=== PATIENT | female | born 1980 | race Caucasian/White ===

== ENCOUNTER 2024-04-14 07:22 | Outpatient (REF) | payer OTHER, SELFPAY ==
[2024-04-14 07:37] LABS: MANUAL DIFF FLAG NO
[2024-04-14 08:19] LABS: Basophils Percent Auto 0.8 % (0-2); Eosinophils Absolute Auto 0.1 X10*3/uL (0.0-0.4); Eosinophils Percent Auto 2.9 % (0-4); Hematocrit 41.1 % (37.0-47.0); Hemoglobin 13.7 g/dl (12.0-16.0); Lymphocytes Absolute Auto 1.1 X10*3/uL (1.2-4.9); Lymphocytes Percent Auto 30.2 % (20-40); Mean Corpuscular HGB Conc 33.3 g/dl (31.0-35.0); Mean Corpuscular Hemoglobin 29.6 pg (27.0-33.0); Mean Corpuscular Volume 88.8 fL (80.0-98.0); Mean Platelet Volume 9.6 fL (9.4-12.3); Monocytes Absolute Auto 0.4 X10*3/uL (0.1-1.2); Monocytes Percent Auto 10.6 % (2-11); Neutrophils Absolute Auto 2.1 x10*3/uL (2.0-8.3); Neutrophils Percent Auto 55.5 % (45-73); Platelet Count 218 X10*3/uL (160-400); Red Blood Count 4.63 X10*6/uL (4.20-5.50); Red Cell Distribution Width 13.3 % (11.0-16.0); White Blood Count 3.8 X10*3/uL (4.8-10.8)
[2024-04-14 09:03] LABS: Alanine Aminotransferase 14 U/L (0-31); Albumin Level 4.3 g/dL (3.5-5.0); Alkaline Phosphatase 53 U/L (39-117); Anion Gap 12 (12-20); Aspartate Amino Transferase 20 U/L (5-31); Bilirubin Total 0.6 mg/dL (0.0-1.0); Blood Urea Nitrogen 16 mg/dL (9-16); Calcium 9.3 mg/dL (8.4-10.2); Carbon Dioxide 26 mmol/L (22-29); Chloride 106 mmol/L (96-108); Estimated Glomerular Filt Rate > 60; Glucose Fasting 101 mg/dL (60-99); Potassium 4.5 mmol/L (3.3-5.1); Sodium 139 mmol/L (135-145)
[2024-04-14 09:22] LABS: TSH reflex Free T4 1.33 uIU/mL (0.32-4.0)
[2024-04-14 09:30] LABS: Folate 6.6 ng/mL (> or = 4.0); Vitamin B12 571 pg/mL (200-900)
[2024-04-15 11:13] LABS: Thyroglobulin Antibodies <1 IU/mL (< or = 1); Thyroid Peroxidase Antibodies <1 IU/mL (<9)
== END 2024-04-14 07:23 | disposition home or self-care (01) ==
LOC: HO.LAB 07:22
PROVIDERS: PCP Physician Assistant; Visit Provider Physician Assistant
DX: R63.5 Abnormal weight gain (principal)
CPT/HCPCS: 36415; 80053; 82607; 82746; 84443; 85025; 86376; 86800

== ENCOUNTER 2024-07-06 11:29 | Outpatient (AMB) | payer OTHER, SELFPAY ==
--- NOTE | 2024-07-06 11:32 | MHC.PC.OV ---
Vital Signs 07/06/24 11:40 Height 5 ft 5.35 in Weight 154 lb 4 oz BMI 25.4 BP 98/72 Blood Pressure Location Lt brachial Position Sitting Respiration 12 Pulse 91 Pulse Source Pulse Oximeter Temp 98.5 F Temp Source Oral Pulse Oximetry (%) 98 Oxygen Delivery Method Room Air Intake Visit Reasons: NPV, needs referral for vertigo Intake Note: New patient visit Steam Shovel Runner Required: No Allergies adhesive tape Allergy (Severe, Verified 07/06/24 11:36) Rash Sulfa (Sulfonamide Antibiotics) Allergy (Unknown, Verified 07/06/24 11:36) unknown Medication List - Last Reconciled 07/06/24 by Elizabeth Huitron PA-C blood-glucose sensor ([employer] Randy 3 Sensor device) use daily As directed to monitor blood sugars. change q 14 days diazepam 2 mg PO Q8H PRN 5 days esomeprazole magnesium 20 mg PO BID Tobacco use date assessed: 07/06/24 Dental Screening Dental Screen Date: 07/06/24 Did you have a dental visit in the last 12 months?: Yes Did you have a dental problem in the last 6 months where you did not have access to dental care?: No HPI NPV, needs referral for vertigo HPI Details Patient is a 43-year-old female with a significant past medical history of vertigo, Raynaud's, history of exercise induced rhabdo, positive inflammatory markers, Von Willebrand's, and GERD presenting today to reestablish care and with concerns of vertigo. She states she gets flare ups of vertigo a couple times a year but this is the worst it has ever been. She states it flared up 3 weeks ago. She states it feels like she is getting flashes and floaters. This has been going on and off for 2-3 months. She states it is worse with the vertigo sx of spinning. She has also had a headache for the last week that is persistent. She states it feels like a pressure. Her symptoms are worsened with position changes. She really would like to go to vestibular rehab. She has had to take the diazepam a couple times to help. The first time she got vertigo she had just a spinning sensation that did not cause any of the flashing and floaters or any headaches. States her acid reflux is well controlled with Nexium 20 mg. 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 1. Little interest or pleasure in doing things: not at all 2. Feeling down, depressed, or hopeless: not at all 3. Trouble falling or staying asleep, or sleeping too much: not at all 4. Feeling tired or having little energy: more than half the days 5. Poor appetite or overeating: not at all 6. Feeling bad about yourself - or that you are a failure or have let yourself or your family down: not at all 7. Trouble concentrating on things, such as reading the newspaper or watching television: not at all 8. Moving or speaking so slowly that other people could have noticed. Or the opposite - being so fidgety or restless that you have been moving around a lot more than usual: not at all 9. Thoughts that you would be better off or of hurting yourself in some way: not at all Total score: 2 Source: Developed by Drs. Romain Williamson, Penny Tong, Hema Thomason and colleagues, with an educational rafaela from [employer]. Thrive Questionnaire Date Thrive assessed: 07/04/24 I am a: Patient What is your living situation today?: I have a steady place to live Within the past 12 months, did the food you bought not last and you didn't have the money to get more?: Never true Within the past 12 months, did you worry whether your food would run out before you got money to buy more?: Never true Do you have trouble paying for medicines?: No Do you have trouble getting transportation to medical appointments?: No Do you have trouble paying your heating and electricity bill?: No Do you have trouble taking care of your child, family member or friend?: No Do you have trouble with day-to-day activities such as bathing, preparing meals, shopping, managing finances, etc.?: No Are you currently unemployed and looking for a job?: No Are you interested in more education?: No Please select the resources that you would like help with: None Currently or been in a relationship where the following occur: No concerns reported THRIVE Score: 0 AUDIT C Alcohol Use Questionnaire (AUDIT-C) 1. How often do you have a drink containing alcohol?: 2-4 times a month 2. How many drinks containing alcohol do you have on a typical day when you are drinking?: 3 or 4 3. How often do you have six or more drinks on one occasion?: Never Total Score: 3 JAUN-7 AMB Questionnaire JAUN-7 Feeling nervous, anxious, or on edge: 0 = Not at all Not being able to stop or control worryin = Not at all Worrying too much about different things: 0 = Not at all Trouble relaxin = Not at all Being so restless that it is hard to sit still: 0 = Not at all Feeling afraid as if something awful might happen: 0 = Not at all Source: Developed by Drs. Rmoain Williamson, Penny Tong, Hema Thomason and colleagues, with an educational rafaela from [employer]. Physical exam (Primary Care) Vital Signs: Last Vital Signs Temp 98.5 F 07/06/24 11:40 Pulse 91 07/06/24 11:40 Resp 12 07/06/24 11:40 BP 98/72 07/06/24 11:40 Pulse Ox 98 07/06/24 11:40 Oxygen Delivery Method Room Air 07/06/24 11:40 BMI result Body Mass Index 25.4 Tobacco/Smoking Status: Tobacco use Status Tobacco use date assessed 07/06/24 07/06/24 11:46 Patient Tobacco Use Status Former Tobacco user 07/06/24 11:46 e-Cigarette/Vaping Use Never Used 07/06/24 11:46 PHQ-9: PHQ-9 Score PHQ-9: Total score 2 07/06/24 11:50 Thrive Assessment: Date of Thrive Assessment Date Thrive assessed 07/04/24 07/06/24 11:34 Currently or been in a relationship where the following occur: No concerns reported Const Orientation/consciousness: patient oriented x3 HENMT Ears: hearing grossly normal bilaterally and TM's normal bilaterally General nose exam: No nasal polyps present Face and sinus: Yes sinuses nontender Mouth: Normal oral and palatal mucosa present Eyes Pupils: Equal, round and reactive pupils present EOM: EOMs intact bilaterally Neck Neck: Yes full ROM and Yes no lymphadenopathy Thyroid: Thyroid normal Chest Chest palpation & inspection: normal inspection of the chest Resp Auscultation: clear to auscultation bilaterally Cardio Rate: regular rate Rhythm: regular rhythm Heart sounds: S1 normal heart sound present and S2 normal heart sound present Peripheral pulses: Peripheral pulses 2+ throughout GI Other: Soft, nontender Auscultation: normal bowel sounds Rectal Exam - Female: deferred General: Yes no CVA tenderness Back/Spine/Pelvis Other: Nontender Back: no CVA tenderness Skin General skin exam: no rashes or lesions noted Neuro Other: She does have a slight sway with Romberg. Izhvef-so-wfxp testing intact however delayed more than anticipated General: patient oriented x3, gait normal, CN's II-XI intact bilaterally and deep tendon reflexes 2+ bilaterally Cranial nerves: Yes Equal, round and reactive pupils present Motor exam (neuro): 5/5 motor strength present throughout Sensory Exam: double simultaneous stimulation for sensation normal Coordination: dsangm-gh-hvui test normal, sways with eyes open and Romberg test negative Extrem General: Yes normal to inspection and Yes full ROM Psych Affect: normal affect Attitude: cooperative Thought process: Normal thought process present Thought content: Normal thought content present Insight: Good insight present (Psych) Judgement: Good judgement present (Psych) Assessment and Plan Assessment & Plan (1) Dizziness: Code(s): R42 - Dizziness and giddiness Plan: Labs ordered. MRI with and without contrast ordered. Advised to follow with PT. Reviewed signs and symptoms of dizziness require emergent medical treatment. (2) New persistent daily headache: Code(s): G44.52 - New daily persistent headache (NDPH) Plan: As above. Patient understands and agrees with this plan. Orders: Orders Ferritin 07/06/24 G44.52 - New daily persistent headache (NDPH), R42 - Dizziness and giddiness Vitamin B12 and Folate 07/06/24 G44.52 - New daily persistent headache (NDPH), R42 - Dizziness and giddiness Magnesium 07/06/24 G44.52 - New daily persistent headache (NDPH), R42 - Dizziness and giddiness Tick-borne Disease Molecular 07/06/24 G44.52 - New daily persistent headache (NDPH), R42 - Dizziness and giddiness MR brain wo/w con w neuroquant 07/06/24 G44.52 - New daily persistent headache (NDPH), R26.9 - Unspecified abnormalities of gait and mobility, R42 - Dizziness and giddiness Comprehensive [place]. Panel Fast 07/06/24 G44.52 - New daily persistent headache (NDPH), R42 - Dizziness and giddiness Complete Blood Count Auto Diff 07/06/24 G44.52 - New daily persistent headache (NDPH), R42 - Dizziness and giddiness IRON PROFILE 07/06/24 G44.52 - New daily persistent headache (NDPH), R42 - Dizziness and giddiness TSH reflex Free T4 07/06/24 G44.52 - New daily persistent headache (NDPH), R42 - Dizziness and giddiness Medications: New blood-glucose sensor ([employer] Randy 3 Plus Sensor device) Use daily As directed to monitor glucose 2 ea 5RF R73.01 - Impaired fasting glucose Discontinued blood-glucose sensor ([employer] Randy 3 Sensor device) Discontinued Reason: Doctor's Order use daily As directed to monitor blood sugars. change q 14 days 2 ea 11RF R73.01 - Impaired fasting glucose Coding Level of Care Code New Pt Level 4 (06263) Complex EM visit Add On G2211 Diagnoses Dizziness R42 New persistent daily headache G44.52
[2024-07-06 11:40] VITALS: BP 98/72; PULSE 91; RESP 12; TEMP 36.9; O2SAT 98; BMI 25.4
== END 2024-07-06 14:29 | disposition home or self-care (01) ==
PROVIDERS: PCP Physician Assistant; Visit Provider Physician Assistant
DX: R42 Dizziness and giddiness (principal); G44.52 New daily persistent headache (NDPH)

== ENCOUNTER → 2024-07-06 11:29 | Outpatient (BNVA) | payer OTHER, SELFPAY | PROVIDERS: PCP Physician Assistant; Visit Provider Physician Assistant | DX: R42 Dizziness and giddiness (principal); G44.52 New daily persistent headache (NDPH) | CPT/HCPCS: 96127 ==

== ENCOUNTER 2024-07-18 08:12 | Outpatient (AMB) | payer OTHER, SELFPAY ==
--- NOTE | 2024-07-18 10:05 | MHC.OFFWIV ---
Intake Vital Signs 07/18/24 10:07 Height 5 ft 5 in Weight 161 lb 3 oz BMI 26.8 BP 110/68 Blood Pressure Location Rt brachial Position Sitting Pulse 69 Pulse Source Pulse Oximeter Pulse Oximetry (%) 99 Oxygen Delivery Method Room Air Intake Visit Reasons: EP-cough, fatigue, headaches Intake Note: Patient is here today for sick visit for head cold, dry coughing, fatigue, achy, headaches, and chest pain ongoing for weeks . Neg for home covid test. OTC not helping. Patient Tobacco Use Status: Former Tobacco user Supervisor Properties Required: No Apron Man: Not Required per policy Accompanied by: Self / Same As Patient Allergies adhesive tape Allergy (Severe, Verified 07/18/24 10:06) Rash Sulfa (Sulfonamide Antibiotics) Allergy (Unknown, Verified 07/18/24 10:06) unknown Do you need a note to return to daycare/school/sports/work: No HPI EP-cough, fatigue, headaches HPI Details This note is constructed using voice recognition software. While every effort has been made to ensure accuracy, clock and watch hands dipper errors may have been included. The patient is a 43 year old female who presents to the clinic today with cough, headaches, and general fatigue for the past chest 2+ weeks. She notes she has a history of childhood asthma that does get exacerbated from URIs. She denies fever, chills, dyspnea. She notes that the cough is dry, worse in the morning and at bedtime. She feels that the headaches are related to coughing because the cough feels fairly violent at times, however remains nonproductive. 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 Current occupational exposures/hazards: No Cognitive needs: No Hearing needs: No Vision needs: Yes (glasses, contacts) Review of Systems Const All systems reviewed & are unremarkable except as noted in HPI and below Physical Exam Vital Signs: Last Vital Signs Pulse 69 07/18/24 10:07 BP 110/68 07/18/24 10:07 Pulse Ox 99 07/18/24 10:07 Oxygen Delivery Method Room Air 07/18/24 10:07 BMI result Body Mass Index 26.8 Const General: cooperative, healthy appearing, comfortable and no acute distress Orientation/consciousness: patient oriented x3 Limitations: no limitations HEENT Head: Yes normal to inspection Ears: hearing grossly normal bilaterally, external ears normal and TM abnormal retracted General nose exam: Normal external nose present, No nasal discharge present and Abnormal mucous membranes and turbinates present boggy and pale Face and sinus: Yes normal facial exam and Yes sinuses nontender Mouth: Normal oral and palatal mucosa present and moist mucous membranes Throat: Yes tonsils normal, Yes uvula midline, Yes posterior oropharynx abnormal (Erythema), Yes postnasal drainage and Yes cobblestoning Eyes General: appearance normal, both eyes and all related structures Neck Neck: Yes normal visual inspection Resp Effort & Inspection: normal respiratory effort, able to speak in complete sentences, Actively coughing, no respiratory distress, not tachypneic, no tripod positioning and no use of accessory muscles Auscultation: clear to auscultation bilaterally Cardio Rate: regular rate Rhythm: regular rhythm Heart sounds: normal S1 and S2 Skin General skin exam: no rashes or lesions noted Neuro General: patient oriented x3 Extrem General: Yes normal to inspection and Yes no clubbing, cyanosis or edema Assessment & Plan Assessment & Plan (1) Allergic rhinitis: Code(s): J30.9 - Allergic rhinitis, unspecified Qualifiers: Allergic rhinitis trigger: unspecified Allergic rhinitis seasonality: unspecified Qualified Code(s): J30.9 - Allergic rhinitis, unspecified Plan: Cough likely related to allergies. Due to timeline since onset, we elected not to perform a viral swab. Due to her reassuring physical examination, we also elected to avoid x-ray at this time. Supportive measures encouraged and reviewed. Advised patient to try a Flonase nasal spray and second-generation antihistamine such as Zyrtec, Claritin, Elissa or similar. Advised consideration of sinus rinse if needed. Advised patient to follow up with primary care provider with worsening or failure to resolve. Plan See above for full details and plan. Coding Level of Care Code Est Pt Level 3 (44648) Diagnoses Allergic rhinitis, unspecified seasonality, unspecified trigger J30.9 Allergic rhinitis trigger: unspecified Allergic rhinitis seasonality: unspecified
[2024-07-18 10:07] VITALS: BP 110/68; PULSE 69; O2SAT 99; BMI 26.8
== END 2024-07-18 10:43 | disposition home or self-care (01) ==
PROVIDERS: PCP Physician Assistant; Visit Provider Registered Nurse
DX: J30.9 Allergic rhinitis, unspecified (principal)

== ENCOUNTER → 2024-07-18 08:12 | Outpatient (BNVA) | payer OTHER, SELFPAY | PROVIDERS: PCP Physician Assistant ==

== ENCOUNTER 2024-08-13 12:52 | Outpatient (REF) | payer OTHER, SELFPAY ==
--- NOTE | ~2024-08-13 | MR_ITS ---
EXAMINATION: MR BRAIN WITHOUT AND WITH CONTRAST CLINICAL INFORMATION: Dizziness and unsteady gait COMPARISON: None available. TECHNIQUE: Multiplanar, multisequence MRI of the brain was obtained before and after the intravenous administration of 7 mL Gadavist. FINDINGS: Ventricles, sulci and cisterns are normal. No focal cerebral, brainstem or cerebellar lesions with abnormal signal can be seen. Diffusion weighted images show no abnormal regional decrease in diffusion. Contrast enhanced images show normal enhancement of major intra cerebral blood vessels. No enhancing focal cerebral, brainstem or cerebellar lesions can be seen. High-resolution images show normal symmetric bilateral seventh/eighth nerve complexes. Bilateral cochleae and semicircular canals are also normal. Post contrast axial images show asymmetric diffuse enhancement of the left cochlea and vestibular nerves, series 11 image #9. There is no asymmetric enhancement or mass lesions in the right seventh/eighth nerve complex or inner ear labyrinth. The pituitary gland is atrophic for the patient's age. Optic chiasm is not displaced. Cerebellar tonsils position is normal. MR/MR head/brain wo/w con IMPRESSION: 1. 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 Clinical correlation is recommended. 2. No enhancing focal cerebral, brainstem or cerebellar lesions can be seen. 3. No evidence of acute cerebral infarction. 4. Atrophic pituitary gland for the patient's age. Electronically signed by: Sylvain Boss MD 08/18/2024 05:05 PM EDT
[2024-08-13] MEDS: gadobutroL 7.5 ML VIAL IVPUSH (14:31)
== END 2024-08-13 12:53 | disposition home or self-care (01) ==
LOC: HO.MRI 12:52
PROVIDERS: PCP Physician Assistant; Visit Provider Physician Assistant
DX: R42 Dizziness and giddiness (principal); G44.52 New daily persistent headache (NDPH)
CPT/HCPCS: 70553; A9585

== ENCOUNTER 2024-08-25 07:46 | Outpatient (REF) | payer OTHER, SELFPAY ==
[2024-08-25 10:25] LABS: MANUAL DIFF FLAG NO
[2024-08-25 10:31] LABS: Basophils Percent Auto 0.7 % (0-2); Eosinophils Absolute Auto 0.1 X10*3/uL (0.0-0.4); Eosinophils Percent Auto 2.2 % (0-4); Hematocrit 42.7 % (37.0-47.0); Hemoglobin 14.6 g/dl (12.0-16.0); Imm Gran Abs Auto 0.01 X10*3/uL (0.00-0.03); Imm Gran Pct Auto 0.2 % (0.0-0.4); Lymphocytes Absolute Auto 1.9 X10*3/uL (1.2-4.9); Lymphocytes Percent Auto 41.8 % (20-40); Mean Corpuscular HGB Conc 34.2 g/dl (31.0-35.0); Mean Corpuscular Hemoglobin 29.4 pg (27.0-33.0); Mean Corpuscular Volume 85.9 fL (80.0-98.0); Mean Platelet Volume 10.2 fL (9.4-12.3); Monocytes Absolute Auto 0.5 X10*3/uL (0.1-1.2); Monocytes Percent Auto 11.2 % (2-11); Neutrophils Percent Auto 43.9 % (45-73); Platelet Count 244 X10*3/uL (160-400); Red Blood Count 4.97 X10*6/uL (4.20-5.50); Red Cell Distribution Width 12.5 % (11.0-16.0); White Blood Count 4.5 X10*3/uL (4.8-10.8)
[2024-08-25 11:11] LABS: Alanine Aminotransferase 14 U/L (0-31); Albumin Level 4.5 g/dL (3.5-5.0); Alkaline Phosphatase 52 U/L (39-117); Anion Gap 12 (12-20); Aspartate Amino Transferase 21 U/L (5-31); Bilirubin Total 1.1 mg/dL (0.0-1.0); Blood Urea Nitrogen 14 mg/dL (9-16); Calcium 9.9 mg/dL (8.4-10.2); Carbon Dioxide 24 mmol/L (22-29); Chloride 106 mmol/L (96-108); Estimated Glomerular Filt Rate > 60; Ferritin 164 ng/mL (10-250); Glucose Fasting 89 mg/dL (60-99); Iron 111 mcg/dL (30-160); Percent Iron Saturation 41 % (15-50); Potassium 4.5 mmol/L (3.3-5.1); Sodium 137 mmol/L (135-145); TSH reflex Free T4 1.46 uIU/mL (0.32-4.0); Total Iron Binding Capacity 270 mcg/dL (228-428); Total Protein 7.3 g/dL (6.5-8.0); Unsaturated Iron Binding 159 ug/dL
[2024-08-25 11:28] LABS: Folate 12.1 ng/mL (> or = 4.0); Vitamin B12 598 pg/mL (200-900)
[2024-08-26 19:09] LABS: A. Phagocytphilium DNA,RT-PCR NOT DETECTED (NOT DETECTED); Babesia Microti DNA, RT-PCR NOT DETECTED (NOT DETECTED); Borrelia Miyamotoi,DNA RT-PCR NOT DETECTED (NOT DETECTED); E.Chaffeensis DNA RT-PCR NOT DETECTED (NOT DETECTED); Lyme(Borrelia ssp)DNA RT-PCR NOT DETECTED (NOT DETECTED)
== END 2024-08-25 07:47 | disposition home or self-care (01) ==
LOC: HO.HMGCLDS 07:46
PROVIDERS: PCP Physician Assistant; Visit Provider Physician Assistant
DX: R42 Dizziness and giddiness (principal); G44.52 New daily persistent headache (NDPH)
CPT/HCPCS: 36415; 80053; 82607; 82728; 82746; 83540; 83735; 84443; 85025; 87468; 87469; 87478; 87484; 87798

== ENCOUNTER 2024-09-02 10:48 | Outpatient (AMB) | payer OTHER, SELFPAY ==
--- NOTE | 2024-09-02 10:50 | MHC.OFFVIS ---
Vital Signs 09/02/24 10:51 Height 5 ft 5 in Weight 151 lb 7.321 oz BMI 25.2 BP 108/62 Blood Pressure Location Lt brachial Position Standing Pulse 81 Pulse Source Pulse Oximeter Intake Visit Reasons: Disorder of pituitary gland, unspecified-confirmed Intake Note: New patient present today for Disorder of pituitary gland, unspecified. Asparagus Buncher Required: No Accompanied by: Self / Same As Patient Allergies adhesive tape Allergy (Severe, Verified 09/02/24 10:55) Rash Sulfa (Sulfonamide Antibiotics) Allergy (Unknown, Verified 09/02/24 10:55) unknown Medication List - Last Reconciled 09/02/24 by Ary Sanches MD blood-glucose sensor (LockstreamStyle Randy 3 Plus Sensor device) Use daily As directed to monitor glucose esomeprazole magnesium 20 mg PO BID HPI Comments Details: 43-year-old female here today for initial evaluation of atrophic pituitary gland. Otherwise medical history significant for p, Raynaud's, history of exercise induced rhabdo, Von Willebrand's, and GERD. Has had history of vertigo that has recently worsened in the past 2-3 months with increased frequency, for which MRI brain was done 08/13/2024 which commented on atrophic pituitary gland, small for patient's age? I reviewed the images myself, do not see any hypodensities, optic chiasm not affected. No vomiting. Reports nausea. but recently started tirzepatide compounded. Sexually active, not on contraceptives. LMP: 08/31/24 regular pregnancies : children ages 17 and 21 years old, no other pregnancies. No infertiltiy. No nipple discharge. No more vertigo ,started May 2024 until July 2024. Saw vestibular therapist, was thought to have vestibular migraine. Has had epleys maneuver in the past. Reports ear fullness. Has appointment with ENT coming up. No vision changes. One episode what sound like floaters. Has appointment with neurology. No change in ring size or shoe size. No abd pain, no loose stools , no constipation. Feels cold all the time. Weight : stable. taking compounded Tirzepatatide, eats clean and exercise but feels difficult losing weight. No palpitations, no tremors. No hirsuitism. no acne. Low libido feels like that is her baseline. Review of systems Constitutional: no fevers, chills or weight loss HEENT: no changes in vision Cardiac: No chest pain, discomfort or palpitations. GI:No abdominal pain, no nausea or vomiting, no anorexia, no blood in stool : no burning micturition, dysuria or increase in urinary frequency Neurologic: No dizziness, no weakness in extremities MSK: no back pain or joint stiffness Physical exam General: sitting comfortably in no acute distress HEENT: normocephalic/atraumatic, moist oral mucosa Neck: supple, symmetrical, no thyromegaly , no dorsocervical or supraclavicular fat pads Cardiac: normal heart sounds Pulm: normal breath sounds B/L, no added breath sounds Abd: not distended, no tenderness Extremities: no edema, no signs of myxedema Neuro: AAO x3, Speech: normal, no facial droop, moving all 4 extremities Laboratory Tests 04/14/24 08/25/24 07:37 07:59 TSH 1.33 1.46 MR BRAIN WITHOUT AND WITH CONTRAST 08/13/24 CLINICAL INFORMATION: Dizziness and unsteady gait COMPARISON: None available. TECHNIQUE: Multiplanar, multisequence MRI of the brain was obtained before and after the intravenous administration of 7 mL Gadavist. FINDINGS: Ventricles, sulci and cisterns are normal. No focal cerebral, brainstem or cerebellar lesions with abnormal signal can be seen. Diffusion weighted images show no abnormal regional decrease in diffusion. Contrast enhanced images show normal enhancement of major intra cerebral blood vessels. No enhancing focal cerebral, brainstem or cerebellar lesions can be seen. High-resolution images show normal symmetric bilateral seventh/eighth nerve complexes. Bilateral cochleae and semicircular canals are also normal. Post contrast axial images show asymmetric diffuse enhancement of the left cochlea and vestibular nerves, series 11 image #9. There is no asymmetric enhancement or mass lesions in the right seventh/eighth nerve complex or inner ear labyrinth. The pituitary gland is atrophic for the patient's age. Optic chiasm is not displaced. Cerebellar tonsils position is normal. MR/MR head/brain wo/w con IMPRESSION: 1. 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 Clinical correlation is recommended. 2. No enhancing focal cerebral, brainstem or cerebellar lesions can be seen. 3. No evidence of acute cerebral infarction. 4. Atrophic pituitary gland for the patient's age. 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 She does not have the vertigo anymore. No specific signs or symptoms of pituitary dysfunction on her history or exam. She has regular periods, no symptoms to suggest cortisol deficiency. However we will evaluate with a detailed pituitary panel to ensure she does not have any pituitary insufficiency. If biochemical workup is abnormal, we will consider getting an MRI of the pituitary. Plan: -ordered pituitary panel with ACTH, cortisol, DHEA-S, FSH, LH, estradiol, testosterone, prolactin, IGF-1, growth hormone, alpha subunit, TSH, free T4 levels -follow up in 4 weeks to discuss results Plan I spent 45 minutes in reviewing the record, seeing the patient and documenting in the medical record. Orders: Orders Adrenocorticotropic Hormone Today E23.7 - Disorder of pituitary gland, unspecified Thyroid Stimulating Hormone Today E23.7 - Disorder of pituitary gland, unspecified Follicle Stimulating Hormone Today E23.7 - Disorder of pituitary gland, unspecified Testosterone, Free/Total Today E23.7 - Disorder of pituitary gland, unspecified Basic Metabolic Panel Today E23.7 - Disorder of pituitary gland, unspecified Alpha Subunit Today E23.7 - Disorder of pituitary gland, unspecified Cortisol Random Today E23.7 - Disorder of pituitary gland, unspecified DHEA Sulfate Today E23.7 - Disorder of pituitary gland, unspecified Sex Hormone Binding Globulin Today E23.7 - Disorder of pituitary gland, unspecified Lutenizing Hormone Today E23.7 - Disorder of pituitary gland, unspecified Prolactin Today E23.7 - Disorder of pituitary gland, unspecified Free T4 (Free Thyroxine) Today E23.7 - Disorder of pituitary gland, unspecified Osmolality, Serum Today E23.7 - Disorder of pituitary gland, unspecified Osmolality Urine Today E23.7 - Disorder of pituitary gland, unspecified IGF-1 (Somatomedin C) Today E23.7 - Disorder of pituitary gland, unspecified Human Growth Hormone Today E23.7 - Disorder of pituitary gland, unspecified Estradiol Ultra Sensitive Today E23.7 - Disorder of pituitary gland, unspecified Patient Instructions: do fasting early 8 AM labs and urine Coding Level of Care Code New Pt Level 4 (15645) Diagnoses Pituitary abnormality E23.7 Time Spent (min) 45
[2024-09-02 10:51] VITALS: BP 108/62; PULSE 81; BMI 25.2
== END 2024-09-02 11:36 | disposition home or self-care (01) ==
PROVIDERS: PCP Physician Assistant; Visit Provider Student in an Organized Health Care Education/Training Program
DX: E23.7 Disorder of pituitary gland, unspecified (principal)
CPT/HCPCS: 99204

== ENCOUNTER 2024-09-05 07:37 | Outpatient (REF) | payer OTHER, SELFPAY ==
[2024-09-05 10:39] LABS: Anion Gap 11 (12-20); Blood Urea Nitrogen 13 mg/dL (9-16); Calcium 9.9 mg/dL (8.4-10.2); Carbon Dioxide 26 mmol/L (22-29); Chloride 108 mmol/L (96-108); Estimated Glomerular Filt Rate > 60; Glucose Random 89 mg/dL (60-115); Potassium 4.2 mmol/L (3.3-5.1); Sodium 141 mmol/L (135-145)
[2024-09-05 10:50] LABS: Free T4 (Free Thyroxine) 1.12 ng/dL (0.71-1.85); Thyroid Stimulating Hormone 1.21 uIU/mL (0.32-4.0)
[2024-09-05 10:58] LABS: Osmolality, Serum 295 mosm/kg (281-305)
[2024-09-05 11:05] LABS: Osmolality Urine 876 mosm/kg (373-1093)
[2024-09-06 08:28] LABS: DHEA Sulfate 102 mcg/dL (15-205); Follicle Stimulating Hormone 7.4 mIU/mL; Lutenizing Hormone 4.8 mIU/mL; Prolactin 10.9 ng/mL
[2024-09-06 08:58] LABS: Sex Hormone Binding Globulin 84 nmol/L (17-124)
[2024-09-06 11:33] LABS: Human Growth Hormone 0.1 ng/mL (< OR = 7.1)
[2024-09-09 14:28] LABS: IGF-1 (Somatomedin C) 160 ng/mL (52-328); IGF-1 Z Score (Female) 0.3 SD (-2.0 - +2.0)
[2024-09-09 20:23] LABS: Testosterone, Free 0.9 pg/mL (0.1-6.4); Testosterone, Total 12 ng/dL (2-45)
[2024-09-14 00:19] LABS: Estradiol Ultra Sensitive 135 pg/mL
== END 2024-09-05 07:38 | disposition home or self-care (01) ==
LOC: HO.HMGCLDS 07:37
PROVIDERS: PCP Physician Assistant; Visit Provider Student in an Organized Health Care Education/Training Program
DX: E23.7 Disorder of pituitary gland, unspecified (principal)
CPT/HCPCS: 36415; 80048; 82627; 82670; 83001; 83002; 83003; 83519; 83930; 83935; 84146; 84270; 84305; 84402; 84403; 84439; 84443

== ENCOUNTER 2024-09-29 09:04 | Outpatient (AMB) | payer OTHER, SELFPAY ==
--- NOTE | 2024-09-29 09:09 | A.OFFPC_ITS ---
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 No acute concerns today. She says that she is overall feeling well since starting zepbound through a compound pharmacy. She also follows with a navy fighter pilot and endocrinology for a smaller than expected pituitary on MRI. 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 Current occupational exposures/hazards: No Cognitive needs: No Hearing needs: No Vision needs: Yes (glasses, contacts) Questionnaire Thrive Questionnaire Date Thrive assessed: 07/04/24 I am a: Patient What is your living situation today?: I have a steady place to live Within the past 12 months, did the food you bought not last and you didn't have the money to get more?: Never true Within the past 12 months, did you worry whether your food would run out before you got money to buy more?: Never true Do you have trouble paying for medicines?: No Do you have trouble getting transportation to medical appointments?: No Do you have trouble paying your heating and electricity bill?: No Do you have trouble taking care of your child, family member or friend?: No Do you have trouble with day-to-day activities such as bathing, preparing meals, shopping, managing finances, etc.?: No Are you currently unemployed and looking for a job?: No Are you interested in more education?: No Please select the resources that you would like help with: None Currently or been in a relationship where the following occur: No concerns reported THRIVE Score: 0 JAUN-7 AMB Questionnaire JAUN-7 Becoming easily annoyed or irritable: 0 = Not at all Source: Developed by Drs. Romain Williamson, Penny Tong, Hema Thomason and colleagues, with an educational rafaela from [employer]. Physical exam (Primary Care) Vital Signs: Last Vital Signs Pulse 94 09/29/24 09:12 BP 108/64 09/29/24 09:12 Pulse Ox 99 09/29/24 09:12 Oxygen Delivery Method Room Air 09/29/24 09:12 BMI result Body Mass Index 23.9 Tobacco/Smoking Status: Tobacco use Status Tobacco use date assessed 07/06/24 09/29/24 09:19 Patient Tobacco Use Status Former Tobacco user 09/29/24 09:19 e-Cigarette/Vaping Use Never Used 09/29/24 09:19 Thrive Assessment: Date of Thrive Assessment Date Thrive assessed 07/04/24 09/29/24 09:19 Currently or been in a relationship where the following occur: No concerns reported Const Orientation/consciousness: patient oriented x3 HENMT Ears: hearing grossly normal bilaterally and TM's normal bilaterally General nose exam: No nasal polyps present Face and sinus: Yes sinuses nontender Mouth: Normal oral and palatal mucosa present Eyes Pupils: Equal, round and reactive pupils present EOM: EOMs intact bilaterally Neck Neck: Yes full ROM and Yes no lymphadenopathy Thyroid: Thyroid normal Chest Chest palpation & inspection: normal inspection of the chest Resp Auscultation: clear to auscultation bilaterally Cardio Rate: regular rate Rhythm: regular rhythm Heart sounds: S1 normal heart sound present and S2 normal heart sound present Peripheral pulses: Peripheral pulses 2+ throughout GI Other: Soft, nontender Auscultation: normal bowel sounds Rectal Exam - Female: deferred General: Yes no CVA tenderness Back/Spine/Pelvis Other: Nontender Back: no CVA tenderness Skin General skin exam: no rashes or lesions noted Neuro General: patient oriented x3, gait normal, CN's II-XI intact bilaterally and deep tendon reflexes 2+ bilaterally Cranial nerves: Yes Equal, round and reactive pupils present Motor exam (neuro): 5/5 motor strength present throughout Sensory Exam: double simultaneous stimulation for sensation normal Coordination: [id number] test normal and Romberg test negative Extrem General: Yes normal to inspection and Yes full ROM Psych Affect: normal affect Attitude: cooperative Thought process: Normal thought process present Thought content: Normal thought content present Insight: Good insight present (Psych) Judgement: Good judgement present (Psych) Coding Level of Care Code Est Pt Prev Care 40-64y(66530) Diagnoses Routine general medical examination at a health care facility Z00.00 Assessment & Plan Assessment & Plan (1) Routine general medical examination at a health care facility: Code(s): Z00.00 - Encounter for general adult medical examination without abnormal findings Plan: Health maintenance reviewed. Labs reviewed. Lipids ordered. We will follow up pending test results. Orders: Orders Lipid Panel Today E78.5 - Hyperlipidemia, unspecified, Z00.00 - Encounter for general adult medical examination without abnormal findings
[2024-09-29 09:12] VITALS: BP 108/64; PULSE 94; O2SAT 99; BMI 23.9
== END 2024-09-29 10:04 | disposition home or self-care (01) ==
PROVIDERS: PCP Physician Assistant; Visit Provider Physician Assistant
DX: Z00.00 Encounter for general adult medical examination without abnormal findings (principal)

== ENCOUNTER 2024-09-30 08:15 | Outpatient (REF) | payer OTHER, SELFPAY ==
--- OUTSIDE RECORDS SUMMARY | 2024-09-30 08:23 | XMS_ITS ---
Author Name [facility] Organization Unknown History of Medication Use Medication Directions Dispensed Refills Start Date End Date Stat esomeprazole (NexIUM) capsule 20 mg Take 1 capsule (20 mg total) by mouth. 08/07/2024 10/18/9999 active Vitamin D-Vitamin K (K2 Plus D3) 100-1000 MCG-UNIT TABS 0 Refills, Maintenance, 02/25/23 15:38:00 EDT, Partial fill upon patient request if the prescription is for a schedule II opioid drug. 08/07/2024 10/18/9999 active fish oil-omega-3 fatty acids 1000 MG capsule Take by mouth. 08/07/2024 10/18/9999 active SUMAtriptan (IMITREX) 50 MG tablet Take 1 tablet (50 mg total) by mouth every 2 (two) hours as needed. 08/07/2024 10/18/9999 active Problems Problem Status Onset Date Problem Type Date of Resolution Source Benign paroxysmal positional vertigo active 2020-11-01 ProblemAct [facility] Vertigo active EncounterDiagnosisAct [facility] Intractable migraine without aura active 2024-08-05 ProblemAct [facility] Mckinley's esophagus active 2024-08-05 ProblemAct [facility] Exercise-induced asthma active 2014-04-26 ProblemAct [facility] Chronic migraine w/o aura w/o status migrainosus, not intractable active EncounterDiagnosisAct [facility] MG Autoimmune disease active 2024-07-11 ProblemAct [facility]
[2024-09-30 10:52] LABS: Cholesterol 180 mg/dL (<200); HDL Cholesterol 45 mg/dL (>40); LDL Cholesterol Calculated 123 mg/dL (<100); Triglycerides 63 mg/dL (<150)
[2024-09-30 11:11] LABS: Cortisol Random 9.8 ug/dL
[2024-10-06 15:48] LABS: Adrenocorticotropic Hormone 11 pg/mL (6-50)
== END 2024-09-30 08:16 | disposition home or self-care (01) ==
LOC: HO.LAB 08:15
PROVIDERS: PCP Physician Assistant; Referring Provider Student in an Organized Health Care Education/Training Program; Visit Provider Physician Assistant
DX: Z00.00 Encounter for general adult medical examination without abnormal findings (principal); E78.5 Hyperlipidemia, unspecified; E23.7 Disorder of pituitary gland, unspecified
CPT/HCPCS: 36415; 80061; 82024; 82533

== ENCOUNTER 2024-09-30 08:30 | Outpatient (AMB) | payer OTHER, SELFPAY ==
--- NOTE | 2024-09-30 08:32 | MHC.OFFVIS ---
Vital Signs 09/30/24 08:33 Height 5 ft 5 in Weight 147 lb 0.773 oz BMI 24.5 BP 98/70 Blood Pressure Location Lt brachial Position Sitting Pulse 68 Pulse Source Pulse Oximeter Intake Visit Reasons: Disorder of pituitary gland, unspecified Intake Note: Patient present today for disorder of pituitary gland, unspecified office visit. Career Development Coordinator/Teacher Required: No Accompanied by: Self / Same As Patient Allergies adhesive tape Allergy (Severe, Verified 09/30/24 08:37) Rash Sulfa (Sulfonamide Antibiotics) Allergy (Unknown, Verified 09/30/24 08:37) unknown HPI Comments Details: 43-year-old female here today for follow up of atrophic pituitary gland. Otherwise medical history significant for p, Raynaud's, history of exercise induced rhabdo, Von Willebrand's, and GERD. HPi from prior visit Has had history of vertigo that has recently worsened in the past 2-3 months with increased frequency, for which MRI brain was done 08/13/2024 which commented on atrophic pituitary gland, small for patient's age? I reviewed the images myself, do not see any hypodensities, optic chiasm not affected. No vomiting. Reports nausea. but recently started tirzepatide compounded. Sexually active, not on contraceptives. LMP: 08/31/24 regular pregnancies : children ages 17 and 21 years old, no other pregnancies. No infertiltiy. No nipple discharge. No more vertigo ,started May 2024 until July 2024. Saw vestibular therapist, was thought to have vestibular migraine. Has had epleys maneuver in the past. Reports ear fullness. Has appointment with ENT coming up. No vision changes. One episode what sound like floaters. Has appointment with neurology. No change in ring size or shoe size. No abd pain, no loose stools , no constipation. Feels cold all the time. Weight : stable. taking compounded Tirzepatatide, eats clean and exercise but feels difficult losing weight. No palpitations, no tremors. No hirsuitism. no acne. Low libido feels like that is her baseline. Interval history Labs from 09/05/2024 showed normal pituitary panel. For some reason ACTH and cortisol was not drawn however the rest of it looks unremarkable. Physical exam General: sitting comfortably in no acute distress HEENT: normocephalic/atraumatic, moist oral mucosa Neck: supple, symmetrical, no thyromegaly , no dorsocervical or supraclavicular fat pads Cardiac: normal heart sounds Pulm: normal breath sounds B/L, no added breath sounds Abd: not distended, no tenderness Extremities: no edema, no signs of myxedema Neuro: AAO x3, Speech: normal, no facial droop, moving all 4 extremities Laboratory Tests 04/14/24 08/25/24 07:37 07:59 TSH 1.33 1.46 Laboratory Tests 09/05/24 09/05/24 08:05 08:10 Alpha Subunit Marker 0.2 TSH 1.21 Free T4 1.12 FSH 7.4 Estradiol Ultra LCMSMS 135 Luteinizing Hormone 4.8 Prolactin 10.9 Total Testosterone 12 Fr Testosterone Dialys 0.9 Sex Hormone Bind Glob 84 DHEA Sulfate 102 Human Growth Hormone 0.1 Somatomedin-C 160 Somato-C Z-Score Female 0.3 Urine Osmolality 876 MR BRAIN WITHOUT AND WITH CONTRAST 08/13/24 CLINICAL INFORMATION: Dizziness and unsteady gait COMPARISON: None available. TECHNIQUE: Multiplanar, multisequence MRI of the brain was obtained before and after the intravenous administration of 7 mL Gadavist. FINDINGS: Ventricles, sulci and cisterns are normal. No focal cerebral, brainstem or cerebellar lesions with abnormal signal can be seen. Diffusion weighted images show no abnormal regional decrease in diffusion. Contrast enhanced images show normal enhancement of major intra cerebral blood vessels. No enhancing focal cerebral, brainstem or cerebellar lesions can be seen. High-resolution images show normal symmetric bilateral seventh/eighth nerve complexes. Bilateral cochleae and semicircular canals are also normal. Post contrast axial images show asymmetric diffuse enhancement of the left cochlea and vestibular nerves, series 11 image #9. There is no asymmetric enhancement or mass lesions in the right seventh/eighth nerve complex or inner ear labyrinth. The pituitary gland is atrophic for the patient's age. Optic chiasm is not displaced. Cerebellar tonsils position is normal. MR/MR head/brain wo/w con IMPRESSION: 1. 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 Clinical correlation is recommended. 2. No enhancing focal cerebral, brainstem or cerebellar lesions can be seen. 3. No evidence of acute cerebral infarction. 4. Atrophic pituitary gland for the patient's age. 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 She does not have the vertigo anymore. No specific signs or symptoms of pituitary dysfunction on her history or exam. She has regular periods, no symptoms to suggest cortisol deficiency. Labs from 09/05/2024 showed normal pituitary panel. For some reason ACTH and cortisol was not drawn however the rest of it looks unremarkable. Given unremarkable pituitary panel and no signs of cortisol deficiency, I feel I reassured. She does not need follow up however just to be comprehensive we will have her do the cortisol and ACTH level and I will communicate the results to her if abnormal. Plan See above Coding Level of Care Code Est Pt Level 3 (56291) Diagnoses Pituitary abnormality E23.7
[2024-09-30 08:33] VITALS: BP 98/70; PULSE 68; BMI 24.5
== END 2024-09-30 08:57 | disposition home or self-care (01) ==
PROVIDERS: PCP Physician Assistant; Visit Provider Student in an Organized Health Care Education/Training Program
DX: E23.7 Disorder of pituitary gland, unspecified (principal)
CPT/HCPCS: 99213

== ENCOUNTER 2024-10-18 09:56 | Outpatient (REF) | payer OTHER, SELFPAY ==
[2024-10-18 13:33] LABS: MANUAL DIFF FLAG NO
[2024-10-18 13:40] LABS: Basophils Percent Auto 0.5 % (0-2); Eosinophils Absolute Auto 0.2 X10*3/uL (0.0-0.4); Eosinophils Percent Auto 3.1 % (0-4); Hematocrit 39.8 % (37.0-47.0); Hemoglobin 13.8 g/dl (12.0-16.0); Imm Gran Abs Auto 0.01 X10*3/uL (0.00-0.03); Imm Gran Pct Auto 0.2 % (0.0-0.4); Lymphocytes Absolute Auto 1.9 X10*3/uL (1.2-4.9); Lymphocytes Percent Auto 35.2 % (20-40); Mean Corpuscular HGB Conc 34.7 g/dl (31.0-35.0); Mean Corpuscular Hemoglobin 29.6 pg (27.0-33.0); Mean Corpuscular Volume 85.4 fL (80.0-98.0); Mean Platelet Volume 10.5 fL (9.4-12.3); Monocytes Absolute Auto 0.4 X10*3/uL (0.1-1.2); Monocytes Percent Auto 7.5 % (2-11); Neutrophils Absolute Auto 2.9 x10*3/uL (2.0-8.3); Neutrophils Percent Auto 53.5 % (45-73); Platelet Count 236 X10*3/uL (160-400); Red Blood Count 4.66 X10*6/uL (4.20-5.50); Red Cell Distribution Width 12.2 % (11.0-16.0); White Blood Count 5.5 X10*3/uL (4.8-10.8)
[2024-10-18 13:46] LABS: D Dimer High Sensitivity < 150 NG/ML
[2024-10-18 13:54] LABS: Estimated Average Glucose 100 mg/dL; Hemoglobin A1c % 5.1 % (<6.0); Total Hemoglobin (HGBA1C) 3487.4011 umol/L
[2024-10-18 14:12] LABS: Alanine Aminotransferase 10 U/L (0-31); Albumin Level 4.5 g/dL (3.5-5.0); Alkaline Phosphatase 47 U/L (39-117); Anion Gap 10 (12-20); Aspartate Amino Transferase 20 U/L (5-31); Blood Urea Nitrogen 15 mg/dL (9-16); Calcium 9.6 mg/dL (8.4-10.2); Carbon Dioxide 25 mmol/L (22-29); Chloride 109 mmol/L (96-108); Estimated Glomerular Filt Rate > 60; Glucose Fasting 96 mg/dL (60-99); Potassium 4.9 mmol/L (3.3-5.1); Sodium 139 mmol/L (135-145)
[2024-10-18 14:14] LABS: Erythrocyte Sedimentation Rate 3 MM/HR (0-20)
== END 2024-10-18 09:57 | disposition home or self-care (01) ==
LOC: HO.HMGCLDS 09:56
PROVIDERS: PCP Physician Assistant; Visit Provider Physician Assistant
DX: R73.01 Impaired fasting glucose (principal); M79.89 Other specified soft tissue disorders
CPT/HCPCS: 36415; 80053; 83036; 85025; 85379; 85652

== ENCOUNTER 2024-10-26 09:37 | Outpatient (REF) | payer OTHER, SELFPAY ==
[2024-10-26 13:06] LABS: MANUAL DIFF FLAG NO
[2024-10-26 13:07] LABS: Appearance Urine Clear; Color Urine Yellow; Glucose Urine UA Negative (Negative); Leukocyte Esterase Urine Small (1+) (Negative); Nitrite Urine Negative (Negative); PH 7.5 (5.0-9.0); Specific Gravity - Urine <= 1.005 (1.005-1.025); UMIC TRIGGER UACC YES; Urine Blood Moderate (2+) (Negative); Urine Ketones Negative (Negative); Urine Protein Negative (Neg-Trace)
[2024-10-26 13:14] LABS: Basophils Percent Auto 0.6 % (0-2); Eosinophils Absolute Auto 0.2 X10*3/uL (0.0-0.4); Eosinophils Percent Auto 3.1 % (0-4); Hematocrit 39.2 % (37.0-47.0); Hemoglobin 13.4 g/dl (12.0-16.0); Imm Gran Abs Auto 0.01 X10*3/uL (0.00-0.03); Imm Gran Pct Auto 0.2 % (0.0-0.4); Lymphocytes Absolute Auto 1.6 X10*3/uL (1.2-4.9); Lymphocytes Percent Auto 33.3 % (20-40); Mean Corpuscular HGB Conc 34.2 g/dl (31.0-35.0); Mean Corpuscular Hemoglobin 29.4 pg (27.0-33.0); Mean Platelet Volume 9.9 fL (9.4-12.3); Monocytes Absolute Auto 0.5 X10*3/uL (0.1-1.2); Monocytes Percent Auto 9.4 % (2-11); Neutrophils Absolute Auto 2.6 x10*3/uL (2.0-8.3); Neutrophils Percent Auto 53.4 % (45-73); Platelet Count 270 X10*3/uL (160-400); Red Blood Count 4.56 X10*6/uL (4.20-5.50); White Blood Count 4.9 X10*3/uL (4.8-10.8)
[2024-10-26 13:19] LABS: Bacteria Urine None Seen (None Seen); Hyaline Casts Urine 0-2 /LPF (0-2); RBC Urine 0-2 /HPF (0-2); Squamous Epithelial Cell Urine 0-2 /HPF (0-2); UACC Culture Trigger YES; WBC Urine 0-5 /HPF (0-5)
[2024-10-26 13:36] LABS: Alanine Aminotransferase 9 U/L (0-31); Albumin Level 4.4 g/dL (3.5-5.0); Alkaline Phosphatase 46 U/L (39-117); Anion Gap 13 (12-20); Aspartate Amino Transferase 18 U/L (5-31); Bilirubin Total 1.3 mg/dL (0.0-1.0); Blood Urea Nitrogen 13 mg/dL (9-16); Calcium 9.7 mg/dL (8.4-10.2); Carbon Dioxide 27 mmol/L (22-29); Chloride 106 mmol/L (96-108); Estimated Glomerular Filt Rate > 60; Glucose Random 91 mg/dL (60-115); Potassium 4.4 mmol/L (3.3-5.1); Sodium 142 mmol/L (135-145)
[2024-10-31 20:59] LABS: CK-BB None Detected (None Detected); CK-MB 0 % (<5); CK-MM 100 % (95-100); Creatine Kinase,Total,Serum 47 U/L (29-143)
== END 2024-10-26 09:38 | disposition home or self-care (01) ==
LOC: HO.HMGCLDS 09:37
PROVIDERS: PCP Physician Assistant; Visit Provider Physician Assistant
DX: R82.998 Other abnormal findings in urine (principal); M79.10 Myalgia, unspecified site
CPT/HCPCS: 36415; 80053; 81001; 82552; 85025; 87086

== ENCOUNTER 2024-10-27 10:57 | Outpatient (REF) | payer OTHER, SELFPAY | END 2024-10-27 10:58 | disposition home or self-care (01) | LOC: HO.HMGCLDS 10:57 | PROVIDERS: PCP Physician Assistant; Visit Provider Physician Assistant | DX: M79.10 Myalgia, unspecified site (principal); R82.998 Other abnormal findings in urine | CPT/HCPCS: 36415; 82550 ==

== ENCOUNTER 2024-12-26 12:30 | Outpatient (REF) | payer OTHER, SELFPAY ==
--- OUTSIDE RECORDS SUMMARY | 2024-12-26 14:02 | XMS_ITS | Clinical Summary ---
Author Organization [employer] Address [address] [place] [id number] Care Team Providers Care Hose Builder Name Role Phone Unavailable Primary Care Provider Unavailabl e Medications predniSONE (DELTASONE) 5 mg tabletIndicatio ns:Non-traumati c rhabdomyolysis, Elevated CK 20 mg po qd x 2d, then decrease by 5 mg every 2 days until off. 20 tablet 12/29/2019 Active hydroxychloroqu ine (PLAQUENIL) 200 mg tabletIndicatio ns:Non-traumati c rhabdomyolysis, Undifferentiate d connective tissue disease (HCC) Take 1 tablet (200 mg total) by mouth 2 (two) times a day. 60 tablet 2 01/12/2020 Active Social History Tobacco Use Types Packs/Day Years Used Date Smoking Tobacco: Never Assessed Comments Unknown Sex and Gender Information Value Date Recorded Sex Assigned at Not on file Legal Sex Female 2:34 PM EST Gender Identity Not on file Sexual Orientation Not on file Plan of Treatment Health Maintenance Due Date Last Done Comments Mammogram 1981 Annual Physical Exam 1999 Tdap and Td Vaccines Adult 2000 Pap Smear 2002 Cervical Cancer Screening 2011 HPV/Cotest 2011 COVID-19 Vaccine (2023-2 5 season) 2024 Influenza Vaccine (#1) 2024 HIB Vaccines Aged Out No longer eligi ble based on patient's age to complete this topic HPV Vaccines Aged Out No longer eligi ble based on patient's age to complete this topic Hepatitis A Vaccines Aged Out No long er eligible based on patient's age to complete this topic IPV Vaccines Aged Out No longer eligi ble based on patient's age to complete this topic Meningococcal Vaccine Aged Out No teresita gian eligible based on patient's age to complete this topic Pneumococcal Vaccine: Peds ( 0 to 5 Yrs) and At-Risk Pts (6 to 49 Yrs) Aged Out No lo nger eligible based on patient's age to complete this topic RSV <20 Months Aged Out No longer gerhard gible based on patient's age to complete this topic
--- OUTSIDE RECORDS SUMMARY | 2024-12-26 14:03 | XMS_ITS | Encounter Summary ---
Author Organization [facility] Address [address] [place] [address] Care Team Providers Care Pipe Bender Name Role Phone Reshma Toribio MD Primary Care Provider [phone] Reason for Visit * Clinic-Administered Medication (Routine) - Pending Review Specialty Diagnoses / Procedures Referred By Iván t Referred To Contact Neurology Diagnoses Headache, chronic migraine without aura Janae Lay MD [address] [facility] [address] [place] [address] Phone: tel: fax: Janae Lay MD [address] [facility] [address] [place] [address] Phone: tel: fax: Referral ID Status Reason Start Date Expiration Date Visits Requested Visits Authorized [id number] Pending Review Specialty Services Required 12/14/2024 12/14/2025 4 4 Encounter Details Date Type Department Care Team (Latest Contact Info) Description 12/21/2024 9:40 AM EST Procedure visit [facility] [address] [facility] [address] [place] [address] Janae Lay MD 175 [facility] [address] [place] [address] Chronic migraine without aura without status migrainosus, not intractable (Primary Dx) Social History Tobacco Use Types Packs/Day Years [...] on file documented as of this encounter Progress Notes * Janae Lay MD - 12/21/2024 9:40 AM EST Procedures The patient reports no side effect with the use of Botox. The patient reports improvement in headaches by at least 50 % since last injection. At baselines the patient hadGenerally, the headaches lastabout Daily prior to Botox her quality of life was bad she couldn't 7-05/28 and occur after botox she had no headache days . The patient would like to proceed. BOTULINUM TOXIN INJECTION PROCEDURE NOTE DATE: 12/21/2024 INDICATION(S): Chronic Migraine Complications of the botulinum toxin injection were explained to the patient and patient signed a written consent form. It was explained to the patient that botulinum toxin effects may not be felt for about 2 weeks. Side effects may include injection site pain, injection site swelling, bruising, infection, flu- like symptoms, diplopia, dysphagia, neck weakness. Skin was prepped with alcohol pads. 200 units of Botox (botulinum toxin type A) was dissolved in 4 ml of sterile normal saline solution. Lot Number:see MAR Patient had injection of the following with a 30G needle attached to a 1 ml insulin syringe: MUSCLES L side (sites) R side (sites) Under Cutting Machine Operator 5 units (1) 5 units (1) Procerus 5 units (central) Frontalis 10 units (2) 10 units (2) Temporalis 20 units (4) 20 units (4) Occipitalis 15 units (3) 15 units (3) Cervical Paraspinal 10 units (2) 10 units (2) Trapezius 15 units (3) 15 units (3) Total injected: 155 units Total Wasted: 45 units Injection sites were watched closely to confirm hemostasis. No complications were observed with today's procedure.The patient tolerated the procedure well. Information hand out was provided to the patient. I asked the patient to call me with any problems. Patient was instructed not to massage or use heat over the injected site for 24 hours. I asked the patient to call me with any issues and to follow up with me for repeat injection in 3 months. documented in this encounter Plan of Treatment Upcoming Encounters Date Type Department Care Team (Late st Contact Info) Description 01/05/2025 8:30 AM EDT Office Visit [facility] [address] [phone] Janae Lay MD [address] [phone] 03/22/2025 9:40 AM EDT Procedure visit [facility] [address] [phone] Janae Lay MD [address] [phone] documented as of this encounter Visit Diagnoses Diagnosis Chronic migraine without aura without status migrainosus, not intractable- Primary documented in this encounter Administered Medications Inactive Administered Medications - up to 3 most recent administrations Medication Order MAR Action Action Date Dose Rate Site onabotulinumtoxinA (BOTOX) 200 unit injection 200 Units 200 Units, intramuscular, Once, On Thu12/21/24 at 1030, For 1 doseIndications:Chronic migraine without aura without status migrainosus, not intractable Given 12/21/2024 10:05 AM EST 155 Units Othe r documented in this encounter Orders Medications Ordered That Ed ht Not Have Been Administered Count Last Ordered Date First Ordered Date onabotulinumtoxinA (BOTOX) 2 00 unit injection 200 Units 1 12/21/2024 documented in this encounter Care Teams Pipe Bender Relationship Specialty Start Date End Date Reshma Toribio MD [address] [place] [address] PCP - General Internal Medicine 12/19/24 documented as of this encounter
--- OUTSIDE RECORDS SUMMARY | 2024-12-26 14:03 | XMS_ITS | Encounter Summary ---
Author Organization [employer] Address [address] [place] [address] Care Team Providers Care Station Chief Name Role Phone Unavailable Primary Care Provider Unavailabl e Encounter Details Date Type Department Care Team ([facility] st Contact Info) Description 07/02/2020 Scanned Document Reasult Information Management [address] [place] [id number] System, Provider Not In [facility] LAB RESULTS Social History Tobacco Use Types Packs/Day Years Used Date Smoking Tobacco: Never Assessed Comments Unknown Sex and Gender Information Value Date Recorded Sex Assigned at Not on file Legal Sex Female 2:34 PM EST Gender Identity Not on file Sexual Orientation Not on file documented as of this encounter Plan of Treatment Not on file documented as of this encounter Visit Diagnoses Not on filedocumented in this encounter
--- OUTSIDE RECORDS SUMMARY | 2024-12-26 14:03 | XMS_ITS | Clinical Summary ---
Author Organization [facility] Address [address] [place] [address] Care Team Providers Care Slip Cover Sewer Name Role Phone Reshma Toribio MD Primary Care Provider [phone] Allergies Active Allergy Reactions Criticality Noted Date Comments Adhesive Tape Other (See Comments) High 10/26/2023 Eye swelling Cyanoacrylate Other (See Comments) High 10/26/2023 EYE Swelling Sulfa Antibiotics Other (See Comments) Medium 01/21/20 22 Medications Medication Sig Dispensed Refills Start Date End Date Status esomeprazole (NexIUM) capsule 20 mg Take 1 capsule (20 mg total) by mouth. 0 11/18/2023 11/07/2025 Active Methylcobalamin [address] under the tongue. 0 02/11/2022 Active fish oil-omega-3 fatty acids 1000 MG capsule Take by mouth. 0 Active MAGNESIUM PO Take by mouth. 0 Active Vitamin D-Vitamin K (K2 Plus D3) 100-1000 MCG-UNIT TABS 0 Refills, Maintenance, 02/25/23 15:38:00 EDT, Partial fill upon patient request if the prescription is for a schedule II opioid drug. 0 02/25/2023 Active SUMAtriptan (IMITREX) 50 MG tablet Take 1 tablet (50 mg total) by mouth every 2 (two) hours as needed. 10 tablet 0 08/05/2024 Active Active Problems Problem Noted Date Diagnosed Date Mckinley's esophagus 08/05/2024 08/05/2024 Intractable migraine without aura 08/05/2024 Autoimmune disease 07/11/2024 08/05/2024 Benign paroxysmal positional vertigo 11/01/2020 08/05/2024 Exercise-induced asthma 04/26/2014 08/05/20 24 Social History Tobacco Use Types Packs/Day Years Used Date Smoking Tobacco: Never Assessed Sex and Gender Information Value Date Recorded Sex Assigned at Female 07/15/2024 3:48 PM EDT Gender Identity Not on file Sexual Orientation Not on file Job Start Date Occupation Industry Not on file Not on file Not on file Last Filed Vital Signs Vital Sign Reading Time Taken Comments Blood Pressure 125/92 08/05/2024 8:10 AM EDT Pulse 86 08/05/2024 8:10 AM EDT Temperature 35.9 ??C (96.7 ??F) 08/05/2024 8:10 AM ED T Respiratory Rate - - Oxygen Saturation - - Inhaled Oxygen Concentration - - Weight 68.9 kg (152 lb) 08/05/2024 8:10 AM EDT Height 167.6 cm (5' 6 ) 08/05/2024 8:10 AM EDT Body Mass Index 24.53 08/05/2024 8:10 AM EDT Plan of Treatment Health Maintenance Due Date Last Done Comments Hepatitis C Screening 1981 Depression Screening 1993 Preventative Health Evaluation 1999 DTap / Tdap / Td (1 - Tdap) 2000 Cervical Cancer Screening (Pap Smear) 2002 COVID-19 Vaccine (2023-2 5 season) 2024 10/23/2021, 01/30/2021, 01/09/2021 Influenza Vaccine (#1) 2024 3, 08/29/2011 Hepatitis B Vaccines Completed 08/09/2007, 07/15/2000, 06/10/2000 Pneumococcal Vaccine Aged Out No long er eligible based on patient's age to complete this topic RSV Ped < 20 months Aged Out No longe r eligible based on patient's age to complete this topic Care Teams Slip Cover Sewer Relationship Specialty Start Date End Date Reshma Toribio MD PCP - General Internal Medicine 07/15/24
--- OUTSIDE RECORDS SUMMARY | 2024-12-26 14:03 | XMS_ITS | Data Portability ---
Author Organization [facility], Main Office Address [address] [facility] [address] [place] [id number] Care Team Providers Care Sanforizer Name Role Phone AMALIAUMESH Primary Care Provider [facility] Urologist [phone] ALLISON KAUFFMAN Delinquent Tax Collection Assistant JACK PATE Vascular Surgeon JAIDEN WATKINS Lath Tier CHLOE HUYNH Business Mgr RAN CAI Orthopedic Surgeon SARAH BUTCHER Neurologist Assessment Encounter Date Assessment Date Assessment LastModified by Organization Details LastModified Time 09/20/2020 09/20/2020 This service was provided using telemedicine. Patient consented to video & audio visit Patient was located at at home Provider was located in the office. No other persons participated in the telemedicine visit except for the patient unless otherwise indicated here. Total time of visit was 24 minutes. [email or web address] Not available 09/20/2020 09:49:44 10/08/2020 10/08/2020 Longstanding CTD , which has been followed by rheumatology. 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 In general, she has been resistant to chronic disease modifying agents. Complete workup for palpitations with holter monitor. [email or web address] Not available 10/10/2020 08:16:46 11/01/2020 11/01/2020 This service was provided using telemedicine. Patient consented to video & audio visit Patient was located at at home Provider was located in the office. No other persons participated in the telemedicine visit except for the patient unless otherwise indicated here. {{}} Total time of visit was 18 minutes. jthabet Not available 11/01/2020 13:34:53 11/07/2020 11/07/2020 This service was provided using telemedicine. Patient consented to video & audio visit Patient was located at at home Provider was located in the office. No other persons participated in the telemedicine visit except for the patient unless otherwise indicated here. {{}} Total time of visit was 30 minutes. [email or web address] Not available 11/07/2020 11:44:18 03/04/2021 03/04/2021 This service was provided using telemedicine. Patient consented to video & audio visit Patient was located at at home Provider was located in the office. No other persons participated in the telemedicine visit except for the patient unless otherwise indicated here. {{}} Total time of visit was 26 minutes. [email or web address] Not available 03/04/2021 11:01:19 Plan of Treatment Reminders Order Date Submit Date Provider Last Modified By Organization Details Last Modified Time Details Appointments None record ed. Lab CBC w/ auto diff 2020 021 [facility], [address] [facility] [facility] [address], [place], [address], 1 23:20:17 CMP, serum or plasma 2020 021 [facility], [address] [facility], [facility] [address], [place], [address], 1 00:54:45 SARS CoV 2 RNA, QL probe, unspec ified specim en 2020 021 [facility] Covid-19 Testing, [address], [place], [address], 1 10:23:11 Referral neurol ogist referr al - 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 intere sted in botox inject ions. 2020 021 jovi Bui MD, [address] [place], [address], 1 15:26:00 ENT referr al - severe vertig o, headac he, eyes feel funny. ear full. has been taking mecliz ine and flonas e withou t relief . ringin g in ears. 2020 021 [facility] , [address], [address], [place], [address], 1 15:54:[address] referr al 2019 020 VANESSA Hobbs, [address] [facility], [place], [address], 13:31:32 Procedures None record ed. Surgeries None record ed. Imaging CT, head + brain, w/o contra st - severe vertig o, headac he, vision change s, ringin g in ears, sx x 9 days and not improv ing with mecliz ine or flonas e. r/o mass 2020 021 [facility], [address], [address], [place], [address], 12:16:47 Medication Orders mecliz ine 25 mg tablet 2020 021 [place] [address] [facility]00239, [address], [place], [id number], 09:59:48 flutic asone propio jacob 50 mcg/ac tuatio n nasal spray, suspen piyush 2020 021 [place] [address] [facility] #[id number], [address], [place], [id number], 09:59:32 mecliz ine 25 mg tablet 2020 021 [id number] [facility] #50005, [address], [place], [id number], 1 09:59:48 cyclob enzapr ine 10 mg tablet 2019 020 ethel [facility] #[id number], [address], [place], [id number], 0 14:20:49 Patient TargetsNo targets recorded. Patient Instructions Encounter Date Encounter Id Patient Instructions Last Modified By Organization Details Last Modified Time 09/20/2020 [id number] abdominal strain : rehab exercises [email or web address] Not available 09/20/2020 09:40:17 call or return f or worsening or concerns. [email or web address] Not available 09/20/2020 09:45:27 10/08/2020 [id number] rhabdomyolysis: care instructions [email or web address] Not available 10/08/2020 15:53:13 temporomandibula r disorder: care instructions [email or web address] Not available 10/08/2020 15:53:13 11/01/2020 [id number] eustachian tube problems: care instructions jthabet Not available 11/01/2020 13:34:00 benign paroxysma l positional vertigo (bppv): care instructions jthabet Not available 11/01/2020 13:32:48 call or return f or worsening jthabet Not available 11/01/2020 13:30:29 11/07/2020 [id number] lab* [email or web address] Not available 11/07 12:17:57 call or return f or worsening or concerns. [email or web address] Not available 11/07/2020 11:35:20 Reason for Referral Business Mgr Referral for Undifferentiated connective tissue disease Referring Physician: Umesh Berry, Internal Medicine, Encounter Date: 10/08/2020 ENT Referral for Benign paro xysmal positional vertigo severe vertigo, headache, eyes feel funny. ear full. has been taking meclizine and flonase without relief. ringing in ears. 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 interested in botox injections. Referring Physician: Park Coburn, Internal Medicine, Encounter Date: 03/04/2021 Results Created Date Observation Date Name Description Value Unit Range Abnormal Flag Note LastModifiedBy Organization Detail LastModifiedTime 08/27/2008/27/2020 CK (crea oswald kinas e), total , serum CK,total only 63 U/L (0-190 ) Not Available [facility] (Centralized Electronic Ordering - All Locations) Patient Can Go To The Location Of Their Choice, 08/27/2020 14:14:15 11/07/1911/07/2020 CBC w/ auto diff WBC 5.7 K/mm3 (4.0-1 1.0) Not Available [facility] (Centralized Electronic Ordering - All Locations) Patient Can Go To The Location Of Their Choice, 11/07/2020 23:20:17 11/07/1911/07/2020 CBC w/ auto diff RBC 4.66 M/mm3 (4.20- 5.40) Not Available [facility] (Centralized Electronic Ordering - All Locations) Patient Can Go To The Location Of Their Choice, 11/07/2020 23:20:17 11/07/1911/07/2020 CBC w/ auto diff HGB 13.8 gm/dL (11.7- 15.5) Not Available [facility] (Centralized Electronic Ordering - All Locations) Patient Can Go To The Location Of Their Choice, 11/07/2020 23:20:17 11/07/1911/07/2020 CBC w/ auto diff HCT 42.4 % (35.7- 45.8) Not Available [facility] (Centralized Electronic Ordering - All Locations) Patient Can Go To The Location Of Their Choice, 11/07/2020 23:20:17 11/07/1911/07/2020 CBC w/ auto diff MCV 91.0 fL (80.0- 100.0) Not Available [facility] (Centralized Electronic Ordering - All Locations) Patient Can Go To The Location Of Their Choice, 11/07/2020 23:20:17 11/07/19 21 11/07/2020 CBC w/ auto diff MCH 29.6 pg (27.0- 34.0) Not Available [facility] (Centralized Electronic Ordering - All Locations) Patient Can Go To The Location Of Their Choice, 11/07/2020 23:20:17 11/07/19 21 11/07/2020 CBC w/ auto diff MCHC 32.5 g/dL (33.0- 37.0) low Not Available [facility] (Centralized Electronic Ordering - All Locations) Patient Can Go To The Location Of Their Choice, 11/07/2020 23:20:17 11/07/19 21 11/07/2020 CBC w/ auto diff plt 253 K/mm3 (150-4 60) Not Available [facility] (Centralized Electronic Ordering - All Locations) Patient Can Go To The Location Of Their Choice, 11/07/2020 23:20:11/07/1911/07/2020 CBC w/ auto diff RDW-SD 40.0 fL (<47.0 ) Not Available [facility] (Centralized Electronic Ordering - All Locations) Patient Can Go To The Location Of Their Choice, 11/07/2020 23:20:11/07/1911/07/2020 CBC w/ auto diff MPV 10.3 fL (9.4-1 2.4) Not Available [facility] (Centralized Electronic Ordering - All Locations) Patient Can Go To The Location Of Their Choice, 11/07/2020 23:20:11/07/1911/07/2020 CBC w/ auto diff automated NRBC 0.0 #/100 _WBC' s Not Available [facility] (Centralized Electronic Ordering - All Locations) Patient Can Go To The Location Of Their Choice, 11/07/2020 23:20:11/07/1911/07/2020 CBC w/ auto diff abs. NRBC 0.0 K/mm3 Not Available [facility] (Centralized Electronic Ordering - All Locations) Patient Can Go To The Location Of Their Choice, 11/07/2020 23:20:17 11/07/19 21 11/07/2020 CBC w/ auto diff neut # 2.7 K/mm3 (1.3-7 .0) Not Available [facility] (Centralized Electronic Ordering - All Locations) Patient Can Go To The Location Of Their Choice, 11/07/2020 23:20:17 11/07/1911/07/2020 CBC w/ auto diff lymph # 2.2 K/mm3 (0.8-3 .1) Not Available [facility] (Centralized Electronic Ordering - All Locations) Patient Can Go To The Location Of Their Choice, 11/07/2020 23:20:17 11/07/19 21 11/07/2020 CBC w/ auto diff mono# 0.5 K/mm3 (0.4-0 .9) Not Available [facility] (Centralized Electronic Ordering - All Locations) Patient Can Go To The Location Of Their Choice, 11/07/2020 23:20:17 11/07/1911/07/2020 CBC w/ auto diff eo # 0.2 K/mm3 (0.0-0 .4) Not Available [facility] (Centralized Electronic Ordering - All Locations) Patient Can Go To The Location Of Their Choice, 11/07/2020 23:20:17 11/07/1911/07/2020 CBC w/ auto diff baso # 0.1 K/mm3 (0.0-0 .1) Not Available [facility] (Centralized Electronic Ordering - All Locations) Patient Can Go To The Location Of Their Choice, 11/07/2020 23:20:17 11/07/1911/07/2020 CBC w/ auto diff abs. imm gran 0.0 K/mm3 Not Available [facility] (Centralized Electronic Ordering - All Locations) Patient Can Go To The Location Of Their Choice, 11/07/2020 23:20:17 11/07/1911/07/2020 CBC w/ auto diff neut 48.0 % (44-76 ) Not Available [facility] (Centralized Electronic Ordering - All Locations) Patient Can Go To The Location Of Their Choice, 11/07/2020 23:20:17 11/07/19 21 11/07/2020 CBC w/ auto diff lymph 38.8 % (15-43 ) Not Available [facility] (Centralized Electronic Ordering - All Locations) Patient Can Go To The Location Of Their Choice, 11/07/2020 23:20:17 11/07/1911/07/2020 CBC w/ auto diff monocyte 8.9 % (4.5-1 0.5) Not Available [facility] (Centralized Electronic Ordering - All Locations) Patient Can Go To The Location Of Their Choice, [id number] 11/07/2020 23:20:17 11/07/19 21 11/07/2020 CBC w/ auto diff eo 2.8 % (0-6) Not Available [facility] (Centralized Electronic Ordering - All Locations) Patient Can Go To The Location Of Their Choice, 11/07/2020 23:20:17 11/07/1911/07/2020 CBC w/ auto diff baso 1.1 % (0-2) Not Available [facility] (Centralized Electronic Ordering - All Locations) Patient Can Go To The Location Of Their Choice, 11/07/2020 23:20:17 11/07/1911/07/2020 CBC w/ auto diff imm gran 0.4 % Not Available [facility] (Centralized Electronic Ordering - All Locations) Patient Can Go To The Location Of Their Choice, 11/07/2020 23:20:17 11/07/1911/08/2020 CMP, serum or plasm a glucose 101 mg/dL (70-99 ) high Not Available [facility] (Centralized Electronic Ordering - All Locations) Patient Can Go To The Location Of Their Choice, 11/08/2020 00:54:44 11/07/1911/08/2020 CMP, serum or plasm a BUN 13 mg/dL (6-20) Not Available [facility] (Centralized Electronic Ordering - All Locations) Patient Can Go To The Location Of Their Choice, 11/08/2020 00:54:44 11/07/1911/08/2020 CMP, serum or plasm a creatinine 1.1 mg/dL (0.5-1 .0) high Not Available [facility] (Centralized Electronic Ordering - All Locations) Patient Can Go To The Location Of Their Choice, 11/08/2020 00:54:44 11/07/1911/08/2020 CMP, serum or plasm a sodium 141 mmol/ L (133-1 45) Not Available [facility] (Centralized Electronic Ordering - All Locations) Patient Can Go To The Location Of Their Choice, 11/08/2020 00:54:44 11/07/1911/08/2020 CMP, serum or plasm a potassium 4.3 mmol/ L (3.6-5 .2) Not Available [facility] (Centralized Electronic Ordering - All Locations) Patient Can Go To The Location Of Their Choice, 11/08/2020 00:54:44 11/07/1911/08/2020 CMP, serum or plasm a chloride 105 mmol/ L (98-10 7) Not Available [facility] (Centralized Electronic Ordering - All Locations) Patient Can Go To The Location Of Their Choice, 11/08/2020 00:54:44 11/07/1911/08/2020 CMP, serum or plasm a bicarbonate 28 mmol/ L (22-29 ) Not Available [facility] (Centralized Electronic Ordering - All Locations) Patient Can Go To The Location Of Their Choice, 11/08/2020 00:54:44 11/07/1911/08/2020 CMP, serum or plasm a anion gap 8 (4-17) Not Available [facility] (Centralized Electronic Ordering - All Locations) Patient Can Go To The Location Of Their Choice, 11/08/2020 00:54:44 11/07/1911/08/2020 CMP, serum or plasm a albumin 4.7 gm/dL (3.4-4 .8) Not Available [facility] (Centralized Electronic Ordering - All Locations) Patient Can Go To The Location Of Their Choice, 11/08/2020 00:54:44 11/07/1911/08/2020 CMP, serum or plasm a calcium 9.9 mg/dL (8.6-1 0.5) Not Available [facility] (Centralized Electronic Ordering - All Locations) Patient Can Go To The Location Of Their Choice, 11/08/2020 00:54:44 11/07/1911/08/2020 CMP, serum or plasm a bilirubin,to ren 0.5 mg/dL (0-1.2 ) Not Available [facility] (Centralized Electronic Ordering - All Locations) Patient Can Go To The Location Of Their Choice, 11/08/2020 00:54:44 11/07/1911/08/2020 CMP, serum or plasm a total protein 6.7 gm/dL (6.2-8 .2) Not Available [facility] (Centralized Electronic Ordering - All Locations) Patient Can Go To The Location Of Their Choice, 11/08/2020 00:54:44 11/07/1911/08/2020 CMP, serum or plasm a Ag ratio 2.4 Not Available [facility] (Centralized Electronic Ordering - All Locations) Patient Can Go To The Location Of Their Choice, 11/08/2020 00:54:44 11/07/1911/08/2020 CMP, serum or plasm a AST 15 U/L (0-32) Not Available [facility] (Centralized Electronic Ordering - All Locations) Patient Can Go To The Location Of Their Choice, 11/08/2020 00:54:44 11/07/1911/08/2020 CMP, serum or plasm a alk phos 47 U/L (35-10 4) Not Available [facility] (Centralized Electronic Ordering - All Locations) Patient Can Go To The Location Of Their Choice, 11/08/2020 00:54:44 11/07/1911/08/2020 CMP, serum or plasm a ALT 14 U/L (0-33) Not Available [facility] (Centralized Electronic Ordering - All Locations) Patient Can Go To The Location Of Their Choice, 11/08/2020 00:54:44 11/07/1911/08/2020 CMP, serum or plasm a est GFR non 63 mL/mi n/1.7 3_M2 Creat inine based estim ated glome rular filtr ation rate (eGFR ) is calcu lated using the Chron ic Kidne y Disea se Epide miolo gy Colla borat ion (CKD- EPI). The CKD-E PI creat inine equat ion has not been valid ated in child ian (<18 years ), pregn ant women or in some racia l or ethni c subgr oups other than Cauca sians and Afric an Ameri cans. Not Available [facility] (Centralized Electronic Ordering - All Locations) Patient Can Go To The Location Of Their Choice, 11/08/2020 00:54:44 11/07/1911/08/2020 CMP, serum or plasm a est GFR 73 mL/mi n/1.7 3_M2 Creat inine based estim ated glome susana filtr ation rate (eGFR ) is calcu lated using the Chron ic Kidne y Disea se Epide miolo gy Colla borat ion (CKD- EPI). The CKD-E PI creat inine equat ion has not been valid ated in child ian (<18 years ), pregn ant women or in some racia l or ethni c subgr oups other than Cauca sians and Afric an Ameri cans. Not Available [facility] (Centralized Electronic Ordering - All Locations) Patient Can Go To The Location Of Their Choice, [id number] 11/08/2020 00:54:44 11/07/1911/07/2020 SARS CoV 2 RNA, QL probe , unspe cifie d speci men covid-19 PCR specimen source NASAL Not Available [facility] (Centralized Electronic Ordering - All Locations) Patient Can Go To The Location Of Their Choice, [id number] 11/08/2020 10:23:11 11/07/1911/08/2020 SARS CoV 2 RNA, QL probe , unspe cifie d speci men covid-19 PCR result (neg) normal NEGAT AMANDA 2019- novel Coron aviru s (2018nCoV ) not detec cash by real- time RT-PC R. Note: If clini pascual suspi cion for COVID -19 is high, mary nue to maint ain preca ution s and consi ivette repea t testi ng. Resul t repor cash to LATOYA DP. To preve nt error s in diagn osis, test resul ts shoul d be inter prete d in the gamal xt of clini pascual findi ngs and other labor atory data. Rare polym orphi sms exist that could lead to false -nega tive or false -posi tive resul ts. If resul ts obtai gagandeep do not match the clini pascual findi ngs, addit ional testi ng shoul d be consi dered . This test has been autho rized by the FDA under an Emerg ency Use Autho rizat ion (EUA) for use by autho rized labor atori es. Testi ng perfo rmed by real time PCR [facility]ili [facility] SURESH 6800 SARS- CoV-2 test. Not Available [facility] (Centralized Electronic Ordering - All Locations) Patient Can Go To The Location Of Their Choice, [id number] 11/08/2020 10:23:11 11/07/19 21 11/09/2020 HbA1c (hemo globi n A1c), blood hemoglobin A1C 5.3 % (4.0-5 .6) MONIT ORING : In known diabe tic patie nts, hemog lobin A1c targe ts shoul d be discu ssed with healt h care provi ivette. DIAGN OSTIC USE: The Ameri can Diabe maribel Assoc iatio n (ADA) and the World Healt h Organ izati on (WHO) recom mend the use of HbA1c to diagn ose diabe maribel using a thres hold of 6.5%. Patie nts who have an HbA1c betwe en 5.7% and 6.4% are consi dered at incre ased risk for devel oping diabe maribel in the futur eSharad CAUTI ON: False ly low HbA1c resul ts may be obser tea in patie nts with hemol ytic anemi a, homoz ygous forms of abnor mal hemog lobin (e.g. SS, CC, SC), pregn eugenia, recen t blood loss or hemog lobin F great er than 7%. Fruct osami ne may be used as an alter jacob test in these cases . REFER ENCE: ADA: Stand ards of Medic al Care in Diabe maribel 2019, The Journ al of Clini pascual and Appli ed Resea [facility] and Educa tion Volum e 43, Suppl ement 1 Not Available [facility] (Centralized Electronic Ordering - All Locations) Patient Can Go To The Location Of Their Choice, [id number] 11/09/2020 22:00:49 11/29/1911/29/2020 HbA1c (hemo globi n A1c), blood hemoglobin A1C 5.3 % (4.0-5 .6) MONIT ORING : In known diabe tic patie nts, hemog lobin A1c targe ts shoul d be discu ssed with healt h care provi ivette. DIAGN OSTIC USE: The Ameri can Diabe maribel Assoc iatio n (ADA) and the World Healt h Organ izati on (WHO) recom mend the use of HbA1c to diagn ose diabe maribel using a thres hold of 6.5%. Patie nts who have an HbA1c betwe en 5.7% and 6.4% are consi dered at incre ased risk for devel oping diabe maribel in the futur e. CAUTI ON: False ly low HbA1c resul ts may be obser tea in patie nts with hemol ytic anemi a, homoz ygous forms of abnor mal hemog lobin (e.g. SS, CC, SC), pregn eugenia, recen t blood loss or hemog lobin F great er than 7%. Fruct osami ne may be used as an alter jacob test in these cases . REFER ENCE: ADA: Stand ards of Medic al Care in Diabe maribel 2019, The Journ al of Clini pascual and Appli ed Resea rc and Educa tion Volum e 43, Suppl ement 1 Not Available [facility] (Centralized Electronic Ordering - All Locations) Patient Can Go To The Location Of Their Choice, 11/29/2020 16:33:08 11/29/1911/29/2020 BMP, serum or plasm a glucose 104 mg/dL (70-99 ) high Not Available [facility] (Centralized Electronic Ordering - All Locations) Patient Can Go To The Location Of Their Choice, 11/29/2020 16:57:38 11/29/1911/29/2020 BMP, serum or plasm a BUN 14 mg/dL (6-20) Not Available [facility] (Centralized Electronic Ordering - All Locations) Patient Can Go To The Location Of Their Choice, 11/29/2020 16:57:38 11/29/1911/29/2020 BMP, serum or plasm a creatinine 0.9 mg/dL (0.5-1 .0) Not Available [facility] (Centralized Electronic Ordering - All Locations) Patient Can Go To The Location Of Their Choice, 11/29/2020 16:57:38 11/29/1911/29/2020 BMP, serum or plasm a sodium 141 mmol/ L (133-1 45) Not Available [facility] (Centralized Electronic Ordering - All Locations) Patient Can Go To The Location Of Their Choice, 11/29/2020 16:57:38 11/29/1911/29/2020 BMP, serum or plasm a potassium 5.1 mmol/ L (3.6-5 .2) Not Available [facility] (Centralized Electronic Ordering - All Locations) Patient Can Go To The Location Of Their Choice, 11/29/2020 16:57:38 11/29/1911/29/2020 BMP, serum or plasm a chloride 107 mmol/ L (98-10 7) Not Available [facility] (Centralized Electronic Ordering - All Locations) Patient Can Go To The Location Of Their Choice, 11/29/2020 16:57:38 11/29/1911/29/2020 BMP, serum or plasm a bicarbonate 26 mmol/ L (22-29 ) Not Available [facility] (Centralized Electronic Ordering - All Locations) Patient Can Go To The Location Of Their Choice, 11/29/2020 16:57:38 11/29/1911/29/2020 BMP, serum or plasm a anion gap 8 (4-17) Not Available [facility] (Centralized Electronic Ordering - All Locations) Patient Can Go To The Location Of Their Choice, 11/29/2020 16:57:38 11/29/1911/29/2020 BMP, serum or plasm a calcium 9.6 mg/dL (8.6-1 0.5) Not Available [facility] (Centralized Electronic Ordering - All Locations) Patient Can Go To The Location Of Their Choice, 11/29/2020 16:57:38 11/29/1911/29/2020 BMP, serum or plasm a est GFR non 78 mL/mi n/1.7 3_M2 Creat inine based estim ated glome rular filtr ation rate (eGFR ) is calcu lated using the Chron ic Kidne y Disea se Epide miolo gy Colla borat ion (CKD- EPI). The CKD-E PI creat inine equat ion has not been valid ated in child ian (<18 years ), pregn ant women or in some racia l or ethni c subgr oups other than Cauca sians and Afric an Ameri cans. Not Available [facility] (Centralized Electronic Ordering - All Locations) Patient Can Go To The Location Of Their Choice, 11/29/2020 16:57:38 11/29/19 21 11/29/2020 BMP, serum or plasm a est GFR 91 mL/mi n/1.7 3_M2 Creat inine based estim ated glome rular filtr ation rate (eGFR ) is calcu lated using the Chron ic Kidne y Disea se Epide miolo gy Colla borat ion (CKD- EPI). The CKD-E PI creat inine equat ion has not been valid ated in child ian (<18 years ), pregn ant women or in some racia l or ethni c subgr oups other than Cauca sians and Afric an Ameri cans. Not Available [facility] (Centralized Electronic Ordering - All Locations) Patient Can Go To The Location Of Their Choice, 11/29/2020 16:57:38 11/29/1911/29/2020 CK (crea oswald kinas e), total , serum CK,total only 45 U/L (0-190 ) Not Available [facility] (Centralized Electronic Ordering - All Locations) Patient Can Go To The Location Of Their Choice, 11/29/2020 16:58:49 11/29/1911/29/2020 vitam in B12, serum vitamin B12 981 pg/mL (232-1 245) Not Available [facility] (Centralized Electronic Ordering - All Locations) Patient Can Go To The Location Of Their Choice, 11/29/2020 17:17:38 11/08/19 22 11/08/2021 CK,TO REN ONLY CK,total only 164 U/L (0-190 ) Not Available [facility] (Centralized Electronic Ordering - All Locations) Patient Can Go To The Location Of Their Choice, 11/08/2021 15:57:55 04/25/20 22 04/25/2022 CK,TO REN ONLY CK,total only 200 U/L (0-190 ) high Not Available [facility] (Centralized Electronic Ordering - All Locations) Patient Can Go To The Location Of Their Choice, [id number] 04/25/2022 22:01:31 10/08/20 20 09/07/2020 US, echoc ardio gram No observ ation record ed. VANESSA [facility] (Outt Non-Invasive Cardiology Scheduling) [address], [place], [address], 10/13/2020 14:30:43 11/07/19 21 11/07/2020 CT, head + brain , w/o contr ast CT Head/B rain W/O Contra st Reason : R51 R42 DIZZIN ESS RO MASS VISION CHANGE S HEADAC HE AND SEVERE VERTIG O TINNIT US FOR 9 DAYS; Clinic al Questi on(s): Other: . TECHNI QUE: Noncon trast head CT using axial techni que and recons tructe d in axial and goldman l plane. Exposu re parame ters are adjust ed by age catego ry. COMPAR CHANEL: None. FINDIN GS: BRAIN and EXTRA- AXIAL SPACES : No parenc hymal hemorr deven, midlin e shift or mass effect . Stoddard-w eleazar matter differ entiat ion is well preser tea. No acute infarc t. Ventri cles, sulci and basila r cister ns are normal . No white matter lesion s. No subara chnoid hemorr deven, subdur al or epidur al collec tions. CALVAR IUM, SKULL BASE AND SOFT TISSUE S: No fractu res or suspic ious bony lesion s. The parana jani sinuse s and mastoi d air cells are clear. Visual ized orbits and globes are intact . The extrac ranial soft tissue s are unrema rkable . IMPRES PIYUSH: No acute intrac ranial pathol ogy. WSN: [id number] Orderi ng Physic josephine: Ulises Joshi Dictat ed By: Mello Sheikh MD Dictat ed Date/T omi: 4:24 pm Review ed By: Mello Sheikh MD Signed By: Mello Sheikh MD Signed Date/T omi: 4:24 pm Transc ribed By: CSFlori Transc ribed Date/T omi: 4:19 pm Patien t Class: Outpat ient [facility] (Outpt Imaging) [address], [place], [address], 11/08/2020 09:54:44 Result Notes None recorded. Problems Name Problem SNOMED Code Status Onset Date Resolution Date Notes Provider Name and Address Organization Details Recorded Time Flatulen ce, eructati on and gas pain 122931111 Completed 201205/09/2014 IMPRESSI ON: CHECK LABS, MAY DISCUSS BX WITH GI; RECORDED 12/13/19 13 9:24AM BY ROMAN ABDULLAHI MA, HINA ON/ADDEN DUM [place] CAMACHO-C [address], [place], [address], [facility] 6 12:46:06 Acute pharyngi tis [id number] Completed 201205/09/2014 RECORDED 10/26/19 13 8:30AM BY ROMAN ABDULLAHI MA, ANNOTATI ON/ADDEN DUM [facility] 7 14:25:16 Acute sinusiti s 70952753 Completed 201105/09/2014 RECORDED 08/10/20 12 11:24AM BY ROMAN ABDULLAHI MA, HINA ON/ADDEN DUM [place] [facility]O-C [address], [place], [address], [facility] 6 12:46:06 Allergic rhinitis 91775518 Active 2013 [facility] 0 09:10:10 Alopecia [id number] Completed 200905/09/2014 RECORDED 01/23/20 10 9:51AM BY HINA DUQUE ON/ADDEN DUM [place] PA-C [address], [place], [address], [facility] 6 12:46:06 Patient status finding [id number] Completed 201205/09/2014 RECORDED 03/01/20 13 10:49AM BY NATALYA HARRISON MA, HINA ON/ADDEN DUM [place] [facility]O-C [address], [place], [address], [facility] 6 12:46:06 Blood coagulat ion disorder 84519206 Completed 201205/09/2014 STORY: PT WITH CONCERN RE POSSIBLE BLEEDING D/O AFTER CONVERSA TION WITH DENTIST. LONG HX OF WHAT SHE REPORTS HEAVY MENSES, PROLONGE D BLEEDING , BLEEDING GUMS, EPISTAXI S, HEAVY POST BLEEDING . NO CLEAR FAMILY HX OF BLEEDING D/O.; IMPRESSI ON: NL PLATELET S, PT, PTT. LOW VON WILLEBRA ND FACTOR. TO HEM FOR FURTHER EVAL.; RECORDED 01/12/20 13 9:01AM BY ROMAN ABDULLAHI MA, HINA ON/ADDEN DUM [place] CAM[facility]O-C [address], [place], [address], [facility] 6 12:46:06 Screenin g for malignan t neoplasm of cervix Completed 201105/09/2014 RECORDED 08/10/20 12 11:24AM BY ROMAN ABDULLAHI MA, HINA ON/ADDEN DUM [place] PA-C [address] [facility] [address], [place], [address], [facility] 6 12:46:06 Cough [id number] Completed 201205/09/2014 RECORDED 10/26/19 13 8:30AM BY ROMAN ABDULLAHI MA, HINA ON/ADDEN DUM [place] PA-C [address], [place], [address], [facility] 6 12:46:06 Removal of suture Completed 201105/09/2014 RECORDED 08/10/20 12 11:24AM BY ROMAN ABDULLAHI MA, HINA ON/EDD Coburn PA-C [address], [facility] [place], [address], [facility] 6 12:46:06 Exercise -induced asthma 03105190 Active 2013 Ora Broderick carol [facility] 0 09:10:10 Abdomina l pain 99310404 Completed 201105/09/2014 IMPRESSI ON: PT WITH 40 MIN EPISODE OF L FLANK PAIN, SOME RADIATIO N INTO L GLUT AND GROIN AREA. RESOLVED NOW, MILD RESIDUAL PRESSURE OVER SUPRAPUB IC AREA. NO HX OF NEPHROLI THIASIS OR OVARIAN CYSTS. DOES HAVE MIRENA IN PLACE. NL EXAM AND IN HOUSE URINE, WILL SEND OUT AND ARRANGE US. WILL CONTACT PT WITH RESULTS WHEN AVAIL, SHE IS TO CALL SOONER PRN.; RECORDED 08/10/20 12 11:24AM BY ROMAN ABDULLAHI MA, ANNOTATI ON/EDD Coburn PA-C [address] [facility] [address], [facility] [place], [address], [facility] 6 12:46:06 Tobacco user [id number] Completed 201311/24/2016 Removal Reason: [facility] 7 14:26:48 Gastroes ophageal reflux disease 782824705 Active 2012 IMPRESSI ON: SXS X YRS. DISCUSSE D TRIGGERS , DIETARY MODIFICA TIONS THAT CAN BE MADE. ALSO PROVIDED W/PT EDU. START PPI X NEXT FEW MONTHS, MAY WANT TO THEN CHANGE TO HISTAMIN E KRISTIE. SEE BACK IN OCT FOR PE, SOONER PRN. REPRINTE D ORDER FOR LIPID PANEL PER HER REQ Ora Broderick carol [facility] 0 09:10:10 Abnormal glucose toleranc e in mother complica ting pregnanc y, childbir th AND/OR puerperi 29373577 Completed 201205/09/2014 RECORDED 09/23/20 13 8:57AM BY GONZÁLEZ DESAI MA, YONATANATI ON/[facility] [address], [place], [address], [facility] 6 12:46:06 History of infectio us disease 813936917 Completed 201308/07/2014 RECORDED 04/26/20 14 1:54PM BY GONZÁLEZ DESAI MA, OFFICE VISIT Park CAMACHOC [address], [place], [address], [facility] 6 12:46:06 Injury of head 12974960 Completed 201105/09/2014 IMPRESSI ON: PT SEEMS TO HAVE LINGERIN G SXS INCLUDIN G HEADACHE S, AND NOW NEW ONSET HEARING LOSS, TINNITUS AND VERTIGO. DESPITE PAST DISCUSSI ONS RE IMAGING SHE CHOOSES TO GO AHEAD AND CHECK MRI WHICH I THINK IS APPROPRI ATE. WILL ARRANGE AND INFORM HER TIME AND DATE.; RECORDED 08/10/20 12 11:24AM BY ROMAN ABDULLAHI MA, HINA ON/[facility] [place] [facility] [address], [place], [address], [facility] 6 12:46:06 Hearing loss 39248131 Completed 201105/09/2014 IMPRESSI ON: PT WITH INTERMIT TENT TINNITUS , HEARING LOSS AND VERTIGO FOLLOWIN G HEAD INJURY. SMALL AMT OF FLUID BEHIND TM ON EXAM. TO ENT FOR FURTHER EVAL.; RECORDED 08/10/20 12 11:24AM BY ROMAN ABDULLAHI MA, HINA ON/[facility] Park CAMACHOC [address], [place], [address], [facility] 6 12:46:06 Hyperlip idemia 16699260 [facility] 0 09:10:10 Pure hypergly ceridemi a 654102854 Completed 201105/09/2014 IMPRESSI ON: W/REPORT ED ELEVATED TRIGLYCE RIDES ON SCREEN FOR WORK. TO REPEAT FASTING. ; RECORDED 08/10/20 12 11:24AM BY ROMAN ABDULLAHI MA, ANNOTATI ON/ADDEN DUM [place] PA-C [address], [place], [address], [facility] 6 12:46:06 Benign neoplasm of skin 81610690 Completed 201105/09/2014 RECORDED 08/10/20 12 11:24AM BY ROMAN ABDULLAHI MA, ANNOTATI ON/ADDEN DUM [place] PA-C [address], [place], [address], [facility] 6 12:46:05 Knee pain Completed 201105/09/2014 IMPRESSI ON: POSSIBLE MENISCUS TEAR. SHE SEES HER RHEUM NEXT WEEK. IBUPROFE N, KNEE BRACE.; RECORDED 08/10/20 12 11:24AM BY ROMAN ABDULLAHI MA, ANNOTATI ON/ADDEN DUM [place] PA-C [address], [place], [address], [facility] 6 12:46:06 Laborato ry procedur e performe d [id number] Completed 201205/09/2014 RECORDED 09/23/20 13 8:58AM BY GONZÁLEZ DESAI MA, YONATANATI ON/ADDEN DUM [place] PA-C [address], [place], [address], [facility] 6 12:46:06 Malaise and fatigue 439830256 Completed 201105/09/2014 RECORDED 08/10/20 12 11:24AM BY ROMAN ABDULLAHI MA, ANNOTALYSSA ON/ADDEN DUM [place] PA-C [address], [place], [address], [facility] 6 12:46:06 Disorder of connecti ve tissue 832239655 Completed 201310/07/2020 STORY: [facility] Umesh Berry MD [address] [facility] [address], [place], [address], [facility] 0 16:41:47 Neck pain 86726418 Completed 201105/09/2014 IMPRESSI ON: R SIDED NECK AND SHOULDER PAIN PAST WEEK. 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 NOT RESPONDI NG TO NSAID, PT RESISTAN T TO TAKE OTHER MEDS. DISCUSSE D OPTIONS INCLUDIN G PAIN MEDICATI ON, PT, ORTHO EVAL FOR INJX. 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 WE WILL CONTACT THEM DIRECTLY TO SEE IF THEY ARE ABLE TO ACCOMMOD ATE HER URGENTLY . IN THE MEANTIME PROVIDED WITH TRIAL OF LOWER DOSE ATIVAN, CONTINUE W/REST, HEAT, MASSAGE AND NSAID; RECORDED 08/10/20 12 11:24AM BY ROMAN ABDULLAHI MA, HINA ON/ADDEN DUM Park KAMARAC [address] [facility] [address], [place], [address], [facility] 6 12:46:06 Administ ration of tetanus vaccine Completed 201105/09/2014 RECORDED 08/10/20 12 11:24AM BY ROMAN ABDULLAHI MA, ANNOTATI ON/ADDEN DUM [place] KAMARAC [address] [facility] [address], [place], [address], [facility] 6 12:46:06 Hand joint pain 765135853 Completed 200805/09/2014 RECORDED 07/16/20 09 9:25AM BY HINA KNOLWES ON/ADDEN DUM [place] CAMACHO-C [address] [facility] [address], [place], [address], [facility] 6 12:46:06 Immuniza tion refused Completed 201205/09/2014 RECORDED 11/30/19 13 9:37AM BY ROMAN ABDULLAHI MA, HINA ON/EDD Coburn PA-C [address], [place], [address], [facility] 6 12:46:06 Congenit al pes planus 73647657 [facility] 0 09:10:10 Plantar fascial fibromat osis 16199005 Completed 201305/17/2018 Umesh Berry MD [address], [place], [address], [facility] 8 15:47:15 Postconc ussion syndrome 51460449 Completed 201105/09/2014 RECORDED 08/10/20 12 11:24AM BY ROMAN ABDULLAHI MA, HINA ON/EDD Coburn PA-C [address], [place], [address], [facility] 6 12:46:06 Adult health examinat ion Completed 201205/09/2014 IMPRESSI ON: HEALTHY VISIT. HAS LAB REQ FOR REPEAT LIPID PANEL WHICH SHE IS CURIOUS ABOUT, NEEDS TO GO FASTING. PLAN TO RETURN 1 YR FOR PE, SOONER PRN.; RECORDED 12/13/19 13 9:24AM BY ROMAN ABDULLAHI MA, HINA ON/EDD Coburn PA-C [address], [place], [address], [facility] 6 12:46:06 Shoulder joint pain 166494833 Completed 201105/09/2014 IMPRESSI ON: FOLLOWIN G FALL IN SUMMER 2010, FOLLOWED BY HER RHEUM PROVIDER WHO IS TXING FOR ROTATOR CUFF TENDONIT IS. TXING WITH INJECTIO NS. UPCOMING APPT WITH PSS (DR. MARTINEZ- OSTEOPAT H).; RECORDED 08/10/20 12 11:24AM BY ROMAN ABDULLAHI MA, ANNOTATI ON/ADDEN DUM [place] CAMACHO-C [address], [place], [address], [facility] 6 12:46:06 Disorder of upper respirat ory system 643728209 Completed 201205/09/2014 RECORDED 10/26/19 13 8:30AM BY ROMAN ABDULLAHI MA, YONATANATI ON/ADDEN DUM [place] CT-C [address] [facility] [address], [place], [address], [facility] 6 12:46:06 Stress 06030394 Completed 201205/09/2014 RECORDED 03/01/20 13 10:49AM BY NATALYA HARRISON MA, HINA ON/ADDEN DUM [place] CAMACHO-C [address] [facility] [address], [place], [address], [facility] 6 12:46:06 Temporom andibula r joint disorder 81791103 Active 2013 IMPRESSI ON: DISCUSSE D WARM COMPRESS ES, LOOKING INTO [address]OU[address], WHEN OFF PRED CAN USE NSAID PRN. FEELS THOUGH LARGE COMPONEN T OF SXS IS DUE TO INCREASE D STRESS LEVELS FROM RECENT ILLNESSE S, HAD TWO RECENT DEATHS. LORAZEPA M Q HS PRN [place], Ora Meggan medina, [facility] 0 09:10:10 Tobacco dependen ce syndrome 16226462 Completed 201205/09/2014 RECORDED 11/30/19 13 9:37AM BY ROMAN ABDULLAHI MA, HINA ON/ADDEN DUM [place] CAMACHO-C [address] [facility] [address], [place], [address], [facility] 6 12:46:06 Vaginiti s and vulvovag initis Completed 200905/09/2014 RECORDED 01/23/20 10 9:51AM BY HINA DUQUE ON/ADDEN DUM [place] PA-C [address], [place], [address], [facility] 6 12:46:06 Varicose veins of lower extremit y 25798316 Active 2013 Ora Meggan medina, [facility] 0 09:10:10 Flatulen ce, eructati on and gas pain 712847125 Completed 201205/29/2014 IMPRESSI ON: CHECK LABS, FEBRUARY DISCUSS BX WITH GI; RECORDED 12/13/19 13 9:24AM BY ROMAN ABDULLAHI MA, HINA ON/ADDEN DUM [place] PA-C [address], [place], [address], [facility] 6 12:46:06 Acute pharyngi tis 533999040 Completed 201205/29/2014 RECORDED 10/26/19 13 8:30AM BY ROMAN ABDULLAHI MA, HINA ON/ADDEN DUM González LATOYA Sanchez, [facility] 7 14:25:16 Acute sinusiti s 58733178 Completed 201105/29/2014 RECORDED 08/10/20 12 11:24AM BY ROMAN ABDULLAHI MA, YONATANATI ON/ADDEN DUM [place] PA-C [address], [place], [address], [facility] 6 12:46:06 Alopecia 14754186 Completed 200905/29/2014 RECORDED 01/23/20 10 9:51AM BY HINA DUQUE ON/ADDEN DUM [place] PA-C [address], [place], [address], [facility] 6 12:46:06 Blood coagulat ion disorder 71047376 Completed 201205/29/2014 STORY: PT WITH CONCERN RE POSSIBLE BLEEDING D/O AFTER CONVERSA TION WITH DENTIST. LONG HX OF WHAT SHE REPORTS HEAVY MENSES, PROLONGE D BLEEDING , BLEEDING GUMS, EPISTAXI S, HEAVY POST BLEEDING . NO CLEAR FAMILY HX OF BLEEDING D/O.; IMPRESSI ON: NL PLATELET S, PT, PTT. LOW VON WILLEBRA ND FACTOR. TO HEM FOR FURTHER EVAL.; RECORDED 01/12/20 13 9:01AM BY ROMAN ABDULLAHI MA, HINA ON/ADDEN DUM [place] PA-C [address], [place], [address], [facility] 6 12:46:06 Screenin g for malignan t neoplasm of cervix Completed 201105/29/2014 RECORDED 08/10/20 12 11:24AM BY ROMAN ABDULLAHI MA, HINA ON/ADDEN DUM [place] PA-C [address], [place], [address], [facility] 6 12:46:06 Cough 25234734 Completed 201205/29/2014 RECORDED 10/26/19 13 8:30AM BY ROMAN ABDULLAHI MA, HINA ON/ADDEN DUM [place] PA-C [address] [facility] [address], [place], [address], [facility] 6 12:46:06 Removal of suture Completed 201105/29/2014 RECORDED 08/10/20 12 11:24AM BY ROMAN ABDULLAHI MA, HINA ON/ADDEN DUM [place] PA-C [address], [place], [address], [facility] 6 12:46:06 Malaise and fatigue 346146401 Completed 201308/07/2014 RECORDED 04/26/20 14 2:39PM BY UMESH BERRY MD, OFFICE VISIT Park CAMACHO-C [address], [place], [address], [facility] 6 12:46:06 Abdomina l pain 14069612 Completed 201105/29/2014 IMPRESSI ON: PT WITH 40 MIN EPISODE OF L FLANK PAIN, SOME RADIATIO N INTO L GLUT AND GROIN AREA. RESOLVED NOW, MILD RESIDUAL PRESSURE OVER SUPRAPUB IC AREA. NO HX OF NEPHROLI THIASIS OR OVARIAN CYSTS. DOES HAVE MIRENA IN PLACE. NL EXAM AND IN HOUSE URINE, WILL SEND OUT AND ARRANGE US. WILL CONTACT PT WITH RESULTS WHEN AVAIL, SHE IS TO CALL SOONER PRN.; RECORDED 08/10/20 12 11:24AM BY ROMAN ABDULLAHI MA, HINA ON/EDD Coburn PA-C [address], [place], [address], [facility] 6 12:46:06 Influenz a vaccine needed [id number] 06 Completed 201305/29/2014 RECORDED 03/14/20 14 9:28AM BY HINA MARQUEZ ON/EDD Coburn PA-C [address], [place], [address], [facility] 6 12:46:06 Gastroes ophageal reflux disease 553633133 Completed 201305/29/2014 IMPRESSI ON: SXS X YRS. DISCUSSE D TRIGGERS , DIETARY MODIFICA TIONS THAT CAN BE MADE. ALSO PROVIDED W/PT EDU. START PPI X NEXT FEW MONTHS, MAY WANT TO THEN CHANGE TO HISTAMIN E KRISTIE. SEE BACK IN OCT FOR PE, SOONER PRN. REPRINTE D ORDER FOR LIPID PANEL PER HER REQ.; RECORDED 04/26/20 14 2:38PM BY UMESH BERRY MD, HINA ON/EDD larsen MA null, [facility] 7 14:26:26 Abnormal glucose toleranc e in mother complica ting pregnanc y, childbir th AND/OR puerperi 25725129 Completed 201205/29/2014 RECORDED 09/23/20 13 8:57AM BY GONZÁLEZ DESAI MA, ANNOTATI ON/[facility]-C [address], [place], [address], [facility] 6 12:46:06 Injury of head 08815254 Completed 201105/29/2014 IMPRESSI ON: PT SEEMS TO HAVE LINGERIN G SXS INCLUDIN G HEADACHE S, AND NOW NEW ONSET HEARING LOSS, TINNITUS AND VERTIGO. DESPITE PAST DISCUSSI ONS RE IMAGING SHE CHOOSES TO GO AHEAD AND CHECK MRI WHICH I THINK IS APPROPRI ATE. WILL ARRANGE AND INFORM HER TIME AND DATE.; RECORDED 08/10/20 12 11:24AM BY ROMAN ABDULLAHI MA, ANNOTATI ON/[facility] Park [facility]urn CT-C [address], [place], [address], [facility] 6 12:46:06 Hearing loss 48761658 Completed 201105/29/2014 IMPRESSI ON: PT WITH INTERMIT TENT TINNITUS , HEARING LOSS AND VERTIGO FOLLOWIN G HEAD INJURY. SMALL AMT OF FLUID BEHIND TM ON EXAM. TO ENT FOR FURTHER EVAL.; RECORDED 08/10/20 12 11:24AM BY ROMAN ABDULLAHI MA, ANNOTATI ON/[facility] Park [place]urn [facility] [address], [place], [address], [facility] 6 12:46:06 Hyperlip idemia 52586480 Completed 201305/29/2014 RECORDED 04/26/20 14 2:38PM BY UMESH BERRY MD, ANNOTATI ON/[facility] González larsen [place] [facility] 7 14:25:47 Pure hypergly ceridemi a 154613068 Completed 201105/29/2014 IMPRESSI ON: W/REPORT ED ELEVATED TRIGLYCE RIDES ON SCREEN FOR WORK. TO REPEAT FASTING. ; RECORDED 08/10/20 12 11:24AM BY ROMAN ABDULLAHI MA, ANNOTATI ON/ADDEN DUM [place] Organizer-C [address], [place], [address], [facility] 6 12:46:06 Benign neoplasm of skin 46610602 Completed 201105/29/2014 RECORDED 08/10/20 12 11:24AM BY ROMAN ABDULLAHI MA, ANNOTATI ON/ADDEN DUM [place] [facility]izer-C [address] [facility] [address], [place], [address], [facility] 6 12:46:06 Knee pain Completed 201105/29/2014 IMPRESSI ON: POSSIBLE MENISCUS TEAR. SHE SEES HER RHEUM NEXT WEEK. IBUPROFE N, KNEE BRACE.; RECORDED 08/10/20 12 11:24AM BY ROMAN ABDULLAHI MA, ANNOTATI ON/ADDEN DUM [place] [facility]izer-C [address] [facility] [address], [place], [address], [facility] 6 12:46:06 Laborato ry procedur e performe d 650802506 Completed 201205/29/2014 RECORDED 09/23/20 13 8:58AM BY GONZÁLEZ DESAI MA, ANNOTATI ON/ADDEN DUM [place] [facility]izer-C [address] [facility] [address], [place], [address], [facility] 6 12:46:06 Neck pain 69725386 Completed 201105/29/2014 IMPRESSI ON: R SIDED NECK AND SHOULDER PAIN PAST WEEK. 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 NOT RESPONDI NG TO NSAID, PT RESISTAN T TO TAKE OTHER MEDS. DISCUSSE D OPTIONS INCLUDIN G PAIN MEDICATI ON, PT, ORTHO EVAL FOR INJX. 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 WE WILL CONTACT THEM DIRECTLY TO SEE IF THEY ARE ABLE TO ACCOMMOD ATE HER URGENTLY . IN THE MEANTIME PROVIDED WITH TRIAL OF LOWER DOSE ATIVAN, CONTINUE W/REST, HEAT, MASSAGE AND NSAID; RECORDED 08/10/20 12 11:24AM BY ROMAN ABDULLAHI MA, HINA ON/ADDEN DUM [place] PA-C [address], [place], [address], [facility] 6 12:46:06 Administ ration of tetanus vaccine Completed 201105/29/2014 RECORDED 08/10/20 12 11:24AM BY ROMAN ABDULLAHI MA, HINA ON/ADDEN DUM [place] PA-C [address] [facility] [address], [place], [address], [facility] 6 12:46:06 Hand joint pain 804036702 Completed 200805/29/2014 RECORDED 07/16/20 09 9:25AM BY HINA KNOWLES ON/ADDEN DUM [place] PA-C [address] [facility] [address], [place], [address], [facility] 6 12:46:06 Immuniza tion refused Completed 201205/29/2014 RECORDED 11/30/19 13 9:37AM BY ROMAN ABDULLAHI MA, HINA ON/ADDEN DUM [place] PA-C [address] [facility] [address], [place], [address], [facility] 6 12:46:06 Risk of exposure to communic able disease 851188575 Completed 201305/29/2014 RECORDED 03/14/20 14 9:28AM BY HINA MARQUEZ ON/ADDEN DUM [place] PA-C [address] [facility] [address], [place], [address], [facility] 6 12:46:06 Postconc ussion syndrome 63254459 Completed 201105/29/2014 RECORDED 08/10/20 12 11:24AM BY ROMAN ABDULLAHI MA, ANNOTATI ON/ADDEN DUM [place] PA-C [address], [place], [address], [facility] 6 12:46:06 Shoulder joint pain 569739935 Completed 201105/29/2014 IMPRESSI ON: FOLLOWIN G FALL IN SUMMER 2010, FOLLOWED BY HER RHEUM PROVIDER WHO IS TXING FOR ROTATOR CUFF TENDONIT IS. TXING WITH INJECTIO NS. UPCOMING APPT WITH PSS (DR. MARTINEZ- OSTEOPSHIVA H).; RECORDED 08/10/20 12 11:24AM BY ROMAN ABDULLAHI MA, HINA ON/ADDEN DUM [place] PA-C [address], [place], [address], [facility] 6 12:46:06 Disorder of upper respirat ory system 443774364 Completed 201205/29/2014 RECORDED 10/26/19 13 8:30AM BY ROMAN ABDULLAHI MA, ANNOTATI ON/ADDEN DUM [place] PA-C [address], [place], [address], [facility] 6 12:46:06 Chronic sinusiti s 64642953 Completed 201305/29/2014 IMPRESSI ON: RESOLVIN G. FINISH AUGMENTI N. FLONASE AND CLARITIN -D CAN HELP; RECORDED 04/26/20 14 1:53PM BY GONZÁLEZ DESAI MA, ANNOTATI ON/ADDEN DUM [place] PA-C [address], [place], [address], [facility] 6 12:46:06 Stress 24114854 Completed 201205/29/2014 RECORDED 03/01/20 13 10:49AM BY NATALYA HARRISON MA, ANNOTATI ON/ADDEN DUM [place] PA-C [address], [place], [address], [facility] [place] 6 12:46:06 Tobacco dependen ce syndrome [id number] Completed 201205/29/2014 RECORDED 11/30/19 13 9:37AM BY ROMAN ABDULLAHI MA, HINA ON/ADDEN DUM [place] AMATO [address], [place], [address], [facility] [place] 6 12:46:06 Vaginiti s and vulvovag initis Completed 200905/29/2014 RECORDED 01/23/20 10 9:51AM BY HINA DUQUE ON/ADDEN DUM [place] AMATO [address], [place], [address], [facility] [place] 6 12:46:06 von [place] disorder [id number] Active [facility] 0 09:10:11 Increase d frequenc y of urinatio n [id number] Completed 05/17/2018 Umesh Berry MD [address], [place], [address], [facility] [place] 8 15:47:10 Abnormal weight gain [id number] Completed 05/17/2018 Umesh eBrry MD [address], [place], [address], [facility] [place] 8 15:47:12 Diarrhea [id number] Completed 11/24/2016 LATOYA Garza, [facility] 7 14:25:55 Dysuria [id number] Completed 11/24/2016 LATOYA Garza, [facility] [facility] 7 14:25:43 Candidia sis of mouth [id number] Completed 11/24/2016 LATOYA Garza, [facility] 7 14:26:06 Polycyst ic ovaries Active Oragretchen medina [facility] 0 09:10:10 Fatigue 28271016 [facility] 14[facility]26[facility]10 Acute pharyngi tis 321840875 Completed 11/24/2016 LATOYA Garza [facility] 7 14:25:16 Viral disease 31453720 Completed 11/24/2016 LATOYA Garza [facility] 7 14:25:20 Wheezing 62167671 Com[facility]24[facility] 7 14:25:49 Chronic cough 15366233 Completed 11/24/2016 LATOYA Garza [facility] 7 14:25:59 Pain in calf 573845631 Com[facility]/24/[facility] 7 14:25:26 Undiffer entiated connecti ve tissue disease 765282350 Active Oragretchen medina [facility] 0 09:10:11 Ex-smoke r 9919913 Active 2016 Ora medina [facility] 0 09:10:11 Rhabdomy olysis 399932207 Active 2017 Oragretchen medina [facility] 0 09:10:11 Exposure to SARS-CoV -2 Completed 09/20/2020 Removal Reason: Problem added by user geneva desai from the COVID-19 watch flag Kacey Sukhi medina [facility] 1 14:39:53 Benign paroxysm al position al vertigo 158447267 Active 2020 LATOYA Garza, [facility] 1 11:06:49 Exposure to SARS-CoV -2 Completed 02/26/2021 Removal Reason: Problem marked historic al by user [email or web address] from the COVID-19 watch flag Kacey medina [facility] 1 14:40:38 Clenchin g teeth 758597470 Active 2020 Park Coburn PA-C [address], [place], [address], [facility] 1 11:01:55 Temporom andibula r joint-pa in-dysfu nction syndrome 664333282 Active 2020 Park Coburn PA-C [address], [place], [address], [facility] 1 11:01:57 Problem Notes None recorded. Procedures Surgical History Date Name Laterality Status Provider Name and Address Organization Details Recorded Time 10/05/20 19 Date of Last Pap Smear completed González wilcox MA [facility] 09/20/2020 09:14:52 04/12/20 19 biopsy completed Sarah Finney [facility] 04/15/2019 09:17:13 08/19/20 17 Debbie arthrs srg capsulorraphy completed González wilcox MA [facility] 05/17/2018 15:19:04 10/19/19 17 Orthopedic Surgery completed González wilcox MA [facility] 10/08/2020 14:20:31 10/19/19 14 Stab phleb veins xtr - completed González wilcox MA [facility] 08/07/2014 14:34:15 05/19/20 13 Endometr ablate thermal completed González wilcox MA [facility] 08/07/2014 14:34:15 10/19/19 11 Endometrial Ablation completed González wilcox MA [facility] 10/08/2020 14:20:31 10/19/19 09 endometrial biopsy completed González wilcox MA [facility] 11/19/2018 14:07:04 Imaging Results Imaging Date Name Status LastModified by Organization Details LastModified Time 09/07/2020 US, echocardiogram completed [facility] (Outt Non-Invasive Cardiology Scheduling) [address] [place], [address], 10/13/2020 14:30:43 11/07/2020 CT, head + brain, w/o contrast completed [facility] (Outpt Imaging) [address] [place], [address], 11/08/2020 09:54:44 Procedure Notes None recorded. Medical Equipment None Reported. Allergies Allergen ID Allergen Name Allergen Category Reaction Reaction Severity Criticality Documentation Date Start Date Code Code System Note Provider Name and Address Organization Details Recorded Time Substance with sulfonami de structure and antibacte rial mechanism of action (substanc e) medicatio n other mild Not available 07/31/2015 68997 [id number] SNOMED thrus h [facility] 5 14:43:15 34921 codeine medicatio n Not available Not available Not available 01/23/2020 2670 RxNorm Ora Broderick carol [facility] 0 14:46:21 Medications Name Sig Start Date Stop Date Status Note LastModified by Organization Details LastModified Time ciproflox acin hcl 500 mg tabs active Not Available Not Available Not Available lidocaine viscous 2 % soln active Not Available Not Available Not Available nitrofura ntoin monohydra te/macroc rystals 100 mg caps active Not Available Not Available Not Available methylpre dnisolone dose pack 4 mg tabs active Not Available Not Available No t Available virtussin a/c 100-10 mg/5ml soln active Not Available Not Available Not Available tobradex 0.3-0.1 % oint 1 applicat ion to affected area(s) as needed active Not Available Not Available No t Available fluconazo le 150 mg tabs active Not Available Not Available Not Available finacea 15 % gel active Not Available Not Available Not Available sulfameth oxazole/t rimethopr im ds 800-160 mg tabs active Not Available Not Available Not Available azithromy michelle 250 mg tabs 07/21 completed Not Available Not Available Not Available tobramyci n/dexamet hasone 0.3-0.1 % susp 1 drop OU daily active Not Available Not Available No t Available nystatin 036397 unit/ml susp active Not Available Not Available Not Available proair hfa 108 (90 base) mcg/act aers active Not Available Not Available Not Available cyclobenz aprine 10 mg tablet Take 1 tablet 3 times a day by oral route as directed for 10 days. 10/08 completed Not Available Not Available Not Available clotrimaz ole 10 mg teo Take 1 tablet 5 times a day by oral route for 7 days. 01/14 completed Not Available Not Available Not Available terconazo le 0.4 % vaginal cream 11/24 completed Not Available Not Available Not Available levonorge strel 21 mcg/24 hr (up to 8 years) 52 mg intrauter ine device 03/01 completed RECORDED 03/01/20 13 11:03AM BY NATALYA HARRISON MA, OFFICE VISIT;DR KAUFFMAN Not Available Not Available Not Available nystatin 100,000 unit/mL oral suspensio n Take 5 mL 4 times a day by oral route as directed for 14 days. 2014 active Not Available Not Available Not Avai lable Colace 100 mg capsule Take 1 capsule twice a day by oral route as directed . 03/11 completed PRN per General Surgeon Not Available Not Available Not Available prednison e 10 mg tablet Take tapering dose daily by mouth: 5 daily for 2 days, 4 daily for 2 days, 3 daily for 2 days, 2 daily for 2 days, then 1 daily for 2 days. 05/17 completed Not Available Not Available Not Available Dilaudid 2 mg tablet Take 1 tablet every 4 hours by oral route as directed . 03/11 completed PRN per General Surgeon Not Available Not Available Not Available Tylox 5 mg-500 mg capsule Take 1 capsule every 4 hours by oral route as directed . 03/11 completed PRN per General Surgeon Not Available Not Available Not Available Lidocaine Viscous 2 % mucosal solution Take 15 mL every 3 hours by oral route as needed. 01/14 completed Not Available Not Available Not Available fluconazo le 150 mg tablet Take 1 tablet every 72 hours by oral route. 03/31 completed Not Available Not Available Not Available ampicilli n 500 mg capsule 12/15 completed Not Available Not Available Not Available ondansetr on HCl 4 mg tablet 12/15 completed Not Available Not Available Not Available prednison e 20 mg tablet Take 1 tablet every day by oral route. 11/01 completed Not Available Not Available Not Available desmopres sin 10 mcg/spray (0.1 mL) nasal spray (non-refr igerated) [place] 2 sprays every day by nasal route as needed for 30 days. active for bleeding disorder prn Not Available Not Available Not Available AeroChamb er Plus-Medi um Mask DIRECTED 10/29 completed RECORDED 10/29/19 13 3:31PM BY HINA DYER/EDD AMANDA; Not Available Not Available Not Available Prilosec 20 mg capsule,d elayed release Take 1 capsule every day by oral route. 03/04 completed Not Available Not Available Not Available prednison e 5 mg tablet 08/13 completed Not Available Not Available Not Available terconazo le 0.8 % vaginal cream Insert 1 applicat orful every day by vaginal route as directed for 3 days. 01/14 completed Not Available Not Available Not Available metronida zole 250 mg tablet Take 1 tablet 3 times a day by oral route for 7 days. 2014 active Not Available Not Available Not Avai lable Pyridium 200 mg tablet Take 1 tablet 3 times a day by oral route for 3 days. 08/10 completed Not Available Not Available Not Available Advair Diskus 100 mcg-50 mcg/dose powder for inhalatio n TWO TIMES DAILY 10/07 completed RECORDED 09/23/20 13 9:02AM BY GONZÁLEZ DESAI MA, OFFICE VISIT; Not Available Not Available Not Available Zyrtec 10 mg tablet DAILY 05/11 completed RECORDED 05/11/20 08 11:47AM BY GONZÁLEZ DESAI MA, OFFICE VISIT; Not Available Not Available Not Available valacyclo vir 500 mg tablet Take by oral route for 3 days. active Not Available Not Available No t Available morphine ER 30 mg tablet,ex tended release 12/15 completed Not Available Not Available Not Available sulfameth oxazole 800 mg-trimet hoprim 160 mg tablet Take 1 tablet every 12 hours by oral route for 3 days. 2014 active Not Available Not Available Not Avai lable omeprazol e 40 mg capsule,d elayed release Take 1 capsule every day by oral route. 12/25 completed Not Available Not Available Not Available tramadol 50 mg tablet Take 2 tablets 3 times a day by oral route as needed. 12/16 completed Not Available Not Available Not Available butalbita l-acetami nophen-ca ffeine 50 mg-325 mg-40 mg tablet 01/14 completed Not Available Not Available Not Available amoxicill in 500 mg tablet Take 1 tablet every 8 hours by oral route for 7 days. 03/17 completed Not Available Not Available Not Available oxycodone -acetamin ophen 5 mg-325 mg tablet 12/15 completed Not Available Not Available Not Available Motrin 800 mg tablet NEEDED 12/13 completed RECORDED 12/13/19 13 10:04AM BY ROMAN ABDULLAHI MA, OFFICE VISIT;DR HOBBS Not Available Not Available Not Available Fluticaso ne Propionat e (Inhal) 50 mcg/BLIST inhl powd NEEDED 12/13 completed RECORDED 12/13/19 13 10:04AM BY ROMAN ABDULLAHI MA, OFFICE VISIT; Not Available Not Available Not Available amoxicill in 875 mg tablet BID 09/08 completed RECORDED 10/16/20 11 3:07PM BY KENNEY WIGGINS PA-C, MEDICATI ON AUTO-MARÍA ELENA CTIVATIO N; Not Available Not Available Not Available lorazepam 0.5 mg tablet Take 1 tablet every day by oral route as needed for 20 days. 2020 active Not Available Not Available Not Avai lable meclizine 25 mg tablet TAKE 1 TABLET BY MOUTH THREE TIMES DAILY FOR 10 DAYS DIRECTED 03/04 completed Not Available Not Available Not Available doxycycli ne monohydra te 100 mg capsule 12/15 completed Not Available Not Available Not Available oseltamiv ir 75 mg capsule Take 1 capsule twice a day by oral route as directed for 5 days. 12/25 completed Not Available Not Available Not Available clotrimaz ole-betam ethasone 1 %-0.05 % topical cream 07/21 completed Not Available Not Available Not Available indometha michelle 25 mg capsule 08/13 completed Not Available Not Available Not Available loratadin e 5 mg-pseudo ephedrine ER 120 mg tablet,ex tended release,1 2hr TWO TIMES DAILY 04/23 completed RECORDED 04/26/20 14 1:53PM BY JANICE PLUMMER, MEDICATI ON AUTO-MARÍA ELENA CTIVATIO N; Not Available Not Available Not Available gabapenti n 300 mg capsule TAKE 1 CAPSULE BY MOUTH TWICE DAILY 03/04 completed Not Available Not Available Not Available norethind marilia acetate 5 mg tablet 12/16 completed Not Available Not Available Not Available hydroxych loroquine 200 mg tablet QD 08/13 completed Not Available Not Available Not Available epinephri ne 0.3 mg/0.3 mL injection , auto-inje ctor Take 0.3 mL as needed by injectio n route as directed for 2 days. 08/13 completed Not Available Not Available Not Available methylpre dnisolone 4 mg tablets in a dose pack Take 1 package every day by oral route as directed for 6 days. 04/25 completed Not Available Not Available Not Available albuterol sulfate HFA 90 mcg/actua tion aerosol inhaler INHALE 2 PUFFS BY MOUTH EVERY 4 HOURS NEEDED active Not Available Not Available No t Available ipratropi um bromide 42 mcg (0.06 %) nasal spray USE 2 SPRAYS IN EACH NOSTRIL THREE TIMES DAILY FOR 5 DAYS active Not Available Not Available No t Available Cipro 250 mg tablet Take 1 tablet every 12 hours by oral route. active Not Available Not Available No t Available fluticaso ne propionat e 50 mcg/actua tion nasal spray,pita pension SHAKE LIQUID AND USE 2 SPRAYS IN EACH NOSTRIL EVERY DAY DIRECTED 03/04 completed Not Available Not Available Not Available loratadin e 10 mg tablet DAILY 05/11 completed RECORDED 05/11/20 08 11:47AM BY GONZÁLEZ DESAI MA, OFFICE VISIT; Not Available Not Available Not Available diazepam 5 mg tablet Take 1 tablet twice a day by oral route as needed. 04/25 completed Not Available Not Available Not Available amoxicill in 875 mg-potass ium clavulana te 125 mg tablet Take 1 tablet every 12 hours by oral route for 10 days. 03/31 completed Not Available Not Available Not Available oxycodone 5 mg tablet Take 1 tablet every 4 hours by oral route. 01/14 completed Not Available Not Available Not Available albuterol (refill) 90 mcg/actua tion aerosol inhaler EVERY FOUR HOURS, NEEDED 2012 active RECORDED 09/23/20 13 9:31AM BY UMESH BERRY MD, OFFICE VISIT; Not Available Not Available Not Available Loratadin e-D 10 mg-240 mg tablet,ex tended release 24 hr TAKE 1 TABLET BY MOUTH EVERY DAY FOR 5 DAYS active Not Available Not Available No t Available nitrofura ntoin monohydra te/macroc rystals 100 mg capsule Take 1 capsule every 12 hours by oral route for 7 days. 11/19 completed Not Available Not Available Not Available Reclipsen (28) 0.15 mg-0.03 mg tablet DAILY active RECORDED 01/23/20 10 9:57AM BY SARAH CASTRO, ANNOTATI ON/EDD AMANDA;DR KAUFFMAN Not Available Not Available Not Available omeprazol e DAILY 30-60 MIN BEFORE AM MEAL 12/13 completed RECORDED 12/13/19 13 10:03AM BY ROMAN ABDULLAHI MA, OFFICE VISIT; Not Available Not Available Not Available Guiatuss EVERY 6 HOURS NEEDED 04/01 completed RECORDED 05/31/20 12 1:10PM BY KENNEY WIGGINS PA-C, MEDICATI ON AUTO-MARÍA ELENA CTIVATIO N; Not Available Not Available Not Available Loestrin 24 Fe QD 05/11 completed RECORDED 05/11/20 08 11:47AM BY GONZÁLEZ DESAI MA, OFFICE VISIT; Not Available Not Available Not Available diclofena c 1 % topical gel 08/13 completed Not Available Not Available Not Available Lo Loestrin Fe 1 mg-10 mcg (24)/10 mcg (2) tablet active Not Available Not Available Not Available Lotemax 0.5 % eye ointment Apply 1 applicat ion as needed by ophthalm ic route as directed for 7 days. 12/16 completed Not Available Not Available Not Available Virtussin AC 10 mg-100 mg/5 mL oral liquid Take 10 mL every 4 hours by oral route as directed for 4 days. 12/25 completed Not Available Not Available Not Available Wixela Inhub 250 mcg-50 mcg/dose powder for inhalatio n one puff twice daily as directed 08/13 completed Not Available Not Available Not Available cholecalc iferol (vitamin D3) 125 mcg/0.5mL (5,000 unit/0.5m L)oral drops Take 1 mL every day by oral route. active Not Available Not Available No t Available Vitals Date Recorded Body height Provider Name an d Address Organization Details Last Updated DateTime 09/20/2020 166.37 cm González Esquivel MA [facility] 09/20/2020 09:12:30 Date Recorded Body height Body mass index (BMI) Body weight Oxygen saturation Oxygen saturation in Arterial blood by Pulse oximetry Heart rate Body temperature Systolic blood pressure Diastolic blood pressure Provider Name and Address Organization Details Last Updated DateTime 0 166.37 cm 25.6 kg/m2 73549.4 1 g 98 % 98 % 86 /min 98.06 [degF] 116 mm[Hg] 74 mm[Hg] González larsen MA [facility] 0 14:28:03 Date Recorded Body height Provider Name an d Address Organization Details Last Updated DateTime 11/01/2020 166.37 cm González Esquivel [facility] 11/01/2020 13:13:28 Date Recorded Body height Provider Name an d Address Organization Details Last Updated DateTime 11/07/2020 166.37 cm González Esquivel MA [facility] 11/07/2020 11:05:31 Date Recorded Body height Provider Name an d Address Organization Details Last Updated DateTime 03/04/2021 166.37 cm Kenya Skinner [facility] 03/04/2021 09:58:56 Social History Question Answer Notes LastModified by Organizat ion Details LastModified Time Tobacco Smoking Status Former Smoker LATOYA Cast, [facility] 11/24/2016 14:23:28 Do You Have An Advance Directive? No Information not available 10/08/2020 What Is Your Level Of Alcohol Consumption? Occasional Information not available 08/07/2014 Is Blood Transfusion Acceptable In An Emergency? Yes Information not available 11/12/2015 What Is Your Level Of Caffeine Consumption? Moderate 1-2 Cups Of Coffee Daily Information not available 08/07/2014 How Much Tobacco Do You Chew? None Information not available 11/12/2015 Are You Currently Employed? No Information not available 10/08/2020 What Type Of Diet Are You Following? REGULAR Information not available 10/08/2020 Which Illicit Or Recreational Drugs Have You Used? None Information not available 11/12/2015 Do You Or Have You Ever Used E-cigarettes Or Vape? 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 6-10yearssinc [email or web address] e Information not available 09/20/2020 Live Alone Or With Others? With Others (Nader) And 2 Kids; 2 Dogs Information not available 08/07/2014 Do You Take Precautions To Prevent Distracted Driving? Yes Information not available 11/12/2015 How Often Do You Need To Have Someone Help You When You Read Instructions, Pamphlets, Or Other Written Material From Your Doctor Or Pharmacy? Never Information not available 11/12/2015 Have You Served In The ? No Information not available 11/24/2016 Have You Or Anyone In Your Household Had Any Of The Following Symptoms In The Last 14 Days: Sore Throat, Cough, Chills, Body Aches For Unknown Reasons, Shortness Of Breath For Unknown Reasons, Loss Of Smell, Loss Of Taste, Fever At Or Greater Than 100 Degrees Fahrenheit? No [email or web address] Information not available 08/13/2020 Are You Or Anyone In Your Household A Health Care Provider Or Emergency Responder? No [email or web address] Information not available 08/13/2020 To The Best Of Your Knowledge Have You Been In Close Proximity To Any Individual Who Tested Positive For COVID-19? No Information not available 08/13/2020 Have You Recently Traveled To A COVID-19 High Risk Area Or Gathering In The Last 10 Days? No Information not available 11/01/2020 What Was The Date Of Your Most Recent Tobacco Screening? 11/01/2020 Information not available 11/01/2020 How Many Children Do You Have? 2 Jaqui And Hugo Information not available 08/07/2014 What Is Your Current Pack Years? 10packyears Information not available 10/08/2020 Do You Use Protection During Sex? No Information not available 11/12/2015 Seat Belts Used Routinely Yes Information not available 11/12/2015 Are You Sexually Active? Yes Information not available 11/12/2015 Smoke Alarm In Home Yes Information not available 11/12/2015 At What Age Did You Start Smoking Tobacco? 17 Information not available 10/08/2020 Are You Passively Exposed To Smoke? No Information not available 11/12/2015 Do You Or Have You Ever Used Smokeless Tobacco? Never Used Smokeless Tobacco Information not available 07/01/2019 How Much Tobacco Do You Smoke? 0.5 PPD Information not available 10/08/2020 Do You Use Sunscreen Routinely? Yes Information not available 10/08/2020 How Many Years Have You Smoked Tobacco? 8 Information not available 10/08/2020 Sex: Unknown Functional Status Question Answer Note LastModified by Organization D etails LastModified Time Are you able to care for yourself? Yes Information n ot available 08/07/2014 What is your exercise level? None Information not available 10/08/2020 Mental Status None recorded. Family History Relationship Description Onset Age of this Age Resolved Age Notes LastModified by Organization Details LastModified Time Father Coronary arterioscler osis Not available 2019 14:12:52 Father Myocardial infarction [email or web address] Not available 10/08 14:12:52 Father Hypercholest erolemia [email or web address] Not available 07/01/2019 13:59:38 Mother Hypercholest erolemia [email or web address] Not available 10:49:31 Mother Autoimmune disease [email or web address] Not available 2019 14:12:52 Mother Essential hypertension 58 smoker and high sodium intake [email or web address] Not available 10/08/2020 14:12:52 Maternal Grandfather Type 2 diabetes mellitus deceas ed [email or web address] Not available 10/08/2020 14:12:52 Unspecified Relation Type 2 diabetes mellitus patern al side; not from obesit y [email or web address] Not available 10/08/2020 14:12:53 Maternal Grandmother Essential hypertension [email or web address] Not available 14:12:53 Medical History Condition Response Other Y Blood Diseases Y Hospitalizations Y Head Injury/Concussion Y Acid Reflux (GERD) Y Reflux/GERD Y Gynecological History Statement/Question Response Abnormal Pap N Date of Last Pap Smear 10/05/2019 Obstetrics History GPAL:G 0 P 0 0 0 0 Immunizations Vaccine Type Date Status Note Provider Name and Address Organization Details Recorded Time Influenza, split virus, quadrivalent, PF 06/24/20 17 cancelled patient objection Not Available [facility] 11/05/2019 02:22:07 Tdap 10/08/20 20 completed LATOYA Ha [facility] 10/08/2020 14:33:45 DTaP 11/12/18 82 completed Ora medina [facility] 01/24/2020 09:10:02 DTaP 01/14/19 82 completed Ora medina [facility] 01/24/2020 09:10:02 DTaP 03/07/19 82 completed Ora Money null, [facility] 01/24/2020 09:10:02 MMR 12/17/18 83 completed Roa Money null, [facility] 01/24/2020 09:10:02 IPV 06/20/19 83 completed Ora Money null, [facility] 01/24/2020 09:10:02 DTaP 06/20/19 83 completed Ora Money null, [facility] 01/24/2020 09:10:02 IPV 08/23/19 86 completed Ora Money null, [facility] 01/24/2020 09:10:02 IPV 04/24/19 87 completed Ora Money null, [facility] 01/24/2020 09:10:02 DTaP 04/24/19 87 completed Ora Money null, [facility] 01/24/2020 09:10:02 MMR 04/25/19 97 completed Ora Money null, [facility] 01/24/2020 09:10:02 Td (adult), 2 Lf tetanus toxoid, preservative free, adsorbed 04/25/19 97 completed Ora Money null, [facility] 01/24/2020 09:10:02 Hep B, adult 06/10/20 00 completed Ora Money null, [facility] 01/24/2020 09:10:02 Hep B, adult 07/15/20 00 completed Ora Money null, [facility] 01/24/2020 09:10:02 Hep B, adult 08/09/20 07 completed Ora Money null, [facility] 01/24/2020 09:10:02 Influenza, split virus, trivalent, preservative 08/29/20 11 completed Ora Money null, [facility] 01/24/2020 09:10:02 Influenza, split virus, trivalent, preservative 09/23/20 13 completed Ora Money null, [facility] 01/24/2020 09:10:02 Tdap 01/26/20 10 completed Ora medina [facility] - [facility] 01/24/2020 09:10:02 Past Encounters Encounter ID Performer Location Encounter Start Date Encounter Closed Date Diagnosis/Indication Diagnosis SNOMED-CT Code Diagnosis ICD10 Code Diagnosis Note [id number] auto[address]Comm erce [address] [facility] [place] [address] 08/09/2007 00:00:00 [id number] autoEComm erce [address] [facility] [place] [address] 01/10/2008 00:00:00 [id number] autoEComm erce [address] [facility] [place] [address] 05/11/2008 00:00:00 [id number] autoEComm erce [address] [facility] [place] [address] 07/16/2009 00:00:00 [id number] autoEComm erce [address] [facility] [place] [address] 01/22/2010 00:00:00 [id number] autoEComm erce [address] [facility] [place] [address] 01/25/2010 00:00:00 [id number] autoEComm erce [address] [facility] [place] [address] 04/01/2011 00:00:00 [id number] autoEComm erce [address] [facility] [place] [address] 04/04/2011 00:00:00 [id number] autoEComm erce [address] [facility] [address] [place] [address] 04/29/2011 00:00:00 [id number] [employer]ce [address] [facility],[address] [place] [address] 08/29/2011 00:00:00 [id number] [employer] [address] [facility],[address] [place] [address] 10/23/2011 00:00:00 [id number] [address] [address] [place] [address] 11/17/2011 00:00:00 [id number] [employer] [place] [address] 03/12/2012 00:00:00 50177 [employer] [address] [place] [address] 03/23/2012 00:00:00 24550 [employer] [address] [place] [address] 05/31/2012 00:00:00 31272 [employer] [address] [place] [address] 08/10/2012 00:00:00 01311 [employer] erce [address] [facility],[address] [place] [address] 09/30/2012 00:00:00 61503 [employer] erce [address] [facility],[address] [place] [address] 11/04/2012 00:00:00 79579 [employer] erce [address] [facility],[address] [place] [address] 11/30/2012 00:00:00 33043 [employer] erce [address] [facility],[address] [place] [address] 12/13/2012 00:00:00 79076 [employer] erce [address] [facility],[address] [place] [address] 01/11/2013 00:00:00 74053 [employer] erce [address] [place] [address] 03/01/2013 00:00:00 54459 [employer] erce [address] [facility],[address] [place] [address] 09/23/2013 00:00:00 [id number] [employer] erce [address] [facility],[address] [place] [address] 03/14/2014 00:00:00 [id number] [facility] [facility] [address] [facility] [address] [place] [address] 03/24/2014 00:00:00 [id number] [facility] [address] [facility] [address] [place] [address] 04/26/2014 00:00:00 [id number] González kaye [place] Main Office [address] [address] [place] [address] 08/07/2014 14:29:46 08/07/2014 15:29:30 Increased frequency of urination 091390141 ? IC [id number] Main Office [address] [address] [place] [address] 11/17/2014 11:43:01 11/17/2014 12:24:46 Gastroesophageal reflux disease 342221471 Recommend PPI trial Abnormal weight gain 475169550 [id number] Natalya Harrison [place] Main Office [address] [address] [place] [address] 06/21/2015 11:35:42 06/21/2015 12:35:22 Diarrhea 32250761 656239 Derek Pillai Main Office [address] [address] [place] [address] 07/31/2015 14:30:40 07/31/2015 15:10:26 Candidiasis of mouth 41021550 B37.9 Will treat with nystatin, this may be a reaction from her autoimmune disease, she is aware and will try to avoid triggers, resume her clean eating and exercise which usually helps to control her symptoms. [id number] Umesh Berry MD Main Office [address] [address] [place] [address] 11/12/2015 10:43:36 11/12/2015 12:08:56 Exercise-induced asthma 70833784 J45.990 Polycystic ovaries 86038 008 E28.2 Fatigue 81438032 R53.83 [id number] Umesh Berry MD Main Office [address] [address] [place] [address] 12/12/2015 10:38:49 12/12/2015 11:24:37 Acute pharyngitis 579761245 J02.9 Rapid strep test is negative. Viral disease 73201182 B 34.9 Viral infection with hyperreact amanda airways. Start CHerutussi n AC for cough. ProAir HFA inhaler PRN for wheezing. Rest , fluids. Wheezing 74474924 R06.2 Medrol dose pack as directed for 6 days and ProAir HFA PRN. [id number] Umesh Berry MD Main Office [address] [address] [place] [address] 12/24/2015 11:25:01 12/24/2015 12:36:41 Chronic cough 61190342 R05 Pain in calf 964939537 M 79.669 [id number] Doug Henson MD Main Office [address] [address] [place] [address] 07/21/2016 13:14:55 07/21/2016 14:01:00 Injury of nose 13552143 S09.92XA Does not appears crooked and is able to breath. Will get an xray to look for a fracture. Instructed her to leave the lot alone. [id number] Doug Henson MD Main Office [address] [address] [place] [address] 10/23/2016 09:58:16 10/23/2016 10:42:32 Shoulder pain 42883548 M25.511 I advised her to take naprosyn twice a day for a week to help with any inflammati on. She will make her own PT appointmen t and will call here for a referral to [facility] or ortho if the pain persists. [id number] Aissatou Lau Main Office [address] [address] [place] [address] 11/24/2016 14:15:38 11/24/2016 15:23:48 Acromioclavicular joint pain 929547582 M25.511 408472 Jose rao Main Office [address] [address] [place] [address] 04/25/2017 09:35:01 04/25/2017 10:27:56 Acute pharyngitis 711705884 J02.9 Axillary lymphadenopathy 206312335 R59.0 [id number] Umesh Berry MD Main Office [address] [address] [place] [address] 06/24/2017 12:52:43 06/24/2017 14:06:25 Immunization refused 280130522 Z28.21 Upper abdominal pain 831 07129 R10.10 [id number] Cheri martinez Main Office [address] [facility] [address] [place] [address] 12/16/2017 12:38:34 12/16/2017 13:24:39 Anxiety 23728978 F41.9 panic attacks, baseline anxiety is up, will check thyroid, refill lorazepam for as needed bu knows to use sparingly, I recc pt start a daily SSRI, zoloft would be a good med, she will do some counseling here and think about it, may call for med Panic attack 172425313 F 41.0 see above Exercise-i nduced asthma 64705119 J45.990 [id number] Jose rao Main Office [address] [address] [place] [address] 04/20/2018 10:47:06 04/20/2018 12:03:23 Rhabdomyolysis 266127952 M62.82 cpk up to 33K at [facility] (did intense crossfit routine ac went to ER) - rec'd prolonged ivf, is drinking plenty of water nowcpk order ending - will get p this ovadvised pt to avoid crossfit unless significan tly modifies her routine (not as intense as she did last week) Systemic l upus erythematosus 62019627 M32.9 cont pred taper as dir - will f/u c rheum for further input - has pending f/u c rheum later today Hypokalemia 47290084 E87 .6 most likely d/t prolonged ivf - will recheck Costal chondritis 666532 04 M94.0 mild, no h/o overhead lifing but did do intense crossfit routine - rec warm compress prn [id number] Umesh Berry MD Main Office [address] [address] [place] [address] 05/17/2018 15:12:42 05/17/2018 16:27:07 Adult health examination 499298431 Z00.00 Undifferen tiated connective tissue disease 981435908 M35.1 Followed by Rheum [place] Non-trauma tic rhabdomyolysis 822014271 M62.82 Gastroesop hageal reflux disease without esophagitis 018894029 K21.9 Disorder o f connective tissue 721519543 M35.9 Followed by rheum. [id number] Umesh Berry MD Main Office [address] [address] [place] [address] 11/19/2018 13:46:50 11/19/2018 14:57:29 Glossitis 65276050 K14.0 Vitamin B1 2 deficiency (non anemic) 15014427 E53.8 122014 Tereza Dorsey LPN Main Office [address] [address] [place] [address] 01/10/2019 14:59:28 01/11/2019 14:43:42 [id number] Umesh Berry MD Main Office [address] [address] [place] [address] 01/14/2019 09:52:09 01/14/2019 11:23:27 Exertional rhabdomyolysis 61267806 M62.[address] Berry. He has called Dr Dago Truong and he agrees to see pt to evaluate for muscle biopsy. He recommends we do metabolic workup. Will do labs and have pt see rheumatolo gy as planned. In the interim, do not so any intense exercise, keep hydrated, keep normal activity level and eating. Liver enzy mes level above reference range 177019791 R74.8 check LFTS [id number] Park Coburn PA-C Main Office [address] [address] [place] [address] 03/11/2019 11:20:17 03/11/2019 12:03:21 Acute pharyngitis 359281688 J02.9 Rapid strep test is negative.P t. exposed to strep through her son. Will start Abx and if strep is not confirmed , will discontinu e. [id number] Wayne Coburn PA-C Main Office [address] [address] [place] [address] 03/17/2019 15:35:23 03/17/2019 16:41:11 Nasal congestion 76626986 R09.81 Acute sinusitis 50343364 J01.90 rec afrin x 3 days, then use sudafed prn, cont kefir, take abx as dir, rec saline and warm washcloth prn pt requested diflucan just in case [id number] Karmen Weir Main Office [address] [facility] [address] [place] [address] 03/31/2019 14:29:05 03/31/2019 15:27:13 Persistent cough 990965510 R05 Likely inflammed airways, will try ICS and prn beta agonist. Start flonase and steam. Stop all 5-7 days before muscle biopsy. To call if not improving. CXR if persistent . [id number] Umesh Berry MD Main Office [address] [facility] [address] [place] [address] 07/01/2019 13:42:50 07/01/2019 14:53:09 Adult health examination 144470778 Z00.00 Anxiety 85995882 F41.9 Undifferen tiated connective tissue disease 189343949 M35.1 Followed by [place] Exercise-i nduced asthma 49383807 J45.990 continue use of ProAir before exercise Gastroesop hageal reflux disease 089677464 K21.9 Inflammati on of sacroiliac joint 50730041 M46.1 [id number] NUPUR Campos Main Office [address] [facility] [address] [place] [address] 10/17/2019 11:24:46 10/17/2019 12:08:30 Fever 089351924 R50.9 rapid negative, patient symptomati c, will tx for flu like sx. hydration, rest, tyelnol or ibuprofen as needed Persistent cough 8615961 02 R05 Influenza- like symptoms 431686609 R68.89 tamiflu bid x 5 days, anitviral, will not help with sx but shorten the duration of illness. [id number] Karmen Weir Main Office [address] [facility] [address] [place] [address] 11/02/2019 15:28:13 11/02/2019 17:00:35 Chest pain 41773995 R07.9 Likely musculoske letal pain with very localized tenderness and no palpable abnormalit y. Will try salonpas patch on 12 h then off 12 h. If not better would do Ultrasound and consider dx mammogram. CXR and rib xray now. Can use nsaids if needed as well. Chest wall pain 94681104 6 R07.89 [id number] Karmen Bianchitaryn Main Office [address] [facility] [address] [place] [address] 12/26/2019 09:22:59 12/26/2019 10:17:58 Muscle pain 49036990 M79.10 pt is seeing neurologis t for EMG upcoming, will discuss recurrent elevated CK with rheumatolo gist to see who we might refer to for muscle pain that is intermitte nt but ongoing associated wtih CK elevation. Right uppe r quadrant pain 725698660 R10.11 check ultrasound , r/o gallstones [id number] Umesh Berry MD Main Office [address] [facility] [address] [place] [address] 08/13/2020 13:23:42 08/13/2020 14:22:36 Intermittent palpitations 148405973 R00.2 -EKG done NSR in 70's-Will check labs including electrolyt es and tsh and evaluate for anemia-Giv en hx of myositis will check CK in the even heart muscle affected although I suspect unlikely as the myositis she has seems to be related to skeletal muscle and for the same reason for patient reassuranc e will get TTE.-If no improvemen t may consider Holter/Car amelia consult-GA D -7 score 0 Patient denies any anxiety, depression , SI/HI. 411702 NUPUR Campos [facility] [address] [facility] [address] [place] [address] 09/20/2020 08:54:38 09/20/2020 10:16:59 Strain of abdominal muscle 481241925 S39.011A MRI from December reviewed, abdominal wall unremarkab le. no hernia was een at that time. She does note it feels muscular. will take iburpofen 800mg TID with food and flexeril at bedtime for 3-5 days to see if she gets relief from this. May use heat to area, recommend core strengthen ing. 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 Will tx for bPPV with meclizine. instructed to start with 12.5mg and increase if needed. hydration, rest. Also feels ears are full, will start flonase daily as needed x 5 days. [id number] Aissatou Lau [facility] h [address] [facility] [address] [facility] [place] [address] 11/07/2020 08:57:20 11/07/2020 11:51:27 Benign paroxysmal positional vertigo 188000450 H81.10 Meclizine and flonase have not been helpful, she did try PT at [facility] and with PT and both time her sx significan tly worsened the next day. she does not wish to get back at this time. Will refer to ENT, get kabs and CT scan. Will also test for COVID. Exposure t o viral disease 4920507032 20420 Z03.818 quarantine until results back. Dizziness 937920267 R42 [id number] Aissatou Lau [facility] [address] [facility] [address] [facility] [place] [address] 03/04/2021 08:39:09 03/04/2021 12:50:53 Temporomandibular nxvie-jilw-sugolvzxwx n syndrome 377084243 M26.629 TMJ secondary to tooth clenching at night resulting in neck and upper back muscle spasms , headache relieved by botox injections . We will explore this treatment through the neurology office . Pt. will continue use of mouth guards. Clenching teeth 52575800 9 R46.89 Neck pain 69518644 M54.2 Health Concerns Section Related Observation LastModified by Organization Detai ls LastModified Time None Recorded Concern Status LastModified by Organization Details LastModified Time None Recorded Advance Directives Directive N: Payers Encounter Date Sequence Insurance Name Policy Number Policy Ortiz Covered Member ID Ortiz Member ID Guarantor Name 09/20/2020 1 [facility] ([facility]) [id number] 1 Nader Rzeszutek [id number] Selin Rzeszutek 10/08/2020 1 [facility] ([facility]) [id number] 1 Nader Rzesz[place]k [id number] Selin Rzesz[place]k 11/01/2020 1 [facility] ([facility]) [id number] 1 Nader Rzesz[place]k [id number] Selin Rzeszutek 11/07/2020 1 [facility] ([facility]) [id number] 1 Nader Rzesz[place]k [id number] Selin Rzeszutek 03/04/2021 1 [facility] ([facility]) [id number] 1 Nader Rzeszutek [id number] Selin Rzeszutek Notes Date Note Type Note Provider Name and Address Organization Details Recorded Time 09/20/2020 text/html Generic HPI TemplateReported bypatient.Notes:Video visit: Has had similar sx in the past, ?muscle strain but she didn't do anything. no exercise in 8 months. No specific charlee where she may have strained it. Started Thursday night, feels like a muscle cramp. she had this before and she felt a bulge but couldn't see one. her friend told her to push it back in and she notes it felt like a pop.Had US last year and had liver mass- benign. This feels different.Pain is just above umbilicus to the right. Kept getting rhabdo, last episode in december so she stopped exercising. No fever, n/v/d no constipation. Feels like she got kicked there. Does have hx of gerd. took out grains from her diet and she stopped coughing/ gerd got better.No hx of abdominal surgeries.was lifting upwards of 300lbs when she was exercising. NUPUR Campos [address] [facility] [address], [place], [address], [facility] 09/20/2020 10:03:10 10/08/2020 text/html Here for PE janny bowie Reviewed chronic medications and medical problems. Discussed screening guidelines as well as goals for fitness and weight management. Underlying poorly defined CTD has been followed by specialty rheumatology. No specific treatment chronically, but has recently restarted low dose prednisone. states that her broadband installer lets me do it because I know what I'm doing. Plans short course for less than 2 weeks tapering from 20mg. Started meds for pain in chest wall, hand swelling, fatigue. Has close follow up with ophtho as well for regular exams. Had iritis as a teen, but no recent episodes. 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 No clear underlying genetic disorder noted. She did see a neurologist, but orders for genetic testing initiated by neuro are apparently held up by process for insurance approval. 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 See recent notes for symptoms of palpitations. Notes persistent palpitations that are not associated with syncope, pre-syncope, chest pain, dyspnea, change in exercise tolerance. No association with exertion. Most notable at night as she is trying to fall asleep. Thyroid function normal and recent echo normal. Umesh Berry MD [address] [facility] [address], [place], [address], [facility] [place] 10/10/2020 08:37:49 11/01/2020 text/html Generic HPI TemplateReported bypatient.Notes:Video visit: Woke up 3 days ago- turned over in her bed and felt dizzy, felt spinning/ sinking sensation. Got up fine, let her dog out, fed the dog, got back in bed, same thing happened. this time she swung her legs over the bed, couldn't focus her eyes, had intense spinning. She sat until she felt like she could stand up- probably 5 -10 minutes. the got up, got ready, had coffee and had headache, no nausea, dull headache. The dull headache, has been constant, no n/v/d. Lowell good enough to exercise that night, laid on her bench and had immediate spinning again. Lowell like the floor was crooked, like she was off balance. She has also noticed when she is in bed, her ears feel full- no cracking or popping. No congestion, no sore throat, no runny nose or PND. She did have a COVID test yesterday that was negative- was a pcr test at [facility]. Josette Hernandez, [facility] [address] [facility] [address], [place], [address], [facility] 11/01/2020 13:40:31 11/07/2020 text/html Video visit: f/u as below. ongoing sx x 9 days, started meclizine and flonase, taking them daily- taking meclizine 25mg. she does not feel much difference- mornings and evenings are difficult. Thursday she tried micki maneuver at home on thursday, woke up thursday morning and sx were 1000% worse. spent entire day in bed Thursday, floor looked slanted etc. Saw PT yesterday, did micki maneuver- didn't have intense spinning. did pressure points, electrodes etc. This morning woke up the same way she did thursday. Has improved some since this morning. Sometimes ears feel full, has a parrish a lot. Has noticed ringing on one side- high pitched, doesn't last ling, the other side feels deaf then resolves. Aissatou medina, [facility] 11/07/2020 12:42:29 11/07/2020 text/html Generic HPI TemplateReported bypatient.Notes:Video visit: Woke up 3 days ago- turned over in her bed and felt dizzy, felt spinning/ sinking sensation. Got up fine, let her dog out, fed the dog, got back in bed, same thing happened. this time she swung her legs over the bed, couldn't focus her eyes, had intense spinning. She sat until she felt like she could stand up- probably 5 -10 minutes. the got up, got ready, had coffee and had headache, no nausea, dull headache. The dull headache, has been constant, no n/v/d. Lowell good enough to exercise that night, laid on her bench and had immediate spinning again. [place]ell like the floor was crooked, like she was off balance. She has also noticed when she is in bed, her ears feel full- no cracking or popping. No congestion, no sore throat, no runny nose or PND. She did have a COVID test yesterday that was negative- was a pcr test at [facility]. Aissatou medina [facility] 11/07/2020 12:42:29 03/04/2021 text/html 40 year old fema le c/o clenching her jaw at night for ''years''. Pt. was seen by her dentist and distantly by oral surgeon in the past and from series of xrays was told she has significant issues with clenching resulting in severe jaw tension , neck muscle tension and also upper back muscle spasms. PT. tried massage therapy and had so far 2 botox injections in her jaws , one in June and one during the winter with very favorable results. Pt has tried mouth guards in the past which did not help her. Pt. is intereseted in neurology referral to have botox injections approved by her insurance as cost to her is high out of pocket. Aissatou medina [facility] 03/07/2021 10:51:05 OBGyn Episode No OBEpisode recorded.
--- OUTSIDE RECORDS SUMMARY | 2024-12-26 14:03 | XMS_ITS | Encounter Summary ---
Author Organization [facility] [place] [address] Care Team Providers Care Coffee Break Attendant Name Role Phone Reshma Toribio MD Primary Care Provider [phone] Encounter Details Date Type Department Care Team (Late st Contact Info) Description 08/05/2024 8:03 AM EDT Hospital Encounter TH HISTORIC ENCOUNTERS EASTERN CONVERSION ONLY Janae Lay MD 175 [facility] [address] [place] [address] Social History Tobacco Use Types Packs/Day Years [...] squeezing , and are located in the worship area , base of her head , [...] MRI B[facility]IN [facility] She denies any blurry vision , double [...] 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 The majority of the actual bnrm-fk-gpav visit was spent counseling the patient with respect to the current neurological picture. Janae Lay MD documented in this encounter Plan of Treatment Upcoming Encounters Date Type Department Care Team (Late st Contact Info) Description 01/05/2025 8:30 AM EDT Office Visit [facility] [address] [phone] Janae Lay MD [address] [phone] 03/22/2025 9:40 AM EDT Procedure visit [facility] 175 [facility] [address] [place] [phone] Janae Lay MD [address] [phone] documented as of this encounter Visit Diagnoses Not on filedocumented in this encounter Care Teams Coffee Break Attendant Relationship Specialty Start Date End Date Reshma Toribio MD PCP - General 08/05/24 11/14/24 documented as of this encounter
--- OUTSIDE RECORDS SUMMARY | 2024-12-26 14:03 | XMS_ITS | Encounter Summary ---
Author Organization [employer] Address [address] [place] [address] Care Team Providers Care Branch Mechanic Name Role Phone Unavailable Primary Care Provider Unavailabl e Reason for Visit * Reason Onset Date Comments ELEVATED CK 12/28/2019 Encounter Details Date Type Department Care Team ([facility] st Contact Info) Description 12/28/2019 Telephone [facility] Rheumatology [address] [address] Lakeisha Patel DO [address] [place] [address] ELEVATED CK Social History Tobacco Use Types Packs/Day Years Used Date Smoking Tobacco: Never Assessed Comments Unknown Sex and Gender Information Value Date Recorded Sex Assigned at Not on file Legal Sex Female 2:34 PM EST Gender Identity Not on file Sexual Orientation Not on file documented as of this encounter Miscellaneous Notes * Telephone Encounter - Lakeisha Patel DO - 12/29/2019 2:11 PM EDT Spoke with patient. She has been working out about 3 - 4 days a week again. She took 8 weeks off from the gym during the time of chest pain. She went back to the gym last Wed for a HIIT class and felt fine. She did feel some leg muscle soreness that felt like it was normal. No arm aching. She did not eat before her morning routine. Last Thursday around 9:30 am, she went to her next class.She worked with a gym partner and used an 8 lb med ball. After a few minutes, she felt very fatigued. She thought she needed her inhaler. As she walked out, she felt her arms become sore and they flexed again and it felt like her rhabdo symptoms again. She drank much water. She then called her PCP o bushraice and got labs done the same day around 1 pm. Her CK was in the upper 200s. She called our office and left a message. She had subsequent labs drawn - 600s. ([facility]). She went to [facility] night and CK went up to the 800s. She got IV fluids. She then went home and rested over the weekend. She is frustrated that she cannot continue her regular muscle routine. She still has burning pain and aching in her arms. She has been trying to use the indomethacin and has used the diclofenac gel on her arms. She has noticed some decrease in her chest and back pain since using the indomethacin. She will have her gallbladder evaluated next week. She is having an EMG on 01/08 with Apolinar Vergara MD. She was referred to Tatyana Louise MD for Neurology. She was referred to Rheumatology in [place] Maribel Stein MD. We discussed establishment of care near her home as coming to [place] has been difficult. We discussed protein loading before working out. She also mentions that her fasting blood sugars are over 100. Will start a short course prednisone 20 mg qd x 2 d, then decrease by 5mg every 2 days until off. Will order labs (CK, aldolase, LDH, AST, ALT, ESR, CRP, myoglobin) and fax to [facility] labs ([address] [place] [address]; ). Advised to contact the office with any questions or concerns. * Telephone Encounter - Lakeisha Patel DO - 12/29/2019 1:40 PM EDT Spoke with Karmen Diego regarding her recent elevated CK with exercise again. Will speak with patient as well. Patient had said she would like to see a Neuromuscular specialist. * Telephone Encounter - Kiera Hilton MA - 12/29/2019 1:17 PM EDT Karmen Diego APRN would like to speak to you to get some clarification on the patient. Please call her cell [phone] * Telephone Encounter - Lakeisha Patel DO - 12/28/2019 1:26 PM EDT Karmen Diego office called. Message left. * Telephone Encounter - Usha Vega MA - 12/28/2019 10:56 AM EDT Tcf Karmen Diego APRN she would like to discuss reoccurrence with elevated ck levels with exercise. She left her phone number documented in this encounter Plan of Treatment Not on file documented as of this encounter Visit Diagnoses Diagnosis Non-traumatic rhabdomyolysis- Primary Elevated CK Other nonspecific abnormal serum enzyme levels documented in this encounter
--- OUTSIDE RECORDS SUMMARY | 2024-12-26 14:03 | XMS_ITS | Clinical Summary ---
Author Organization [facility] Address [address] [place] [address] Care Team Providers Care Certified Medical Dosimetrist Name Role Phone Lucy Saini PAULA Primary Care Provider Allergies Active Allergy Reactions Criticality Noted Date Comments Sulfa Antibiotics Unknown/Patient and Family Unable to Define Medium 01/20/2022 Medications Medication Sig Dispensed Refills Start Date End Date Status albuterol (PROVENTIL HFA; VENTOLIN HFA) 108 (90 Base) MCG/ACT inhaler albuterol sulfate HFA 90 mcg/actuation aerosol inhaler INHALE 2 PUFFS BY MOUTH EVERY 4 HOURS NEEDED Active Cholecalciferol 125 MCG/0.5ML Liquid 1 mL every 24 hours. Active metroNIDAZOLE (FLAGYL) 250 MG tablet metronidazole 250 mg tablet Take 1 tablet 3 times a day by oral route for 7 days. Active LORazepam (ATIVAN) 0.5 MG tablet every 24 hours. Takes as needed very rarely takes this Active Cyanocobalamin (B-12 PO) Take by mouth. Active [place]-3 Fatty Acids (FISH OIL PO) Take by mouth. Active MAGNESIUM PO Take by mouth. Active UBIQUINOL LIPOSOMAL PO Take by mouth. Active L-THEANINE PO Take by mouth. Active UNABLE TO FIND Med Name: Herbal Supplements - Lipid Immune Digestive Active bisacodyl (DULCOLAX) 5 MG EC tabletIndications:D iarrhea, unspecified type Take 4 tablets (20 mg total) by mouth once. Take prior to starting to drink prep, on day prior to colonoscopy. 4 tablet 01/20/2022 Active pkkite-qyrozoryd-fu gnesium sulfates (Suprep Bowel Prep Kit) 17.5-3.13-1.6 GM/177ML Solution solutionIndications :Diarrhea, unspecified type Take two 177 mL bottles as directed 2 each 01/20/2022 Active Active Problems No known active problems Social History Tobacco Use Types Packs/Day Years Used Date Smoking Tobacco: Never Assessed Sex and Gender Information Value Date Recorded Sex Assigned at Not on file Gender Identity Female 01/17/2022 2:30 PM EDT Sexual Orientation Heterosexual (straight) 01/17 2:30 PM EDT Last Filed Vital Signs Vital Sign Reading Time Taken Comments Blood Pressure 122/78 01/20/2022 10:36 AM EDT Pulse 88 01/20/2022 10:36 AM EDT Temperature 36.2 ??C (97.2 ??F) 01/20/2022 10:36 AM E DT Respiratory Rate - - Oxygen Saturation - - Inhaled Oxygen Concentration - - Weight 69.4 kg (153 lb) 01/20/2022 10:36 AM EDT Height 167.6 cm (5' 6 ) 01/20/2022 10:36 AM EDT Body Mass Index 24.69 01/20/2022 10:36 AM EDT Plan of Treatment Health Maintenance Due Date Last Done Comments Hepatitis C Virus Screening 1981 HIV Screening 1994 DTaP/Tdap/Td Vaccines (1 - Tdap) 2000 Hepatitis B Vaccines (1 of 3 - 19+ 3-dose series) 2000 Pap Smear (Ages 21-65) 2002 Mammogram 2021 Influenza Vaccine 05/19/2024 09/23/2013, 08/29/2011 COVID-19 Vaccine ( - 2023-2 5 season) 2024 HPV Vaccines Aged Out No longer eligi ble based on patient's age to complete this topic Pneumococcal Vaccine: Pediatric (0-5 Years) and At-Risk Patients (6 to 49 Years) Aged Out No longer eligible b ased on patient's age to complete this topic Care Teams Certified Medical Dosimetrist Relationship Specialty Start Date End Date Lucy Saini APRN [address] [place] [phone] PCP - General Internal Medicine 12/25/21
--- OUTSIDE RECORDS SUMMARY | 2024-12-26 14:03 | XMS_ITS | Clinical Summary ---
Author Organization [address] [facility] Address [address] [place] [address] Phone Care Team Providers Care Rn Or Lpn Name Role Phone Reshma Toribio MD Primary Care Provider [phone] Allergies Active Allergy Reactions Criticality Noted Date Comments Adhesive Other High 10/26/2023 Eye swelling Adhesive Tape-Silicones Other High 10/26/2023 Eye swelling Fluorouracil-Adhesive Bandage 2023 Medications multivitamin with minerals tablet Take by mouth. Active cyanocobalamin, vitamin B-12, (VITAMIN B-12 ORAL) Take by mouth. Active cholecalciferol, vitD3,/vit K2 (VITAMIN D3-VITAMIN K2 ORAL) Take by mouth. Active [place]-3 FATTY ACIDS-FISH OIL ORAL Take by mouth. Active MAGNESIUM ORAL Take by mouth. Active albuterol HFA (PROAIR HFA ; PROVENTIL HFA ; VENTOLIN HFA) 90 mcg/actuation inhaler Inhale 2 puffs by mouth every 4 (four) hours if needed. Active LORazepam (ATIVAN) 0.5 mg tablet Take 1 tablet (0.5 mg total) by mouth every 6 (six) hours if needed. Max Daily Amount: 2 mg Active Hospital, Clinic, or Other Facility Administered Medication Ordered Dose Route Frequency Start Date End Date Status onabotulinumtoxinA (BOTOX) 200 unit injection 200 UnitsIndications:Chronic migraine without aura without status migrainosus, not intractable 200 Units IM Once 12/21/2024 12/21/2024 Ended Active Problems Problem Noted Date Diagnosed Date Dyspnea on exertion 10/29/2022 Palpitations 10/29/2022 Tachycardia 10/29/2022 Mixed connective tissue disease 04/23/2018 Raynaud's disease without gangrene 04/23/2018 Encounters Date Type Department Care Team Description 12/21/2024 9:40 AM EST Procedure visit [facility] 175 [facility] [address] [place] [phone] Janae Lay MD Chronic migraine without aura without status migrainosus, not intractable (Primary Dx) 10/05/2024 1:30 PM EST Office Visit [facility] 175 [facility] [address] [place] [phone] Maci Moody PA Chronic migraine without aura without status migrainosus, not intractable (Primary Dx); Vertigo from Last 3 Months Immunizations Name Administration Dates Next Due [employer] SARS-CoV-2 COVID-19, mRNA, LNP-S, preservative free 10/23/2021,01/30/2021,01/09/2021 Surgical History Surgery Date Site/Laterality Comments ORTHOPEDIC SURGERY 2018 Right PROCEDURE: HISTORICAL ORTHOPEDIC SURGERY; COMMENT: Acromioclavicular reconstruction BREAST REDUCTION Medical History Medical History Date Comments Mixed connective tissue dise ase ([facility]) DX:Mixed connective tissue d isease ([facility]) Family History Medical History Relation Name Comments Hyperlipidemia Father Other: heart attack Father Other: heart att Maternal Grandfather Hyperlipidemia Mother Hypertension Mother Stroke Mother Other: heart attack Other 2 cousins Relation Name Status Comments Father Alive Maternal Grandfather Mother Alive Other 2 cousins Social History Tobacco Use Types Packs/Day Years Used Date Smoking Tobacco: Former Smokeless Tobacco: Never Tobacco Cessation:Counseling Given: Not Answered Alcohol Use Standard Drinks/Week Comments Yes 0 (1 standard drink = 0.6 oz pur e alcohol) Comments Unknown Sex and Gender Information Value Date Recorded Sex Assigned at Not on file Legal Sex Female 8:09 AM EST Gender Identity Not on file Sexual Orientation Not on file Obstetrics History Last Filed Vital Signs Vital Sign Reading Time Taken Comments Blood Pressure 130/83 10/05/2024 1:29 PM EST Pulse 99 10/05/2024 1:29 PM EST Temperature 36.4 ??C (97.6 ??F) 10/05/2024 1:29 PM ES T Respiratory Rate - - Oxygen Saturation 98% 10/05/2024 1:29 PM EST Inhaled Oxygen Concentration - - Weight 65.2 kg (143 lb 11.2 oz) 10/05/2024 1:29 PM EST Height 167.6 cm (5' 6 ) 10/05/2024 1:29 PM EST Body Mass Index 23.19 10/05/2024 1:29 PM EST Plan of Treatment Upcoming Encounters Date Type Department Care Team (Late st Contact Info) Description 01/05/2025 8:30 AM EDT Office Visit [facility] [address] [phone] Janae Lay MD [address] [phone] 03/22/2025 9:40 AM EDT Procedure visit [facility] [address] [phone] Janae Lay MD [address] [phone] Health Maintenance Due Date Last Done Comments Breast Cancer Screening 1981 Pneumococcal Vaccine: Pediatrics (0 to 5 Years) and At-Risk Patients (6 to 64 Years) (1 of 2 - PCV) 2000 Cervical Cancer Screening: Pap Smear 2002 Cholesterol Screening (Lipid Panel) 09/21/2022 Depression Screening 09/21/2022 HIV Screening 09/21/2022 Hepatitis C Screening 09/21/2022 Social Influencers of Health Screening 09/21/2022 COVID-19 Vaccine ( season) 2024 10/23/2021, 01/30/2021, 01/09/2021 Influenza Vaccine (#1) 2024 09/23/2013, 2010 DTaP,Tdap,and Td Vaccines (9 - Td or Tdap) 10/08/2030 10/08/2020, 01/25/2010, 04/25/1997, Additional history exists IPV Vaccines Completed 04/24/1987, 1102/1986, 06/20/1983 MMR Vaccines Completed 04/25/1997, 12/17/1982 Hepatitis B Vaccines Completed 08/09/2007, 07/15/2000, 06/10/2000 HIB Vaccines Aged Out No longer eligi ble based on patient's age to complete this topic HPV Vaccines Aged Out No longer eligi ble based on patient's age to complete this topic Hepatitis A Vaccines Aged Out No long er eligible based on patient's age to complete this topic Meningococcal ACWY Vaccine Aged Out N o longer eligible based on patient's age to complete this topic Meningococcal B Vacine Aged Out No lo nger eligible based on patient's age to complete this topic RSV Immunization Patients Under 20 months Aged Out No longer eligible based on patient's age to complete this topic Varicella Vaccines Aged Out No longer eligible based on patient's age to complete this [place] [address] [place] [employer] [facility] Care Teams Rn Or Lpn Relationship Specialty Start Date End Date Reshma Toribio MD NPI: [id number] [place] [id number] PCP - General Internal Medicine 12/19/24
--- OUTSIDE RECORDS SUMMARY | 2024-12-26 14:03 | XMS_ITS | Encounter Summary ---
Author Organization [employer] Address [address] [place] [address] Care Team Providers Care Stock Unloader Name Role Phone Unavailable Primary Care Provider Unavailabl e Encounter Details Date Type Department Care Team ([facility] st Contact Info) Description 07/02/2020 Scanned Document [employer] Information Management [address] [place] [address] System, Provider Not In [facility] Social History Tobacco Use Types Packs/Day Years [...]
[2024-12-26 16:09] LABS: MANUAL DIFF FLAG NO
[2024-12-26 16:21] LABS: Basophils Percent Auto 0.5 % (0-2); Eosinophils Absolute Auto 0.1 X10*3/uL (0.0-0.4); Eosinophils Percent Auto 1.5 % (0-4); Hematocrit 38.3 % (37.0-47.0); Hemoglobin 12.8 g/dl (12.0-16.0); Imm Gran Abs Auto 0.02 X10*3/uL (0.00-0.03); Imm Gran Pct Auto 0.3 % (0.0-0.4); Lymphocytes Absolute Auto 1.9 X10*3/uL (1.2-4.9); Lymphocytes Percent Auto 32.4 % (20-40); Mean Corpuscular HGB Conc 33.4 g/dl (31.0-35.0); Mean Corpuscular Hemoglobin 28.8 pg (27.0-33.0); Mean Corpuscular Volume 86.1 fL (80.0-98.0); Mean Platelet Volume 10.9 fL (9.4-12.3); Monocytes Absolute Auto 0.4 X10*3/uL (0.1-1.2); Monocytes Percent Auto 7.1 % (2-11); Neutrophils Absolute Auto 3.4 x10*3/uL (2.0-8.3); Neutrophils Percent Auto 58.2 % (45-73); Platelet Count 226 X10*3/uL (160-400); Red Blood Count 4.45 X10*6/uL (4.20-5.50); Red Cell Distribution Width 12.5 % (11.0-16.0); White Blood Count 5.9 X10*3/uL (4.8-10.8)
[2024-12-26 16:36] LABS: Estimated Average Glucose 100 mg/dL; Hemoglobin A1c % 5.1 % (<6.0)
[2024-12-26 17:20] LABS: Alanine Aminotransferase 11 U/L (0-31); Albumin Level 4.3 g/dL (3.5-5.0); Alkaline Phosphatase 49 U/L (39-117); Anion Gap 10 (12-20); Aspartate Amino Transferase 20 U/L (5-31); Bilirubin Total 0.8 mg/dL (0.0-1.0); Blood Urea Nitrogen 13 mg/dL (9-16); Calcium 9.2 mg/dL (8.4-10.2); Carbon Dioxide 26 mmol/L (22-29); Chloride 109 mmol/L (96-108); Estimated Glomerular Filt Rate > 60; Glucose Fasting 91 mg/dL (60-99); Lipase 34 U/L (8-78); Potassium 4.3 mmol/L (3.3-5.1); Sodium 141 mmol/L (135-145); Total Protein 7.1 g/dL (6.5-8.0)
== END 2024-12-26 12:31 | disposition home or self-care (01) ==
LOC: HO.HMGCLDS 12:30
PROVIDERS: PCP Physician Assistant; Visit Provider Physician Assistant
DX: R73.01 Impaired fasting glucose (principal); M79.10 Myalgia, unspecified site; R82.998 Other abnormal findings in urine; R42 Dizziness and giddiness
CPT/HCPCS: 36415; 80053; 83036; 83690; 84443; 85025

== ENCOUNTER 2025-02-06 10:14 | Outpatient (REF) | payer OTHER, SELFPAY ==
--- OUTSIDE RECORDS SUMMARY | 2025-02-06 10:16 | XMS_ITS | Clinical Summary ---
Author Organization [employer] Address [address] [place] [address] Care Team Providers Care Potline Monitor Name Role Phone Unavailable Primary Care Provider [...] Vaccine (2023-2 5 season) 2024 Influenza Vaccine (Season Ended) 2025 HIB Vaccines Aged Out No longer eligi [...]
--- OUTSIDE RECORDS SUMMARY | 2025-02-06 10:17 | XMS_ITS | Clinical Summary ---
Author Organization [facility] Address [address] [place] [address] Care Team Providers Care Supervisor Labor Gang Name Role Phone Lucy Saini APRN Primary Care Provider Allergies Active Allergy Reactions Criticality Noted Date Comments Sulfa Antibiotics Unknown/Patient and Family Unable to Define Medium 01/20/2022 Medications albuterol (PROVENTIL HFA; VENTOLIN HFA) 108 (90 [...] Active Cyanocobalamin (B-12 PO) Take by mouth. Activ e [place]-3 Fatty Acids (FISH OIL PO) Take by mouth. Activ e MAGNESIUM PO Take by mouth. Ac tive UBIQUINOL LIPOSOMAL PO Take by mouth. Ac tive L-THEANINE PO Take by mouth. A ctive UNABLE TO FIND Med Name: Herbal Supplements - Lipid Immune Digestive Active bisacodyl (DULCOLAX) 5 MG EC tabletIndicatio ns:Diarrhea, unspecified type Take 4 tablets (20 mg total) by mouth once. Take prior to starting to drink prep, on day prior to colonoscopy. 4 tablet 2 Active sodium-potassiu m-magnesium sulfates (Suprep Bowel Prep Kit) 17.5-3.13-1.6 GM/177ML Solution solutionIndicat ions:Diarrhea, unspecified type Take two 177 mL bottles as directed 2 each 2 Active Active Problems No known active problems Social History Tobacco Use Types Packs/Day Years Used Date Smoking Tobacco: Never Assessed Comments Unknown Sex and Gender Information Value Date Recorded Sex Assigned at Not on file Legal Sex Female 10:28 AM EST Gender Identity Female 01/17/2022 2:30 PM EDT [...] Influenza Vaccine 05/19/2024 09/23/2013, 08/29/2011 COVID-19 Vaccine (2023-2 5 season) 2024 HPV Vaccines Aged Out No longer eligi ble based on patient's age to complete this topic Pneumococcal Vaccine: Pediatric (0-5 Years) and At-Risk Patients (6 to 49 Years) Aged Out No longer eligible b ased on patient's age to complete this topic Insurance Care Teams Supervisor Labor Gang Relationship Specialty Start Date End Date Lucy Saini APRN [address] [place] [id number] PCP - General Internal Medicine 12/25/21
--- OUTSIDE RECORDS SUMMARY | 2025-02-06 10:17 | XMS_ITS | Encounter Summary ---
Author Organization [employer] Address [address] [place] [address] Care Team Providers Care Drug Regulatory Affairs Specialist Name Role Phone Unavailable Primary Care Provider Unavailabl e Encounter Details Date Type Department Care Team ([facility] st Contact Info) Description 07/02/2020 Scanned Document [employer] Information Management [address] [place] [address] System, Provider Not In [facility] Social History Tobacco Use [...]
--- OUTSIDE RECORDS SUMMARY | 2025-02-06 10:17 | XMS_ITS | Encounter Summary ---
Author Organization [employer] Address [address] [place] [address] Care Team Providers Care Risk Assessment Consultant Name Role Phone Unavailable Primary Care Provider Unavailabl e Encounter Details Date Type Department Care Team ([facility] st Contact Info) Description 07/02/2020 Scanned Document [employer] Information Management [address] [place] [phone] System, Provider Not In [facility] RESULTS Social History [...]
--- OUTSIDE RECORDS SUMMARY | 2025-02-06 10:17 | XMS_ITS | Clinical Summary ---
Author Organization 175 [facility] Address [address] [place] [address] Phone Care Team Providers Care Business Practices Officer Name Role Phone Reshma Toribio MD Primary Care Provider [phone] Allergies Active Allergy Reactions Criticality Noted Date Comments Adhesive Other High 10/26/2023 Eye swelling Adhesive Tape-Silicones Other High 10/26/2023 Eye swelling Fluorouracil-Adhesive Bandage 2023 Medications multivitamin with minerals tablet Take by mouth. Active cyanocobalamin, vitamin B-12, (VITAMIN B-12 ORAL) Take by mouth. Active cholecalciferol , vitD3,/vit K2 (VITAMIN D3-VITAMIN K2 ORAL) Take [...] mouth every 6 (six) hours if needed. Active esomeprazole (NexIUM) [address] capsule Take 1 capsule (20 mg total) by mouth 1 (one) time each day. Active Active Problems Problem Noted Date Diagnosed Date Dyspnea on exertion 10/29/2022 Palpitations 10/29/2022 Tachycardia 10/29/2022 Mixed connective tissue disease ([facility] V24) Raynaud's disease without gangrene 04/23/2018 Encounters Date Type Department Care Team Description 01/05/2025 8:30 AM EDT Office Visit [facility] [address] [facility] [address] [place] [phone] Janae Lay MD Chronic migraine without aura without status migrainosus, not intractable (Primary Dx); Vertigo 12/21/2024 9:40 AM EST Procedure visit [facility] [address] [facility] [address] [place] [phone] Janae Lay MD Chronic migraine without aura without status migrainosus, not intractable (Primary Dx) from Last 3 Months Immunizations Name Administration Dates Next Due Pfizer SARS-CoV-2 COVID-19, mRNA, LNP-S, preservative free 10/23/2021,01/30/2021,01/09/2021 Surgical History Surgery Date Site/Laterality Comments ORTHOPEDIC SURGERY 2018 Right PROCEDURE: HISTORICAL ORTHOPEDIC SURGERY; COMMENT: Acromioclavicular reconstruction BREAST REDUCTION Medical History Medical History Date Comments Mixed connective tissue dise ase ([facility] V24) DX:Mixed connective tissue d isease ([facility]) Family History Medical History Relation Name Comments [...] Sign Reading Time Taken Comments Blood Pressure 92/71 01/05/2025 8:32 AM EDT Pulse 77 01/05/2025 8:32 AM EDT Temperature 36.2 ??C (97.1 ??F) 01/05/2025 8:32 AM ED T Respiratory Rate - - Oxygen Saturation 98% 01/05/2025 8:32 AM EDT Inhaled Oxygen Concentration - - Weight 65.2 kg (143 lb 11.2 oz) 10/05/2024 1:29 PM EST Height 167.6 cm (5' 6 ) 10/05/2024 1:29 PM EST Body Mass Index 23.19 10/05/2024 1:29 PM EST Plan of Treatment Upcoming Encounters Date Type Department Care Team (Late st Contact Info) Description 03/22/2025 9:40 AM EDT Procedure visit [facility] [address] [place] [address] Janae Lay MD [address] [place] [address] Health Maintenance Due Date Last Done Comments [...] season) 2024 10/23/2021, 01/30/2021, 01/09/2021 Influenza Vaccine (Season Ended) 2025 09/23/2013, 08/29/2011 DTaP,Tdap,and Td Vaccines (9 - Td or [...] age to complete this topic Meningococcal B Vaccine Aged Out No l onger eligible based on patient's age to complete this topic RSV Immunization Patients Under 20 months Aged Out No longer eligible based on patient's age to complete this topic Varicella Vaccines Aged Out No longer eligible based on patient's age to complete this topic Insurance [address] [employer] [facility] Care Teams Business Practices Officer Relationship Specialty Start Date End Date Reshma Toribio MD [address] [place] [address] PCP - General Internal Medicine 12/19/24
--- OUTSIDE RECORDS SUMMARY | 2025-02-06 10:17 | XMS_ITS | Encounter Summary ---
Author Organization [facility] Address [address] [place] [address] Care Team Providers Care Director Of Accreditation Name Role Phone Reshma Toribio MD Primary Care Provider [phone] Encounter Details Date Type Department Care Team (Late st Contact Info) Description 08/05/2024 8:03 AM EDT Hospital Encounter TH [facility]OR[facility]OUN[facility] Janae Lay MD 175 [facility] [address] [place] [address] Social History Tobacco Use Types [...] squeezing , and are located in the tenriism area , base of her head , [...] MRI BRAIN She will be scheduled in [facility] She denies any blurry vision , double [...] 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 The majority of the actual myog-id-lruk visit was spent counseling the patient with respect to the current neurological picture. Janae Lay MD documented in this encounter Plan of Treatment Upcoming Encounters Date Type Department Care Team (Late st Contact Info) Description 03/22/2025 9:40 AM EDT Procedure visit [facility] [place] [facility] [place] [address] [facility] [address] [place] [address] Janae Lay MD [address] [place] [phone] documented as of this encounter Visit Diagnoses Not on filedocumented in this encounter Care Teams Director Of Accreditation Relationship Specialty Start Date End Date Reshma Toribio MD PCP - General 08/05/24 11/14/24 documented as of this encounter
--- OUTSIDE RECORDS SUMMARY | 2025-02-06 10:17 | XMS_ITS | Encounter Summary ---
Author Organization [employer] Address [address] [place] [id number] Care Team Providers [employer] Inspecting Dispatcher Name Role Phone Unavailable Primary Care Provider Unavailabl e Reason for Visit * Reason Onset Date Comments ELEVATED CK 12/28/2019 Encounter Details Date Type Department Care Team ([facility] st Contact Info) Description 12/28/2019 Telephone [facility] Rheumatology [address] [address] Lakeisha Patel DO [address] [place] [id number] ELEVATED CK Social History Tobacco Use Types [...] She had subsequent labs drawn - 600s. ([facility]). She went to [facility] night and CK went up to [...] Neurology. She was referred to Rheumatology in [place] Maribel Stein MD. We discussed establishment of [...] ALT, ESR, CRP, myoglobin) and fax to [facility] labs ([address] [place] [address]; ). Advised to contact the office with [...] on the patient. Please call her cell [phone] * Telephone Encounter - Lakeisha Patel DO [...]
--- OUTSIDE RECORDS SUMMARY | 2025-02-06 10:17 | XMS_ITS | Data Portability ---
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 [place] and is not easy for her to [...] Lab CBC w/ auto diff 2020 021 [facility], [address] [facility] [facility] [address], [place], [address], 1 23:20:17 CMP, serum or plasma 2020 021 [facility], [address] [facility], [facility] [address], [place], [address], 1 00:54:45 SARS CoV 2 RNA, QL probe, unspec ified specim en 2020 021 [facility] Covid-19 Testing, [address], [place], [address], 1 10:23:11 Referral neurol ogist referr al - 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 intere sted in botox inject ions. 2020 021 jovi Bui MD, [address] [place], [address], 1 15:26:00 ENT referr al - severe vertig o, headac he, eyes feel funny. ear full. has been taking mecliz ine and flonas e withou t relief . ringin g in ears. 2020 021 [facility] , [address], [address], [place], [address], 1 15:54:[address] referr al 2019 020 VANESSA Hobbs, [address] [facility], [place], [address], 13:31:32 Procedures None record ed. Surgeries None record ed. Imaging CT, head + brain, w/o contra st - severe vertig o, headac he, vision change s, ringin g in ears, sx x 9 days and not improv ing with mecliz ine or flonas e. r/o mass 2020 021 tfrisino [facility], [address], [address], [place], [address], 12:16:47 Medication Orders mecliz ine 25 mg tablet 2020 021 [place] [address] [id number], [address], [place], [phone], 09:59:48 flutic asone propio jacob 50 mcg/ac tuatio n nasal spray, suspen piyush 2020 021 [place] [address] [facility] #[id number], [address], [place], [phone], 09:59:32 mecliz ine 25 mg tablet 2020 021 [facility] #71031, [address], [place], [id number], 1 09:59:48 cyclob enzapr ine 10 mg tablet 2019 020 ethel [facility] #50309, [address], [place], [id number], 0 14:20:49 Patient TargetsNo targets recorded. Patient Instructions Encounter Date Encounter Id Patient Instructions Last Modified By Organization Details Last Modified Time 09/20/2020 [id number] abdominal strain : rehab exercises jthabet Not available 09/20/2020 09:40:17 call or return f or worsening or concerns. jthabet Not available 09/20/2020 09:45:27 10/08/2020 [id number] rhabdomyolysis: care instructions phelmuth Not available 10/08/2020 15:53:13 temporomandibula r disorder: care instructions phelmuth Not available 10/08/2020 15:53:13 11/01/2020 [id number] eustachian tube problems: care instructions jthabet Not available 11/01/2020 13:34:00 benign paroxysma l positional vertigo (bppv): care instructions jthabet Not available 11/01/2020 13:32:48 call or return f or worsening jthabet Not available 11/01/2020 13:30:29 11/07/2020 [id number] lab* tfrisino Not available 11/07 12:17:57 call or return f or worsening or concerns. 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 ear full. has been taking meclizine and flonase without relief. ringing in ears. Referring Physician: Josette Hernandez, Family Medicine, Encounter Date: 11/07/2020 Neurologist Referral for Tem poromandibular jimfj-ckjt-xyawvewbwmi syndrome Chronic teeth clencher with TMJ syndrome [...] Go To The Location Of Their Choice, [id number] 11/07/2020 23:20:17 11/07/19 21 11/07/2020 CBC w/ [...] Go To The Location Of Their Choice, [id number] 11/08/2020 00:54:44 11/07/1911/07/2020 SARS CoV 2 RNA, QL probe , unspe cifie d speci men covid-19 PCR specimen source NASAL Not Available [facility] (Centralized Electronic Ordering - All Locations) Patient Can Go To The Location Of Their Choice, [id number] 11/08/2020 10:23:11 11/07/1911/08/2020 SARS CoV 2 RNA, [...] perfo rmed by real time PCR utili [facility] SURESH 6800 SARS- CoV-2 test. Not Available [facility] (Centralized Electronic Ordering - All Locations) Patient Can Go To The Location Of Their Choice, [id number] 11/08/2020 10:23:11 11/07/19 21 11/09/2020 HbA1c (hemo [...] of Clini pascual and Appli ed [facility] tion Volum e 43, Suppl ement 1 Not Available [facility] (Centralized Electronic Ordering - All Locations) Patient Can Go To The Location Of Their Choice, [id number] 11/09/2020 22:00:49 11/29/1911/29/2020 HbA1c (hemo globi n [...] Go To The Location Of Their Choice, [id number] 04/25/2022 22:01:31 10/08/20 20 09/07/2020 US, echoc ardio gram No observ ation record ed. [facility]uling) [address], [place], [address], 10/13/2020 14:30:43 11/07/19 21 11/07/2020 CT, head [...] No acute intrac ranial pathol ogy. WSN: [id number] Orderi ng Physic josephine: Ulises Joshi Dictat ed By: Mello Sheikh MD Dictat ed Date/T omi: 4:24 pm Review ed By: Mello Sheikh MD Signed By: Mello Sheikh MD Signed Date/T omi: 4:24 pm Transc ribed By: CSFlori Transc ribed Date/T omi: 4:19 pm Patien t Class: Outpat ient [facility] (Outpt Imaging) [address], [place], [address], 11/08/2020 09:54:44 Result Notes None recorded. Problems Name Problem SNOMED Code Status Onset Date Resolution Date Notes Provider Name and Address Organization Details Recorded Time Flatulen ce, eructati on and gas pain [id number] Completed 201205/09/2014 IMPRESSI ON: CHECK LABS, MAY DISCUSS BX WITH GI; RECORDED 12/13/19 13 9:24AM BY ROMAN ABDULLAHI MA, HINA ON/ADDEN DUM [place] CAMACHO-C [address], [place], [address], [facility] 6 12:46:06 Acute pharyngi tis 505152356 Completed 201205/09/2014 RECORDED 10/26/19 13 8:30AM BY ROMAN ABDULLAHI MA, ANNOTATI ON/ADDEN DUM LATOYA [facility] 7 14:25:16 Acute sinusiti s 28509153 Completed 201105/09/2014 RECORDED 08/10/20 12 11:24AM BY ROMAN ABDULLAHI MA, HINA ON/ADDEN DUM [place] CAM[facility]O-C [address], [place], [address], [facility] 6 12:46:06 Allergic rhinitis 54935241 Active 2013 [facility] 0 09:10:10 Alopecia [id number] Completed 200905/09/2014 RECORDED 01/23/20 10 9:51AM BY HINA DUQUE ON/ADDEN DUM [place] PA-C [address], [place], [address], [facility] 6 12:46:06 Patient status finding [id number] Completed 201205/09/2014 RECORDED 03/01/20 13 10:49AM BY NATALYA HARRISON MA, HINA ON/ADDEN DUM [place] [facility]O-C [address], [place], [address], [facility] 6 12:46:06 Blood coagulat ion disorder 82963206 Completed 201205/09/2014 STORY: PT WITH CONCERN RE [...] [address], [place], [address], [facility] 6 12:46:06 Screenin g for malignan t neoplasm of cervix Completed 201105/09/2014 RECORDED 08/10/20 12 11:24AM BY ROMAN ABDULLAHI MA, HINA ON/ADDEN DUM [place] PA-C [address] [facility] [address], [place], [address], [facility] 6 12:46:06 Cough 77670441 Completed 201205/09/2014 RECORDED 10/26/19 13 8:30AM BY ROMAN ABDULLAHI MA, HINA ON/ADDEN DUM [place] PA-C [address], [place], [address], [facility] 6 12:46:06 Removal of suture Completed 201105/09/2014 RECORDED 08/10/20 12 11:24AM BY ROMAN ABDULLAHI MA, HINA ON/EDD Coburn PA-C [address], [place], [address], [facility] 6 12:46:06 Exercise -induced asthma 75874616 Active 2013 [facility] 0 09:10:10 Abdomina l pain 57034902 Completed 201105/09/2014 IMPRESSI ON: PT WITH 40 [...] ABDULLAHI MA, ANNOTATI ON/EDD [place]urn PA-C [address] [facility] [address], [place], [address], [facility] 6 12:46:06 Tobacco user [id number] Completed 201311/24/2016 Removal Reason: quit [facility] 7 14:26:48 Gastroes ophageal reflux disease 443415490 Active 2012 IMPRESSI ON: SXS X YRS. DISCUSSE D TRIGGERS , DIETARY MODIFICA TIONS THAT CAN BE MADE. ALSO PROVIDED W/PT EDU. START PPI X NEXT FEW MONTHS, MAY WANT TO THEN CHANGE TO HISTAMIN E KRISTIE. SEE BACK IN OCT FOR PE, SOONER PRN. REPRINTE D ORDER FOR LIPID PANEL PER HER REQ [facility] 0 09:10:10 Abnormal glucose toleranc e in mother complica ting pregnanc y, childbir th AND/OR puerperi 42601613 Completed 201205/09/2014 RECORDED 09/23/20 13 8:57AM BY GONZÁLEZ DESAI MA, Y[facility]ATANATI [facility] [address], [place], [address], [facility] 6 12:46:06 History of infectio us disease 077840658 Completed 201308/07/2014 RECORDED 04/26/20 14 1:54PM BY GONZÁLEZ DESAI MA, OFFICE VISIT Park CAMACHOC [address], [place], [address], [facility] 6 12:46:06 Injury of head 89680822 Completed 201105/09/2014 IMPRESSI ON: PT SEEMS TO HAVE LINGERIN G SXS INCLUDIN G HEADACHE S, AND NOW NEW ONSET HEARING LOSS, TINNITUS AND VERTIGO. DESPITE PAST DISCUSSI ONS RE IMAGING SHE CHOOSES TO GO AHEAD AND CHECK MRI WHICH I THINK IS APPROPRI ATE. WILL ARRANGE AND INFORM HER TIME AND DATE.; RECORDED 08/10/20 12 11:24AM BY ROMAN ABDULLAHI MA, HINA ON[facility] [place] [facility] [address], [place], [address], [facility] 6 12:46:06 Hearing loss 12044562 Completed 201105/09/2014 IMPRESSI ON: PT WITH INTERMIT TENT TINNITUS , HEARING LOSS AND VERTIGO FOLLOWIN G HEAD INJURY. SMALL AMT OF FLUID BEHIND TM ON EXAM. TO ENT FOR FURTHER EVAL.; RECORDED 08/10/20 12 11:24AM BY ROMAN ABDULLAHI MA, HINA ON/[facility] Park CAMACHOC [address], [place], [address], [facility] 6 12:46:06 Hyperlip idemia 91829710 Active 2012 [facility] 0 09:10:10 Pure hypergly ceridemi a 904448466 Completed 201105/09/2014 IMPRESSI ON: W/REPORT ED ELEVATED TRIGLYCE RIDES ON SCREEN FOR WORK. TO REPEAT FASTING. ; RECORDED 08/10/20 12 11:24AM BY ROMAN ABDULLAHI MA, ANNOTATI ON/ADDEN DUM [place] PA-C [address], [place], [address], [facility] 6 12:46:06 Benign neoplasm of skin 72705698 Completed 201105/09/2014 RECORDED 08/10/20 12 11:24AM BY ROMAN ABDULLAHI MA, ANNOTATI ON/ADDEN DUM [place] PA-C [address], [place], [address], [facility] 6 12:46:05 Knee pain Completed 201105/09/2014 IMPRESSI ON: POSSIBLE MENISCUS TEAR. SHE SEES HER RHEUM NEXT WEEK. IBUPROFE N, KNEE BRACE.; RECORDED 08/10/20 12 11:24AM BY ROMAN ABDULLAHI MA, ANNOTATI ON/ADDEN DUM [place] PA-C [address], [place], [address], [facility] 6 12:46:06 Laborato ry procedur e performe d 101266719 Completed 201205/09/2014 RECORDED 09/23/20 13 8:58AM BY GONZÁLEZ DESAI MA, YONATANATI ON/ADDEN DUM [place] PA-C [address], [place], [address], [facility] 6 12:46:06 Malaise and fatigue 012720815 Completed 201105/09/2014 RECORDED 08/10/20 12 11:24AM BY ROMAN ABDULLAHI MA, ANNOTALYSSA ON/ADDEN DUM [place] PA-C [address], [place], [address], [facility] 6 12:46:06 Disorder of connecti ve tissue 003132226 Completed 201310/07/2020 STORY: [facility] Umesh Berry MD [address] [facility] [address], [place], [address], [facility] 0 16:41:47 Neck pain 70672802 Completed 201105/09/2014 IMPRESSI ON: R SIDED NECK AND SHOULDER PAIN PAST WEEK. 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 NOT RESPONDI NG TO NSAID, PT RESISTAN T TO TAKE OTHER MEDS. DISCUSSE D OPTIONS INCLUDIN G PAIN MEDICATI ON, PT, ORTHO EVAL FOR INJX. 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 WE WILL CONTACT THEM DIRECTLY TO SEE IF THEY ARE ABLE TO ACCOMMOD ATE HER URGENTLY . IN THE MEANTIME PROVIDED WITH TRIAL OF LOWER DOSE ATIVAN, CONTINUE W/REST, HEAT, MASSAGE AND NSAID; RECORDED 08/10/20 12 11:24AM BY ROMAN ABDULLAHI MA, HINA ON/ADDEN DUM Park KAMARAC [address] [facility] [address], [place], [address], [facility] 6 12:46:06 Administ ration of tetanus vaccine Completed 201105/09/2014 RECORDED 08/10/20 12 11:24AM BY ROMAN ABDULLAHI MA, ANNOTATI ON/ADDEN DUM [place] KAMARAC [address] [facility] [address], [place], [address], [facility] 6 12:46:06 Hand joint pain 089922109 Completed 200805/09/2014 RECORDED 07/16/20 09 9:25AM BY HINA KNOWLES ON/ADDEN DUM [place] CAM[facility]O-C [address] [facility] [address], [place], [address], [facility] 6 12:46:06 Immuniza tion refused Completed 201205/09/2014 RECORDED 11/30/19 13 9:37AM BY ROMAN ABDULLAHI MA, HINA ON/EDD [place]urn PA-C [address], [place], [address], [facility] 6 12:46:06 Congenit al pes planus 43391885 Active 2013 [facility] 0 09:10:10 Plantar fascial fibromat osis 63111418 Completed 201305/17/2018 Umesh Berry MD [address], [place], [address], [facility] 8 15:47:15 Postconc ussion syndrome 33129019 Completed 201105/09/2014 RECORDED 08/10/20 12 11:24AM BY ROMAN ABDULLAHI MA, HINA ON/EDD [place]urn PA-C [address], [place], [address], [facility] 6 12:46:06 Adult health examinat ion Completed 201205/09/2014 IMPRESSI ON: HEALTHY VISIT. HAS LAB REQ FOR REPEAT LIPID PANEL WHICH SHE IS CURIOUS ABOUT, NEEDS TO GO FASTING. PLAN TO RETURN 1 YR FOR PE, SOONER PRN.; RECORDED 12/13/19 13 9:24AM BY ROMAN ABDULLAHI MA, HINA ON/EDD [place]urn PA-C [address], [place], [address], [facility] 6 12:46:06 Shoulder joint pain 973893089 Completed 201105/09/2014 IMPRESSI ON: FOLLOWIN G FALL IN SUMMER 2010, FOLLOWED BY HER RHEUM PROVIDER WHO IS TXING FOR ROTATOR CUFF TENDONIT IS. TXING WITH INJECTIO NS. UPCOMING APPT WITH PSS (DR. MARTINEZ- OSTEOPAT H).; RECORDED 08/10/20 12 11:24AM BY ROMAN ABDULLAHI MA, ANNOTATI ON/ADDEN DUM [place] [facility]O-C [address], [place], [address], [facility] 6 12:46:06 Disorder of upper respirat ory system 472216426 Completed 201205/09/2014 RECORDED 10/26/19 13 8:30AM BY ROMAN ABDULLAHI MA, YONATANATI ON/ADDEN DUM [place] SD-C [address] [facility] [address], [place], [address], [facility] 6 12:46:06 Stress 14222429 Completed 201205/09/2014 RECORDED 03/01/20 13 10:49AM BY NATALYA HARRISON MA, HINA ON/ADDEN DUM [place] [facility]O-C [address] [facility] [address], [place], [address], [facility] 6 12:46:06 Temporom andibula r joint disorder 68158120 Active 2013 IMPRESSI ON: DISCUSSE D WARM COMPRESS ES, LOOKING INTO MOUTH[address], WHEN OFF PRED CAN USE NSAID PRN. FEELS THOUGH LARGE COMPONEN T OF SXS IS DUE TO INCREASE D STRESS LEVELS FROM RECENT ILLNESSE S, HAD TWO RECENT DEATHS. LORAZEPA M Q HS PRN [place], [facility], [facility] 0 09:10:10 Tobacco dependen ce syndrome 31853483 Completed 201205/09/2014 RECORDED 11/30/19 13 9:37AM BY ROMAN ABDULLAHI MA, HINA ON/ADDEN DUM [place] CAM[facility]O-C [address] [facility] [address], [place], [address], [facility] 6 12:46:06 Vaginiti s and vulvovag initis Completed 200905/09/2014 RECORDED 01/23/20 10 9:51AM BY HINA DUQUE ON/ADDEN DUM [place] PA-C [address], [place], [address], [facility] 6 12:46:06 Varicose veins of lower extremit y 81551427 Active 2013 Ora [facility], [facility] 0 09:10:10 Flatulen ce, eructati on and gas pain 394004133 Completed 201205/29/2014 IMPRESSI ON: CHECK LABS, FEBRUARY DISCUSS BX WITH GI; RECORDED 12/13/19 13 9:24AM BY ROMAN ABDULLAHI MA, HINA ON/ADDEN DUM [place] PA-C [address], [place], [address], [facility] 6 12:46:06 Acute pharyngi tis 337045536 Completed 201205/29/2014 RECORDED 10/26/19 13 8:30AM BY ROMAN ABDULLAHI MA, HINA ON/ADDEN DUM González LATOYA Sanchez, [facility] 7 14:25:16 Acute sinusiti s 19536945 Completed 201105/29/2014 RECORDED 08/10/20 12 11:24AM BY ROMAN ABDULLAHI MA, YONATANATI ON/ADDEN DUM [place] PA-C [address], [place], [address], [facility] 6 12:46:06 Alopecia 85118856 Completed 200905/29/2014 RECORDED 01/23/20 10 9:51AM BY HINA DUQUE ON/ADDEN DUM [place] PA-C [address], [place], [address], [facility] 6 12:46:06 Blood coagulat ion disorder 04370430 Completed 201205/29/2014 STORY: PT WITH CONCERN RE [...] [address], [place], [address], [facility] 6 12:46:06 Screenin g for malignan t neoplasm of cervix Completed 201105/29/2014 RECORDED 08/10/20 12 11:24AM BY ROMAN ABDULLAHI MA, HINA ON/ADDEN DUM [place] PA-C [address], [place], [address], [facility] 6 12:46:06 Cough 46034787 Completed 201205/29/2014 RECORDED 10/26/19 13 8:30AM BY ROMAN ABDULLAHI MA, HINA ON/ADDEN DUM [place] PA-C [address] [facility] [address], [place], [address], [facility] 6 12:46:06 Removal of suture Completed 201105/29/2014 RECORDED 08/10/20 12 11:24AM BY ROMAN ABDULLAHI MA, HINA ON/ADDEN DUM [place] PA-C [address], [place], [address], [facility] 6 12:46:06 Malaise and fatigue 959256875 Completed 201308/07/2014 RECORDED 04/26/20 14 2:39PM BY UMESH BERRY MD, OFFICE VISIT Park CAMACHO-C [address], [place], [address], [facility] 6 12:46:06 Abdomina l pain 74455414 Completed 201105/29/2014 IMPRESSI ON: PT WITH 40 [...] [address], [place], [address], [facility] 6 12:46:06 Influenz a vaccine needed 50076131114 06 Completed 201305/29/2014 RECORDED 03/14/20 14 9:28AM BY HINA MARQUEZ ON/EDD Coburn PA-C [address], [place], [address], [facility] 6 12:46:06 Gastroes ophageal reflux disease 077479154 Completed 201305/29/2014 IMPRESSI ON: SXS X YRS. [...] BERRY MD, HINA ON/EDD larsen MA null, [facility] 7 14:26:26 Abnormal glucose toleranc e in mother complica ting pregnanc y, childbir th AND/OR puerperi 76570346 Completed 201205/29/2014 RECORDED 09/23/20 13 8:57AM BY GONZÁLEZ DESAI MA, ANNOTATI ON/[facility] [address], [place], [address], [facility] 6 12:46:06 Injury of head 37529882 Completed 201105/29/2014 IMPRESSI ON: PT SEEMS TO HAVE LINGERIN G SXS INCLUDIN G HEADACHE S, AND NOW NEW ONSET HEARING LOSS, TINNITUS AND VERTIGO. DESPITE PAST DISCUSSI ONS RE IMAGING SHE CHOOSES TO GO AHEAD AND CHECK MRI WHICH I THINK IS APPROPRI ATE. WILL ARRANGE AND INFORM HER TIME AND DATE.; RECORDED 08/10/20 12 11:24AM BY ROMAN ABDULLAHI MA, ANNOTATI ON/[facility] Park [place] SD-C [address], [place], [address], [facility] 6 12:46:06 Hearing loss 52811501 Completed 201105/29/2014 IMPRESSI ON: PT WITH INTERMIT TENT TINNITUS , HEARING LOSS AND VERTIGO FOLLOWIN G HEAD INJURY. SMALL AMT OF FLUID BEHIND TM ON EXAM. TO ENT FOR FURTHER EVAL.; RECORDED 08/10/20 12 11:24AM BY ROMAN ABDULLAHI MA, ANNOTATI ON/[facility] Park [place]urn [facility] [address], [place], [address], [facility] 6 12:46:06 Hyperlip idemia 50188146 Completed 201305/29/2014 RECORDED 04/26/20 14 2:38PM BY UMESH BERRY MD, ANNOTATI ON/[facility] González larsen [place] [facility] 7 14:25:47 Pure hypergly ceridemi a 087374901 Completed 201105/29/2014 IMPRESSI ON: W/REPORT ED ELEVATED TRIGLYCE RIDES ON SCREEN FOR WORK. TO REPEAT FASTING. ; RECORDED 08/10/20 12 11:24AM BY ROMAN ABDULLAHI MA, ANNOTATI ON/ADDEN DUM [place]-C [address], [place], [address], [facility] 6 12:46:06 Benign neoplasm of skin 46050193 Completed 201105/29/2014 RECORDED 08/10/20 12 11:24AM BY ROMAN ABDULLAHI MA, ANNOTATI ON/ADDEN DUM [place]-C [address] [facility] [address], [place], [address], [facility] 6 12:46:06 Knee pain Completed 201105/29/2014 IMPRESSI ON: POSSIBLE MENISCUS TEAR. SHE SEES HER RHEUM NEXT WEEK. IBUPROFE N, KNEE BRACE.; RECORDED 08/10/20 12 11:24AM BY ROMAN ABDULLAHI MA, ANNOTATI ON/ADDEN DUM [place]-C [address] [facility] [address], [place], [address], [facility] 6 12:46:06 Laborato ry procedur e performe d 582609068 Completed 201205/29/2014 RECORDED 09/23/20 13 8:58AM BY GONZÁLEZ DESAI MA, ANNOTATI ON/ADDEN DUM [place]-C [address] [facility] [address], [place], [address], [facility] 6 12:46:06 Neck pain 30273271 Completed 201105/29/2014 IMPRESSI ON: R SIDED NECK AND SHOULDER PAIN PAST WEEK. 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 NOT RESPONDI NG TO NSAID, PT RESISTAN T TO TAKE OTHER MEDS. DISCUSSE D OPTIONS INCLUDIN G PAIN MEDICATI ON, PT, ORTHO EVAL FOR INJX. 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 WE WILL CONTACT THEM DIRECTLY TO SEE IF THEY ARE ABLE TO ACCOMMOD ATE HER URGENTLY . IN THE MEANTIME PROVIDED WITH TRIAL OF LOWER DOSE ATIVAN, CONTINUE W/REST, HEAT, MASSAGE AND NSAID; RECORDED 08/10/20 12 11:24AM BY ROMAN ABDULLAHI MA, HINA ON/ADDEN DUM [place] PA-C [address], [place], [address], [facility] 6 12:46:06 Administ ration of tetanus vaccine Completed 201105/29/2014 RECORDED 08/10/20 12 11:24AM BY ROMAN ABDULLAHI MA, HINA ON/ADDEN DUM [place] PA-C [address] [facility] [address], [place], [address], [facility] 6 12:46:06 Hand joint pain 515478577 Completed 200805/29/2014 RECORDED 07/16/20 09 9:25AM BY HINA KNOWLES ON/ADDEN DUM [place] PA-C [address] [facility] [address], [place], [address], [facility] 6 12:46:06 Immuniza tion refused Completed 201205/29/2014 RECORDED 11/30/19 13 9:37AM BY ROMAN ABDULLAHI MA, HINA ON/ADDEN DUM [place] PA-C [address] [facility] [address], [place], [address], [facility] 6 12:46:06 Risk of exposure to communic able disease 229903374 Completed 201305/29/2014 RECORDED 03/14/20 14 9:28AM BY HINA MARQUEZ ON/ADDEN DUM [place] PA-C [address] [facility] [address], [place], [address], [facility] 6 12:46:06 Postconc ussion syndrome 65025967 Completed 201105/29/2014 RECORDED 08/10/20 12 11:24AM BY ROMAN ABDULLAHI MA, ANNOTATI ON/ADDEN DUM [place] PA-C [address] [address], [place], [address], [facility] 6 12:46:06 Shoulder joint pain 178669614 Completed 201105/29/2014 IMPRESSI ON: FOLLOWIN G FALL IN SUMMER 2010, FOLLOWED BY HER RHEUM PROVIDER WHO IS TXING FOR ROTATOR CUFF TENDONIT IS. TXING WITH INJECTIO NS. UPCOMING APPT WITH PSS (DR. MARTINEZ- OSTEOPSHIVA H).; RECORDED 08/10/20 12 11:24AM BY ROMAN ABDULLAHI MA, HINA ON/ADDEN DUM Park Coburn PA-C [address], [place], [address], [facility] 6 12:46:06 Disorder of upper respirat ory system 664525182 Completed 201205/29/2014 RECORDED 10/26/19 13 8:30AM BY ROMAN ABDULLAHI MA, ANNOTATI ON/ADDEN DUM Park Coburn PA-C [address], [place], [address], [facility] 6 12:46:06 Chronic sinusiti s 59352639 Completed 201305/29/2014 IMPRESSI ON: RESOLVIN G. FINISH AUGMENTI N. FLONASE AND CLARITIN -D CAN HELP; RECORDED 04/26/20 14 1:53PM BY GONZÁLEZ DESAI MA, ANNOTATI ON/ADDEN DUM Park Almas PA-C [address], [place], [address], [facility] 6 12:46:06 Stress 55390829 Completed 201205/29/2014 RECORDED 03/01/20 13 10:49AM BY NATALYA HARRISON MA, ANNOTATI ON/ADDEN DUM Park Coburn PA-C [address], [place], [address], [facility] 6 12:46:06 Tobacco dependen ce syndrome 60448166 Completed 201205/29/2014 RECORDED 11/30/19 13 9:37AM BY ROMAN ABDULLAHI MA, HINA ON/ADDEN DUM Park Almas AMATO [address], [place], [address], [facility] 6 12:46:06 Vaginiti s and vulvovag initis Completed 200905/29/2014 RECORDED 01/23/20 10 9:51AM BY HINA DUQUE ON/ADDEN DUM Park Almas AMATO [address], [place], [address], [facility] 6 12:46:06 von [place] disorder 899035457 Active 2013 [facility] 0 09:10:11 Increase d frequenc y of urinatio n 853150310 Completed 05/17/2018 Umesh Berry MD [address], [place], [address], [facility] 8 15:47:10 Abnormal weight gain 859536994 Completed 05/17/2018 Umesh Berry MD [address], [place], [address], [facility] 8 15:47:12 Diarrhea 99791917 Completed 11/24/2016 [facility]A [facility] 7 14:25:55 Dysuria 64163585 Completed 11/24/2016 LATOYA [facility] 7 14:25:43 Candidia sis of mouth 09273491 Completed 11/24/2016 LATOYA [facility] 7 14:26:06 Polycyst ic ovaries Active [facility] 0 09:10:10 Fatigue 21989334 Completed 11/24/2016 [facility] 7 14:26:10 Acute pharyngi tis 901461076 Completed 11/24/2016 LATOYA [facility] 7 14:25:16 Viral disease 33847509 Completed 11/24/2016 LATOYA [facility]za [facility] 7 14:25:20 Wheezing 32692842 Completed 11/24/2016 [facility] 7 14:25:49 Chronic cough 90056480 Completed 11/24/2016 LATOYA [facility]za [facility] 7 14:25:59 Pain in calf 743896730 Completed 11/24/2016 [facility] 7 14:25:26 Undiffer entiated connecti ve tissue disease 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 Active [facility] 0 09:10:11 Ex-smoke r 7598556 Active 2016 Ora [facility] 0 09:10:11 Rhabdomy olysis 039538027 Active 2017 [facility] 0 09:10:11 Exposure to SARS-CoV -2 Completed 09/20/2020 Removal Reason: Problem added by user geneva desai from the COVID-19 watch flag [facility] 1 14:39:53 Benign paroxysm al position al vertigo 384092646 Active 2020 LATOYA [facility] 1 11:06:49 Exposure to SARS-CoV -2 Completed 02/26/2021 Removal Reason: Problem marked historic al by user [email or web address] from the COVID-19 watch flag [facility] 1 14:40:38 Clenchin g teeth 371488988 Active 2020 Park Coburn PA-C [address], [place], [address], [facility] 1 11:01:55 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 Procedures Surgical History Date Name Laterality Status Provider Name and Address Organization Details Recorded Time 10/05/20 19 Date of Last Pap Smear completed Gonz[facility]lez [facility] 09/20/2020 09:14:52 04/12/20 19 biopsy completed [facility] 04/15/2019 09:17:13 08/19/20 17 Debbie arthrs srg capsulorraphy completed Gonz[facility]lez [facility] 05/17/2018 15:19:04 10/19/19 17 Orthopedic Surgery completed Gonz[facility] 10/08/2020 14:20:31 10/19/19 14 Stab phleb veins xtr - completed [facility] 08/07/2014 14:34:15 05/19/20 13 Endometr ablate thermal completed [facility] 08/07/2014 14:34:15 10/19/19 11 Endometrial Ablation completed [facility] 10/08/2020 14:20:31 10/19/19 09 endometrial biopsy completed Gonz[facility] 11/19/2018 14:07:04 Imaging Results Imaging Date Name Status LastModified by Organization Details LastModified Time 09/07/2020 US, echocardiogram completed [facility] (Outt Non-Invasive Cardiology Scheduling) [address] [place], [address], 10/13/2020 14:30:43 11/07/2020 CT, head + brain, w/o contrast completed [facility] (Outpt Imaging) [address] [place], [address], 11/08/2020 09:54:44 Procedure Notes None recorded. Medical Equipment None Reported. Allergies Allergen ID Allergen Name Allergen Category Reaction Reaction Severity Criticality Documentation Date Start Date Code Code System Note Provider Name and Address Organization Details Recorded Time Substance with sulfonami de structure and antibacte rial mechanism of action (substanc e) medicatio n other mild Not available 07/31/2015 54198 8003 SNOMED thrus h [facility] 5 14:43:15 94737 codeine medicatio n Not available Not available Not available 01/23/2020 2670 RxNorm Ora Broderick [facility] 0 14:46:21 Medications Name Sig Start [...] Available Not Available No t Available nystatin 884886 unit/ml susp active Not Available Not Available [...] mcg/spray (0.1 mL) nasal spray (non-refr igerated) [place] 2 sprays every day by nasal route [...] DateTime 09/20/2020 166.37 cm Gonz[facility]lez Esquivel [facility] 09/20/2020 09:12:30 Date Recorded Body height Body mass index (BMI) Body weight Oxygen saturation Oxygen saturation in Arterial blood by Pulse oximetry Heart rate Body temperature Systolic blood pressure Diastolic blood pressure Provider Name and Address Organization Details Last Updated DateTime 0 166.37 cm 25.6 kg/m2 23986.4 1 g 98 % 98 % 86 /min 98.06 [degF] 116 mm[Hg] 74 mm[Hg] González larsen [facility] 0 14:28:03 Date Recorded Body height Provider Name an d Address Organization Details Last Updated DateTime 11/01/2020 166.37 cm Gonz[facility] Esquivel [facility] 11/01/2020 13:13:28 Date Recorded Body height Provider Name an d Address Organization Details Last Updated DateTime 11/07/2020 166.37 cm González Esquivel [facility] 11/07/2020 11:05:31 Date Recorded Body height Provider Name an d Address Organization Details Last Updated DateTime 03/04/2021 166.37 cm Kenya Skinner [facility] 03/04/2021 09:58:56 Social History Question Answer Notes LastModified by Organizat ion Details LastModified Time Tobacco Smoking Status Former Smoker [facility]OYA [facility] 11/24/2016 14:23:28 Do You Have An [...] not available 10/08/2020 What Is Your Occupation? [employer] M[employer] Information not available 10/08/2020 When Did You [...] Or Greater Than 100 Degrees Fahrenheit? No [email or web address] Information not available 08/13/2020 Are You Or Anyone In Your Household A Health Care Provider Or Emergency Responder? No [email or web address] Information not available 08/13/2020 To The Best Of Your Knowledge Have You Been In Close Proximity To Any Individual Who Tested Positive For COVID-19? No [email or web address] Information not available 08/13/2020 Have You Recently [...] Not available 2019 14:12:52 Father Myocardial infarction [email or web address] Not available 10/08 14:12:52 Father Hypercholest erolemia [email or web address] Not available 07/01/2019 13:59:38 Mother Hypercholest erolemia [email or web address] Not available 10:49:31 Mother Autoimmune disease Not available 2019 14:12:52 Mother Essential hypertension 58 smoker and high sodium intake Not available 10/08/2020 14:12:52 Maternal Grandfather Type 2 diabetes mellitus deceas ed [email or web address] Not available 10/08/2020 14:12:52 Unspecified Relation Type 2 diabetes mellitus patern al side; not from obesit y [email or web address] Not available 10/08/2020 14:12:53 Maternal Grandmother Essential hypertension [email or web address] Not available 14:12:53 Medical History Condition Response Other Y Blood Diseases Y Head Injury/Concussion Y Reflux/GERD Y Hospitalizations Y Acid Reflux (GERD) Y Gynecological History Statement/Question Response Abnormal Pap N Date of Last Pap Smear 10/05/2019 Obstetrics History GPAL:G 0 P 0 0 0 0 Immunizations Vaccine Type Date Status Note Provider Name and Address Organization Details Recorded Time Influenza, split virus, quadrivalent, PF 06/24/20 17 cancelled patient objection Not Available [facility] 11/05/2019 02:22:07 Tdap 10/08/20 20 completed LATOYA Ha [facility] 10/08/2020 14:33:45 DTaP 11/12/18 82 completed Ora medina [facility] 01/24/2020 09:10:02 DTaP 01/14/19 82 completed Ora medina [facility] 01/24/2020 09:10:02 DTaP 03/07/19 82 completed Ora Money null[facility] 01/24/2020 09:10:02 MMR 12/17/18 83 completed Ora Money null[facility] 01/24/2020 09:10:02 IPV 06/20/19 83 completed Ora Money null[facility] 01/24/2020 09:10:02 DTaP 06/20/19 83 completed Ora Money null[facility] 01/24/2020 09:10:02 IPV 08/23/19 86 completed Ora Money null[facility] 01/24/2020 09:10:02 IPV 04/24/19 87 completed Ora Money null[facility] 01/24/2020 09:10:02 DTaP 04/24/19 87 completed Ora Money null[facility] 01/24/2020 09:10:02 MMR 04/25/19 97 completed Ora Money null[facility] 01/24/2020 09:10:02 Td (adult), 2 Lf tetanus toxoid, preservative free, adsorbed 04/25/19 97 completed Ora Money null[facility] 01/24/2020 09:10:02 Hep B, adult 06/10/20 00 completed Ora Money null[facility] 01/24/2020 09:10:02 Hep B, adult 07/15/20 00 completed Ora Money null[facility] 01/24/2020 09:10:02 Hep B, adult 08/09/20 07 completed Ora Money null[facility] 01/24/2020 09:10:02 Influenza, split virus, trivalent, preservative 08/29/20 11 completed Ora Money null[facility] 01/24/2020 09:10:02 Influenza, split virus, trivalent, preservative 09/23/20 13 completed Ora Money null[facility] 01/24/2020 09:10:02 Tdap 01/26/20 10 completed Ora medina [place] [facility] 01/24/2020 09:10:02 Past Encounters Encounter ID Performer Location Encounter Start Date Encounter Closed Date Diagnosis/Indication Diagnosis SNOMED-CT Code Diagnosis ICD10 Code Diagnosis Note [id number] auto[facility]Comm erce [address] [facility] [place] [address] 08/09/2007 00:00:00 [id number] autoEComm erce [address] [facility] [place] [address] 01/10/2008 00:00:00 [id number] autoEComm erce [address] [facility] [place] [address] 05/11/2008 00:00:00 [id number] autoEComm erce [address] [facility] [place] [address] 07/16/2009 00:00:00 [id number] autoEComm erce [address] [facility] [place] [address] 01/22/2010 00:00:00 [id number] autoEComm erce [address] [facility],[address] [place] [address] 01/25/2010 00:00:00 [id number] autoEComm erce [address] [facility],[address] [place] [address] 04/01/2011 00:00:00 [id number] autoEComm erce [address] [facility],[address] [place] [address] 04/04/2011 00:00:00 [id number] autoEComm erce [address] [facility] [place] [address] 04/29/2011 00:00:00 [id number] autoEComm erce [address] [facility],[address] [place] [address] 08/29/2011 00:00:00 [id number] autoEComm erce [address] [facility],[address] [place] [address] 10/23/2011 00:00:00 [id number] autoEComm erce [address] [place] [address] 11/17/2011 00:00:00 [id number] autoEComm erce [address] [place] [address] 03/12/2012 00:00:00 [id number] autoEComm erce [address] [place] [address] 03/23/2012 00:00:00 [id number] autoEComm erce [address] [place] [address] 05/31/2012 00:00:00 [id number] autoEComm erce [address] [place] [address] 08/10/2012 00:00:00 [id number] autoEComm erce [address] [facility] [place] [address] 09/30/2012 00:00:00 [id number] autoEComm erce [address] [facility] [place] [address] 11/04/2012 00:00:00 [id number] autoEComm erce [address] [facility] [place] [address] 11/30/2012 00:00:00 [id number] autoEComm erce [address] [facility] [place] [address] 12/13/2012 00:00:00 [id number] autoEComm erce [address] [facility] [place] [address] 01/11/2013 00:00:00 [id number] autoEComm erce [address] [place] [address] 03/01/2013 00:00:00 [id number] autoEComm erce [address] [facility] [place] [address] 09/23/2013 00:00:00 [id number] autoEComm erce [address] [facility] [place] [address] 03/14/2014 00:00:00 [id number] [facility]Comm erce [address] [facility] [address] [place] [address] 03/24/2014 00:00:00 [id number] [facility]Comm erce [address] [facility] [address] [address] [place] [address] 04/26/2014 00:00:00 [id number] González kaye [place] Main Office [address] [address] [place] [address] 08/07/2014 14:29:46 08/07/2014 15:29:30 Increased frequency of urination 507892653 ? IC [id number] Main Office [address] [address] [place] [address] 11/17/2014 11:43:01 11/17/2014 12:24:46 Gastroesophageal reflux disease 339526720 Recommend PPI trial Abnormal weight gain 533674218 [id number] Natalya Harrison [place] Main Office [address] [address] [place] [address] 06/21/2015 11:35:42 06/21/2015 12:35:22 Diarrhea 23034703 [id number] Derek Pillai Main Office [address] [address] [place] [address] 07/31/2015 14:30:40 07/31/2015 15:10:26 Candidiasis of mouth 71102767 B37.9 Will treat with nystatin, this may be a reaction from her autoimmune disease, she is aware and will try to avoid triggers, resume her clean eating and exercise which usually helps to control her symptoms. [id number] Umesh Berry MD Main Office [address] [address] [place] [address] 11/12/2015 10:43:36 11/12/2015 12:08:56 Exercise-induced asthma 34433666 J45.990 Polycystic ovaries 26048 008 E28.2 Fatigue 85480258 R53.83 [id number] Umesh Berry MD Main Office [address] [address] [place] [address] 12/12/2015 10:38:49 12/12/2015 11:24:37 Acute pharyngitis 676380923 J02.9 Rapid strep test is negative. Viral disease 36524617 B 34.9 Viral infection with hyperreact amanda airways. Start CHerutussi n AC for cough. ProAir HFA inhaler PRN for wheezing. Rest , fluids. Wheezing 83570147 R06.2 Medrol dose pack as directed for 6 days and ProAir HFA PRN. [id number] Umesh Berry MD Main Office [address] [address] [place] [address] 12/24/2015 11:25:01 12/24/2015 12:36:41 Chronic cough 18060898 R05 Pain in calf 834320918 M 79.669 [id number] Doug Henson MD Main Office [address] [address] [place] [address] 07/21/2016 13:14:55 07/21/2016 14:01:00 Injury of nose 73239568 S09.92XA Does not appears crooked and is able to breath. Will get an xray to look for a fracture. Instructed her to leave the lot alone. [id number] Doug Henson MD Main Office [address] [address] [place] [address] 10/23/2016 09:58:16 10/23/2016 10:42:32 Shoulder pain 95990246 M25.511 I advised her to take naprosyn twice a day for a week to help with any inflammati on. She will make her own PT appointmen t and will call here for a referral to [facility] or ortho if the pain persists. [id number] Aissatou Lau Main Office [address] [address] [place] [address] 11/24/2016 14:15:38 11/24/2016 15:23:48 Acromioclavicular joint pain 199457227 M25.511 [id number] Jose rao Main Office [address] [address] [place] LAT[place] [address] 04/25/2017 09:35:01 04/25/2017 10:27:56 Acute pharyngitis 873337159 J02.9 Axillary lymphadenopathy 109688568 R59.0 [id number] Umesh Berry MD Main Office [address] [address] [place] [address] 06/24/2017 12:52:43 06/24/2017 14:06:25 Immunization refused 088905090 Z28.21 Upper abdominal pain 831 46478 R10.10 [id number] Cheri martinez Main Office [address] [facility] [address] [place] [address] 12/16/2017 12:38:34 12/16/2017 13:24:39 Anxiety 24314036 F41.9 panic attacks, baseline anxiety is up, will check thyroid, refill lorazepam for as needed bu knows to use sparingly, I recc pt start a daily SSRI, zoloft would be a good med, she will do some counseling here and think about it, may call for med Panic attack 474301697 F 41.0 see above Exercise-i nduced asthma 66077024 J45.990 [id number] Jose rao Main Office [address] [address] [place] [address] 04/20/2018 10:47:06 04/20/2018 12:03:23 Rhabdomyolysis 357505986 M62.82 cpk up to 33K at [facility] (did intense crossfit routine ac went to ER) - rec'd prolonged ivf, is drinking plenty of water nowcpk order ending - will get p this ovadvised pt to avoid crossfit unless significan tly modifies her routine (not as intense as she did last week) Systemic l upus erythematosus 68482509 M32.9 cont pred taper as dir - will f/u c rheum for further input - has pending f/u c rheum later today Hypokalemia 29706288 E87 .6 most likely d/t prolonged ivf - will recheck Costal chondritis 008397 04 M94.0 mild, no h/o overhead lifing but did do intense crossfit routine - rec warm compress prn [id number] Umesh Berry MD Main Office [address] [address] [place] [address] 05/17/2018 15:12:42 05/17/2018 16:27:07 Adult health examination 342825819 Z00.00 Undifferen tiated connective tissue disease 981225641 M35.1 Followed by Rheum [place] Non-trauma tic rhabdomyolysis 200946255 M62.82 Gastroesop hageal reflux disease without esophagitis 203995932 K21.9 Disorder o f connective tissue 786444386 M35.9 Followed by rheum. [id number] Umesh Berry MD Main Office [address] [address] [place] [address] 11/19/2018 13:46:50 11/19/2018 14:57:29 Glossitis 53785696 K14.0 Vitamin B1 2 deficiency (non anemic) 93362077 E53.8 [id number] Tereza Dorsey LPN Main Office [address] [address] [place] [address] 01/10/2019 14:59:28 01/11/2019 14:43:42 [id number] Umesh Berry MD Main Office [address] [address] [place] [address] 01/14/2019 09:52:09 01/14/2019 11:23:27 Exertional rhabdomyolysis 30498407 M62.[address] Berry. He has called Dr Dago Truong and he agrees to see pt to evaluate for muscle biopsy. He recommends we do metabolic workup. Will do labs and have pt see rheumatolo gy as planned. In the interim, do not so any intense exercise, keep hydrated, keep normal activity level and eating. Liver enzy mes level above reference range 578130945 R74.8 check LFTS [id number] Park Coburn PA-C Main Office [address] [address] [place] [address] 03/11/2019 11:20:17 03/11/2019 12:03:21 Acute pharyngitis 138815820 J02.9 Rapid strep test is negative.P t. exposed to strep through her son. Will start Abx and if strep is not confirmed , will discontinu e. [id number] Wayne Coburn PA-C Main Office [address] [address] [place] [address] 03/17/2019 15:35:23 03/17/2019 16:41:11 Nasal congestion 98719784 R09.81 Acute sinusitis 19234755 J01.90 rec afrin x 3 days, then use sudafed prn, cont kefir, take abx as dir, rec saline and warm washcloth prn pt requested diflucan just in case [id number] Karmen Weir Main Office [address] [facility] [address] [place] [address] 03/31/2019 14:29:05 03/31/2019 15:27:13 Persistent cough 354539162 R05 Likely inflammed airways, will try ICS and prn beta agonist. Start flonase and steam. Stop all 5-7 days before muscle biopsy. To call if not improving. CXR if persistent . [id number] Umesh Berry MD Main Office [address] [facility] [address] [place] [address] 07/01/2019 13:42:50 07/01/2019 14:53:09 Adult health examination 088438724 Z00.00 Anxiety 14851163 F41.9 Undifferen tiated connective tissue disease 213894494 M35.1 Followed by Rheum [place] Exercise-i nduced asthma 64882277 J45.990 continue use of ProAir before exercise Gastroesop hageal reflux disease 896127559 K21.9 Inflammati on of sacroiliac joint 24166248 M46.1 [id number] NUPUR Campos Main Office [address] [facility] [address] [place] [address] 10/17/2019 11:24:46 10/17/2019 12:08:30 Fever 007525361 R50.9 rapid negative, patient symptomati c, will tx for flu like sx. hydration, rest, tyelnol or ibuprofen as needed Persistent cough 7758688 02 R05 Influenza- like symptoms 069343508 R68.89 tamiflu bid x 5 days, anitviral, will not help with sx but shorten the duration of illness. [id number] Karmen Weir Main Office [address] [facility] [address] [place] [address] 11/02/2019 15:28:13 11/02/2019 17:00:35 Chest pain 00605657 R07.9 Likely musculoske letal pain with very localized tenderness and no palpable abnormalit y. Will try salonpas patch on 12 h then off 12 h. If not better would do Ultrasound and consider dx mammogram. CXR and rib xray now. Can use nsaids if needed as well. Chest wall pain 09304329 6 R07.89 [id number] Karmen Bianchitaryn Main Office [address] [facility] [address] [place] [address] 12/26/2019 09:22:59 12/26/2019 10:17:58 Muscle pain 00419997 M79.10 pt is seeing neurologis t for EMG upcoming, will discuss recurrent elevated CK with rheumatolo gist to see who we might refer to for muscle pain that is intermitte nt but ongoing associated wtih CK elevation. Right uppe r quadrant pain 959663694 R10.11 check ultrasound , r/o gallstones [id number] Umesh Berry MD Main Office [address] [facility] [address] [place] [address] 08/13/2020 13:23:42 08/13/2020 14:22:36 Intermittent palpitations 429896543 R00.2 -EKG done NSR in 70's-Will check [...] Patient denies any anxiety, depression , SI/HI. [id number] NUPUR Campos [facility] [address] [facility] [address] [place] [address] 09/20/2020 08:54:38 09/20/2020 10:16:59 Strain of abdominal muscle 158350911 S39.011A MRI from December reviewed, abdominal wall unremarkab le. no hernia was een at that time. She does note it feels muscular. will take iburpofen 800mg TID with food and flexeril at bedtime for 3-5 days to see if she gets relief from this. May use heat to area, recommend core strengthen ing. 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 Will tx for bPPV with meclizine. instructed to start with 12.5mg and increase if needed. hydration, rest. Also feels ears are full, will start flonase daily as needed x 5 days. [id number] Aissatou Lau [facility] h [address] [facility] [address] [facility] [place] [address] 11/07/2020 08:57:20 11/07/2020 11:51:27 Benign paroxysmal positional vertigo [id number] H81.10 Meclizine and flonase have not been helpful, she did try PT at [facility] and with PT and both time her sx significan tly worsened the next day. she does not wish to get back at this time. Will refer to ENT, get kabs and CT scan. Will also test for COVID. Exposure t o viral disease [id number] Z03.818 quarantine until results back. Dizziness [id number] R42 [id number] [facility] [address] [facility] 207 [facility] [place] [address] 03/04/2021 08:39:09 03/04/2021 12:50:53 Temporomandibular zaloe-kdbl-ruusbipxxh n syndrome [id number] M26.629 TMJ secondary to tooth clenching at night resulting in neck and upper back muscle spasms , headache relieved by botox injections . We will explore this treatment through the neurology office . Pt. will continue use of mouth guards. Clenching teeth [id number] 9 R46.89 Neck pain [id number] M54.2 Health Concerns Section Related Observation LastModified by Organization Detai ls LastModified Time None Recorded Concern Status LastModified by Organization Details LastModified Time None Recorded Advance Directives Directive N: Payers Encounter Date Sequence Insurance Name Policy Number Policy Ortiz Covered Member ID Ortiz Member ID Guarantor Name 09/20/2020 1 [facility] [id number] 1 Nader Rzeszutek [id number] Selin Rzeszutek 10/08/2020 1 [facility] [id number] 1 Nader Rzeszutek [id number] Selin Rzeszutek 11/01/2020 1 [facility] [id number] 1 Nader Rzeszutek [id number] Selin Rzeszutek 11/07/2020 1 [facility] [id number] 1 Nader Rzeszutek [id number] Selin Rzeszutek 03/04/2021 1 [facility] ([facility]) [id number] 1 Nader Rzeszutek [id number] Selin Rzeszutek Notes Date Note Type Note [...] when she was exercising. NUPUR Campos [address] [facility] [address], [place], [address], [facility] 09/20/2020 10:03:10 10/08/2020 text/html Here for PE janny bowie Reviewed chronic medications and medical problems. Discussed screening guidelines as well as goals for fitness and weight management. Underlying poorly defined CTD has been followed by specialty rheumatology. No specific treatment chronically, but has recently restarted low dose prednisone. 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 Umesh Berry MD [address] [facility] [address], [place], [address], [facility] 10/10/2020 08:37:49 11/01/2020 text/html Generic HPI [...] dull headache, has been constant, no n/v/d. [place] good enough to exercise that night, laid on her bench and had immediate spinning again. [place] like the floor was crooked, like she was off balance. She has also noticed when she is in bed, her ears feel full- no cracking or popping. No congestion, no sore throat, no runny nose or PND. She did have a COVID test yesterday that was negative- was a pcr test at [facility]. Josette Hernandez, [facility] [address] [facility] [address], [place], [address], [facility] 11/01/2020 13:40:31 11/07/2020 text/html Video visit: f/u [...] side feels deaf then resolves. Aissatou medina, [facility] 11/07/2020 12:42:29 11/07/2020 text/html Generic HPI [...] dull headache, has been constant, no n/v/d. [place] good enough to exercise that night, laid on her bench and had immediate spinning again. [place] like the floor was crooked, like she was off balance. She has also noticed when she is in bed, her ears feel full- no cracking or popping. No congestion, no sore throat, no runny nose or PND. She did have a COVID test yesterday that was negative- was a pcr test at [facility]. Aissatou medina [facility] 11/07/2020 12:42:29 03/04/2021 text/html 40 year [...] is high out of pocket. Aissatou medina [facility] 03/07/2021 10:51:05 OBGyn Episode No OBEpisode recorded.
--- OUTSIDE RECORDS SUMMARY | 2025-02-06 10:18 | XMS_ITS | Clinical Summary ---
Author Organization [facility] Address [address] [place] [address] Care Team Providers Care Associate Genetics Professor Name Role Phone Reshma Toribio MD Primary Care Provider Allergies Active Allergy Reactions [...] age to complete this topic Care Teams Associate Genetics Professor Relationship Specialty Start Date End Date Reshma Toribio MD PCP - General Internal Medicine 07/15/24
[2025-02-06 13:08] LABS: MANUAL DIFF FLAG NO
[2025-02-06 13:15] LABS: Basophils Percent Auto 0.5 % (0-2); Eosinophils Absolute Auto 0.1 X10*3/uL (0.0-0.4); Hematocrit 39.9 % (37.0-47.0); Hemoglobin 13.3 g/dl (12.0-16.0); Imm Gran Abs Auto 0.02 X10*3/uL (0.00-0.03); Imm Gran Pct Auto 0.3 % (0.0-0.4); Lymphocytes Percent Auto 25.5 % (20-40); Mean Corpuscular HGB Conc 33.3 g/dl (31.0-35.0); Mean Corpuscular Hemoglobin 28.7 pg (27.0-33.0); Mean Platelet Volume 10.6 fL (9.4-12.3); Monocytes Absolute Auto 0.6 X10*3/uL (0.1-1.2); Monocytes Percent Auto 8.1 % (2-11); Neutrophils Absolute Auto 4.9 x10*3/uL (2.0-8.3); Neutrophils Percent Auto 64.6 % (45-73); Platelet Count 238 X10*3/uL (160-400); Red Blood Count 4.64 X10*6/uL (4.20-5.50); Red Cell Distribution Width 12.8 % (11.0-16.0); White Blood Count 7.7 X10*3/uL (4.8-10.8)
[2025-02-06 13:36] LABS: Alanine Aminotransferase 11 U/L (0-31); Albumin Level 4.3 g/dL (3.5-5.0); Alkaline Phosphatase 47 U/L (39-117); Anion Gap 13 (12-20); Aspartate Amino Transferase 24 U/L (5-31); Bilirubin Direct 0.2 mg/dL (0.0-0.5); Bilirubin Total 0.8 mg/dL (0.0-1.0); Blood Urea Nitrogen 16 mg/dL (9-16); Calcium 9.5 mg/dL (8.4-10.2); Carbon Dioxide 24 mmol/L (22-29); Chloride 107 mmol/L (96-108); Estimated Glomerular Filt Rate > 60; Glucose Random 90 mg/dL (60-115); Potassium 4.8 mmol/L (3.3-5.1); Sodium 139 mmol/L (135-145); Total Protein 6.7 g/dL (6.5-8.0)
[2025-02-06 13:54] LABS: TSH reflex Free T4 1.18 uIU/mL (0.32-4.0)
[2025-02-06 13:59] LABS: Vitamin B12 350 pg/mL (200-900)
== END 2025-02-06 10:15 | disposition home or self-care (01) ==
LOC: HO.HMGCLDS 10:14
PROVIDERS: PCP Physician Assistant; Visit Provider Physician Assistant
DX: E53.8 Deficiency of other specified B group vitamins (principal)
CPT/HCPCS: 36415; 80048; 80076; 82607; 82746; 84443; 85025

== ENCOUNTER 2025-03-17 09:43 | Outpatient (REF) | payer OTHER, SELFPAY ==
--- OUTSIDE RECORDS SUMMARY | 2025-03-17 10:06 | XMS_ITS | Clinical Summary ---
Author Organization [employer] Address [address] [place] [address] Care Team Providers Care Sous Chef Name Role Phone Unavailable Primary Care Provider [...]
[2025-03-17 14:10] LABS: Appearance Urine Clear; Color Urine Yellow; Glucose Urine UA Negative (Negative); Leukocyte Esterase Urine Negative (Negative); Nitrite Urine Negative (Negative); Urine Blood Negative (Negative); Urine Ketones Negative (Negative); Urine Protein Negative (Neg-Trace)
== END 2025-03-17 09:44 | disposition home or self-care (01) ==
LOC: HO.HMGCLDS 09:43
PROVIDERS: PCP Physician Assistant; Visit Provider Physician Assistant
DX: Z13.220 Encounter for screening for lipoid disorders (principal); R82.998 Other abnormal findings in urine; M79.10 Myalgia, unspecified site
CPT/HCPCS: 81003

== ENCOUNTER 2025-07-03 09:54 | Outpatient (REF) | payer OTHER, SELFPAY ==
--- OUTSIDE RECORDS SUMMARY | 2024-08-05 08:03 | XMS_ITS | Encounter Summary ---
Author Organization [facility] Address [address] [place] [address] Care Team Providers Care Legal Officer Name Role Phone Reshma Toribio MD Primary Care Provider [phone] Encounter Details Date Type Department Care Team (Late st Contact Info) Description 08/05/2024 8:03 AM EDT Hospital Encounter TH HISTORIC ENCOUNTERS [facility] ONLY Janae Lay MD [address] [place] [address] [phone] Social History Tobacco Use Types Packs/Day Years [...] squeezing , and are located in the rastafari area , base of her head , he patient rates her most severe headaches a 10 on a scale from 1 to 10.prior to botoc , after botox she is headache free , Recently, the headaches have been decreasing in both severity and frequency, Work attendance or other daily activities are affected by the headaches. Precipitating factors include: stress, weather changes and lack of sleep . The headaches are usually not preceded by an aura. Associated neurologic symptoms: dizzinessand nausea , photophobia and phonophobia . 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 The majority of the actual [id number] visit was spent counseling the patient with respect to the current neurological picture. Janae Lay MD documented in this encounter Plan of Treatment Upcoming Encounters Date Type Department Care Team (Late st Contact Info) Description 09/06/2025 11:20 AM EST Procedure visit [facility] [address] [facility] [address] [place] [address] Janae Lay MD [address] [place] [phone] documented as of this encounter Visit Diagnoses Not on filedocumented in this encounter Care Teams Legal Officer Relationship Specialty Start Date End Date Reshma Toribio MD PCP - General 08/05/24 11/14/24 documented as of this encounter
--- OUTSIDE RECORDS SUMMARY | 2025-07-03 12:18 | XMS_ITS ---
[facility] Name [facility] Unknown History of Medication Use Medication Directions Dispensed Refills Start Date End Date Stat us Vitamin D-Vitamin K (K2 Plus D3) 100-1000 MCG-UNIT TABS 0 Refills, Maintenance, 02/25/23 15:38:00 EDT, Partial fill upon patient request if the prescription is for a schedule II opioid drug. 02/11/2022 active fish oil-omega-3 fatty acids 1000 MG capsule Take by mouth. active Allergies Allergen Reaction Severity Comment Documented Date Source Statu s CYANOACRYLATE OTHER (SEE COMMENTS) EYE Swelling 10/26/2023 [facility] active SULFA ANTIBIOTICS OTHER (SEE COMMENTS) 01/20/2022 [facility] active ADHESIVE TAPE OTHER (SEE COMMENTS) Eye swelling [facility] Problems Problem Status Onset Date Problem Type Date of Resolution Source Benign paroxysmal positional vertigo active 2020-11-01 ProblemAct [facility] Mckinley's esophagus active 2024-08-05 ProblemAct [facility] Vertigo active EncounterDiagnosisAct [facility] Exercise-induced asthma active 2014-04-26 ProblemAct [facility] Intractable migraine without aura active 2024-08-05 ProblemAct [facility] Autoimmune disease active 2024-07-11 ProblemAct [facility] Chronic migraine w/o aura w/o status migrainosus, not intractable active EncounterDiagnosisAct [facility] Encounters Encounter Type Encounter Reason Primary Diagnosis Location Date Ambulatory Consult [facility] 01/20/2022 Care Team Organization Name Specialty Phone Email Start Date End [facility] 01/20/20222023 [facility] 01/20/20222021
--- OUTSIDE RECORDS SUMMARY | 2025-07-03 12:18 | XMS_ITS | Clinical Summary ---
Author Organization [email or web address] Address [address] [place] [address] Care Team Providers Care Digital Strategist Senior Manager Name Role Phone Unavailable Primary Care Provider [...] HPV/Cotest 2011 COVID-19 Vaccine (2023-2 5 season) 2025 Influenza Vaccine (#1) 2025 HIB Vaccines Aged Out No longer eligi ble based on patient's age to complete this topic HPV Vaccines (No Doses Required) Completed Hepatitis A Vaccines Aged Out No long [...] <20 Months Aged Out No longer gerhard mcmahon based on patient's age to complete this topic
--- OUTSIDE RECORDS SUMMARY | 2025-07-03 12:18 | XMS_ITS | Clinical Summary ---
Author Organization [facility] Address [address] [place] [address] Care Team Providers Care Lingo Cleaner Name Role Phone Reshma Toribio MD Primary Care Provider [phone] Allergies Active Allergy Reactions Criticality Noted Date [...] vertigo 11/01/2020 08/05/2024 Exercise-induced asthma 04/26/2014 08/05/20 Social History Tobacco Use Types Packs/Day Years [...] 86 08/05/2024 8:10 AM EDT Temperature 35.9 C (96.7 F) 08/05/2024 8:10 AM EDT Respiratory Rate - - Oxygen Saturation - [...] Cancer Screening (Pap Smear) 2002 COVID-19 Vaccine (2024-2 6 season) 2025 10/23/2021, 01/30/2021, 01/09/2021 Influenza Vaccine (#1) 2025 3, 08/29/2011 Hepatitis B Vaccines Completed 08/09/2007, 07/15/2000, 06/10/2000 Pneumococcal Vaccine Aged Out No long er eligible based on patient's age to complete this topic RSV Ped < 20 months Aged Out No longe r eligible based on patient's age to complete this topic Care Teams Lingo Cleaner Relationship Specialty Start Date End Date Reshma Toribio MD PCP - General Internal Medicine 07/15/24
--- OUTSIDE RECORDS SUMMARY | 2025-07-03 12:18 | XMS_ITS | Encounter Summary ---
Author Organization [facility] [employer] [facility] Address [address] [place] [address] Care Team Providers Care Csm Consultant Name Role Phone Unavailable Primary Care Provider Unavailabl e Encounter Details Date Type Department Care Team ([facility] st Contact Info) Description 07/02/2020 Scanned Document [employer] Information Management [address] [place] [address] System, Provider Not In [facility] Social History Tobacco Use Types [...]
--- OUTSIDE RECORDS SUMMARY | 2025-07-03 12:18 | XMS_ITS | Clinical Summary ---
Author Organization [address] [facility] Address [address] [place] [address] Phone Care Team Providers Care Recycling Operator Name Role Phone Reshma Toribio MD Primary Care Provider [phone] Allergies Active Allergy Reactions Criticality Noted Date [...] mouth 1 (one) time each day. Active Hospital, Clinic, or Other Facility Administered Medication Ordered Dose Route Frequency Start Date End Date Status onabotulinumtoxinA (BOTOX) 200 unit injection 200 UnitsIndications:Chronic migraine without aura without status migrainosus, not intractable 200 Units IM Once 06/21/2025 06/21/2025 Ended Active Problems Problem Noted Date Diagnosed Date Dyspnea on exertion 10/29/2022 Palpitations 10/29/2022 Tachycardia 10/29/2022 Mixed connective tissue disease ([facility] V24) Raynaud's disease without gangrene 04/23/2018 Encounters Date Type Department Care Team Description 06/21/2025 10:40 AM EDT Procedure visit [facility] [address] [place] [address] Janae Lay MD Chronic migraine without aura without status migrainosus, not intractable (Primary Dx) from Last 3 Months Immunizations Name Administration Dates Next Due Pfizer SARS-CoV-2 COVID-19, mRNA, LNP-S, preservative free 10/23/2021,01/30/2021,01/09/2021 Surgical History Surgery Date Site/Laterality Comments ORTHOPEDIC SURGERY 2018 Right PROCEDURE: HISTORICAL ORTHOPEDIC SURGERY; COMMENT: Acromioclavicular reconstruction BREAST REDUCTION Medical History Medical History Date Comments Mixed connective tissue dise ase ([facility] V24) DX:Mixed connective tissue d isease ([facility]) Family History Medical History Relation [...] 78 01/05/2025 8:32 AM EDT Temperature 36.2 C (97.1 F) 01/05/2025 8:32 AM EDT Respiratory Rate - - Oxygen Saturation 98% [...] Description 09/06/2025 11:20 AM EST Procedure visit [facility] [address] [place] [address] Janae Lay MD [address] [place] [address] Health Maintenance Due Date Last Done Comments Breast Cancer Screening 1981 Pneumococcal Vaccine: Pediatrics (0 to 5 Years) and At-Risk Patients (6 to 49 Years) (1 of 2 - PCV) 2000 Cervical Cancer Screening: Pap Smear 2002 Cholesterol Screening (Lipid Panel) 09/21/2022 HIV Screening 09/21/2022 Hepatitis C Screening 09/21/2022 Social Influencers of Health Screening 09/21/2022 Depression Screening 10/19/2024 COVID-19 Vaccine ( season) 2025 10/23/2021, 01/30/2021, 01/09/2021 Influenza Vaccine (#1) 2025 09/23/2013, 2010 DTaP,Tdap,and Td Vaccines (9 - Td or Tdap) 10/08/2030 10/08/2020, 01/25/2010, 04/25/1997, Additional history exists IPV Vaccines Completed 04/24/1987, 02/1986, 06/20/1983 MMR Vaccines Completed 04/25/1997, 12/17/1982 Hepatitis [...] on patient's age to complete this topic Procedures Procedure Name Priority Date/Time Associated Diagnosis Comments EXTERNAL ENDOSCOPY REPORT Routine 05/10/2025 3:05 PM EDT from Last 3 Months Results * External Endoscopy (05/10/2025 3:05 PM EDT) Anatomical Region Laterality Modality Endoscopy us Historical Provider GI~PROCEDURE ORDERABLES F inal Result from Last 3 Mon[place] [id number] [place] [employer] [facility] Care Teams Recycling Operator Relationship Specialty Start Date End Date Reshma Toribio MD [address] [place] [address] PCP - General Internal Medicine 12/19/24
--- OUTSIDE RECORDS SUMMARY | 2025-07-03 12:18 | XMS_ITS | Encounter Summary ---
Author Organization [employer] Address [address] [place] [address] Care Team Providers Care Contracts Director Name Role Phone Unavailable Primary Care Provider Unavailabl e Reason for Visit * Reason Onset Date Comments ELEVATED CK 12/28/2019 Encounter Details Date Type Department Care Team ([facility] st Contact Info) Description 12/28/2019 Telephone [facility] Rheumatology [address] [address] Lakeisha Patel DO [address] [place] [address] ELEVATED CK Social History Tobacco Use Types [...] She had subsequent labs drawn - 600s. ([employer]). She went to [facility] [place] night and CK went up [...] Neurology. She was referred to Rheumatology in [place] Maribel Stein MD. We discussed establishment of [...] ALT, ESR, CRP, myoglobin) and fax to [facility] [employer] labs ([address] [place] [address]; ). Advised to contact the office with [...] on the patient. Please call her cell [phone] * Telephone Encounter - Lakeisha Patel DO [...]
--- OUTSIDE RECORDS SUMMARY | 2025-07-03 12:18 | XMS_ITS | Encounter Summary ---
Author Organization [email or web address] Address [address] [place] [address] Care Team Providers Care Housing Installer Name Role Phone Unavailable Primary Care Provider Unavailabl e Encounter Details Date Type Department Care Team ([facility] st Contact Info) Description 07/02/2020 Scanned Document [employer] Information Management [address] [place] [address] System, Provider Not In [facility] LAB RESULTS [...]
[2025-07-03 13:27] LABS: MANUAL DIFF FLAG NO
[2025-07-03 13:30] LABS: Hematocrit 40.5 % (37.0-47.0); Hemoglobin 13.6 g/dl (12.0-16.0); Imm Gran Abs Auto 0.01 X10*3/uL (0.00-0.03); Imm Gran Pct Auto 0.2 % (0.0-0.4); Lymphocytes Absolute Auto 2.0 X10*3/uL (1.2-4.9); Mean Corpuscular HGB Conc 33.6 g/dl (31.0-35.0); Mean Corpuscular Hemoglobin 29.5 pg (27.0-33.0); Mean Corpuscular Volume 87.9 fL (80.0-98.0); NRBC Abs Auto 0.000 X10*3/uL (0.0-0.012); NRBC Pct Auto 0.0 /100WBC (0.0-0.2); Platelet Count 204 X10*3/uL (160-400); Red Blood Count 4.61 X10*6/uL (4.20-5.50); White Blood Count 5.9 X10*3/uL (4.8-10.8)
[2025-07-03 13:50] LABS: Alanine Aminotransferase 14 U/L (0-31); Albumin Level 4.6 g/dL (3.5-5.0); Alkaline Phosphatase 54 U/L (39-117); Anion Gap 11 (12-20); Aspartate Amino Transferase 23 U/L (5-31); Blood Urea Nitrogen 16 mg/dL (9-16); Calcium 9.2 mg/dL (8.4-10.2); Carbon Dioxide 25 mmol/L (22-29); Chloride 106 mmol/L (96-108); Estimated Glomerular Filt Rate > 60; Lipase 44 U/L (8-78); Potassium 4.4 mmol/L (3.3-5.1); Sodium 138 mmol/L (135-145); Total Protein 7.1 g/dL (6.5-8.0)
[2025-07-03 14:01] LABS: Amylase 92 U/L (28-100)
[2025-07-03 14:03] LABS: Appearance Urine Clear; Glucose Urine UA Negative (Negative); PH 6.5 (5.0-9.0); Specific Gravity - Urine 1.015 (1.005-1.025)
== END 2025-07-03 09:55 | disposition home or self-care (01) ==
LOC: HO.HMGCLDS 09:54
PROVIDERS: PCP Physician Assistant; Visit Provider Physician Assistant
DX: R30.0 Dysuria (principal); R10.10 Upper abdominal pain, unspecified
CPT/HCPCS: 36415; 80048; 80076; 81003; 82150; 83690; 84443; 85025

== ENCOUNTER 2025-07-26 09:29 | Outpatient (REF) | payer OTHER, SELFPAY ==
--- NOTE | ~2025-07-26 | US_ITS ---
CLINICAL HISTORY: R10.10 - Upper abdominal pain, unspecified US abdomen complete with color Doppler Comparison: None Findings: The visualized pancreas, aorta, and inferior vena cava are unremarkable. Liver normal size and mild coarsened echotexture. Right lobe 14.6 cm length. No focal hepatic masses. Common duct 3.0 mm diameter. Physiologic distention of the gallbladder. No gallstones or sludge. No gallbladder wall thickening. No pericholecystic fluid. No sonographic Garland sign. Main portal vein antegrade. Right kidney normal size, 11.1 cm in length. Normal cortical width and echotexture. No solid or cystic renal masses. No nephrolithiasis. No hydronephrosis. Left kidney normal, 11.4 cm in length. Normal cortical width and echotexture. No solid or cystic renal masses. No nephrolithiasis. No hydronephrosis. Spleen measures 9.7 cm. Indeterminate hypoechoic nodule within the spleen measuring 9 x 8 x 8 mm No ascites. No lymphadenopathy. Impression: 1. Coarsened hepatic echotexture reflecting mild diffuse hepatic steatosis or diffuse hepatocellular disease. 2. Normal gallbladder. 3. Indeterminate circumscribed splenic nodule. This document has been electronically signed by: Tomas Jain MD on 07/27/2025 10:10:25
== END 2025-07-26 09:30 | disposition home or self-care (01) ==
LOC: HO.US 09:29
PROVIDERS: PCP Physician Assistant; Visit Provider Physician Assistant
DX: R10.10 Upper abdominal pain, unspecified (principal)
CPT/HCPCS: 76700

== ENCOUNTER → 2025-07-26 09:36 | Outpatient (BNV) | payer OTHER, SELFPAY | PROVIDERS: PCP Physician Assistant; Visit Provider Radiology Diagnostic Radiology | DX: K76.0 Fatty (change of) liver, not elsewhere classified (principal) | CPT/HCPCS: 76700 ==

== ENCOUNTER 2025-10-04 08:05 | Outpatient (AMB) | payer OTHER, SELFPAY ==
--- OUTSIDE RECORDS SUMMARY | 2024-08-05 07:03 | XMS_ITS | Encounter Summary ---
Author Organization [facility] Address [address] [place] [address] Care Team Providers Care Labor Law Professor Name Role Phone Reshma Toribio MD Primary Care Provider [phone] Encounter Details Date Type Department Care Team (Late st Contact Info) Description 08/05/2024 8:03 AM EDT Hospital Encounter TH HISTORIC ENCOUNTERS [facility] ([place], [place]) ONLY Janae Lay MD [address] [place] [id number] Social History Tobacco Use Types Packs/Day Years Used Date Smoking Tobacco: Former Smokeless Tobacco: Never Alcohol Use Standard Drinks/Week Comments Yes 0 (1 standard drink = 0.6 oz pur e alcohol) Comments Unknown Sex and Gender Information Value Date Recorded Sex Assigned at Not on file Legal Sex Female 8:09 AM EST Gender Identity Not on file Sexual Orientation Not on file documented as of this encounter Last Filed Vital Signs Vital Sign Reading Time Taken Comments Blood Pressure 125/92 08/05/2024 8:10 AM EDT Sitting Right arm Pulse 86 08/05/2024 8:10 AM EDT Temperature - - Respiratory Rate - - Oxygen Saturation - - Inhaled Oxygen Concentration - - Weight 68.9 kg (152 lb) 08/05/2024 8:10 AM EDT Height 167.6 cm (5' 6 ) 08/05/2024 8:10 AM EDT Body Mass Index 24.53 08/05/2024 8:10 AM EDT documented in this encounter Progress Notes * Janae Lay MD - 08/05/2024 8:00 AM EDT HPI: Selin Zapata is a 43 y.o. year old female referred to our center by Reshma Toribio MD for evaluation and management of migraine headache /vertigo 43 yo female with PMH of questionable connective tissue ds vs Lupus , she got sick after delivery with recovering fatigue, difficulty physically with both her kids , vit B12 she is getting injection once a month Headache: Patient presents for evaluation of headache. Symptoms began about 2010. Generally, the headaches last about Daily prior to Botox her quality of life was bad she couldn't 7-05/28 and occur after botox she had no headache days , when she is coming back , . The headaches do not seem to be related to any time of the day. The headaches are usually moderate, pounding and throbbing , squeezing , and are located in the nondenominational area , base of her head , he patient rates her most severe headachesa 10 on a scale from 1 to 10.prior to botoc , after botox she is headache free , Recently, the headaches have been decreasing in both severity and frequency, Work attendance or other daily activitiesare affected by the headaches. Precipitating factors include: stress, weather changes and lack of sleep . The headaches are usually not preceded by an aura. Associated neurologic symptoms: dizziness and nausea , photophobia and phonophobia . The patient denies muscle weakness, numbness of extremities and speech difficulties. Home treatment has included ibuprofen, darkening the room, resting and sleeping with no improvement. Other history includes: migraine headaches diagnosed in the past. Family history includes migraine headaches in daughter . She is currently getting botox for last 2 years with marked improved , her last botox May 04 , prior to botox she couldn't , she was missing family events She was getting marked clenching in association with her headache that markedly improved after botox injection She was on prozac in past and didn't help with her headache In 2020 she woke up she has gait imbalance and vertigo lasted for a week ,she was nauseous but no vomiting she had micki maneuver that after 3 times last time helped her symptoms , she recovered would have it very random and episodic , In May she had stressful time at work , she started experience vertigo milder, she had an episode with visual symptoms squiggly lines she had a headache afterwards , she saw physical therapy specialized in vestibular therapist , her vertigo provoked with head movement , her symptoms is wor Patient has approval MRI BRAIN [facility] She denies any blurry vision , double vision She experience occasional numbness randomly in her upper extermities Patient had rhabdomyolysis 3 times in 1 year work up was done with no conclusive findings She experience spasm around her diaphragm and abdomen that happen occasional lasting for seconds nospecific provoking factor She occasionally had urinary bladder symptoms Current Outpatient Medications Medication Sig Dispense Refill ??? esomeprazole (NexIUM) capsule 20 mg Take 1 capsule (20 mg total) by mouth. ??? Methylcobalamin [address] under the tongue. ??? Vitamin D-Vitamin K (K2 Plus D3) 100-1000 MCG-UNIT TABS 0 Refills, Maintenance, 02/25/23 15:38:00 EDT, Partial fill upon patient request if the prescription is for a schedule II opioid drug. ??? fish oil-omega-3 fatty acids 1000 MG capsule Take by mouth. ??? MAGNESIUM PO Take by mouth. No current facility-administered medications for this visit. Allergies Allergen Reactions ??? Adhesive Tape Other (See Comments) Eye swelling ??? Cyanoacrylate Other (See Comments) EYE Swelling ??? 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 Neurologic Exam: BP (!) 125/92 (BP Location: Right arm, Patient Position: Sitting, Cuff Size: Adult Large) Pulse 86 Temp 96.7 ??F (35.9 ??C) (Temporal) Ht 5' 6 (1.676 m) Wt 68.9 kg (152 lb) BMI 24.53 kg/m?? MS: AOx3 CN: perrla,, V1-3 intact to LT, face symmetric, bilateral SCM/trapezius 5/5, tongue/uvula/palate midline Motor: 5/5 in all extremities Sensation: Intact to light touch, temperature, and vibration in all extremities Reflexes: 2+ in bilateral biceps and patellae, toes downgoing bilaterally Cerebellar: FNF intact bilaterally, FFM intact bilaterally, [place] intact bilaterally,slight difficulty tandem gait , romberg negative Labs: Reviewed available labs Follow up labs ordered Imaging: All images were reviewed by me. MRI brain: ordered will follow A/P: Selin Zapata is a 43 y.o. year old female with PMH f questionable connective tissue ds vs Lupus , she got sick after delivery with recovering fatigue, difficulty physically with both her kids , vit B12 she is getting injection once a month referred to our center by Reshma Toribio MD for e valuation and management of migraine headache since 2010 , responding well to Botox for last 2 years with marked improvementt prior to Botox her quality of life was bad she couldn't perform her dailyactivity 05/28 and occur after botox she had no headache days , when she is due for injection she start experience , . The headaches do not seem to be related to any time of the day. The headaches areusually moderate, pounding and throbbing , squeezing , and are located in the nondenominational area , base ofher head , he patient rates her most severe headaches a 10 on a scale from 1 to 10.prior to botoc ,after botox she is headache free , marked improvement In her jaw tension Off note patient injection sites have been different location other than PREEMT discussed with patient she is willing to do the FDA approved protcol Migraine headache /Jaw tension pain Patient had very good response from Botox will reauthorize patient Sumatriptan abortive Take one tablet as needed for headaches, may repeat in 2 hours, do not exceed more than 2 per day Counseled on avoidance of migraine triggers, particularly sleep deprivation, missed meals, dehydration, certain foods and avoiding excessive caffeine/NSAIDs. Vertigo/ multiple neurological symptoms questionable vestibular headache vs BBPV vs structural cause Will obtain MRI brain ordered Will reassess accordingly Patient done with PT Symptoms improved -RTC in 3 months for follow up The patient and I discussed the clinical picture during today's appointment. Additional time was spent prior to the actual appointment reviewing records, lab values and imaging results and preparing documentation for today's visit. There was also time spent following the in person visit documenting, arranging for further diagnostic testing and follow-up appointments. The entire time spent in thisprocess was greater than 60 minutes. The majority of the actual tlhx-dp-[id number] visit was spent counseling the patient with respect to the current neurological picture. Janae Lay MD documented in this encounter Plan of Treatment Upcoming Encounters Date Type Department Care Team (Late st Contact Info) Description 12/06/2025 11:00 AM EST Procedure visit [facility] [place] [address] [place] [address] Janae Lay MD [address] [place] [id number] documented as of this encounter Visit Diagnoses Not on filedocumented in this encounter Care Teams Labor Law Professor Relationship Specialty Start Date End Date Reshma Toribio MD PCP - General 08/05/24 11/14/24 documented as of this encounter
--- NOTE | 2025-10-04 08:08 | MHC.PC.OV ---
Vital Signs 10/04/25 08:10 Height 5 ft 5 in Weight 138 lb 6 oz BMI 23.0 BP 94/74 Blood Pressure Location Rt brachial Position Sitting Respiration 12 Pulse 90 Pulse Source Pulse Oximeter Temp 98.1 F Temp Source Oral Pulse Oximetry (%) 99 Oxygen Delivery Method Room Air Intake Visit Reasons: cpe Intake Note: Physical Compensation Vice President Required: No Allergies adhesive tape Allergy (Severe, Verified 10/04/25 08:12) Rash Sulfa (Sulfonamide Antibiotics) Allergy (Unknown, Verified 10/04/25 08:12) unknown Medication List - Last Reconciled 10/04/25 by Elizabeth Huitron PA-C [id number] 5,000 mcg-1,360 mcg DFE-2.5 mg tabs PO .po blood-glucose sensor (FreeStyle Randy 3 Plus Sensor device) Use daily As directed to monitor glucose esomeprazole magnesium 20 mg PO BID 90 days Tobacco use date assessed: 10/04/25 Dental Screening Dental Screen Date: 10/04/25 Did you have a dental visit in the last 12 months?: Yes Did you have a dental problem in the last 6 months where you did not have access to dental care?: No Was dental information given to patient?: Patient has dentist HPI cpe HPI Details Patient is a 45-year-old female who presents today for a physical exam. No acute concerns today. She says that she is overall feeling well since starting zepbound through a compound pharmacy. will call me for further refills of this to [facility]. She also follows with a card table attendant and endocrinology for a smaller than expected pituitary on MRI. Pysch: gets rare need for lorazepam. GI: following with GI for GERD and fatty liver. On nexium daily going for barium swallow after this. Had endoscopy 08/18/25 and no bx needed. 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 1. Little interest or pleasure in doing things: not at all 2. Feeling down, depressed, or hopeless: not at all 3. Trouble falling or staying asleep, or sleeping too much: not at all 4. Feeling tired or having little energy: not at all 5. Poor appetite or overeating: not at all 6. Feeling bad about yourself - or that you are a failure or have let yourself or your family down: not at all 7. Trouble concentrating on things, such as reading the newspaper or watching television: not at all 8. Moving or speaking so slowly that other people could have noticed. Or the opposite - being so fidgety or restless that you have been moving around a lot more than usual: not at all 9. Thoughts that you would be better off or of hurting yourself in some way: not at all Total score: 0 Source: Developed by Drs. Romain Williamson, Penny Tong, Hema Thomason and colleagues, with an educational rafaela from [employer]. Thrive Questionnaire Date Thrive assessed: 07/04/24 I am a: Patient What is your living situation today?: I have a steady place to live Within the past 12 months, did the food you bought not last and you didn't have the money to get more?: Never true Within the past 12 months, did you worry whether your food would run out before you got money to buy more?: Never true Do you have trouble paying for medicines?: No Do you have trouble getting transportation to medical appointments?: No Do you have trouble paying your heating and electricity bill?: No Do you have trouble taking care of your child, family member or friend?: No Do you have trouble with day-to-day activities such as bathing, preparing meals, shopping, managing finances, etc.?: No Are you currently unemployed and looking for a job?: No Are you interested in more education?: No Please select the resources that you would like help with: None Currently or been in a relationship where the following occur: No concerns reported THRIVE Score: 0 AUDIT C Alcohol Use Questionnaire (AUDIT-C) 1. How often do you have a drink containing alcohol?: Monthly or less 2. How many drinks containing alcohol do you have on a typical day when you are drinking?: 3 or 4 3. How often do you have six or more drinks on one occasion?: Never Total Score: 2 JAUN-7 AMB Questionnaire JAUN-7 Feeling nervous, anxious, or on edge: 1 = Several days Not being able to stop or control worryin = Not at all Worrying too much about different things: 0 = Not at all Trouble relaxin = Not at all Being so restless that it is hard to sit still: 0 = Not at all Becoming easily annoyed or irritable: 0 = Not at all Feeling afraid as if something awful might happen: 0 = Not at all Total JAUN-7 score (0-4 normal; 5-9 mild; 10-14 moderate; 15-21 severe): 1 Source: Developed by Drs. Romain Williamson, Penny Tong, Hema Thomason and colleagues, with an educational rafaela from [employer]. Physical exam (Primary Care) Vital Signs: Last Vital Signs Temp 98.1 F 10/04/25 08:10 Pulse 90 10/04/25 08:10 Resp 12 10/04/25 08:10 BP 94/74 10/04/25 08:10 Pulse Ox 99 10/04/25 08:10 Oxygen Delivery Method Room Air 10/04/25 08:10 BMI result Body Mass Index 23.0 Tobacco/Smoking Status: Tobacco use Status Tobacco use date assessed 10/04/25 10/04/25 08:16 Patient Tobacco Use Status Former Tobacco user 10/04/25 08:10 e-Cigarette/Vaping Use Never Used 10/04/25 08:10 PHQ-9: PHQ-9 Score PHQ-9: Total score 0 10/04/25 11:46 Thrive Assessment: Date of Thrive Assessment Date Thrive assessed 07/04/24 10/04/25 08:10 Currently or been in a relationship where the following occur: No concerns reported Const Orientation/consciousness: patient oriented x3 HENMT Ears: hearing grossly normal bilaterally and TM's normal bilaterally General nose exam: No nasal polyps present Face and sinus: Yes sinuses nontender Mouth: Normal oral and palatal mucosa present Eyes Pupils: Equal, round and reactive pupils present EOM: EOMs intact bilaterally Neck Neck: Yes full ROM and Yes no lymphadenopathy Thyroid: Thyroid normal Chest Chest palpation & inspection: normal inspection of the chest Resp Auscultation: clear to auscultation bilaterally Cardio Rate: regular rate Rhythm: regular rhythm Heart sounds: S1 normal heart sound present and S2 normal heart sound present Peripheral pulses: Peripheral pulses 2+ throughout GI Other: Soft, nontender Auscultation: normal bowel sounds Rectal Exam - Female: deferred General: Yes no CVA tenderness Back/Spine/Pelvis Other: Nontender, lipoma left lumbar region noted Back: no CVA tenderness Skin General skin exam: no rashes or lesions noted Neuro General: patient oriented x3, gait normal, CN's II-XI intact bilaterally and deep tendon reflexes 2+ bilaterally Cranial nerves: Yes Equal, round and reactive pupils present Motor exam (neuro): 5/5 motor strength present throughout Sensory Exam: double simultaneous stimulation for sensation normal Coordination: [id number]-ya-[id number] test normal and Romberg test negative Extrem General: Yes normal to inspection and Yes full ROM Psych Affect: normal affect Attitude: cooperative Thought process: Normal thought process present Thought content: Normal thought content present Insight: Good insight present (Psych) Judgement: Good judgement present (Psych) Results Reviewed Results Reviewed: Laboratory Tests 02/06/25 07/03/25 10:18 10:11 WBC 5.9 RBC 4.61 Hgb 13.6 Hct 40.5 Plt Count 204 Sodium 138 Potassium 4.4 Chloride 106 Carbon Dioxide 25 Anion Gap 11 L BUN 16 Creatinine 0.94 Estimated GFR > 60 Random Glucose 94 AST 23 ALT 14 Alkaline Phosphatase 54 Lipase 44 Vitamin B12 350 TSH 2.30 Laboratory Tests 09/30/24 09:23 Triglycerides 63 Cholesterol 180 LDL Cholesterol, Calc 123 H HDL Cholesterol 45 1. Coarsened hepatic echotexture reflecting mild diffuse hepatic steatosis or diffuse hepatocellular disease. 2. Normal gallbladder. 3. Indeterminate circumscribed splenic nodule. Coding Level of Care Code Est Pt Prev Care 40-64y(41700) Diagnoses Routine general medical examination at a health care facility Z00.00 IFG (impaired fasting glucose) R73.01 GERD (gastroesophageal reflux disease) K21.9 Assessment & Plan Assessment & Plan (1) Routine general medical examination at a health care facility: Code(s): Z00.00 - Encounter for general adult medical examination without abnormal findings Plan: Health maintenance reviewed. Labs reviewed. Lipids ordered. We will follow up pending test results. (2) IFG (impaired fasting glucose): Code(s): R73.01 - Impaired fasting glucose Category: Medical Plan: Has been improved since weight loss and addition of Zepbound (3) GERD (gastroesophageal reflux disease): Code(s): K21.9 - Gastro-esophageal reflux disease without esophagitis Category: Medical Plan: Follows with GI. Barium swallow today. Has had a recent endoscopy and is not due until 2026. Refilled Nexium today. Orders: Orders Comprehensive [place]. Panel Fast Today E23.7 - Disorder of pituitary gland, unspecified, R73.01 - Impaired fasting glucose, Z00.00 - Encounter for general adult medical examination without abnormal findings Complete Blood Count Auto Diff Today E23.7 - Disorder of pituitary gland, unspecified, R73.01 - Impaired fasting glucose, Z00.00 - Encounter for general adult medical examination without abnormal findings Hemoglobin A1c Today E23.7 - Disorder of pituitary gland, unspecified, R73.01 - Impaired fasting glucose, Z00.00 - Encounter for general adult medical examination without abnormal findings TSH reflex Free T4 Today E23.7 - Disorder of pituitary gland, unspecified, R73.01 - Impaired fasting glucose, Z00.00 - Encounter for general adult medical examination without abnormal findings Lipid Panel Today E23.7 - Disorder of pituitary gland, unspecified, R73.01 - Impaired fasting glucose, Z00.00 - Encounter for general adult medical examination without abnormal findings Medications: New lorazepam (Ativan) 0.5 mg PO DAILY PRN 30 tabs 2RF anxiety 30 days Refilled esomeprazole magnesium 20 mg PO BID 90 caps 3RF 90 days
[2025-10-04 08:10] VITALS: BP 94/74; PULSE 90; RESP 12; TEMP 36.7; O2SAT 99; BMI 23.0
--- OUTSIDE RECORDS SUMMARY | 2025-10-04 08:12 | XMS_ITS | Clinical Summary ---
Author Organization [facility] Address [address] [place] [id number] Phone Care Team Providers Care Building Pressure Washer Name Role Phone Elizabeth Huitron Primary Care Provider [phone] Allergies Active Allergy Reactions Criticality Noted Date Comments 2-Octyl Cyanoacrylate Other (See Comments) High 05/2024 EYE Swelling Adhesive Other (See Comments) High 10/26/2023 Eye swelling Sulfa (Sulfonamide Antibiotics) Unknown Low 09/25/2021 Medications desmopressin (DDAVP) 10 mcg/spray (0.1 mL) solution 0.1 sprays by Nasal route nightly at bedtime as needed. 3 Active desmopressin (STIMATE) 150 mcg/spray (0.1 mL) Valeria One spray (150mcg) in each nostril 2 hours prior to procedure 1 Bottle 9 Active albuterol 90 mcg/actuation inhaler Active LORazepam (ATIVAN) 0.5 MG tablet daily. Active pantoprazole (PROTONIX) 40 MG tablet Take 40 mg by mouth. 3 Active esomeprazole (NEXIUM) 20 MG capsule Take 20 mg by mouth daily before breakfast. Active esomeprazole (NEXIUM) 20 MG capsule Take 20 mg by mouth daily before breakfast. Active ondansetron (ZOFRAN) 4 MG tablet Take 1 tablet (4 mg total) by mouth every 8 (eight) hours as needed for nausea. 30 tablet 4 Active oxyCODONE-aceta minophen (PERCOCET) 5-325 mg per tablet Take 1 tablet by mouth every 4 (four) hours as needed for pain (specific location in comments). Partial fill ok 30 tablet 4 Active clindamycin (CLEOCIN) 300 MG capsule Take 1 capsule (300 mg total) by mouth 3 (three) times a day. 21 capsule 4 Active hydrocortisone 2.5 % cream Apply topically 2 (two) times a day. 20 g 4 Active Active Problems Patient Care Coordination No te Formatting of this note migh t be different from the original. 10mcg/spray should be taken out of chart/ineffective dose. Please inactivate when rooming PT-OC Problem Noted Date Diagnosed Date Anxiety 07/11/2024 Autoimmune disease 07/11/2024 Vitamin B12 deficiency 07/11/2024 Neck pain 10/14/2023 Upper back pain 10/14/2023 Macromastia 10/14/2023 Clenching of teeth 03/04/2021 Benign paroxysmal positional vertigo 11/01/2020 History of infectious disease 04/26/2014 Overview (07/11/2024): RECORDED 04/26/2014 1:54PM BY GONZÁLEZ BARKER MA, OFFICE VISIT Temporomandibular joint disorder 04/26/2014 Overview (07/11/2024): IMPRESSION: DISCUSSED WARM COMPRESSES, LOOKING INTO MOUTHGUARD, WHEN OFF PRED CAN USE NSAID PRN. FEELS THOUGH LARGE COMPONENT OF SXS IS DUE TO INCREASED STRESS LEVELS FROM RECENT ILLNESSES, HAD TWO RECENT DEATHS. LORAZEPAM Q HS PRN OK, Hyperlipidemia 09/23/2013 Overview (07/11/2024): RECORDED 04/26/2014 2:38PM BY SHARON HOLLAND MD, ANNOTATION/ADDENDUM Stress 03/01/2013 Overview (07/11/2024): RECORDED 03/01/2013 10:49AM BY MEDINA CA MA, ANNOTATION/ADDENDUM Injury of head 08/10/2012 Overview (07/11/2024): IMPRESSION: PT SEEMS TO HAVE LINGERING SXS INCLUDING HEADACHES, AND NOW NEW ONSET HEARING LOSS, TINNITUS AND VERTIGO. DESPITE PAST DISCUSSIONS RE IMAGING SHE CHOOSES TO GO AHEAD AND CHECK MRI WHICH I THINK IS APPROPRIATE. WILL ARRANGE AND INFORM HER TIME AND DATE.; RECORDED 08/10/2012 11:24AM BY ROMAN ABDULLAHI MA, ANNOTATION/ADDENDUM Postconcussion syndrome 08/10/2012 Overview (07/11/2024): RECORDED 08/10/2012 11:24AM BY ROMAN ABDULLAHI MA, ANNOTATION/ADDENDUM Pure hypertriglyceridemia 08/10/2012 Overview (07/11/2024): IMPRESSION: W/REPORTED ELEVATED TRIGLYCERIDES ON SCREEN FOR WORK. TO REPEAT FASTING.; RECORDED 08/10/2012 11:24AM BY ROMAN ABDULLAHI MA, ANNOTATION/ADDENDUM Family History Medical History Relation Comments Heart disease Father Relation Status Comments Father Alive Mother Alive Social History Tobacco Use Types Packs/Day Years Used Date Smoking Tobacco: Former Cigarettes Q uit: 2001 Smokeless Tobacco: Never Tobacco Cessation:Counseling Given: Not Answered Alcohol Use Standard Drinks/Week Comments Never 0 (1 standard drink = 0.6 oz pur e alcohol) Education Answer Date Recorded Are you interested in more education? Not on nessa e 02/13/2023 Are you concerned about learning? Not on file 02/13/2023 No 02/13/2023 No 02/13/2023 Digital Access Answer Date Recorded No 03/13/2023 No 03/13/2023 Reliable internet access at home? Not on file 03/13/2023 Device with a working camera? Not on file Comments No Sex and Gender Information Value Date Recorded Sex Assigned at Not on file Legal Sex Female 9:20 PM EDT Gender Identity Not on file Sexual Orientation Not on file Last Filed Vital Signs Vital Sign Reading Time Taken Comments Blood Pressure 111/63 02/11/2024 1:50 PM EDT Pulse 87 02/11/2024 11:45 AM EDT Temperature 36.2 C (97.2 F) 02/11/2024 1:50 PM EDT Respiratory Rate 16 02/11/2024 11:45 AM EDT Oxygen Saturation 97% 02/11/2024 1:50 PM EDT Inhaled Oxygen Concentration - - Weight 69.9 kg (154 lb) 02/01/2024 12:43 PM EDT Height 167.6 cm (5' 6 ) 02/01/2024 12:43 PM EDT Body Mass Index 24.86 02/01/2024 12:43 PM EDT Plan of Treatment Health Maintenance Due Date Last Done Comments DEPRESSION SCREENING 1993 SMOKING Hx and SMOKELESS TOBACCO SCREENING 1994 HEPATITIS C SCREENING 1999 HIV ONE-TIME SCREENING (18-6 5 YEARS) 1999 PAP SMEAR 2002 MAMMOGRAM 2021 INFLUENZA VACCINE (#1) 2025 3, 08/29/2011 COVID-19 VACCINE (2024-11 6 season) 2025 10/23/2021, 01/30/2021, 01/09/2021 Adult Td,Tdap Booster 10/08/2030 10/08/2020 , 01/25/2010, 04/25/1997 HEPATITIS A VACCINES Aged Out No long er eligible based on patient's age to complete this topic HIB VACCINES Aged Out No longer eligi ble based on patient's age to complete this topic MENINGOCOCCAL VACCINES (ACWY) Aged Out No longer eligible based on patient's age to complete this topic MENINGOCOCCAL VACCINES (B) Aged Out N o longer eligible based on patient's age to complete this topic PNEUMOCOCCAL VACCINES (0-49 years) Aged Out No longer eligible b ased on patient's age to complete this topic Medical Devices Not on file Insurance [facility] [place] [address] [facility] Advance Directives For more information, please contact: [phone] (9AM - 5PM [facility], Thursday-Thursday) * Full Code (Latest Code Status on File) Date Activated Date Inactivated Comments 02/11/2024 7:10 AM Question Answer Comments Code Status Confirmed With: Patient Care Teams Building Pressure Washer Relationship Specialty Start Date End Date Elizabeth Huitron PA [address] [place] [id number] PCP - General Physician Hot Plate Press Operator 10/14/23 Additional Source Comments The information contained in this document represents components of the legal health record. It is not the complete legal health record.[facility]
--- OUTSIDE RECORDS SUMMARY | 2025-10-04 08:12 | XMS_ITS | Clinical Summary ---
Author Organization [facility] Address [address] [place] [address] Phone Care Team Providers Care Engineering Associate Name Role Phone Reshma Toribio MD Primary Care Provider [phone] Allergies Active Allergy Reactions Criticality Noted Date [...] migrainosus, not intractable 200 Units IM Once 09/06/2025 09/06/2025 Ended Active Problems Problem Noted Date Diagnosed Date Dyspnea on exertion 10/29/2022 Palpitations 10/29/2022 Tachycardia 10/29/2022 Mixed connective tissue disease 04/23/2018 Raynaud's disease without gangrene 04/23/2018 Encounters Date Type Department Care Team Description 09/06/2025 11:20 AM EST Procedure visit [facility] [address] [place] [address] Janae Lay MD Chronic migraine without aura without status migrainosus, not intractable (Primary Dx) from Last 3 Months Immunizations Immunization Administration Dates Next Due Pfizer SARS-CoV-2 COVID-19, mRNA, LNP-S, preservative free 10/23/2021,01/30/2021,01/09/2021 Surgical History Surgery Date Site/Laterality Comments ORTHOPEDIC SURGERY 2017 Right PROCEDURE: HISTORICAL ORTHOPEDIC SURGERY; COMMENT: Acromioclavicular reconstruction BREAST REDUCTION Medical History Medical History Date Comments Mixed connective tissue dise ase (CMS/HCC V24) DX:Mixed connective tissue d isease ([facility]) Family History Medical History Relation Name Comments [...] Description 12/06/2025 11:00 AM EST Procedure visit [facility] [address] [place] [id number] Janae Lay MD [address] [place] [address] Health Maintenance Due Date Last Done Comments Breast Cancer Screening 1981 Pneumococcal Vaccine: Pediatrics (0 to 5 Years) and At-Risk Patients (6 to 49 Years) (1 of 2 - PCV) 2000 Cervical Cancer Screening: Pap Smear 2002 HPV Vaccines (1 - 3-dose SCDM series) 2008 Cholesterol Screening (Lipid Panel) 09/21/2022 HIV Screening 09/21/2022 Hepatitis C Screening 09/21/2022 Social Influencers of Health Screening 09/21/2022 Depression Screening 10/19/2024 COVID-19 Vaccine ( season) 2025 10/23/2021, 01/30/2021, 01/09/2021 Influenza Vaccine (#1) 2025 09/23/2013, 2010 DTaP,Tdap,and Td Vaccines (9 - Td or Tdap) 10/08/2030 10/08/2020, 01/25/2010, 04/25/1997, Additional history exists RSV Immunization Adult Patients (1 - 1-dose 75+ series) 2056 IPV Vaccines Completed 04/24/1987, 02/1986, 06/20/1983 MMR [...] patient's age to complete this topic Insurance [employer] [facility] Care Teams Engineering Associate Relationship Specialty Start Date End Date Reshma Toribio MD [address] [place] [address] PCP - General Internal Medicine 12/19/24
--- OUTSIDE RECORDS SUMMARY | 2025-10-04 08:12 | XMS_ITS | Encounter Summary ---
Author Organization [facility] Address [address] [place] [phone] Phone Care Team Providers Care Contract Writer Name Role Phone Elizabeth Huitron Primary Care Provider [phone] Encounter Details Date Type Department Care Team (Late st Contact Info) Description 02/11/2024 Procedure Pass OR Admitting Dept - Virtual Department [address] [place] [address] Social History Tobacco Use Types Packs/Day Years Used Date Smoking Tobacco: Former Cigarettes Q uit: 2001 Smokeless Tobacco: Never Alcohol Use Standard Drinks/Week Comments Never 0 [...] on filedocumented in this encounter Care Teams Contract Writer Relationship Specialty Start Date End Date Elizabeth Huitron PA [address] [place] [address] PCP - General Physician [employer] 10/14/23 documented as of this encounter Additional Source Comments The information contained in this document represents components of the legal health record. It is not the complete legal health record.[facility]
--- OUTSIDE RECORDS SUMMARY | 2025-10-04 08:13 | XMS_ITS | Encounter Summary ---
Author Organization [employer] Address [address] [place] [address] Care Team Providers Care Recreation Facility Manager Name Role Phone Unavailable Primary Care Provider Unavailabl e Encounter Details Date Type Department Care Team ([facility] st Contact Info) Description 07/02/2020 Scanned Document [employer] [address] [place] [id number] System, Provider Not In [facility] Social History Tobacco Use [...]
--- OUTSIDE RECORDS SUMMARY | 2025-10-04 08:13 | XMS_ITS | Encounter Summary ---
Author Organization [employer] Address [address] [place] [address] Care Team Providers Care Fur Cutter Name Role Phone Unavailable Primary Care Provider Unavailabl e Encounter Details Date Type Department Care Team ([facility] st Contact Info) Description 07/02/2020 Scanned Document [employer] [address] [place] [address] System, Provider Not In [facility] RESULTS Social History [...]
--- OUTSIDE RECORDS SUMMARY | 2025-10-04 08:13 | XMS_ITS | Clinical Summary ---
Author Organization [facility] Address [address] [place] [address] Care Team Providers Care Slate Trimmer Name Role Phone Unavailable Primary Care Provider Unavailabl e Medications predniSONE (DELTASONE) 5 mg tabletIndicatio ns:Non-traumati c rhabdomyolysis, Elevated CK 20 mg po qd x 2d, then decrease by 5 mg every 2 days until off. 20 tablet 12/29/2019 Active hydroxychloroqu ine (PLAQUENIL) 200 mg tabletIndicatio ns:Non-traumati c rhabdomyolysis, Undifferentiate d connective tissue disease Take 1 tablet (200 mg total) by [...] Cancer Screening 2011 HPV/Cotest 2011 COVID-19 Vaccine (2024-2 6 season) 2025 Influenza Vaccine (#1) 2025 HIB [...]
--- OUTSIDE RECORDS SUMMARY | 2025-10-04 08:13 | XMS_ITS | Data Portability ---
Author Organization [facility], Main Office Address [address] [facility] [address] [place] [address] Care Team Providers Care Floor Inspector Name Role Phone AMALIAUMESH Primary Care Provider [phone] [facility] UROLOGY Urologist ALLISON KAUFFMAN Recovery Coordinator JACK PATE Vascular Surgeon JAIDEN WATKINS [address] Judge CHLOE HUYNH Pre Fabricator RAN CAI Orthopedic Surgeon [phone] SARAH BUTCHER Neurologist Assessment Encounter Date Assessment [...] Total time of visit was 24 minutes. [email or web address] Not available 09/20/2020 09:49:44 10/08/2020 10/08/2020 Longstanding CTD , which has been followed by rheumatology. 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 In general, she has been resistant to chronic disease modifying agents. Complete workup for palpitations with holter monitor. jasmine Not available 10/10/2020 08:16:46 11/01/2020 11/01/2020 This service was provided using telemedicine. Patient consented to video & audio visit Patient was located at at home Provider was located in the office. No other persons participated in the telemedicine visit except for the patient unless otherwise indicated here. Total time of visit was 18 minutes. jthabet Not available 11/01/2020 13:34:53 11/07/2020 11/07/2020 This service was provided using telemedicine. Patient consented to video & audio visit Patient was located at at home Provider was located in the office. No other persons participated in the telemedicine visit except for the patient unless otherwise indicated here. Total time of visit was 30 minutes. jthabet Not available 11/07/2020 11:44:18 03/04/2021 03/04/2021 This service was provided using telemedicine. Patient consented to video & audio visit Patient was located at at home Provider was located in the office. No other persons participated in the telemedicine visit except for the patient unless otherwise indicated here. Total time of visit was 26 minutes. [email or web address] Not available 03/04/2021 11:01:19 Plan of Treatment Reminders Order Date Submit Date Provider Last Modified By Organization Details Last Modified Time Details Appointments None record ed. Lab CBC w/ auto diff 2020 021 [facility], [address], [place], [address], 23:20:17 CMP, serum or plasma 2020 021 [facility], [address], [address], [place], [address], 00:54:45 SARS CoV 2 RNA, QL probe, unspec ified specim en 2020 [facility] Covid-19 Testing, [address], [place], [address], 1 10:23:11 Referral neurol ogist referr al - 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 intere sted in botox inject ions. 2020 021 jovi Bui MD, [address] [place], [address], 15:26:00 ENT referr al - severe vertig o, headac he, eyes feel funny. ear full. has been taking mecliz ine and flonas e withou t relief . ringin g in ears. [facility] , [address], [address], [place], [address], 15:54:[address] referr al 2019 VANESSA [facility], [address], [place], [address], 13:31:32 Procedures None record ed. Surgeries None record ed. Imaging CT, head + brain, w/o contra st - severe vertig o, headac he, vision change s, ringin g in ears, sx x 9 days and not improv ing with mecliz ine or flonas e. r/o mass 2020 021 tfrisino [facility], [address], [address], [place], [address], 1 12:16:47 Medication Orders mecliz ine 25 mg tablet 2020 021 [email or web address] Not available 09:59:48 flutic asone propio jacob 50 mcg/ac tuatio n nasal spray, suspen piyush 2020 021 [email or web address] Not available 09:59:32 mecliz ine 25 mg tablet 2020 021 [email or web address] Not available 09:59:48 cyclob enzapr ine 10 mg tablet 2019 020 [email or web address] Not available 0 14:20:49 Patient TargetsNo targets recorded. Patient Instructions Encounter Date Encounter Id Patient Instructions Last Modified By Organization Details Last Modified Time 09/20/2020 [id number] abdominal strain : rehab exercises [email or web address] Not available 09/20/2020 09:40:17 call or return f or worsening or concerns. [email or web address] Not available 09/20/2020 09:45:27 10/08/2020 [id number] rhabdomyolysis: care instructions phelmuth Not available 10/08/2020 15:53:13 temporomandibula r disorder: care [facility] Not [facility] 10/08/2020 15:53:13 11/01/2020 [id number] eustachian tube problems: care instructions jthabet Not available 11/01/2020 13:34:00 benign paroxysma l positional vertigo (bppv): care instructions jthabet Not available 11/01/2020 13:32:48 call or return f or worsening jthabet Not available 11/01/2020 13:30:29 11/07/2020 [id number] lab* tfrisino Not available 11/07 12:17:57 call or return f or worsening or concerns. jthabet Not available 11/07/2020 11:35:20 Reason for Referral Pre Fabricator Referral for Undifferentiated connective tissue disease Referring Physician: Umesh Berry, Internal Medicine, Encounter Date: 10/08/2020 ENT Referral for Benign paro xysmal positional vertigo severe vertigo, headache, eyes feel funny. ear full. has been taking meclizine and flonase without relief. ringing in ears. 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 interested in botox injections. Referring Physician: Park Coburn, Internal Medicine, Encounter Date: 03/04/2021 Results Created Date Observation Date Name Description Value Unit Range Abnormal Flag Note LastModifiedBy Organization Detail LastModifiedTime 08/27/20 20 08/27/2020 CK (crea oswald kinas e), total , [...] Choice, 11/07/2020 23:20:11/07/1911/07/2020 CBC w/ auto diff RBC 4.66 M/mm3 (4.20- 5.40) Not Available [facility] (Centralized Electronic Ordering - All Locations) Patient Can Go To The Location Of Their Choice, 11/07/2020 23::11/07/1911/07/2020 CBC w/ auto diff HGB 13.8 gm/dL (11.7- 15.5) Not Available [facility] (Centralized Electronic Ordering - All Locations) Patient Can Go To The Location Of Their Choice, 11/07/2020 23:20:11/07/1911/07/2020 CBC w/ auto diff HCT 42.4 % (35.7- 45.8) Not Available [facility] (Centralized Electronic Ordering - All Locations) Patient Can Go To The Location Of Their Choice, 11/07/2020 23:20:11/07/1911/07/2020 CBC w/ auto diff MCV 91.0 fL (80.0- 100.0) Not Available [facility] (Centralized Electronic Ordering - All Locations) Patient Can Go To The Location Of Their Choice, 11/07/2020 23:20:17 11/07/1911/07/2020 CBC w/ auto diff MCH 29.6 pg (27.0- 34.0) Not Available [facility] (Centralized Electronic Ordering - All Locations) Patient Can Go To The Location Of Their Choice, 11/07/2020 23::11/07/1911/07/2020 CBC w/ auto diff MCHC 32.5 g/dL (33.0- 37.0) low Not Available [facility] (Centralized Electronic Ordering - All Locations) Patient Can Go To The Location Of Their Choice, 11/07/2020 23:20:11/07/1911/07/2020 CBC w/ auto diff plt 253 K/mm3 (150-4 60) Not Available [facility] (Centralized Electronic Ordering - All Locations) Patient Can Go To The Location Of Their Choice, 11/07/2020 23:20:17 11/07/19 21 11/07/2020 CBC w/ auto diff RDW-SD 40.0 fL (<47.0 ) Not Available [facility] (Centralized Electronic Ordering - All Locations) Patient Can Go To The Location Of Their Choice, 11/07/2020 23:20:17 11/07/1911/07/2020 CBC w/ auto diff MPV 10.3 fL (9.4-1 2.4) Not Available [facility] (Centralized Electronic Ordering - All Locations) Patient Can Go To The Location Of Their Choice, 11/07/2020 23:20:17 11/07/1911/07/2020 CBC w/ auto diff automated NRBC 0.0 [...] 23:20:17 11/07/1911/07/2020 CBC w/ auto diff neut # 2.7 K/mm3 (1.3-7 .0) Not Available [facility] (Centralized Electronic Ordering - All Locations) Patient Can Go To The Location Of Their Choice, 11/07/2020 23:20:11/07/1911/07/2020 CBC w/ auto diff lymph # 2.2 K/mm3 (0.8-3 .1) Not Available [facility] (Centralized Electronic Ordering - All Locations) Patient Can Go To The Location Of Their Choice, 11/07/2020 23:20:17 11/07/1911/07/2020 CBC w/ auto diff mono# 0.5 K/mm3 (0.4-0 .9) Not Available [facility] (Centralized Electronic Ordering - All Locations) Patient Can Go To The Location Of Their Choice, 11/07/2020 23:20:11/07/1911/07/2020 CBC w/ auto diff eo # 0.2 K/mm3 (0.0-0 .4) Not Available [facility] (Centralized Electronic Ordering - All Locations) Patient Can Go To The Location Of Their Choice, 11/07/2020 23:20:11/07/1911/07/2020 CBC w/ auto diff baso # 0.1 K/mm3 (0.0-0 .1) Not Available [facility] (Centralized Electronic Ordering - All Locations) Patient Can Go To The Location Of Their Choice, 11/07/2020 23:20:11/07/1911/07/2020 CBC w/ auto diff abs. imm gran 0.0 K/mm3 Not Available [facility] (Centralized Electronic Ordering - All Locations) Patient Can Go To The Location Of Their Choice, 11/07/2020 23:20:11/07/1911/07/2020 CBC w/ auto diff neut 48.0 % (44-76 ) Not Available [facility] (Centralized Electronic Ordering - All Locations) Patient Can Go To The Location Of Their Choice, 11/07/2020 23:20:11/07/1911/07/2020 CBC w/ auto diff lymph 38.8 % (15-43 ) Not Available [facility] (Centralized Electronic Ordering - All Locations) Patient Can Go To The Location Of Their Choice, 11/07/2020 23:20:11/07/1911/07/2020 CBC w/ auto diff monocyte 8.9 % (4.5-1 0.5) Not Available [facility] (Centralized Electronic Ordering - All Locations) Patient Can Go To The Location Of Their Choice, 11/07/2020 23:20:11/07/1911/07/2020 CBC w/ auto diff eo 2.8 % [...] other than Cauca sians and Afric an Leaheri cans. Not Available [facility] (Centralized Electronic Ordering - All Locations) Patient Can Go To The Location Of Their Choice, [id number] 11/08/2020 00:54:44 11/07/1911/07/2020 SARS CoV 2 RNA, QL probe , unspe cifie d speci men covid-19 PCR specimen source NASAL Not Available [facility] (Centralized Electronic Ordering - All Locations) Patient Can Go To The Location Of Their Choice, 11/08/2020 10:23:11 11/07/1911/08/2020 SARS CoV 2 RNA, QL probe , unspe cifie d speci men covid-19 PCR result (neg) normal NEGAT AMANDA 2018- novel Coron aviru s (2018nCo ) not detec cash by real- time RT-PC R. Note: If clini pascual suspi cion for COVID -19 is high, mary nue to maint ain preca ution s and consi ivette repea t testi ng. Resul t repor cash to [facility]. To preve nt error s in diagn [...] perfo rmed by real time PCR utili [facility] SURESH [email or web address] SARS- CoV-2 test. Not Available [facility] (Centralized Electronic Ordering - All Locations) Patient Can Go To The Location Of Their Choice, [id number] 11/08/2020 10:23:11 11/07/1911/09/2020 HbA1c (hemo globi n A1c), blood hemoglobin [...] of Clini pascual and Appli ed Resea [facility] and Educa tion Volum e 43, Suppl ement 1 Not Available [facility] (Centralized Electronic Ordering - All Locations) Patient Can Go To The Location Of Their Choice, [id number] 11/09/2020 22:00:49 11/29/19 21 11/29/2020 HbA1c (hemo globi n A1c), blood hemoglobin [...] of Clini pascual and Appli ed Resea rch and Educa tion Volum e 43, Suppl [...] borat ion (CKD- EPI). The CKD-E PI angel estevez ion has not been valid ated in [...] The Location Of Their Choice, 11/08/2021 15:57:55 04/25/2004/25/2022 CK,TO REN ONLY CK,total only 200 U/L (0-190 ) high Not Available [facility] (Centralized Electronic Ordering - All Locations) Patient Can Go To The Location Of Their Choice, 04/25/2022 22:01:31 10/08/20 20 09/07/2020 US, echoc ardio gram No observ ation record ed. [facility] (Outt Non-Invasive Cardiology Scheduling) [address], [place], [address], 10/13/2020 14:30:43 11/07/19 21 11/07/2020 CT, head [...] No acute intrac ranial pathol ogy. WSN: [id number] Orderi ng Physic josephine: Mary CAMACHO, Ulises Collazo Dictat ed By: Mello Sheikh MD Dictalayna ed Date/T omi: 4:24 pm Review ed By: Mello Sheikh MD Signed By: Mello Sheikh MD Signed Date/T omi: 4:24 pm Transc ribed By: BLAKE Transc ribed Date/T omi: 4:19 pm Patien t Class: Outpat ient [facility] (Outpt Imaging) [address] , [place], [address], 11/08/2020 09:54:44 Result Notes Documentation Provider Name and Address Organization Details Recorded Time Ct, Head + Brain, W/o Contrast : CT Head/Brain W/O Contrast Reason: R51 R42 DIZZINESS RO MASS VISION CHANGES HEADACHE AND SEVERE VERTIGO TINNITUS FOR 9 DAYS; Clinical Question(s): Other:. TECHNIQUE: Noncontrast head CT using axial technique and reconstructed in axial and coronal plane. Exposure parameters are adjusted by age category. COMPARISON: None. FINDINGS: BRAIN and EXTRA-AXIAL SPACES: No parenchymal hemorrhage, midline shift or mass effect. Stoddard-white matter differentiation is well preserved. No acute infarct. Ventricles, sulci and basilar cisterns are normal. No white matter lesions. No subarachnoid hemorrhage, subdural or epidural collections. CALVARIUM, SKULL BASE AND SOFT TISSUES: No fractures or suspicious bony lesions. The paranasal sinuses and mastoid air cells are clear. Visualized orbits and globes are intact. The extracranial soft tissues are unremarkable. IMPRESSION: No acute intracranial pathology. WSN: [id number] Ordering Physician: Josette Joshi Dictated By: Mello Brown MD Dictated Date/Time: 11/07/20 4:24 pm Reviewed By: Mello Brown MD Signed By: Mello Brown MD Signed Date/Time: 11/07/20 4:24 pm Transcribed By: BLAKE Transcribed Date/Time: 11/07/20 4:19 pm Patient Class: Outpatient NUPUR Campos [address], [address], [facility] 11/08/2020 08:59:03 Problems Name Problem SNOMED Code Status Onset Date Resolution Date Notes Provider Name and Address Organization Details Recorded Time Increase d frequenc y of urinatio n 040221505 Completed 05/17/2018 Umesh Berry MD [address] [address], [place], [address], [facility] 8 15:47:10 Abnormal weight gain 960912270 Completed 05/17/2018 Umesh Berry MD [address] [address], [place], [address], [facility] 8 15:47:12 Diarrhea 62087199 Completed 11/24/2016 [facility], [facility] 7 14:25:55 Dysuria 29442201 Completed 11/24/2016 [facility] Garza, [facility] 7 14:25:43 Candidia sis of mouth 12443182 Completed 11/24/2016 LATOYA Garza [facility] 7 14:26:06 Polycyst ic ovaries Active Ora medina [facility] 0 09:10:10 Fatigue 75615226 Completed 11/24/2016 LATOYA Garza [facility] 7 14:26:10 Acute pharyngi tis 701721534 Completed 11/24/2016 LATOYA Garza [facility] 7 14:25:16 Viral disease 69289678 Completed 11/24/2016 LATOYA Garza [facility] 7 14:25:20 Wheezing 22405926 Completed 11/24/2016 LATOYA Garza [facility] 7 14:25:49 Chronic cough 55820140 Completed 11/24/2016 LATOYA Garza [facility] 7 14:25:59 Pain in calf 851782430 Completed 11/24/2016 LATOYA Garza [facility] 7 14:25:26 Undiffer entiated connecti ve tissue disease 550843237 Active Ora medina [facility] 0 09:10:11 Exposure to SARS-CoV -2 Completed 09/20/2020 Removal Reason: Problem added by user geneva desai from the [employer] flag Kacey Pac [facility] 1 14:39:53 Exposure to SARS-CoV -2 Completed 02/26/2021 Removal Reason: Problem marked historic al by user rpalance from the [employer] watch flag Kacey Pac [facility] 1 14:40:38 Pain of joint of hand 434769766 Completed 200805/09/2014 RECORDED 07/16/20 09 9:25AM BY YONATAN KNOWLESATI ON/ADDEN DUM Park Coburn PA-C [address], [place], [address], [facility] 6 12:46:06 Pain of joint of hand 412576397 Completed 200805/29/2014 RECORDED 07/16/20 09 9:25AM BY HINA KNOWLES ON/ADDEN DUM Park Coburn PA-C [address], [place], [address], [facility] 6 12:46:06 Alopecia 56796946 Completed 200905/09/2014 RECORDED 01/23/20 10 9:51AM BY HINA DUQUE ON/ADDEN DUM Park Coburn PA-C [address], [place], [address], [facility] 6 12:46:06 Vaginiti s and vulvovag initis Completed 200905/09/2014 RECORDED 01/23/20 10 9:51AM BY HINA DUQUE ON/ADDEN DUM Park Coburn PA-C [address], [place], [address], [facility] 6 12:46:06 Alopecia 76156957 Completed 200905/29/2014 RECORDED 01/23/20 10 9:51AM BY HINA DUQUE ON/ADDEN DUM Park Coburn PA-C [address], [place], [address], [facility] 6 12:46:06 Vaginiti s and vulvovag initis Completed 200905/29/2014 RECORDED 01/23/20 10 9:51AM BY SARAH SLOWIK, ANNOTATI ON/ADDEN DUM Park Coburn PA-C [address], [place], [address], [facility] 6 12:46:06 Acute sinusiti s 67471468 Completed 201105/09/2014 RECORDED 08/10/20 12 11:24AM BY ROMAN ABDULLAHI MA, HINA ON/ADDEN DUM Park Coburn PA-C [address], [place], [address], [facility] 6 12:46:06 Screenin g for malignan t neoplasm of cervix Completed 201105/09/2014 RECORDED 08/10/20 12 11:24AM BY ROMAN ABDULLAHI MA, YONATANATI ON/ADDEN DUM Park Coburn PA-C [address], [place], [address], [facility] 6 12:46:06 Removal of suture Completed 201105/09/2014 RECORDED 08/10/20 12 11:24AM BY ROMAN ABDULLAHI MA, HINA ON/ADDEN DUM Park Coburn PA-C [address], [place], [address], [facility] 6 12:46:06 Abdomina l pain 34398853 Completed 201105/09/2014 IMPRESSI ON: PT WITH 40 [address], [place], [address], [facility] 6 12:46:06 Injury of head 92181414 Completed 201105/09/2014 IMPRESSI ON: PT SEEMS TO [...] ON/ADDEN DUM Park Almas PA-C [address], [place], [address], [facility] 6 12:46:06 Hearing loss 00705115 Completed 201105/09/2014 IMPRESSI ON: PT WITH INTERMIT TENT TINNITUS , HEARING LOSS AND VERTIGO FOLLOWIN G HEAD INJURY. SMALL AMT OF FLUID BEHIND TM ON EXAM. TO ENT FOR FURTHER EVAL.; RECORDED 08/10/20 12 11:24AM BY ROMAN ABDULLAHI MA, HINA ON/ADDEN DUM Park Coburn PA-C [address], [place], [address], [facility] 6 12:46:06 Pure hypergly ceridemi a 901974383 Completed 201105/09/2014 IMPRESSI ON: W/REPORT ED ELEVATED TRIGLYCE RIDES ON SCREEN FOR WORK. TO REPEAT FASTING. ; RECORDED 08/10/20 12 11:24AM BY ROMAN ABDULLAHI MA, HINA ON/ADDEN DUM Park Almas PA-C [address], [place], [address], [facility] 6 12:46:06 Benign neoplasm of skin 92860175 Completed 201105/09/2014 RECORDED 08/10/20 12 11:24AM BY ROMAN ABDULLAHI MA, HINA ON/ADDEN DUM Park Coburn PA-C [address], [place], [address], [facility] 6 12:46:05 Knee pain Completed 201105/09/2014 IMPRESSI ON: POSSIBLE MENISCUS TEAR. SHE SEES HER RHEUM NEXT WEEK. IBUPROFE N, KNEE BRACE.; RECORDED 08/10/20 12 11:24AM BY ROMAN ABDULLAHI MA, HINA ON/ADDEN DUM Parkmary CAMACHO-C [address] [facility] [address], [place], [address], [facility] 6 12:46:06 Malaise and fatigue 861320947 Completed 201105/09/2014 RECORDED 08/10/20 12 11:24AM BY ROMAN ABDULLAHI MA, HINA ON/ADDEN DUM Park CAMACHO-C [address] [facility] [address], [place], [address], [facility] 6 12:46:06 Neck pain 46291959 Completed 201105/09/2014 IMPRESSI ON: R SIDED NECK AND SHOULDER PAIN PAST WEEK. 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 NOT RESPONDI NG TO NSAID, PT RESISTAN T TO TAKE OTHER MEDS. DISCUSSE D OPTIONS INCLUDIN G PAIN MEDICATI ON, PT, ORTHO EVAL FOR INJX. 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 WE WILL CONTACT THEM DIRECTLY TO SEE IF THEY ARE ABLE TO ACCOMMOD ATE HER URGENTLY . IN THE MEANTIME PROVIDED WITH TRIAL OF LOWER DOSE ATIVAN, CONTINUE W/REST, HEAT, MASSAGE AND NSAID; RECORDED 08/10/20 12 11:24AM BY ROMAN ABDULLAHI MA, HINA ON/ADDEN DUM Park CAMACHO-C [address] [facility] [address], [place], [address], [facility] 6 12:46:06 Administ ration of tetanus vaccine Completed 201105/09/2014 RECORDED 08/10/20 12 11:24AM BY ROMAN ABDULLAHI MA, ANNOTATI ON/ADDEN DUM Park Coburn PA-C [address], [place], [address], [facility] 6 12:46:06 Postconc ussion syndrome 31562417 Completed 201105/09/2014 RECORDED 08/10/20 12 11:24AM BY ROMAN ABDULLAHI MA, HINA ON/ADDEN DUM Park Coburn PA-C [address], [place], [address], [facility] 6 12:46:06 Shoulder joint pain 502944068 Completed 201105/09/2014 IMPRESSI ON: FOLLOWIN G FALL IN SUMMER 2010, FOLLOWED BY HER RHEUM PROVIDER WHO IS TXING FOR ROTATOR CUFF TENDONIT IS. TXING WITH INJECTIO NS. UPCOMING APPT WITH PSS (DR. MARTINEZ- GERALDINE ).; RECORDED 08/10/20 12 11:24AM BY ROMAN ABDULLAHI MA, HINA ON/ADDEN DUM Park Coburn PA-C [address], [place], [address], [facility] 6 12:46:06 Acute sinusiti s 17787136 Completed 201105/29/2014 RECORDED 08/10/20 12 11:24AM BY RMOAN ABDULLAHI MA, HINA ON/ADDEN DUM Park CAMACHO-C [address], [place], [address], [facility] 6 12:46:06 Screenin g for malignan t neoplasm of cervix Completed 201105/29/2014 RECORDED 08/10/20 12 11:24AM BY ROMAN ABDULLAHI MA, HINA ON/ADDEN DUM Park Coburn PA-C [address], [place], [address], [facility] 6 12:46:06 Removal of suture Completed 201105/29/2014 RECORDED 08/10/20 12 11:24AM BY ROMAN ABDULLAHI MA, ANNOTATI ON/ADDEN DUM Parkmary Grovesden PA-C [address], [facility] [place], [address], [facility] 6 12:46:06 Abdomina l pain 59256392 Completed 201105/29/2014 IMPRESSI ON: PT WITH 40 [...] 11:24AM BY ROMAN ABDULLAHI MA, HINA ON/EDD VASILIY Park Coburn PA-C [address] [facility] [address], [facility] [place] [place], [address], [facility] 6 12:46:06 Injury of head 01343668 Completed 201105/29/2014 IMPRESSI ON: PT SEEMS TO HAVE LINGERIN G SXS INCLUDIN G HEADACHE S, AND NOW NEW ONSET HEARING LOSS, TINNITUS AND VERTIGO. DESPITE PAST DISCUSSI ONS RE IMAGING SHE CHOOSES TO GO AHEAD AND CHECK MRI WHICH I THINK IS APPROPRI ATE. WILL ARRANGE AND INFORM HER TIME AND DATE.; RECORDED 08/10/20 12 11:24AM BY ROMAN ABDULLAHI MA, HINA ON/AUGUSTOBARBIE VASILIY CAMACHO-C [address], [facility] [place] [place], [address], [facility] 6 12:46:06 Hearing loss 45347312 Completed 201105/29/2014 IMPRESSI ON: PT WITH INTERMIT TENT TINNITUS , HEARING LOSS AND VERTIGO FOLLOWIN G HEAD INJURY. SMALL AMT OF FLUID BEHIND TM ON EXAM. TO ENT FOR FURTHER EVAL.; RECORDED 08/10/20 12 11:24AM BY ROMAN ABDULLAHI MA, HINA ON/ADDEN DUM Parkmary Grovesden PA-C [address], [place], [address], [facility] 6 12:46:06 Pure hypergly ceridemi a [id number] Completed 201105/29/2014 IMPRESSI ON: W/REPORT ED ELEVATED TRIGLYCE RIDES ON SCREEN FOR WORK. TO REPEAT FASTING. ; RECORDED 08/10/20 12 11:24AM BY ROMAN ABDULLAHI MA, ANNOTATI ON/ADDEN DUM Parksimone CAMACHO-C [address], [place], [address], [facility] 6 12:46:06 Benign neoplasm of skin [id number] Completed 201105/29/2014 RECORDED 08/10/20 12 11:24AM BY ROMAN ABUDLLAHI MA, ANNOTATI ON/ADDEN DUM Parksimone CAMACHO-C [address] [facility] [address], [place], [address], [facility] 6 12:46:06 Knee pain Completed 201105/29/2014 IMPRESSI ON: POSSIBLE MENISCUS TEAR. SHE SEES HER RHEUM NEXT WEEK. IBUPROFE N, KNEE BRACE.; RECORDED 08/10/20 12 11:24AM BY ROMAN ABDULLAHI MA, ANNOTATI ON/ADDEN DUM Parksimone CAMACHO-C [address] [facility] [address], [place], [address], [facility] 6 12:46:06 Neck pain [id number] Completed 201105/29/2014 IMPRESSI ON: R SIDED NECK AND SHOULDER PAIN PAST WEEK. 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 NOT RESPONDI NG TO NSAID, PT RESISTAN T TO TAKE OTHER MEDS. DISCUSSE D OPTIONS INCLUDIN G PAIN MEDICATI ON, PT, ORTHO EVAL FOR INJX. 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 WE WILL CONTACT THEM DIRECTLY TO SEE IF THEY ARE ABLE TO ACCOMMOD ATE HER URGENTLY . IN THE MEANTIME PROVIDED WITH TRIAL OF LOWER DOSE ATIVAN, CONTINUE W/REST, HEAT, MASSAGE AND NSAID; RECORDED 08/10/20 12 11:24AM BY ROMAN ABDULLAHI MA, HINA ON/ADDEN DUM [facility] [address] [facility] [address], [place], [address], [facility] 6 12:46:06 Administ ration of tetanus vaccine Completed 201105/29/2014 RECORDED 08/10/20 12 11:24AM BY ROMAN ABDULLAHI MA, HINA ON/ADDEN DUM [facility] [address] [facility] [address], [place], [address], [facility] 6 12:46:06 Postconc ussion syndrome 13784828 Completed 201105/29/2014 RECORDED 08/10/20 12 11:24AM BY ROMAN ABDULLAHI MA, HINA ON/ADDBARBIE DUM [facility] [address] [facility] [address], [place], [address], [facility] 6 12:46:06 Shoulder joint pain 140486591 Completed 201105/29/2014 IMPRESSI ON: FOLLOWIN G FALL IN SUMMER 2010, FOLLOWED BY HER RHEUM PROVIDER WHO IS TXING FOR ROTATOR CUFF TENDONIT IS. TXING WITH INJECTIO NS. UPCOMING APPT WITH PSS (DR. MARTINEZ- GERALDINE ).; RECORDED 08/10/20 12 11:24AM BY ROMAN ABDULLAHI MA, ANNOTATI ON/EDD [facility] [address] [facility] [address], [place], [address], [facility] 6 12:46:06 Acute pharyngi tis 601590609 Completed 201205/09/2014 RECORDED 10/26/19 13 8:30AM BY ROMAN ABDULLAHI MA, ANNOTATI ON/ADDEN DUM González larsen MA null, [facility] 7 14:25:16 Cough [id number] Completed 201205/09/2014 RECORDED 10/26/19 13 8:30AM BY ROMAN ABDULLAHI MA, ANNOTATI ON/ADDEN DUM Park Coburn PA-C [address], [place], [address], [facility] 6 12:46:06 Disorder of upper respirat ory system Completed 201205/09/2014 RECORDED 10/26/19 13 8:30AM BY ROMAN ABDULLAHI MA, ANNOTATI ON/ADDEN DUM Park [facility] PA-C [address], [place], [address], [facility] 6 12:46:06 Acute pharyngi tis 798260628 Completed 201205/29/2014 RECORDED 10/26/19 13 8:30AM BY ROMAN ABDULLAHI MA, ANNOTATI ON/ADDEN DUM González Arnav larsen MA null, [facility] 7 14:25:16 Cough [id number] Completed 201205/29/2014 RECORDED 10/26/19 13 8:30AM BY ROMAN ABDULLAHI MA, ANNOTATI ON/ADDEN DUM [place] [facility]urn PA-C [address] [facility] [address], [place], [address], [facility] 6 12:46:06 Disorder of upper respirat ory system Completed 201205/29/2014 RECORDED 10/26/19 13 8:30AM BY ROMAN ABDULLAHI MA, ANNOTATI ON/ADDEN DUM [facility]urn PA-C [address], [place], [address], [facility] 6 12:46:06 Immuniza tion refused Completed 201205/09/2014 RECORDED 11/30/19 13 9:37AM BY ROMAN ABDULLAHI MA, ANNOTATI ON/ADDEN DUM [place] [facility] PA-C [address], [place], [address], [facility] 6 12:46:06 Tobacco dependen ce syndrome 01134845 Completed 201205/09/2014 RECORDED 11/30/19 13 9:37AM BY ROMAN ABDULLAHI MA, ANNOTATI ON/ADDEN DUM Park [facility]urn PA-C [address], [place], [address], [facility] 6 12:46:06 Immuniza tion refused Completed 201205/29/2014 RECORDED 11/30/19 13 9:37AM BY ROMAN ABDULLAHI MA, YONATANATI ON/ADDEN DUM [place] [facility]urn PA-C [address], [place], [address], [facility] 6 12:46:06 Tobacco dependen ce syndrome 06239425 Completed 201205/29/2014 RECORDED 11/30/19 13 9:37AM BY ROMAN ABDULLAHI MA, ANNOTATI ON/ADDEN DUM [place] [facility]urn PA-C [address], [place], [address], [facility] 6 12:46:06 Flatulen ce, eructati on and gas pain 539539645 Completed 201205/09/2014 IMPRESSI ON: CHECK LABS, MAY DISCUSS BX WITH GI; RECORDED 12/13/19 13 9:24AM BY ROMAN ABDULLAHI MA, ANNOTATI ON/ADDEN DUM [facility] PA-C [address], [place], [address], [facility] 6 12:46:06 Adult health examinat ion Completed 201205/09/2014 IMPRESSI ON: HEALTHY VISIT. HAS LAB REQ FOR REPEAT LIPID PANEL WHICH SHE IS CURIOUS ABOUT, NEEDS TO GO FASTING. PLAN TO RETURN 1 YR FOR PE, SOONER PRN.; RECORDED 12/13/19 13 9:24AM BY ROMAN ABDULLAHI MA, HINA ON/ADDEN DUM Park Almas PA-C [address], [place], [address], [facility] 6 12:46:06 Flatulen ce, eructati on and gas pain 069203588 Completed 201205/29/2014 IMPRESSI ON: CHECK LABS, MAY DISCUSS BX WITH GI; RECORDED 12/13/19 13 9:24AM BY ROMAN ABDULLAHI MA, HINA ON/ADDEN DUM Park Almas CAMACHO-C [address] [facility] [address], [place], [address], [facility] 6 12:46:06 Blood coagulat ion disorder 61969763 Completed 201205/09/2014 STORY: PT WITH CONCERN RE [...] ROMAN ABDULLAHI MA, HINA ON/ADDEN DUM Park CAMACHO-C [address] [facility] [address], [place], [address], [facility] 6 12:46:06 Blood coagulat ion disorder 14245330 Completed 201205/29/2014 STORY: PT WITH CONCERN RE [...] BY ROMAN ABDULLAHI MA, HINA ON/ADDEN DUM Aprk Almas CAMACHO-C [address], [place], [address], [facility] 6 12:46:06 Patient status finding [id number] Completed 201205/09/2014 RECORDED 03/01/20 13 10:49AM BY NATALYA CA MA, YONATANATI ON/ADDEN DUM [facility] [address], [place], [address], [facility] 6 12:46:06 Stress 54637943 Completed 201205/09/2014 RECORDED 03/01/20 13 10:49AM BY NATALYA AC MA, HINA ON/EDD Nick Coburn PA-C [address], [place], [address], [facility] 6 12:46:06 Stress 73701594 Completed 201205/29/2014 RECORDED 03/01/20 13 10:49AM BY NATALYA CA MA, ANNOTATI ON/AUGUSTOEN VASILIY Nick Coburn AK-C [address], [place], [address], [facility] 6 12:46:06 Gastroes ophageal reflux disease 596420494 Active 2012 IMPRESSI ON: SXS X YRS. DISCUSSE D TRIGGERS , DIETARY MODIFICA TIONS THAT CAN BE MADE. ALSO PROVIDED W/PT EDU. START PPI X NEXT FEW MONTHS, MAY WANT TO THEN CHANGE TO HISTAMIN E KRISTIE. SEE BACK IN OCT FOR PE, SOONER PRN. REPRINTE D ORDER FOR LIPID PANEL PER HER REQ Ora medina, [facility] 0 09:10:10 Abnormal glucose toleranc e in mother complica ting pregnanc y, childbir th AND/OR puerperi 39920416 Completed 201205/09/2014 RECORDED 09/23/20 13 8:57AM BY GONZÁLEZ DESAI MA, ANNOTATI ON/ADDEN DUM [facility] PA-C [address], [place], [address], [facility] 6 12:46:06 Hyperlip idemia 07099230 [facility] Laborato ry procedur e performe d 044212297 Completed 201205/09/2014 RECORDED 09/23/20 13 8:58AM BY GONZÁLEZ DESAI MA, ANNOTATI ON/ADDEN DUM [place] Almas PA-C [address], [place], [address], [facility] 6 12:46:06 Abnormal glucose toleranc e in mother complica ting pregnanc y, childbir th AND/OR puerperi 48563079 Completed 201205/29/2014 RECORDED 09/23/20 13 8:57AM BY GONZÁLEZ DESAI MA, ANNOTALYSSA ON/ADDEN DUM Prak Almas PA-C [address], [place], [address], [facility] 6 12:46:06 Laborato ry procedur e performe d 517576749 Completed 201205/29/2014 RECORDED 09/23/20 13 8:58AM BY GONZÁLEZ DESAI MA, HINA ON/ADDEN DUM [facility]urn PA-C [address], [place], [address], [facility] 6 12:46:06 Influenz a vaccine needed [id number] 06 Completed 201305/29/2014 RECORDED 03/14/20 14 9:28AM BY HINA MARQUEZ ON/ADDEN DUM Park Almas PA-C [address], [place], [address], [facility] 6 12:46:06 Risk of exposure to communic able disease 789419179 Completed 201305/29/2014 RECORDED 03/14/20 14 9:28AM BY HINA MARQUEZ/EDD Coburn PA-C [address], [place], [address], [facility] 6 12:46:06 Allergic rhinitis 35703673 [facility] 09:10:[facility] Exercise -induced asthma 99509044 Active 2013 Oragretchen medina [facility] 0 09:10:10 Tobacco user 506863510 Completed 201311/24/2016 Removal Reason: quit González larsen MA null, [facility] 7 14:26:48 History of infectio us disease 902227738 Completed 201308/07/2014 RECORDED 04/26/20 14 1:54PM BY GONZÁLEZ DESAI MA, OFFICE VISIT Park [facility]urn PA-C [address] [facility] [address], [place], [address], [facility] 6 12:46:06 Disorder of connecti ve tissue 414259627 Completed 201310/07/2020 STORY: [facility] Umesh Berry MD [address], [place], [address], [facility] 0 16:41:47 Congenit al pes planus 06112891 Active 2013 Ora medina [facility] 0 09:10:10 Plantar fascial fibromat osis 32948760 Completed 201305/17/2018 Umesh Berry MD [address], [place], [address], [facility] 8 15:47:15 Temporom andibula r joint disorder 96382849 Active 2013 IMPRESSI ON: DISCUSSE D WARM COMPRESS ES, LOOKING INTO [address]OU[address], WHEN OFF PRED CAN USE NSAID PRN. FEELS THOUGH LARGE COMPONEN T OF SXS IS DUE TO INCREASE D STRESS LEVELS FROM RECENT ILLNESSE S, HAD TWO RECENT DEATHS. LORAZEPA M Q HS PRN [place], Ora Meggan medina, [facility] 0 09:10:10 Varicose veins of lower extremit y 58445741 Active 2013 Ora Meggan medina [facility] 0 09:10:10 Malaise and fatigue 882552188 Completed 201308/07/2014 RECORDED 04/26/20 14 2:39PM BY UMESH BERRY MD, OFFICE VISIT Park Coburn PA-C [address] [facility] [address] [facility] [address], [place], [address], [facility] 6 12:46:06 Gastroes ophageal reflux disease 967983634 Completed 201305/29/2014 IMPRESSI ON: SXS X YRS. DISCUSSE D TRIGGERS , DIETARY MODIFICA TIONS THAT CAN BE MADE. ALSO PROVIDED W/PT EDU. START PPI X NEXT FEW MONTHS, MAY WANT TO THEN CHANGE TO HISTAMIN E KRISTIE. SEE BACK IN OCT FOR PE, SOONER PRN. REPRINTE D ORDER FOR LIPID PANEL PER HER REQ.; RECORDED 04/26/20 14 2:38PM BY UMESH BERRY MD, ANNOTATI ON/LATOYA Canseco, [facility] 7 14:26:26 Hyperlip idemia 21207033 Completed 201305/29/2014 RECORDED 04/26/20 14 2:38PM BY UMESH BERRY MD, ANNOTATI ON/ADDLATOYA Hansen, [facility] 7 14:25:47 Chronic sinusiti s 07138690 Completed 201305/29/2014 IMPRESSI ON: RESOLVIN G. FINISH AUGMENTI N. FLONASE AND CLARITIN -D CAN HELP; RECORDED 04/26/20 14 1:53PM BY GONZÁLEZ DESAI MA, ANNOTATI ON/ADDEN DUM Park CAMACHO- [address], [place], [address], [facility] 6 12:46:06 von [address] disorder 991603644 Active 2013 Oragretchen medina, [facility] 0 09:10:11 Ex-smoke r 8136390 Active 2016 Oragretchen medina, [facility] 0 09:10:11 Rhabdomy olysis 748117199 Active 2017 Oragretchen medina, [facility] 0 09:10:11 Benign paroxysm al position al vertigo 067800981 Active 2020 González larsen MA null, [facility] 1 11:06:49 Clenchin g teeth 974529609 Active 2020 Park Coburn [facility] [address], [place], [address], [facility] 1 11:01:55 Temporom andibula r joint-pa in-dysfu nction syndrome 093034980 Active 2020 Park CAMACHO [address], [place], [address], [facility] 1 11:01:57 Problem Notes None recorded. Procedures Surgical History Date Name Laterality Status Provider Name and Address Organization Details Recorded Time 10/05/20 19 Date of Last Pap Smear completed González wilcox MA [facility] 09/20/2020 09:14:52 04/12/20 19 biopsy completed Sarah Finney [facility] 04/15/2019 09:17:13 08/19/20 17 Debbei arthrs srg capsulorraphy completed González wilcox MA [facility] 05/17/2018 15:19:04 10/19/19 17 Orthopedic Surgery completed González wilcox MA [facility] 10/08/2020 14:20:31 10/19/19 14 Stab phleb veins xtr 10- completed González wilcox MA [facility] 08/07/2014 14:34:15 05/19/20 13 Endometr ablate thermal completed González wilcox MA [facility] 08/07/2014 14:34:15 10/19/19 11 Endometrial Ablation completed González wilcox MA [facility] 10/08/2020 14:20:31 10/19/19 09 endometrial biopsy completed González wilcox MA [facility] 11/19/2018 14:07:04 Imaging Results None recorded. Procedure Notes None recorded. Medical Equipment None Reported. Allergies Allergen ID Allergen Name Allergen Category Reaction Reaction Severity Criticality Documentation Date Start Date Code Code System Note Provider Name and Address Organization Details Recorded Time 54741 Substance with sulfonami de structure and antibacte rial mechanism of action (substanc e) medicatio n other mild Not available 07/31/2015 41481 8003 SNOMED thrus h NatalyaLATOYA Savage [facility] 5 14:43:15 63246 codeine medicatio n Not available Not available Not available 01/23/2020 2670 RxNorm Ora Meggan medina [facility] 0 14:46:21 Medications Name Sig Start Date [...] Available Not Available No t Available nystatin 535310 unit/ml susp active Not Available Not Available [...] completed RECORDED 03/01/20 13 11:03AM BY NATALYA CA MA, OFFICE VISIT;DR KAUFFMAN Not Available Not [...] mcg/spray (0.1 mL) nasal spray (non-refr igerated) [place] 2 sprays every day by nasal route [...] completed RECORDED 10/16/20 11 3:07PM BY KENNEY GALLARDO CZ, PA-C, MEDICATI ON AUTO-MARÍA ELENA CTIVATIO N; [...] completed RECORDED 05/31/20 12 1:10PM BY KENNEY WIGGINS, PAOdalisC, MEDICATI ON AUTO-MARÍA ELENA CTIVATIO N; Not [...] DateTime 11/01/2020 166.37 cm González Esquivel MA [facility] 11/01/2020 13:13:28 Date Recorded Body height Provider Name an d Address Organization Details Last Updated DateTime 11/07/2020 166.37 cm [facility] 11/07/2020 11:05:31 Date Recorded Body height Provider Name an d Address Organization Details Last Updated DateTime 03/04/2021 166.37 cm Kenya Skinner [facility] 03/04/2021 09:58:56 Date Recorded Body height Provider Name an d Address Organization Details Last Updated DateTime 09/20/2020 166.37 cm González Esquivel [facility] 09/20/2020 09:12:30 Date Recorded Body height Body mass index (BMI) Body weight Oxygen saturation Heart rate Body temperature Systolic And Diastolic Provider Name and Address Organization Details Last Updated DateTime 0 166.37 cm 25.6 kg/m2 07855.4 1 g 98 % 86 /min 98.06 [degF] 116/74 mm[Hg] González larsen MA [facility] 0 14:28:03 Social History Question Answer Notes LastModified by Organizat ion Details LastModified Time Tobacco Smoking Status Former Smoker LATOYA Cast [facility] 11/[facility]/2016 14:23:28 Do You Have An Advance Directive? No Information not available 10/08/2020 Is Blood Transfusion Acceptable In An Emergency? Yes Information not available 11/12/2015 What Is Your Level Of Caffeine Consumption? Moderate 1-2 Cups Of Coffee Daily Information not available 08/07/2014 How Much Tobacco Do You Chew? None Information not available 11/12/2015 What Type Of Diet Are You Following? REGULAR Information not available 10/08/2020 Which Illicit Or Recreational Drugs Have You Used? None Information not available 11/12/2015 When Did You Quit Smoking? 6-10yearssin [email or web address] tte Information not available 09/20/2020 Live Alone Or [...] Or Greater Than 100 Degrees Fahrenheit? No [email or web address] Information not available 08/13/2020 Are You Or Anyone In Your Household A Health Care Provider Or Emergency Responder? No [email or web address] Information not available 08/13/2020 To The Best Of Your Knowledge Have You Been In Close Proximity To Any Individual Who Tested Positive For COVID-19? No [email or web address] Information not available 08/13/2020 Have You Recently Traveled To A COVID-19 High Risk Area Or Gathering In The Last 10 Days? No Information not available 11/01/2020 What Was The Date Of Your Most Recent Tobacco Screening? 11/01/2020 Information not available 11/01/2020 How Many Children Do You Have? 2 Shoshana Information not available 08/07/2014 What Is Your [...] To Smoke? No Information not available 11/12/2015 How Much Tobacco Do You Smoke? 0.5 PPD Information not available 10/08/2020 Do You Use Sunscreen Routinely? Yes Information not available 10/08/2020 How Many Years Have You Smoked Tobacco? 8 Information not available 10/08/2020 Sex: Unknown Functional Status Question Answer Note LastModified by Organizat ion Details LastModified Time What is your level of alcohol consumption? Occasional Information not available 08/07/2014 Do you or have you ever used smokeless tobacco? Never used smokeless tobacco Information not available 07/01/2019 Are you currently employed? No Information not available 10/08/2020 Are you able to care for yourself independently? 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 Never used electronic cigarettes Information not available 10/08/2020 What is your exercise level? None Information not available 10/08/2020 Mental Status None recorded. Family History Relationship Description Onset Age of this Age Resolved Age Notes LastModified by Organization Details LastModified Time Father Coronary arterioscler osis [email or web address] Not available 2019 14:12:52 Father Myocardial infarction [email or web address] Not available 10/08 14:12:52 Father Hypercholest erolemia [email or web address] Not available 07/01/2019 13:59:38 Mother Hypercholest erolemia [email or web address] Not available 10:49:31 Mother Autoimmune disease [email or web address] Not available 2019 14:12:52 Mother Essential hypertension 58 smoker and high sodium intake [email or web address] Not available 10/08/2020 14:12:52 Maternal Grandfather Type 2 diabetes mellitus deceas ed [email or web address] Not available 10/08/2020 14:12:52 Unspecified Relation Type 2 diabetes mellitus patern al side; not from obesit y [email or web address] Not available 10/08/2020 14:12:53 Maternal Grandmother Essential hypertension [email or web address] Not available 14:12:53 Medical History Condition Response [...] 02:22:07 Tdap 10/08/20 20 completed LATOYA Ha [facility] 10/08/2020 14:33:45 DTaP 11/12/18 82 completed Ora Money null, [facility] 01/24/2020 09:10:02 DTaP 01/14/19 82 completed Ora Money null, [facility] 01/24/2020 09:10:02 DTaP 03/07/19 82 completed Ora Money null, [facility] 01/24/2020 09:10:02 MMR 12/17/18 83 completed Ora Money null, [facility] 01/24/2020 09:10:02 IPV 06/20/19 83 completed Ora Money null, [facility] 01/24/2020 09:10:02 DTaP 06/20/19 83 completed Ora Money null, [facility] 01/24/2020 09:10:02 IPV 08/23/19 86 completed Ora Money null, [facility] 01/24/2020 09:10:02 IPV 04/24/19 87 completed Ora Money null, [facility] 01/24/2020 09:10:02 DTaP 04/24/19 87 completed Ora Money null, [facility] 01/24/2020 09:10:02 MMR 04/25/19 97 completed Ora Money null, [facility] 01/24/2020 09:10:02 Td (adult), 2 Lf tetanus toxoid, preservative free, adsorbed 04/25/19 97 completed Ora Money null, [facility] 01/24/2020 09:10:02 Hep B, adult 06/10/20 00 completed Ora Money null, [facility] 01/24/2020 09:10:02 Hep B, adult 07/15/20 00 completed Ora Money null, [facility] 01/24/2020 09:10:02 Hep B, adult 08/09/20 07 completed Ora Money null, [facility] 01/24/2020 09:10:02 Influenza, split virus, trivalent, preservative 08/29/20 11 [facility] 09:10:02 Influenza, split virus, trivalent, preservative 09/23/20 13 completed [facility] Money null, [facility] 01/24/2020 09:10:02 Tdap 01/26/20 10 completed Oragretchen Broderick null, [facility] 01/24/2020 09:10:02 Past Encounters Encounter ID Performer Location Encounter Start Date Encounter Closed Date Diagnosis/Indication Diagnosis SNOMED-CT Code Diagnosis ICD10 Code Diagnosis IMO Codes Diagnosis Note [id number] auto[address]Comm erce [address] [facility] [place] [address] 08/09/2007 00:00:00 [id number] autoEComm erce [address] [facility] [place] [address] 01/10/2008 00:00:00 [id number] autoEComm erce [address] [facility] [place] [address] 05/11/2008 00:00:00 [id number] autoEComm erce [address] [facility] [place] [address] 07/16/2009 00:00:00 [id number] autoEComm erce [address] [facility] [place] [address] 01/22/2010 00:00:00 [id number] autoEComm erce [address] [facility] [place] [address] 01/25/2010 00:00:00 [id number] autoEComm erce [address] [facility] [place] [address] 04/01/2011 00:00:00 [id number] auto[address]Comm erce [address] [place] [address] 04/04/2011 00:00:00 [id number] autoEComm erce [address] [facility] [place] [address] 04/29/2011 00:00:00 [id number] [address] [place] [address] 08/29/2011 00:00:00 [id number] [place] [address] 10/23/2011 00:00:00 [id number] [employer] [address] [place] [address] 11/17/2011 00:00:00 38836 [employer] [address] [place] [address] 03/12/2012 00:00:00 [id number] [employer] [address] [place] [address] 03/23/2012 00:00:00 09174 [employer]ce [address] [facility],[address] [place] [address] 05/31/2012 00:00:00 88384 [employer] erce [address] [facility],[address] [place] [address] 08/10/2012 00:00:00 27125 [employer]ce [address] [facility],[address] [place] [address] 09/30/2012 00:00:00 56065 [employer] [address] [facility],[address] [place] [address] 11/04/2012 00:00:00 04818 [employer] erce [address] [facility],[address] [place] [address] 11/30/2012 00:00:00 09745 [employer] erce [address] [facility],[address] [place] [address] 12/13/2012 00:00:00 [id number] [employer] [address] [place] [address] 01/11/2013 00:00:00 68485 [employer] erce [address] [facility],[address] [place] [address] 03/01/2013 00:00:00 30376 [employer] erce [address] [facility],[address] Narendra larse, [place] [address] 09/23/2013 00:00:00 66110 [employer] [address] [place] [address],[address] Narendra lares, [place] [address] 03/14/2014 00:00:00 20372 [employer] [address] [place] [address],[address] Narendra lares, [place] [address] 03/24/2014 00:00:00 27957 [employer] [address] [place] [address],[address] Narendra lares, [place] [address] 04/26/2014 00:00:00 [id number] Umesh Berry MD Main Office [address] [place] [address] [place] [address] 08/07/2014 14:29:46 08/07/2014 15:29:30 Increased frequency of urination 122063037 ? IC [id number] NUPUR Ruiz Main Office [address] [place] [address] [place] [address] 11/17/2014 11:43:01 11/17/2014 12:24:46 Gastroesophageal reflux disease 680702209 Recommend PPI trial Abnormal weight gain 454177334 [id number] Umesh Berry MD Main Office [address] [place] [address] [place] [address] 06/21/2015 11:35:42 06/21/2015 12:35:22 Diarrhea 94940858 [id number] NUPUR Campos Main Office [address] [place] [address] [place] [address] 07/31/2015 14:30:40 07/31/2015 15:10:26 Candidiasis of mouth 36351532 B37.9 Will treat with nystatin, this may be a reaction from her autoimmune disease, she is aware and will try to avoid triggers, resume her clean eating and exercise which usually helps to control her symptoms. [id number] Umesh Berry MD Main Office [address] [address] [place] [address] 11/12/2015 10:43:36 11/12/2015 12:08:56 Exercise-induced asthma 97132304 J45.990 Polycystic ovaries 87279 008 E28.2 Fatigue 52421380 R53.83 [id number] Parkmary Coburn PA-C Main Office [address] [address] [place] [address] 12/12/2015 10:38:49 12/12/2015 11:24:37 Acute pharyngitis 473789993 J02.9 Rapid strep test is negative. Viral disease 67896633 B 34.9 Viral infection with hyperreact amanda airways. Start CHerutussi n AC for cough. ProAir HFA inhaler PRN for wheezing. Rest , fluids. Wheezing 66724024 R06.2 Medrol dose pack as directed for 6 days and ProAir HFA PRN. [id number] Umesh Berry MD Main Office [address] [address] [place] [address] 12/24/2015 11:25:01 12/24/2015 12:36:41 Chronic cough 88736377 R05 Pain in calf 548942690 M 79.669 [id number] Doug Henson MD Main Office [address] [address] [place] [address] 07/21/2016 13:14:55 07/21/2016 14:01:00 Injury of nose 66070319 S09.92XA Does not appears crooked and is able to breath. Will get an xray to look for a fracture. Instructed her to leave the lot alone. [id number] Doug Henson MD Main Office [address] [address] [place] [address] 10/23/2016 09:58:16 10/23/2016 10:42:32 Pain of shoulder region 89403378 M25.511 I advised her to take naprosyn twice a day for a week to help with any inflammati on. She will make her own PT appointmen t and will call here for a referral to [facility] or ortho if the pain persists. [id number] Umesh Berry MD Main Office [address] [address] [place] [address] 11/24/2016 14:15:38 11/24/2016 15:23:48 Pain of acromioclavicular joint 664762433 M25.511 [id number] Jose rao MD Main Office [address] [place] [address] 04/25/2017 09:35:01 04/25/2017 10:27:56 Acute pharyngitis 010883091 J02.9 Axillary lymphadenopathy 500357402 R59.0 [id number] Umesh Berry MD Main Office [address] [place] [address] 06/24/2017 12:52:43 06/24/2017 14:06:25 Immunization refused 087837002 Z28.21 Upper abdominal pain 831 91661 R10.10 [id number] Cheri martinez MD Main Office [address] [place] [address] 12/16/2017 12:38:34 12/16/2017 13:24:39 Anxiety 85588438 F41.9 panic attacks, baseline anxiety is up, will check thyroid, refill lorazepam for as needed bu knows to use sparingly, I recc pt start a daily SSRI, zoloft would be a good med, she will do some counseling here and think about it, may call for med Panic attack 413369945 F 41.0 see above Exercise-i nduced asthma 43901133 J45.990 [id number] Wayne Coburn PA-C Main Office [address] [address] [place] [address] 04/20/2018 10:47:06 04/20/2018 12:03:23 Rhabdomyolysis 331289480 M62.82 cpk up to 33K at [facility] (did intense crossfit routine ac went to ER) - rec'd prolonged ivf, is drinking plenty of water nowcpk order ending - will get p this ovadvised pt to avoid crossfit unless significan tly modifies her routine (not as intense as she did last week) Systemic l upus erythematosus 27669463 M32.9 cont pred taper as dir - will f/u c rheum for further input - has pending f/u c rheum later today Hypokalemia 23710434 E87 .6 most likely d/t prolonged ivf - will recheck Costal chondritis 689743 04 M94.0 mild, no h/o overhead lifing but did do intense crossfit routine - rec warm compress prn [id number] Umesh Berry MD Main Office [address] [address] [place] [address] 05/17/2018 15:12:42 05/17/2018 16:27:07 Adult health examination 241044990 Z00.00 Undifferen tiated connective tissue disease 716551319 M35.1 Followed by Rheum [place] Non-trauma tic rhabdomyolysis 235819684 M62.82 Gastroesop hageal reflux disease without esophagitis 504781418 K21.9 Disorder o f connective tissue 348157175 M35.9 Followed by rheum. [id number] Umesh Berry MD Main Office [address] [address] [place] [address] 11/19/2018 13:46:50 11/19/2018 14:57:29 Glossitis 00969504 K14.0 Vitamin B1 2 deficiency (non anemic) 98745511 E53.8 [id number] Cheri martinez MD Main Office [address] [address] [place] [address] 01/10/2019 14:59:28 01/11/2019 14:43:42 [id number] Cheri martinez MD Main Office [address] [address] [place] [address] 01/14/2019 09:52:09 01/14/2019 11:23:27 Exertional rhabdomyolysis 28853464 M62.[address] Berry. He has called Dr Dago Truong and he agrees to see pt to evaluate for muscle biopsy. He recommends we do metabolic workup. Will do labs and have pt see rheumatolo gy as planned. In the interim, do not so any intense exercise, keep hydrated, keep normal activity level and eating. Liver enzy mes level above reference range 762288640 R74.8 check LFTS [id number] Umesh Berry MD Main Office [address] [address] [place] [address] 03/11/2019 11:20:17 03/11/2019 12:03:21 Acute pharyngitis 835884300 J02.9 Rapid strep test is negative.P t. exposed to strep through her son. Will start Abx and if strep is not confirmed , will discontinu e. [id number] Travis Reyna MD Main Office [address] [address] [place] [address] 03/17/2019 15:35:23 03/17/2019 16:41:11 Nasal congestion 57077696 R09.81 Acute sinusitis 38537319 J01.90 rec afrin x 3 days, then use sudafed prn, cont kefir, take abx as dir, rec saline and warm washcloth prn pt requested diflucan just in case [id number] Travis Reyna MD Main Office [address] [address] [place] [address] 03/31/2019 14:29:05 03/31/2019 15:27:13 Persistent cough 264738969 R05 Likely inflammed airways, will try ICS and prn beta agonist. Start flonase and steam. Stop all 5-7 days before muscle biopsy. To call if not improving. CXR if persistent . [id number] Umesh Berry MD Main Office [address] [address] [place] [address] 07/01/2019 13:42:50 07/01/2019 14:53:09 Adult health examination 119611917 Z00.00 Anxiety 93102718 F41.9 Undifferen tiated connective tissue disease 270452997 M35.1 Followed by [place] Exercise-i nduced asthma 70218417 J45.990 continue use of ProAir before exercise Gastroesop hageal reflux disease 837195946 K21.9 Inflammati on of sacroiliac joint 34373981 M46.1 [id number] Doug Henson MD Main Office [address] [address] [place] [address] 10/17/2019 11:24:46 10/17/2019 12:08:30 Fever 299295274 R50.9 rapid negative, patient symptomati c, will tx for flu like sx. hydration, rest, tyelnol or ibuprofen as needed Persistent cough 9722999 02 R05 Influenza- like symptoms 647679120 R68.89 tamiflu bid x 5 days, anitviral, will not help with sx but shorten the duration of illness. [id number] Travis Reyna MD Main Office [address] [facility] [address] [place] [address] 11/02/2019 15:28:13 11/02/2019 17:00:35 Chest pain 23406541 R07.9 Likely musculoske letal pain with very localized tenderness and no palpable abnormalit y. Will try salonpas patch on 12 h then off 12 h. If not better would do Ultrasound and consider dx mammogram. CXR and rib xray now. Can use nsaids if needed as well. Chest wall pain 64177489 6 R07.89 [id number] Travis Reyna MD Main Office [address] [facility] [address] [place] [address] 12/26/2019 09:22:59 12/26/2019 10:17:58 Muscle pain 86368693 M79.10 pt is seeing neurologis t for EMG upcoming, will discuss recurrent elevated CK with rheumatolo gist to see who we might refer to for muscle pain that is intermitte nt but ongoing associated wtih CK elevation. Right uppe r quadrant pain 151201664 R10.11 check ultrasound , r/o gallstones [id number] Eliezer Booker MD Main Office [address] [address] [place] [address] 08/13/2020 13:23:42 08/13/2020 14:22:36 Intermittent palpitations 741614124 R00.2 -EKG done NSR in 70's-Will check [...] Patient denies any anxiety, depression , SI/HI. [id number] Doug Henson MD Telehealt [address] [facility] [address] [place] [address] 09/20/2020 08:54:38 09/20/2020 10:16:59 Strain of abdominal muscle 043915262 S39.011A MRI from December reviewed, abdominal wall unremarkab le. no hernia was een at that time. She does note it feels muscular. will take iburpofen 800mg TID with food and flexeril at bedtime for 3-5 days to see if she gets relief from this. May use heat to area, recommend core strengthen ing. 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 Will tx for bPPV with meclizine. instructed to start with 12.5mg and increase if needed. hydration, rest. Also feels ears are full, will start flonase daily as needed x 5 days. [id number] Doug Henson MD [facility] [address] [address] [place] [address] 11/07/2020 08:57:20 11/07/2020 11:51:27 Benign paroxysmal positional vertigo 722829216 H81.10 Meclizine and flonase have not been helpful, she did try PT [facility] and with PT and both time her sx significan tly worsened the next day. she does not wish to get back at this time. Will refer to ENT, get kabs and CT scan. Will also test for COVID. Exposure t o viral disease 7231288189 28531 Z03.818 quarantine until results back. Dizziness 355289396 R42 [id number] Park Coburn PA-C Telehealt h [address] [facility] [address] [facility] [place] [address] 03/04/2021 08:39:09 03/04/2021 12:50:53 Temporomandibular faoxv-eoyx-yavpqnnlct n syndrome 250704218 M26.629 TMJ secondary to tooth clenching at night resulting in neck and upper back muscle spasms , headache relieved by botox injections . We will explore this treatment through the neurology office . Pt. will continue use of mouth guards. Clenching teeth 15605567 9 R46.89 Neck pain 04419802 M54.2 Health Concerns Section Related Observation LastModified by Organization Detai ls LastModified Time None Recorded Concern Status LastModified by Organization Details LastModified Time None Recorded Advance Directives Directive N: Payers Insurance Date Sequence Insurance Name Policy Number Policy Ortiz Covered Member ID Ortiz Member ID Guarantor Name 03/04/2021 1 [facility] - SELECT (PPO) [id number] Nader Zapata [id number] Selin Monterozeszutek 06/27/2015 1 [facility] - [facility] HEALTH[facility] - MEDICAID ESSENTIAL (MEDICAID HMO) [id number] Selin Cardoso [id number] Selin Manzutek 06/27/2015 1 [facility] - HEALTH NET PLAN (MEDICAID HMO) [id number] Selin Cardoso [id number] Selin Monterozeszutek 06/27/2015 1 [place] [facility] Selin Cardoso [id number] Selin Zapata Notes Date Note Type Note Provider Name and Address Organization Details Recorded Time 09/20/2020 text/html Generic HPI TemplateReported by PatientVideo visit: Has had similar sx in the [...] when she was exercising. NUPUR Campos [address] [facility] [address], [place], [address], [facility] [place] 09/20/2020 10:03:10 10/08/2020 text/html Here for PE visit. Reviewed chronic medications and medical problems. Discussed screening guidelines as well as goals for fitness and weight management. Underlying poorly defined CTD has been followed by specialty rheumatology. No specific treatment chronically, but has recently restarted low dose prednisone. states that her barber stylist lets me do it because I know [...] recent echo normal. Umesh Berry MD [address] [facility] [address], [place], [address], [facility] [place] 10/10/2020 08:37:49 11/01/2020 text/html Generic HPI TemplateReported by PatientVideo visit: Woke up 3 days ago- turned [...] dull headache, has been constant, no n/v/d. [place] good enough to exercise that night, laid on her bench and had immediate spinning again. [place] like the floor was crooked, like she was off balance. She has also noticed when she is in bed, her ears feel full- no cracking or popping. No congestion, no sore throat, no runny nose or PND. She did have a COVID test yesterday that was negative- was a pcr test at [facility] [address] [place] [address], [address], [facility] 11/01/2020 13:40:31 11/07/2020 text/html Generic HPI TemplateReported by PatientVideo visit: Woke up 3 days ago- turned [...] dull headache, has been constant, no n/v/d. [place] good enough to exercise that night, laid on her bench and had immediate spinning again. [place] like the floor was crooked, like she was off balance. She has also noticed when she is in bed, her ears feel full- no cracking or popping. No congestion, no sore throat, no runny nose or PND. She did have a COVID test yesterday that was negative- was a pcr test at [facility] Video visit: f/u as below. ongoing sx [...] other side feels deaf then resolves. Aissatou medina [facility] [place] 11/07/2020 12:42:29 03/04/2021 text/html ROS as noted in the HPI 40 year old female c/o clenching her jaw at night for [...] of pocket. Aissatou medina [facility] [place] 03/07/2021 10:51:05 OBGyn Episode No OBEpisode recorded.
--- OUTSIDE RECORDS SUMMARY | 2025-10-04 08:13 | XMS_ITS | Clinical Summary ---
Author Organization [facility] Address [address] [place] [address] Care Team Providers Care Account Services Analyst Name Role Phone Lucy Saini APRN Primary [...] (B-12 PO) Take by mouth. Activ e Blachly-3 Fatty Acids (FISH OIL PO) Take by [...] 88 01/20/2022 10:36 AM EDT Temperature 36.2 C (97.2 F) 01/20/2022 10:36 AM EDT Respiratory Rate - - Oxygen [...] (Ages 21-65) 2002 Mammogram 2021 Influenza Vaccine 05/19/2025 09/23/2013, 08/29/2011 COVID-19 Vaccine (2024-2 6 season) 2025 HPV Vaccines (No Doses Required) Completed Pneumococcal Vaccine: Pediatric (0-5 Years) and At-Risk Patients (6 to 49 Years) Aged Out No longer eligible b ased on patient's age to complete this topic Insurance [facility] Care Teams Account Services Analyst Relationship Specialty Start Date End Date Lucy Saini APRN [address] [place] [id number] PCP - General Internal Medicine 12/25/21
--- OUTSIDE RECORDS SUMMARY | 2025-10-04 08:13 | XMS_ITS | Clinical Summary ---
Author Organization [facility] Prior to 03/18/[address] [place] [address] Care Team Providers Care Scrubber System Attendant Name Role Phone Reshma Toribio MD Primary Care Provider [phone] Allergies Active Allergy Reactions Criticality Noted Date [...] age to complete this topic Care Teams Scrubber System Attendant Relationship Specialty Start Date End Date Reshma Toribio MD PCP - General Internal Medicine 07/15/24
--- OUTSIDE RECORDS SUMMARY | 2025-10-04 08:13 | XMS_ITS | Encounter Summary ---
Author Organization [facility] Address [address] [place] [address] Care Team Providers Care Vinyl Welder And Fabricator Name Role Phone Unavailable Primary Care Provider Unavailabl e Reason for Visit * Reason Onset Date Comments ELEVATED CK 12/28/2019 Encounter Details Date Type Department Care Team ([facility] st Contact Info) Description 12/28/2019 Telephone [facility] Rheumatology [address] [address] Lakeisha Patel DO [address] [place] [address] ELEVATED CK Social History Tobacco Use Types [...] She had subsequent labs drawn - 600s. ([facility]). She went to [facility] [place] night and CK went up to [...] Neurology. She was referred to Rheumatology in [place] Maribel Stein MD. We discussed establishment of [...] ALT, ESR, CRP, myoglobin) and fax to [facility] labs ([address] [place] [address]; ). Advised to contact the office with [...] on the patient. Please call her cell [phone] * Telephone Encounter - Lakeisha Patel DO [...]
--- OUTSIDE RECORDS SUMMARY | 2025-10-04 08:13 | XMS_ITS | Data Portability ---
Author Organization [place] - [facility], Allergy Address [address] [address] Care Team Providers Care Clean Up Supervisor Name Role Phone GODFREY ROSS Primary Care Provider [phone] Assessment Encounter Date Assessment Date Assessment LastModified by Organization Details LastModified Time 02/23/2025 02/23/2025 The patient's history, physical exam and audiometric findings are consistent with vestibular migraine (migraine associated dizziness). Today we discussed the pathophysiology of migraine and migraine associated phenomena such as dizziness and visual aura. We discussed how the patient's balance disturbance symptoms are likely mediated by a central processing abnormality rather than an isolated inner ear abnormality. I gave the patient a significant amount of literature to review at home regarding how there are many environmental and dietary triggers that can lead to not only migraine headaches but balance disturbance symptoms as well. We spent a lot of time discussing the importance of following a migraine diet. We have offered the patient a copy of the Heal Your Headache book to read at home, which gives a amud-lf-xvey discussion on what causes migraine and how to make the necessary lifestyle and dietary changes to significantly reduce or eliminate migraine symptoms. I have also recommended the use of dietary supplements magnesium, vitamin B2 and feverfew which have been shown to help control migrainous phenomena. We discussed dosage and schedule for these supplements. I did review her MRI scan report. It is unlikely that this incidental finding of enhancement of the left cochlear and vestibular nerves is actually related to her symptoms as a real inflammatory process in this regard would likely be accompanied by significant sensorineural hearing loss and unremitting vertigo. I gave her reassurance in this regard. Ultimately, it is unlikely she will need additional pharmacologic intervention. She may follow-up with me as needed. [email or web address] Not available 02/23/2025 14:51:36 Plan of Treatment Reminders Order Date Submit Date Provider Last Modified By Organization Details Last Modified Time Details Appointments None record ed. Lab None record ed. Referral None record ed. Procedures None record ed. Surgeries None record ed. Imaging None record ed. Medication Orders None record ed. Patient TargetsNo targets recorded. Patient InstructionsNo instructions recorded. Reason for Referral None Reported. Results Created Date Observation Date Name Description Value Unit Range Abnormal Flag Note LastModifiedBy Organization Detail LastModifiedTime 02/25/20 25 audio gram No observ ation record ed. BARCODE Not Available 2024 08:51:56 Result Notes None recorded. Problems Name Problem SNOMED Code Status Onset Date Resolution Date Notes Provider Name and Address Organization Details Recorded Time Benign paroxysma l positiona l vertigo 190794377 Active 2020 Benign paroxysmal vertigo, unspecifie d ear; Note: Date Diagnosed: 11/15/2020 1:56 PM (H81.10) Not Available [facility] 4 03:15:17 Abnormal auditory perceptio n 90338995 Active 20[address], LUZ [address] [facility],[place] [address], [facility], [address] , [facility] - [facility] 13:45:27 Vertigo of central origin 26636078 Active 2024 IVETH GONZÁLES MD [address] [facility],[place] [address], [facility], [address] , [place] - [facility] 14:32:19 Migraine variants 743369419 Active 2024 IVETH GONZÁLES MD [address] [facility],[place] [address], [facility], [address] , [facility] - [facility] 14:32:19 Problem Notes None recorded. Procedures Surgical History Date Name Laterality Status Provider Name and Address Organization Details Recorded Time 02/24/20 25 Air & Speech Audio with Tymps - 94614, 10354 & 92513 completed LUZ S[facility]TH [address] [facility],[place] [address], [place], [address], [place] - [facility] 02/23/2025 13:45:20 endometrial ablation completed Sissy Bassett [place] - [facility] 02/23/2025 14:19:08 reduction mammoplasty completed Sissy Bassett [place] [facility] 02/23/2025 14:19:17 Imaging Results None recorded. Procedure Notes None recorded. Medical Equipment None Reported. Allergies Allergen ID Allergen Name Allergen Category Reaction Reaction Severity Criticality Documentation Date Start Date Code Code System Note Provider Name and Address Organization Details Recorded Time 138882 Substance with sulfonami de structure and antibacte rial mechanism of action (substanc e) medicatio n other Not available Not available 03/01/2024 88007 8003 SNOMED React ion: Unkno wn; Not Available [facility] 4 01:09:02 951710 codeine medicatio n other Not available Not available 03/01/2024 2670 RxNorm React ion: Unkno wn; Not Available [facility] 4 01:09:04 Medications Name Sig Start Date Stop Date Status Note LastModified by Organization Details LastModified Time ketoconaz ole 2 % shampoo APPLY TOPICALL Y TO THE SCALP EVERY OTHER DAY. LEAVE ON FOR 3-5 MINUTES BEFORE RINSING OUT 02/23 completed Not Available Not Available Not Available sumatript an 50 mg tablet TAKE 1 TABLET BY MOUTH EVERY 2 HOURS NEEDED 02/23 completed Not Available Not Available Not Available meclizine 25 mg tablet 02/23 completed Medicati on ID: [id number] B rand Name: meclizin e Send Method: E-Prescr ibed Sub s Allowed: subs OK Speci al Instruct ion: TAKE 1 TABLET BY MOUTH THREE TIMES DAILY FOR 10 DAYS DIRECTED Medicat ionGener icName: meclizin e Not Available Not Available Not Available diazepam 2 mg tablet TAKE 1 TABLET BY MOUTH EVERY 8 HOURS FOR 5 DAYS NEEDED FOR VERTIGO 02/23 completed Not Available Not Available Not Available cyanocoba elena (vit B-12) 1,000 mcg/mL injection solution INJECT 1ML IN THE MUSCLE EVERY 4 WEEKS 02/23 completed Not Available Not Available Not Available gabapenti n 300 mg capsule 02/23 completed Medicati on ID: [id number] B rand Name: gabapent in Send Method: E-Prescr ibed Sub s Allowed: subs OK Speci al Instruct ion: TAKE 1 CAPSULE BY MOUTH TWICE DAILY Me dication GenericN evin: gabapent in Not Available Not Available Not Available hydrocort isone 2.5 % topical cream APPLY TOPICALL Y TO THE AFFECTED AREA TWICE DAILY 02/23 completed Not Available Not Available Not Available fluticaso ne propionat e 50 mcg/actua tion nasal spray,pita pension 02/23 completed Medicati on ID: [id number] B rand Name: fluticas one propiona te Send Method: E-Prescr ibed Sub s Allowed: subs OK Speci al Instruct ion: SHAKE LIQUID AND USE 2 SPRAYS IN EACH NOSTRIL EVERY DAY DIRECTED Medicat ionGener icName: fluticas one propiona te Not Available Not Available Not Available amoxicill in 875 mg-potass ium clavulana te 125 mg tablet TAKE 1 TABLET BY MOUTH EVERY 12 HOURS FOR 10 DAYS 02/23 completed Not Available Not Available Not Available esomepraz ole magnesium 20 mg capsule,d elayed release TAKE 1 CAPSULE BY MOUTH DAILY active Not Available Not Available No t Available tranexami c acid 650 mg tablet TAKE 2 TABLETS BY MOUTH THREE TIMES DAILY TAKE IF EXCESS BLEEDING 02/23 completed Not Available Not Available Not Available FreeStyle Randy 3 Plus Sensor device USE DIRECTED TO MONITOR GLUCOSE 02/23 completed Not Available Not Available Not Available Vitals None Recorded Social History None recorded. Functional Status None recorded. Mental Status None recorded. Family History Nothing Reported. Medical History Condition Response Migraines Y Asthma Y GERD/Reflux Y Gynecological HistoryNo gynecological history recorded. Obstetrics History GPAL:G 0 P 0 0 0 0 Past Encounters Encounter ID Performer Location Encounter Start Date Encounter Closed Date Diagnosis/Indication Diagnosis SNOMED-CT Code Diagnosis ICD10 Code Diagnosis IMO Codes Diagnosis Note [id number] IVETH GONZÁLES MD [facility] [address] [address] 02/23/2025 13:17:20 02/23/2025 14:47:57 Abnormal auditory perception [id number] H93.293 [id number] Audiologic al evaluation results: Right ear: Normal auditory thresholds with excellent speech discrimina tion. Left ear: Normal auditory thresholds with excellent speech discrimina tion. Tympanomet ry: Right Ear:Type A Left Ear:Type A Migraine variants 412761 005 G43.809 Vertigo of central origin 34208308 H81.4 Health Concerns Section Related Observation LastModified by Organization Detai ls LastModified Time None Recorded Concern Status LastModified by Organization Details LastModified Time None Recorded Advance Directives Directive None Recorded Payers Insurance Date Sequence Insurance Name Policy Number Policy Ortiz Covered Member ID Ortiz Member ID Guarantor Name 02/23/[address] [employer] [facility] [id number] Nader [place] [id number] Shen R[place] 02/23/2025 1 [employer] [place] [id number] 001 Shenelza Mock [place] [id number] Shen [place] Notes Date Note Type Note Provider Name and Address Organization Details Recorded Time 02/23/2025 text/html Patient referred for evaluation of vertigo. Patient has a long history of migraine treated by neurologist Dr. Bui with Botox injections. She has with another neurologist now that he retired. 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 She saw Dr. Medel. She had some elements of her exam that were consistent with BPPV, though her symptoms were more pervasive. She did end up working with a vestibular therapist in [place] who agreed that she did not have basic BPPV, but may have been consistent with vestibular migraine. Patient has had flareups of vertigo spells over the years, sometimes positional and sometimes not. She did have an episode that was preceded by ocular migraine symptoms with scintillating scotoma in her visual cabrera. Interestingly, she began microdosing tirzepatide and has had complete resolution of her symptoms. She is currently asymptomatic. IVETH GONZÁLES MD [address] [place] [address], [place], [address], [facility] - [facility] 02/23/2025 14:51:47 OBGyn Episode No OBEpisode recorded.
== END 2025-10-04 08:55 | disposition home or self-care (01) ==
LOC: HO.HMCFM 08:06
PROVIDERS: PCP Physician Assistant; Visit Provider Physician Assistant
DX: Z00.00 Encounter for general adult medical examination without abnormal findings (principal); R73.01 Impaired fasting glucose; K21.9 Gastro-esophageal reflux disease without esophagitis

== ENCOUNTER 2025-10-04 08:05 | Outpatient (REF) | payer OTHER, SELFPAY ==
--- OUTSIDE RECORDS SUMMARY | 2025-10-04 09:37 | XMS_ITS | Data Portability ---
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 intere sted in botox inject ions. 2020 021 jovi Bui MD, [address] [place], [address], 15:26:00 ENT referr al - severe vertig o, headac he, eyes feel funny. ear full. has been taking mecliz ine and flonas e withou t relief . ringin g in ears. 2020 021 [facility] , [address], [address], [place], [address], 15:54:[address] referr al 2019 VANESSA [facility], [address], [place], [address], 13:31:32 Procedures None record ed. Surgeries None record ed. Imaging CT, head + brain, w/o contra st - severe vertig o, headac he, vision change s, ringin g in ears, sx x 9 days and not improv ing with mecliz ine or flonas e. r/o mass 2020 021 tfrisino [facility], [address], [address], [place], [address], 1 12:16:47 Medication Orders mecliz ine 25 mg tablet 2020 021 [email or web address] Not available 09:59:48 flutic asone propio jacob 50 mcg/ac tuatio n nasal spray, suspen piyush 2020 021 Not available 09:59:32 mecliz ine 25 mg tablet 2020 021 [email or web address] Not available 09:59:48 cyclob enzapr ine 10 mg tablet 2019 020 [email or web address] Not available 0 14:20:49 Patient TargetsNo targets recorded. Patient Instructions Encounter Date Encounter Id Patient Instructions Last Modified By Organization Details Last Modified Time 09/20/2020 [id number] abdominal strain : rehab exercises jthabet Not available 09/20/2020 09:40:17 call or return f or worsening or concerns. jthabet Not available 09/20/2020 09:45:27 10/08/2020 [id number] rhabdomyolysis: care instructions phelmuth Not available 10/08/2020 15:53:13 temporomandibula r disorder: [facility] 10/08/2020 15:53:13 11/01/2020 [id number] eustachian tube problems: care instructions jthabet Not available 11/01/2020 13:34:00 benign paroxysma l positional vertigo (bppv): care instructions jthabet Not available 11/01/2020 13:32:48 call or return f or worsening jthabet Not available 11/01/2020 13:30:29 11/07/2020 [id number] lab* tfrisino Not available 11/07 12:17:57 call or return f or worsening or concerns. jthabet Not available 11/07/2020 11:35:20 Reason for Referral Research Aide Referral for Undifferentiated connective tissue disease Referring Physician: Umesh Berry, Internal Medicine, Encounter Date: 10/08/2020 ENT Referral for Benign paro xysmal positional vertigo severe vertigo, headache, eyes feel funny. ear full. has been taking meclizine and flonase without relief. ringing in ears. Referring Physician: Josette Hernandez, Family Medicine, Encounter Date: 11/07/2020 Neurologist Referral for Tem poromandibular bbybq-rjcd-rluxwejcmtm syndrome Chronic teeth clencher with TMJ syndrome [...] Go To The Location Of Their Choice, [id number] 11/08/2020 00:54:44 11/07/1911/07/2020 SARS CoV 2 RNA, [...] ng. Resul t repor cash to [facility]. To preve nt error s in diagn [...] perfo rmed by real time PCR utili [facility] SURESH SetMe[employer]0 SARS- CoV-2 test. Not Available [facility] (Centralized Electronic Ordering - All Locations) Patient Can Go To The Location Of Their Choice, [id number] 11/08/2020 10:23:11 11/07/1911/09/2020 HbA1c (hemo globi n [...] of Clini pascual and Appli ed Resea [facility] and Educa tion Volum e 43, Suppl ement 1 Not Available [facility] (Centralized Electronic Ordering - All Locations) Patient Can Go To The Location Of Their Choice, [id number] 11/09/2020 22:00:49 11/29/19 21 11/29/2020 HbA1c (hemo [...] ardio gram No observ ation record ed. [facility] (Outt Non-Invasive Cardiology Scheduling) [address] [address], [place], [address], 10/13/2020 14:30:43 11/07/19 21 11/07/2020 CT, head [...] No acute intrac ranial pathol ogy. WSN: [id number] Orderi ng Physic josephine: Mary CAMACHO, Ulises Collazo Dictat ed By: Mello Sheikh MD Dictalayna ed Date/T omi: 4:24 pm Review ed By: Mello Sheikh MD Signed By: Mello Sheikh MD Signed Date/T omi: 4:24 pm Transc ribed By: BLAKE Transc ribed Date/T omi: 4:19 pm Patien t Class: Outpat ient [facility] (Outpt Imaging) [address] , [place], [address], 11/08/2020 09:54:44 Result Notes Documentation Provider Name [...] unremarkable. IMPRESSION: No acute intracranial pathology. WSN: [id number] Ordering Physician: Josette Joshi Dictated By: Mello Brown MD Dictated Date/Time: 11/07/20 4:24 pm Reviewed By: Mello Brown MD Signed By: Mello Brown MD Signed Date/Time: 11/07/20 4:24 pm Transcribed By: BLAKE Transcribed Date/Time: 11/07/20 4:19 pm Patient Class: Outpatient NUPUR Campos [address], [address], [facility] 11/08/2020 08:59:03 Problems Name Problem SNOMED Code Status Onset Date Resolution Date Notes Provider Name and Address Organization Details Recorded Time Increase d frequenc y of urinatio n [id number] Completed 05/17/2018 Umesh Berry MD [address] [address], [facility] [place], [address], [facility] 8 15:47:10 Abnormal weight gain 419856006 Completed 05/17/2018 Umesh Berry MD [address] [address], [facility] [place], [address], [facility] 8 15:47:12 Diarrhea 48895872 Completed 11/24/2016 [facility] 7 14:25:55 Dysuria 19031286 Completed 11/24/2016 [facility] Gar[facility], [facility] 7 14:25:43 Candidia sis of mouth 78303803 Completed 11/24/2016 LATOYA Garza [facility] 7 14:26:06 Polycyst ic ovaries Active Ora medina [facility] 0 09:10:10 Fatigue 56970888 Completed 11/24/2016 LATOYA Garza [facility] 7 14:26:10 Acute pharyngi tis 492362260 Completed 11/24/2016 LATOYA Garza [facility] 7 14:25:16 Viral disease 53468839 Completed 11/24/2016 LATOYA Garza [facility] 7 14:25:20 Wheezing 19022369 Completed 11/24/2016 LATOYA Garza [facility] 7 14:25:49 Chronic cough 70131103 Completed 11/24/2016 LATOYA Garza [facility] 7 14:25:59 Pain in calf 947423635 Completed 11/24/2016 LATOYA Garza [facility] 7 14:25:26 Undiffer entiated connecti ve tissue disease 037924555 Active Ora medina [facility] 0 09:10:11 Exposure to SARS-CoV -2 Completed 09/20/2020 Removal Reason: Problem added by user geneva desai from the [employer] watch flag Kacey Pac [facility] 1 14:39:53 Exposure to SARS-CoV -2 Completed 02/26/2021 Removal Reason: Problem marked historic al by user rpalance from the [employer] watch flag Kacey Pac [facility] 1 14:40:38 Pain of joint of hand 819643233 Completed 200805/09/2014 RECORDED 07/16/20 09 9:25AM BY YONATAN KNOWLESATI ON/ADDEN DUM Park Coburn PA-C [address], [place], [address], [facility] 6 12:46:06 Pain of joint of hand 494271036 Completed 200805/29/2014 RECORDED 07/16/20 09 9:25AM BY HINA KNOWLES ON/ADDEN DUM Park Coburn PA-C [address], [place], [address], [facility] 6 12:46:06 Alopecia 94347462 Completed 200905/09/2014 RECORDED 01/23/20 10 9:51AM BY HINA DUQUE ON/ADDEN DUM Park Coburn PA-C [address], [place], [address], [facility] 6 12:46:06 Vaginiti s and vulvovag initis Completed 200905/09/2014 RECORDED 01/23/20 10 9:51AM BY HINA DUQUE ON/ADDEN DUM Park Coburn PA-C [address], [place], [address], [facility] 6 12:46:06 Alopecia [id number] Completed 200905/29/2014 RECORDED 01/23/20 10 9:51AM BY HINA DUQUE ON/ADDEN DUM Park Coburn PA-C [address], [place], [address], [facility] 6 12:46:06 Vaginiti s and vulvovag initis Completed 200905/29/2014 RECORDED 01/23/20 10 9:51AM BY SARAH SLOWIK, ANNOTATI ON/ADDEN DUM Park Coburn PA-C [address], [place], [address], [facility] 6 12:46:06 Acute sinusiti s 56038119 Completed 201105/09/2014 RECORDED 08/10/20 12 11:24AM BY ROMAN ABDULLAHI MA, HINA ON/ADDEN DUM Park Coburn PA-C [address], [place], [address], [facility] 6 12:46:06 Screenin g for malignan t neoplasm of cervix Completed 201105/09/2014 RECORDED 08/10/20 12 11:24AM BY ROMAN ABDULLAHI MA, YONATANATI ON/ADDEN DUM Park Coburn PA-C [address], [place], [address], [facility] 6 12:46:06 Removal of suture Completed 201105/09/2014 RECORDED 08/10/20 12 11:24AM BY ROMAN ABDULLAHI MA, HINA ON/ADDEN DUM Park Coburn PA-C [address], [place], [address], [facility] 6 12:46:06 Abdomina l pain 70627392 Completed 201105/09/2014 IMPRESSI ON: PT WITH 40 [address], [place], [address], [facility] 6 12:46:06 Injury of head 78146357 Completed 201105/09/2014 IMPRESSI ON: PT SEEMS TO [...] PA-C [address], [place], [address], [facility] 6 12:46:06 Hearing loss 27070189 Completed 201105/09/2014 IMPRESSI ON: PT WITH INTERMIT TENT TINNITUS , HEARING LOSS AND VERTIGO FOLLOWIN G HEAD INJURY. SMALL AMT OF FLUID BEHIND TM ON EXAM. TO ENT FOR FURTHER EVAL.; RECORDED 08/10/20 12 11:24AM BY ROMAN ABDULLHAI MA, HINA ON/ADDEN DUM Park Coburn PA-C [address], [place], [address], [facility] 6 12:46:06 Pure hypergly ceridemi a 152418304 Completed 201105/09/2014 IMPRESSI ON: W/REPORT ED ELEVATED TRIGLYCE RIDES ON SCREEN FOR WORK. TO REPEAT FASTING. ; RECORDED 08/10/20 12 11:24AM BY ROMAN ABDULLAHI MA, HINA ON/ADDEN DUM Park Almas PA-C [address], [place], [address], [facility] 6 12:46:06 Benign neoplasm of skin 34634180 Completed 201105/09/2014 RECORDED 08/10/20 12 11:24AM BY ROMAN ABDULLAHI MA, HINA ON/ADDEN DUM Park Coburn PA-C [address], [place], [address], [facility] 6 12:46:05 Knee pain Completed 201105/09/2014 IMPRESSI ON: POSSIBLE MENISCUS TEAR. SHE SEES HER RHEUM NEXT WEEK. IBUPROFE N, KNEE BRACE.; RECORDED 08/10/20 12 11:24AM BY ROMAN ABDULLAHI MA, HINA ON/ADDEN DUM Parkmary CAMACHO-C [address] [facility] [address], [place], [address], [facility] 6 12:46:06 Malaise and fatigue 226237911 Completed 201105/09/2014 RECORDED 08/10/20 12 11:24AM BY ROMAN ABDULLAHI MA, HINA ON/ADDEN DUM Park CAMACHO-C [address] [facility] [address], [place], [address], [facility] 6 12:46:06 Neck pain 69679376 Completed 201105/09/2014 IMPRESSI ON: R SIDED NECK AND SHOULDER PAIN PAST WEEK. 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 NOT RESPONDI NG TO NSAID, PT RESISTAN T TO TAKE OTHER MEDS. DISCUSSE D OPTIONS INCLUDIN G PAIN MEDICATI ON, PT, ORTHO EVAL FOR INJX. 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 WE WILL CONTACT THEM DIRECTLY TO SEE IF THEY ARE ABLE TO ACCOMMOD ATE HER URGENTLY . IN THE MEANTIME PROVIDED WITH TRIAL OF LOWER DOSE ATIVAN, CONTINUE W/REST, HEAT, MASSAGE AND NSAID; RECORDED 08/10/20 12 11:24AM BY ROMAN ABDULLAHI MA, HINA ON/ADDEN DUM Park CAMACHO-C [address] [facility] [address], [place], [address], [facility] 6 12:46:06 Administ ration of tetanus vaccine Completed 201105/09/2014 RECORDED 08/10/20 12 11:24AM BY ROMAN ABDULLAHI MA, ANNOTATI ON/ADDEN DUM Park Coburn PA-C [address], [place], [address], [facility] 6 12:46:06 Postconc ussion syndrome 91010615 Completed 201105/09/2014 RECORDED 08/10/20 12 11:24AM BY ROMAN ABDULLAHI MA, HINA ON/ADDEN DUM Park Coburn PA-C [address], [place], [address], [facility] 6 12:46:06 Shoulder joint pain 281156237 Completed 201105/09/2014 IMPRESSI ON: FOLLOWIN G FALL IN SUMMER 2010, FOLLOWED BY HER RHEUM PROVIDER WHO IS TXING FOR ROTATOR CUFF TENDONIT IS. TXING WITH INJECTIO NS. UPCOMING APPT WITH PSS (DR. MARTINEZ- GERALDINE ).; RECORDED 08/10/20 12 11:24AM BY ROMAN ABDULLAHI MA, HINA ON/ADDEN DUM Park Coburn PA-C [address], [place], [address], [facility] 6 12:46:06 Acute sinusiti s 16781488 Completed 201105/29/2014 RECORDED 08/10/20 12 11:24AM BY ROMAN ABDULLAHI MA, HINA ON/ADDEN DUM Park CAMACHO-C [address], [place], [address], [facility] 6 12:46:06 Screenin g for malignan t neoplasm of cervix Completed 201105/29/2014 RECORDED 08/10/20 12 11:24AM BY ROMAN ABDULLAHI MA, HINA ON/ADDEN DUM Park Coburn PA-C [address], [place], [address], [facility] 6 12:46:06 Removal of suture Completed 201105/29/2014 RECORDED 08/10/20 12 11:24AM BY ROMAN ABDULLAHI MA, ANNOTATI ON/ADDEN DUM Parkmary Grovesden PA-C [address], [place], [address], [facility] 6 12:46:06 Abdomina l pain 30784463 Completed 201105/29/2014 IMPRESSI ON: PT WITH 40 [...] HINA ON/EDD VASILIY Park Coburn PA-C [address] [address], [place], [address], [facility] 6 12:46:06 Injury of head 10747581 Completed 201105/29/2014 IMPRESSI ON: PT SEEMS TO [...] ON/AUGUSTOBARBIE VASILIY CAMACHO-C [address], [place], [address], [facility] 6 12:46:06 Hearing loss 51158765 Completed 201105/29/2014 IMPRESSI ON: PT WITH INTERMIT TENT TINNITUS , HEARING LOSS AND VERTIGO FOLLOWIN G HEAD INJURY. SMALL AMT OF FLUID BEHIND TM ON EXAM. TO ENT FOR FURTHER EVAL.; RECORDED 08/10/20 12 11:24AM BY ROMAN ABDULLAHI MA, HINA ON/ADDEN DUM Parkmary Grovesden PA-C [address], [place], [address], [facility] 6 12:46:06 Pure hypergly ceridemi a 313889086 Completed 201105/29/2014 IMPRESSI ON: W/REPORT ED ELEVATED TRIGLYCE RIDES ON SCREEN FOR WORK. TO REPEAT FASTING. ; RECORDED 08/10/20 12 11:24AM BY ROMAN ABDULLAHI MA, ANNOTATI ON/ADDEN DUM Parksimone CAMACHO-C [address], [place], [address], [facility] 6 12:46:06 Benign neoplasm of skin 99279087 Completed 201105/29/2014 RECORDED 08/10/20 12 11:24AM BY ROMAN ABDULLAHI MA, ANNOTATI ON/ADDEN DUM Parksimone CAMACHO-C [address], [place], [address], [facility] 6 12:46:06 Knee pain Completed 201105/29/2014 IMPRESSI ON: POSSIBLE MENISCUS TEAR. SHE SEES HER RHEUM NEXT WEEK. IBUPROFE N, KNEE BRACE.; RECORDED 08/10/20 12 11:24AM BY ROMAN ABDULLAHI MA, ANNOTATI ON/ADDEN DUM Parksimone CAMACHO-C [address] [address], [place], [address], [facility] 6 12:46:06 Neck pain 12036188 Completed 201105/29/2014 IMPRESSI ON: R SIDED NECK AND SHOULDER PAIN PAST WEEK. 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 NOT RESPONDI NG TO NSAID, PT RESISTAN T TO TAKE OTHER MEDS. DISCUSSE D OPTIONS INCLUDIN G PAIN MEDICATI ON, PT, ORTHO EVAL FOR INJX. 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 WE WILL CONTACT THEM DIRECTLY TO SEE IF THEY ARE ABLE TO ACCOMMOD ATE HER URGENTLY . IN THE MEANTIME PROVIDED WITH TRIAL OF LOWER DOSE ATIVAN, CONTINUE W/REST, HEAT, MASSAGE AND NSAID; RECORDED 08/10/20 12 11:24AM BY ROMAN ABDULLAHI MA, HINA ON/ADDEN DUM Park [facility] [address], [place], [address], [facility] 6 12:46:06 Administ ration of tetanus vaccine Completed 201105/29/2014 RECORDED 08/10/20 12 11:24AM BY ROMAN ABDULLAHI MA, HINA ON/ADDEN DUM Park [facility] [address] [facility] [address], [place], [address], [facility] 6 12:46:06 Postconc ussion syndrome 80318488 Completed 201105/29/2014 RECORDED 08/10/20 12 11:24AM BY ROMAN ABDULLAHI MA, HINA ON/ADDBARBIE DUM Park [facility] [address] [facility] [address], [place], [address], [facility] 6 12:46:06 Shoulder joint pain 845751553 Completed 201105/29/2014 IMPRESSI ON: FOLLOWIN G FALL IN SUMMER 2010, FOLLOWED BY HER RHEUM PROVIDER WHO IS TXING FOR ROTATOR CUFF TENDONIT IS. TXING WITH INJECTIO NS. UPCOMING APPT WITH PSS (DR. MARTINEZ- GERALDINE ).; RECORDED 08/10/20 12 11:24AM BY ROMAN ABDULLAHI MA, ANNOTATI ON/[facility] [address] [facility] [address], [place], [address], [facility] 6 12:46:06 Acute pharyngi tis 595044021 Completed 201205/09/2014 RECORDED 10/26/19 13 8:30AM BY ROMAN ABDULLAHI MA, ANNOTATI ON/ADDEN DUM González larsen MA null, [facility] 7 14:25:16 Cough 10649553 Completed 201205/09/2014 RECORDED 10/26/19 13 8:30AM BY ROMAN ABDULLAHI MA, ANNOTATI ON/ADDEN DUM Park Coburn PA-C [address], [place], [address], [facility] 6 12:46:06 Disorder of upper respirat ory system Completed 201205/09/2014 RECORDED 10/26/19 13 8:30AM BY ROMAN ABDULLAHI MA, ANNOTATI ON/ADDEN DUM Park Coburn PA-C [address], [place], [address], [facility] 6 12:46:06 Acute pharyngi tis 523656228 Completed 201205/29/2014 RECORDED 10/26/19 13 8:30AM BY ROMAN ABDULLAHI MA, ANNOTATI ON/ADDEN DUM González Arnav larsen MA null, [facility] 7 14:25:16 Cough 27094800 Completed 201205/29/2014 RECORDED 10/26/19 13 8:30AM BY ROMAN ABDULLAHI MA, ANNOTATI ON/ADDEN DUM Park Coburn PA-C [address] [facility] [address], [place], [address], [facility] 6 12:46:06 Disorder of upper respirat ory system Completed 201205/29/2014 RECORDED 10/26/19 13 8:30AM BY ROMAN ABDULLAHI MA, ANNOTATI ON/ADDEN DUM Park Coburn PA-C [address], [place], [address], [facility] 6 12:46:06 Immuniza tion refused Completed 201205/09/2014 RECORDED 11/30/19 13 9:37AM BY ROMAN ABDULLAHI MA, ANNOTATI ON/ADDEN DUM Park Coburn PA-C [address], [place], [address], [facility] 6 12:46:06 Tobacco dependen ce syndrome 91626820 Completed 201205/09/2014 RECORDED 11/30/19 13 9:37AM BY ROMAN ABDULLAHI MA, ANNOTATI ON/ADDEN DUM Park Coburn PA-C [address], [place], [address], [facility] 6 12:46:06 Immuniza tion refused Completed 201205/29/2014 RECORDED 11/30/19 13 9:37AM BY ROMAN ABDULLAHI MA, YONATANATI ON/ADDEN DUM Park Coburn PA-C [address], [place], [address], [facility] 6 12:46:06 Tobacco dependen ce syndrome 86386595 Completed 201205/29/2014 RECORDED 11/30/19 13 9:37AM BY ROMAN ABDULLAHI MA, ANNOTATI ON/ADDEN DUM Park Coburn PA-C [address], [place], [address], [facility] 6 12:46:06 Flatulen ce, eructati on and gas pain 994406783 Completed 201205/09/2014 IMPRESSI ON: CHECK LABS, MAY DISCUSS BX WITH GI; RECORDED 12/13/19 13 9:24AM BY ROMAN ABDULLAHI MA, ANNOTATI ON/ADDEN DUM Park Coburn PA-C [address], [place], [address], [facility] 6 12:46:06 Adult health examinat ion Completed 201205/09/2014 IMPRESSI ON: HEALTHY VISIT. HAS LAB REQ FOR REPEAT LIPID PANEL WHICH SHE IS CURIOUS ABOUT, NEEDS TO GO FASTING. PLAN TO RETURN 1 YR FOR PE, SOONER PRN.; RECORDED 12/13/19 13 9:24AM BY ROMAN ABDULLAHI MA, HINA ON/ADDEN DUM Park Almas PA-C [address], [place], [address], [facility] 6 12:46:06 Flatulen ce, eructati on and gas pain 334165049 Completed 201205/29/2014 IMPRESSI ON: CHECK LABS, MAY DISCUSS BX WITH GI; RECORDED 12/13/19 13 9:24AM BY ROMAN ABDULLAHI MA, HINA ON/ADDEN DUM Park Almas CAMACHO-C [address] [facility] [address], [place], [address], [facility] 6 12:46:06 Blood coagulat ion disorder 59914703 Completed 201205/09/2014 STORY: PT WITH CONCERN RE [...] MA, HINA ON/ADDEN DUM Park CAMACHO-C [address] [facility] [address], [place], [address], [facility] 6 12:46:06 Blood coagulat ion disorder 94309783 Completed 201205/29/2014 STORY: PT WITH CONCERN RE [...] [address], [place], [address], [facility] 6 12:46:06 Patient status finding [id number] Completed 201205/09/2014 RECORDED 03/01/20 13 10:49AM BY NATALYA CA MA, YONATANATI ON/ADDEN DUM Park [facility]-C [address], [place], [address], [facility] 6 12:46:06 Stress 76201165 Completed 201205/09/2014 RECORDED 03/01/20 13 10:49AM BY NATALYA CA MA, HINA ON/EDD Nick Coburn PA-C [address], [place], [address], [facility] 6 12:46:06 Stress 64009103 Completed 201205/29/2014 RECORDED 03/01/20 13 10:49AM BY NATALYA CA MA, ANNOTATI ON/AUGUSTOEN VASILIY Nick Coburn ND-C [address], [place], [address], [facility] 6 12:46:06 Gastroes ophageal reflux disease 643318453 Active 2012 IMPRESSI ON: SXS X YRS. DISCUSSE D TRIGGERS , DIETARY MODIFICA TIONS THAT CAN BE MADE. ALSO PROVIDED W/PT EDU. START PPI X NEXT FEW MONTHS, MAY WANT TO THEN CHANGE TO HISTAMIN E KRISTIE. SEE BACK IN OCT FOR PE, SOONER PRN. REPRINTE D ORDER FOR LIPID PANEL PER HER REQ [facility], [facility] 0 09:10:10 Abnormal glucose toleranc e in mother complica ting pregnanc y, childbir th AND/OR puerperi 33204826 Completed 201205/09/2014 RECORDED 09/23/20 13 8:57AM BY GONZÁLEZ DESAI MA, ANNOTATI ON/ADDEN DUM Park Almas PA-C [address], [place], [address], [facility] 6 12:46:06 Hyperlip idemia 22407020 Active 2012 [facility] 0 09:10:10 Laborato ry procedur e performe d 408489722 Completed 201205/09/2014 RECORDED 09/23/20 13 8:58AM BY GONZÁLEZ DESAI MA, ANNOTATI ON/ADDEN DUM Park Almas PA-C [address], [place], [address], [facility] [facility] 6 12:46:06 Abnormal glucose toleranc e in mother complica ting pregnanc y, childbir th AND/OR puerperi 02891750 Completed 201205/29/2014 RECORDED 09/23/20 13 8:57AM BY GONZÁLEZ DESAI MA, ANNOTALYSSA ON/ADDEN DUM Park Almas PA-C [address], [place], [address], [facility] 6 12:46:06 Laborato ry procedur e performe d [id number] Completed 201205/29/2014 RECORDED 09/23/20 13 8:58AM BY GONZÁLEZ DESAI MA, HINA ON/ADDEN DUM Park Coburn PA-C [address], [place], [address], [facility] 6 12:46:06 Influenz a vaccine needed [id number] 06 Completed 201305/29/2014 RECORDED 03/14/20 14 9:28AM BY HINA MARQUEZ ON/ADDEN DUM Park Almas PA-C [address], [place], [address], [facility] 6 12:46:06 Risk of exposure to communic able disease 802002946 Completed 201305/29/2014 RECORDED 03/14/20 14 9:28AM BY HINA MARQUEZ/EDD Coburn PA-C [address], [place], [address], [facility] 6 12:46:06 Allergic rhinitis 69318362 Active 2013 [facility] 09:10:10 Exercise -induced asthma 02623220 Active 2013 Oragretchen medina [place] 0 09:10:10 Tobacco user 021137079 Completed 201311/24/2016 Removal Reason: quit González larsen MA null, [place] 7 14:26:48 History of infectio us disease 157158908 Completed 201308/07/2014 RECORDED 04/26/20 14 1:54PM BY GONZÁLEZ DESAI MA, OFFICE VISIT Park Coburn PA-C [address] [facility] [address], [place], [address], [facility] 6 12:46:06 Disorder of connecti ve tissue 831758481 Completed 201310/07/2020 STORY: [facility] Umesh Berry MD [address], [place], [address], [facility] 0 16:41:47 Congenit al pes planus 51185872 Active 2013 Ora medina [place] 0 09:10:10 Plantar fascial fibromat osis 80205441 Completed 201305/17/2018 Umesh Berry MD [address], [place], [address], [facility] 8 15:47:15 Temporom andibula r joint disorder 10706612 Active 2013 IMPRESSI ON: DISCUSSE D WARM COMPRESS ES, LOOKING INTO [address]OU[address], WHEN OFF PRED CAN USE NSAID PRN. FEELS THOUGH LARGE COMPONEN T OF SXS IS DUE TO INCREASE D STRESS LEVELS FROM RECENT ILLNESSE S, HAD TWO RECENT DEATHS. LORAZEPA M Q HS PRN OK, Ora Meggan medina, [place] 0 09:10:10 Varicose veins of lower extremit y 55557661 Active 2013 Ora Meggan medina [place] 0 09:10:10 Malaise and fatigue 767342683 Completed 201308/07/2014 RECORDED 04/26/20 14 2:39PM BY UMESH BERRY MD, OFFICE VISIT Park Coburn PA-C [address] [facility] [address], [place], [address], [facility] 6 12:46:06 Gastroes ophageal reflux disease 986658242 Completed 201305/29/2014 IMPRESSI ON: SXS X YRS. [...] BY UMESH BERRY MD, ANNOTATI ON/LATOYA Canseco, [place] 7 14:26:26 Hyperlip idemia 57135546 Completed 201305/29/2014 RECORDED 04/26/20 14 2:38PM BY UMESH BERRY MD, ANNOTATI ON/ADDLATOYA Hansen, [place] 7 14:25:47 Chronic sinusiti s 28847239 Completed 201305/29/2014 IMPRESSI ON: RESOLVIN G. FINISH AUGMENTI N. FLONASE AND CLARITIN -D CAN HELP; RECORDED 04/26/20 14 1:53PM BY GONZÁLEZ DESAI MA, ANNOTATI ON/ADDEN DUM Park CAMACHO- [address], [place], [address], [facility] 6 12:46:06 von W[address] disorder 427676245 Active 2013 Oragretchen medina, [place] 0 09:10:11 Ex-smoke r 7644906 Active 2016 Oragretchen medina, [place] 0 09:10:11 Rhabdomy olysis 844309668 Active 2017 Oragretchen medina, [place] 0 09:10:11 Benign paroxysm al position al vertigo 566450180 Active 2020 González larsen MA null, [place] 1 11:06:49 Clenchin g teeth 391236066 Active 2020 Park Coburn [facility] [address], [place], [address], [facility] 1 11:01:55 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 Procedures Surgical History Date Name Laterality Status Provider Name and Address Organization Details Recorded Time 10/05/20 19 Date of Last Pap Smear completed González wilcox MA [place] 09/20/2020 09:14:52 04/12/20 19 biopsy completed Sarah Finney [place] 04/15/2019 09:17:13 08/19/20 17 Debbie arthrs srg capsulorraphy completed González wilcox MA [place] 05/17/2018 15:19:04 10/19/19 17 Orthopedic Surgery completed González wilcox MA [place] 10/08/2020 14:20:31 10/19/19 14 Stab phleb veins xtr 10- completed González wilcox MA [place] 08/07/2014 14:34:15 05/19/20 13 Endometr ablate thermal completed González wilcox MA [place] 08/07/2014 14:34:15 10/19/19 11 Endometrial Ablation completed González wilcox MA [place] 10/08/2020 14:20:31 10/19/19 09 endometrial biopsy completed González wilcox MA [place] 11/19/2018 14:07:04 Imaging Results None recorded. Procedure Notes None recorded. Medical Equipment None Reported. Allergies Allergen ID Allergen Name Allergen Category Reaction Reaction Severity Criticality Documentation Date Start Date Code Code System Note Provider Name and Address Organization Details Recorded Time 19449 Substance with sulfonami de structure and antibacte rial mechanism of action (substanc e) medicatio n other mild Not available 07/31/2015 61412 8003 SNOMED thrus h NatalyaLATOYA Savage [place] 5 14:43:15 51347 codeine medicatio n Not available Not available Not available 01/23/2020 2670 RxNorm Ora Meggan medina [place] 0 14:46:21 Medications Name Sig Start Date [...] Available Not Available No t Available nystatin 963669 unit/ml susp active Not Available Not Available [...] mcg/spray (0.1 mL) nasal spray (non-refr igerated) [place] 2 sprays every day by nasal route [...] DateTime 11/01/2020 166.37 cm González Esquivel MA [place] 11/01/2020 13:13:28 Date Recorded Body height Provider Name an d Address Organization Details Last Updated DateTime 11/07/2020 166.37 cm [facility] 11/07/2020 11:05:31 Date Recorded Body height Provider Name an d Address Organization Details Last Updated DateTime 03/04/2021 166.37 cm Kenya Skinner [facility] 03/04/2021 09:58:56 Date Recorded Body height Provider Name an d Address Organization Details Last Updated DateTime 09/20/2020 166.37 cm González Esquivel [facility] 09/20/2020 09:12:30 Date Recorded Body height Body mass index (BMI) Body weight Oxygen saturation Heart rate Body temperature Systolic And Diastolic Provider Name and Address Organization Details Last Updated DateTime 0 166.37 cm 25.6 kg/m2 51600.4 1 g 98 % 86 /min 98.06 [degF] 116/74 mm[Hg] González larsen MA [facility] 0 14:28:03 Social History Question Answer Notes LastModified by Organizat ion Details LastModified Time Tobacco Smoking Status Former Smoker LATOYA Cast [facility] 11/24/2016 14:23:28 Do You Have An [...] Or Greater Than 100 Degrees Fahrenheit? No Information not available 08/13/2020 Are You Or Anyone In Your Household A Health Care Provider Or Emergency Responder? No Information not available 08/13/2020 To The Best Of Your Knowledge Have You Been In Close Proximity To Any Individual Who Tested Positive For COVID-19? 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 Never used electronic cigarettes Information not available 10/08/2020 What is your exercise level? None Information not available 10/08/2020 Mental Status None recorded. Family History Relationship Description Onset Age of this Age Resolved Age Notes LastModified by Organization Details LastModified Time Father Coronary arterioscler osis [email or web address] Not available 2019 14:12:52 Father Myocardial infarction Not available 10/08 14:12:52 Father Hypercholest erolemia [email or web address] Not available 07/01/2019 13:59:38 Mother Hypercholest erolemia [email or web address] Not available 10:49:31 Mother Autoimmune disease [email or web address] Not available 2019 14:12:52 Mother Essential hypertension 58 smoker and high sodium intake [email or web address] Not available 10/08/2020 14:12:52 Maternal Grandfather Type 2 diabetes mellitus deceas ed [email or web address] Not available 10/08/2020 14:12:52 Unspecified Relation Type 2 diabetes mellitus patern al side; not from obesit y [email or web address] Not available 10/08/2020 14:12:53 Maternal Grandmother Essential hypertension [email or web address] Not available 14:12:53 Medical History Condition Response [...] 02:22:07 Tdap 10/08/20 20 completed LATOYA Ha [place] 10/08/2020 14:33:45 DTaP 11/12/18 83 completed Ora Money null, [place] 01/24/2020 09:10:02 DTaP 01/14/19 82 completed Ora Money null, [place] 01/24/2020 09:10:02 DTaP 03/07/19 82 completed Ora Money null, [place] 01/24/2020 09:10:02 MMR 12/17/18 83 completed Ora Money null, [place] 01/24/2020 09:10:02 IPV 06/20/19 83 completed Ora Money null, [place] 01/24/2020 09:10:02 DTaP 06/20/19 83 completed Ora Money null, [place] 01/24/2020 09:10:02 IPV 08/23/19 86 completed Ora Money null, [place] 01/24/2020 09:10:02 IPV 04/24/19 87 completed Ora Money null, [place] 01/24/2020 09:10:02 DTaP 04/24/19 87 completed Oar Money null, [place] 01/24/2020 09:10:02 MMR 04/25/19 97 completed Ora Money null, [place] 01/24/2020 09:10:02 Td (adult), 2 Lf tetanus toxoid, preservative free, adsorbed 04/25/19 97 completed Ora Money null, [place] 01/24/2020 09:10:02 Hep B, adult 06/10/20 00 completed Ora Money null, [place] 01/24/2020 09:10:02 Hep B, adult 07/15/20 00 completed Ora Money null, [place] 01/24/2020 09:10:02 Hep B, adult 08/09/20 07 completed Ora Money null, [place] 01/24/2020 09:10:02 Influenza, split virus, trivalent, preservative 08/29/20 11 completed Ora Money null, [facility] 01/24/2020 09:10:02 Influenza, split virus, trivalent, preservative 09/23/20 13 completed Ora Money null, [facility] 01/24/2020 09:10:02 Tdap 01/26/20 10 completed Oragretchen Broderick null, [facility] 01/24/2020 09:10:02 Past Encounters Encounter ID Performer Location Encounter Start Date Encounter Closed Date Diagnosis/Indication Diagnosis SNOMED-CT Code Diagnosis ICD10 Code Diagnosis IMO Codes Diagnosis Note [id number] autoEComm erce [address] [facility] [place] [address] 08/09/2007 00:00:00 [id number] autoEComm erce [address] [facility],[address] [place] [address] 01/10/2008 00:00:00 [id number] autoEComm erce [address] [facility],[address] [place] [address] 05/11/2008 00:00:00 [id number] autoEComm erce [address] [facility],[address] [place] [address] 07/16/2009 00:00:00 [id number] autoEComm erce [address] [facility],[address] [place] [address] 01/22/2010 00:00:00 [id number] autoEComm erce [address] [facility],[address] [place] [address] 01/25/2010 00:00:00 [id number] autoEComm erce [address] [facility],[address] [place] [address] 04/01/2011 00:00:00 [id number] autoEComm erce [address] [facility] [address] [place] [address] 04/04/2011 00:00:00 [id number] autoEComm erce [address] [facility],[address] [place] [address] 04/29/2011 00:00:00 [id number] autoEComm erce [address] [place] [address] 08/29/2011 00:00:00 [id number] autoEComm erce [address] [place] [address] 10/23/2011 00:00:00 [id number] autoEComm erce [address] [place] [address] 11/17/2011 00:00:00 [id number] autoEComm erce [address] [place] [address] 03/12/2012 00:00:00 [id number] autoEComm erce [address] [facility] [address] [place] [address] 03/23/2012 00:00:00 [id number] autoEComm erce [address] [facility],[address] [place] [address] 05/31/2012 00:00:00 [id number] autoEComm erce [address] [facility],[address] [place] [address] 08/10/2012 00:00:00 [id number] autoEComm erce [address] [facility],[address] [place] [address] 09/30/2012 00:00:00 [id number] autoEComm erce [address] [facility],[address] [place] [address] 11/04/2012 00:00:00 [id number] autoEComm erce [address] [facility],[address] [place] [address] 11/30/2012 00:00:00 [id number] autoEComm erce [address] [facility],[address] [place] [address] 12/13/2012 00:00:00 [id number] autoEComm erce [address] [place] [address] 01/11/2013 00:00:00 [id number] autoEComm erce [address] [facility],[address] [place] [address] 03/01/2013 00:00:00 [id number] autoEComm erce [address] [facility] [place], [place] [address] 09/23/2013 00:00:00 [id number] autoEComm p[address]itoe [address] [place] [address],[address] [place], [place] [address] 03/14/2014 00:00:00 [id number] autoEComm p[address]itoe [address] [place] [address],[address] [place], [place] [address] 03/24/2014 00:00:00 [id number] autoEComm p[place]itoe [address] [place] [address],[address] [place], [place] [address] 04/26/2014 00:00:00 [id number] Umesh Berry MD Main Office [address] [place] [address] [place] [address] 08/07/2014 14:29:46 08/07/2014 15:29:30 Increased frequency of urination [id number] ? IC [id number] NUPUR Ruiz Main Office [address] [place] [address] [place] [address] 11/17/2014 11:43:01 11/17/2014 12:24:46 Gastroesophageal reflux disease 960909655 Recommend PPI trial Abnormal weight gain 863298776 [id number] Umesh Berry MD Main Office [address] [place] [address] [place] [address] 06/21/2015 11:35:42 06/21/2015 12:35:22 Diarrhea 42681996 [id number] NUPUR Campos Main Office [address] [place] [address] [place] [address] 07/31/2015 14:30:40 07/31/2015 15:10:26 Candidiasis of mouth 89130206 B37.9 Will treat with nystatin, this may be a reaction from her autoimmune disease, she is aware and will try to avoid triggers, resume her clean eating and exercise which usually helps to control her symptoms. [id number] Umesh Berry MD Main Office [address] [address] [place] [address] 11/12/2015 10:43:36 11/12/2015 12:08:56 Exercise-induced asthma 69770006 J45.990 Polycystic ovaries 83019 008 E28.2 Fatigue 26695642 R53.83 [id number] Parkmary Coburn PA-C Main Office [address] [address] [place] [address] 12/12/2015 10:38:49 12/12/2015 11:24:37 Acute pharyngitis 044284446 J02.9 Rapid strep test is negative. Viral disease 04758681 B 34.9 Viral infection with hyperreact amanda airways. Start CHerutussi n AC for cough. ProAir HFA inhaler PRN for wheezing. Rest , fluids. Wheezing 46098451 R06.2 Medrol dose pack as directed for 6 days and ProAir HFA PRN. [id number] Umesh Berry MD Main Office [address] [address] [place] [address] 12/24/2015 11:25:01 12/24/2015 12:36:41 Chronic cough 46563380 R05 Pain in calf 418948598 M 79.669 [id number] Doug Henson MD Main Office [address] [address] [place] [address] 07/21/2016 13:14:55 07/21/2016 14:01:00 Injury of nose 39302717 S09.92XA Does not appears crooked and is able to breath. Will get an xray to look for a fracture. Instructed her to leave the lot alone. [id number] Doug Henson MD Main Office [address] [address] [place] [address] 10/23/2016 09:58:16 10/23/2016 10:42:32 Pain of shoulder region 45730717 M25.511 I advised her to take naprosyn twice a day for a week to help with any inflammati on. She will make her own PT appointmen t and will call here for a referral to [facility] or ortho if the pain persists. [id number] Umesh Berry MD Main Office [address] [address] [place] [address] 11/24/2016 14:15:38 11/24/2016 15:23:48 Pain of acromioclavicular joint 655956380 M25.511 [id number] Jose rao MD Main Office [address] [place] [address] 04/25/2017 09:35:01 04/25/2017 10:27:56 Acute pharyngitis 670819156 J02.9 Axillary lymphadenopathy 105177647 R59.0 [id number] Umesh Berry MD Main Office [address] [place] [address] 06/24/2017 12:52:43 06/24/2017 14:06:25 Immunization refused 750300363 Z28.21 Upper abdominal pain 831 68162 R10.10 [id number] Cheri martinez MD Main Office [address] [place] [address] 12/16/2017 12:38:34 12/16/2017 13:24:39 Anxiety 83205466 F41.9 panic attacks, baseline anxiety is up, will check thyroid, refill lorazepam for as needed bu knows to use sparingly, I recc pt start a daily SSRI, zoloft would be a good med, she will do some counseling here and think about it, may call for med Panic attack 761868584 F 41.0 see above Exercise-i nduced asthma 76704521 J45.990 [id number] Wayne Coburn PA-C Main Office [address] [address] [place] [address] 04/20/2018 10:47:06 04/20/2018 12:03:23 Rhabdomyolysis 026680094 M62.82 [place] [facility] [place] went to [place] - rec'd prolonged ivf, is drinking plenty of water nowcpk order ending - will get p this ovadvised pt to avoid crossfit unless significan tly modifies her routine (not as intense as she did last week) Systemic l upus erythematosus 86029618 M32.9 cont pred taper as dir - will f/u c rheum for further input - has pending f/u c rheum later today Hypokalemia 77324290 E87 .6 most likely d/t prolonged ivf - will recheck Costal chondritis 377581 04 M94.0 mild, no h/o overhead lifing but did do intense crossfit routine - rec warm compress prn [id number] Umesh Berry MD Main Office [address] [address] [place] [address] 05/17/2018 15:12:42 05/17/2018 16:27:07 Adult health examination 853217018 Z00.00 Undifferen tiated connective tissue disease 120807276 M35.1 Followed by Rheum [place] Non-trauma tic rhabdomyolysis 144840505 M62.82 Gastroesop hageal reflux disease without esophagitis 787571230 K21.9 Disorder o f connective tissue 290715453 M35.9 Followed by rheum. [id number] Umesh Berry MD Main Office [address] [address] [place] [address] 11/19/2018 13:46:50 11/19/2018 14:57:29 Glossitis 79708303 K14.0 Vitamin B1 2 deficiency (non anemic) 50311007 E53.8 [id number] Cheri martinez MD Main Office [address] [address] [place] [address] 01/10/2019 14:59:28 01/11/2019 14:43:42 [id number] Cheri martinez MD Main Office [address] [address] [place] [address] 01/14/2019 09:52:09 01/14/2019 11:23:27 Exertional rhabdomyolysis 66757060 M62.[address] Berry. He has called Dr Dago Truong and he agrees to see pt to evaluate for muscle biopsy. He recommends we do metabolic workup. Will do labs and have pt see rheumatolo gy as planned. In the interim, do not so any intense exercise, keep hydrated, keep normal activity level and eating. Liver enzy mes level above reference range 406403201 R74.8 check LFTS [id number] Umesh Berry MD Main Office [address] [address] [place] [address] 03/11/2019 11:20:17 03/11/2019 12:03:21 Acute pharyngitis 669366548 J02.9 Rapid strep test is negative.P t. exposed to strep through her son. Will start Abx and if strep is not confirmed , will discontinu e. [id number] Travis Reyna MD Main Office [address] [address] [place] [address] 03/17/2019 15:35:23 03/17/2019 16:41:11 Nasal congestion 59223155 R09.81 Acute sinusitis 51016935 J01.90 rec afrin x 3 days, then use sudafed prn, cont kefir, take abx as dir, rec saline and warm washcloth prn pt requested diflucan just in case [id number] Travis Reyna MD Main Office [address] [address] [place] [address] 03/31/2019 14:29:05 03/31/2019 15:27:13 Persistent cough 503485949 R05 Likely inflammed airways, will try ICS and prn beta agonist. Start flonase and steam. Stop all 5-7 days before muscle biopsy. To call if not improving. CXR if persistent . [id number] Umesh Berry MD Main Office [address] [address] [place] [address] 07/01/2019 13:42:50 07/01/2019 14:53:09 Adult health examination 162309413 Z00.00 Anxiety 30932258 F41.9 Undifferen tiated connective tissue disease 073036054 M35.1 Followed by Rhe[place] Exercise-i nduced asthma 28532756 J45.990 continue use of ProAir before exercise Gastroesop hageal reflux disease 353515024 K21.9 Inflammati on of sacroiliac joint 91207710 M46.1 [id number] Doug Henson MD Main Office [address] [address] [place] [address] 10/17/2019 11:24:46 10/17/2019 12:08:30 Fever 604478280 R50.9 rapid negative, patient symptomati c, will tx for flu like sx. hydration, rest, tyelnol or ibuprofen as needed Persistent cough 6731621 02 R05 Influenza- like symptoms 385800200 R68.89 tamiflu bid x 5 days, anitviral, will not help with sx but shorten the duration of illness. [id number] Travis Reyna MD Main Office [address] [facility] [address] [place] [address] 11/02/2019 15:28:13 11/02/2019 17:00:35 Chest pain 91549808 R07.9 Likely musculoske letal pain with very localized tenderness and no palpable abnormalit y. Will try salonpas patch on 12 h then off 12 h. If not better would do Ultrasound and consider dx mammogram. CXR and rib xray now. Can use nsaids if needed as well. Chest wall pain 73238737 6 R07.89 [id number] Travis Reyna MD Main Office [address] [facility] [address] [place] [address] 12/26/2019 09:22:59 12/26/2019 10:17:58 Muscle pain 36449176 M79.10 pt is seeing neurologis t for EMG upcoming, will discuss recurrent elevated CK with rheumatolo gist to see who we might refer to for muscle pain that is intermitte nt but ongoing associated wtih CK elevation. Right uppe r quadrant pain 140986590 R10.11 check ultrasound , r/o gallstones [id number] Eliezer Booker MD Main Office [address] [address] [place] [address] 08/13/2020 13:23:42 08/13/2020 14:22:36 Intermittent palpitations 728572660 R00.2 -EKG done NSR in 70's-Will check [...] Patient denies any anxiety, depression , SI/HI. [id number] Doug Henson MD Telehealt [address] [facility] [address] [place] [address] 09/20/2020 08:54:38 09/20/2020 10:16:59 Strain of abdominal muscle 348300994 S39.011A MRI from December reviewed, abdominal wall unremarkab le. no hernia was een at that time. She does note it feels muscular. will take iburpofen 800mg TID with food and flexeril at bedtime for 3-5 days to see if she gets relief from this. May use heat to area, recommend core strengthen ing. 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 Will tx for bPPV with meclizine. instructed to start with 12.5mg and increase if needed. hydration, rest. Also feels ears are full, will start flonase daily as needed x 5 days. [id number] Doug Henson MD [facility] [address] [address] [place] A[place] [id number] 11/07/2020 08:57:20 11/07/2020 11:51:27 Benign paroxysmal positional vertigo [id number] H81.10 Meclizine and flonase have not been helpful, she did try PT [facility] and with PT and both time her sx significan tly worsened the next day. she does not wish to get back at this time. Will refer to ENT, get kabs and CT scan. Will also test for COVID. Exposure t o viral disease [id number] Z03.818 quarantine until results back. Dizziness [id number] R42 [id number] Park Coburn PA-C [facility] [address] [facility] [address] [facility] [place] [id number] 03/04/2021 08:39:09 03/04/2021 12:50:53 Temporomandibular bgzeu-vcbu-dnegtquwqv n syndrome [id number] M26.629 TMJ secondary to tooth clenching at night resulting in neck and upper back muscle spasms , headache relieved by botox injections . We will explore this treatment through the neurology office . Pt. will continue use of mouth guards. Clenching teeth [id number] R46.89 Neck pain [id number] M54.2 Health Concerns Section Related Observation LastModified by Organization Detai ls LastModified Time None Recorded Concern Status LastModified by Organization Details LastModified Time None Recorded Advance Directives Directive N: Payers Insurance Date Sequence Insurance Name Policy Number Policy Ortiz Covered Member ID Ortiz Member ID Guarantor Name 03/04/2021 1 [facility] (PPO) [id number] Nader Zapata [id number] Selin Monterozeszutek 06/27/2015 1 [facility] - MEDICAID ESSENTIAL (MEDICAID HMO) [id number] Selin Cardoso [id number] Selin Manzutek 06/27/2015 1 [facility] - HEALTH NET PLAN (MEDICAID HMO) [id number] Selin Cardoso [id number] Selin Monterozeszutek 06/27/2015 1 [place] [facility] Selin Cardoso [id number] Selin Zapata Notes Date Note Type Note [...] when she was exercising. NUPUR Campos [address] [facility] [address], [place], [id number], [facility] 09/20/2020 10:03:10 10/08/2020 text/html Here for PE visit. Reviewed chronic medications and medical problems. Discussed screening guidelines as well as goals for fitness and weight management. Underlying poorly defined CTD has been followed by specialty rheumatology. No specific treatment chronically, but has recently restarted low dose prednisone. 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 Umesh Berry MD [address] [facility] [address] [facility] [address], [place], [phone], [facility] 10/10/2020 08:37:49 11/01/2020 text/html Generic HPI [...] dull headache, has been constant, no n/v/d. Louisa good enough to exercise that night, laid on her bench and had immediate spinning again. Louisa like the floor was crooked, like she was off balance. She has also noticed when she is in bed, her ears feel full- no cracking or popping. No congestion, no sore throat, no runny nose or PND. She did have a COVID test yesterday that was negative- was a pcr test at [facility]. [facility] [address] [place] [address], [id number], [facility] 11/01/2020 13:40:31 11/07/2020 text/html Generic HPI TemplateReported [...] dull headache, has been constant, no n/v/d. Louisa good enough to exercise that night, laid on her bench and had immediate spinning again. Louisa like the floor was crooked, like she [...] side feels deaf then resolves. Aissatou medina [facility] [place] 11/07/2020 12:42:29 03/04/2021 text/html ROS as [...] is high out of pocket. Aissatou medina [facility] [place] 03/07/2021 10:51:05 OBGyn Episode No OBEpisode recorded.
[2025-10-04 11:21] LABS: MANUAL DIFF FLAG NO
[2025-10-04 11:38] LABS: Hematocrit 43.5 % (37.0-47.0); Hemoglobin 14.4 g/dl (12.0-16.0); Imm Gran Abs Auto 0.01 X10*3/uL (0.00-0.03); Imm Gran Pct Auto 0.2 % (0.0-0.4); Lymphocytes Absolute Auto 1.9 X10*3/uL (1.2-4.9); Mean Corpuscular HGB Conc 33.1 g/dl (31.0-35.0); Mean Corpuscular Hemoglobin 29.3 pg (27.0-33.0); Mean Corpuscular Volume 88.4 fL (80.0-98.0); NRBC Abs Auto 0.000 X10*3/uL (0.0-0.012); NRBC Pct Auto 0.0 /100WBC (0.0-0.2); Platelet Count 248 X10*3/uL (160-400); Red Blood Count 4.92 X10*6/uL (4.20-5.50); White Blood Count 4.5 X10*3/uL (4.8-10.8)
[2025-10-04 12:07] LABS: Alanine Aminotransferase 13 U/L (0-31); Albumin Level 4.7 g/dL (3.5-5.0); Anion Gap 10 (12-20); Aspartate Amino Transferase 22 U/L (5-31); Blood Urea Nitrogen 14 mg/dL (9-16); Calcium 9.4 mg/dL (8.4-10.2); Carbon Dioxide 26 mmol/L (22-29); Chloride 108 mmol/L (96-108); Cholesterol 172 mg/dL (<200); Estimated Glomerular Filt Rate > 60; HDL Cholesterol 51 mg/dL (>40); Potassium 4.5 mmol/L (3.3-5.1); Sodium 139 mmol/L (135-145); Total Protein 7.0 g/dL (6.5-8.0); Triglycerides 61 mg/dL (<150)
[2025-10-04 12:08] LABS: Alkaline Phosphatase 49 U/L (39-117)
== END 2025-10-04 08:06 | disposition home or self-care (01) ==
LOC: HO.WFDLDS 08:05
PROVIDERS: PCP Physician Assistant; Visit Provider Physician Assistant
DX: Z00.00 Encounter for general adult medical examination without abnormal findings (principal); R73.01 Impaired fasting glucose; E23.7 Disorder of pituitary gland, unspecified; K21.9 Gastro-esophageal reflux disease without esophagitis
CPT/HCPCS: 36415; 80053; 80061; 83036; 84443; 85025; 96127